=== PATIENT | male | born 1940 | race Caucasian/White ===

== ENCOUNTER 2018-06-13 17:15 | Inpatient (IN) | payer MEDICARE, BC, OTHER ==
[2018-06-13] MEDS ORDERED: CA CHLORIDE 10% 10 ML SYRINGE (17:24)
[2018-06-13] MEDS: ASPIRIN 81 MG TAB PO (17:29)
[2018-06-13 17:33] LABS: ADD MAN DIFF? NO
[2018-06-13] MEDS ORDERED: CA GLUCONATE (GM) 10% 10ML INJ (17:35)
[2018-06-13 17:36] LABS: WHITE BLOOD COUNT 19.2 10^3/ul (4.8-10.8)
[2018-06-13 17:36] LABS: ABNORMAL IP MESSAGE 1; BASOPHIL # 0.1 10^3/ul (0.0-0.1); BASOPHILS % 0.5 % (0.0-2.0); EOSINOPHILS # 0.2 10^3/ul (0.0-0.5); HEMATOCRIT 35.9 % (42.0-52.0); HEMOGLOBIN 11.2 g/dl (14.0-18.0); LYMPHOCYTES # 1.1 10^3/ul (0.8-2.9); LYMPHOCYTES % 5.5 % (15.0-51.0); MEAN CORPUSCULAR HEMOGLOBIN 30.4 pg (29.0-33.0); MEAN CORPUSCULAR HGB CONC 31.2 g/dl (32.0-37.0); MEAN CORPUSCULAR VOLUME 97.3 fl (82.0-101.0); MEAN PLATELET VOLUME 12.6 fl (7.4-10.4); MONOCYTE # 0.2 10^3/ul (0.3-0.9); NEUTROPHIL # 16.1 10^3/ul (1.6-7.5); NEUTROPHILS % 83.8 % (39.0-77.0); PLATELET COUNT 236 10^3/UL (140-415); POSITIVE DIFF @See below; RED BLOOD COUNT 3.69 10^6/ul (4.70-6.10); RED CELL DISTRIBUTION WIDTH 14.1 % (11.5-14.5)
[2018-06-13] MEDS: CA CHLORIDE 10% 10 ML SYRINGE IV (17:38)
[2018-06-13] MEDS: FUROSEMIDE 40 MG INJ IV (17:38)
[2018-06-13 17:56] LABS: ALANINE AMINOTRANSFERASE 26 IU/L (13-69); ALBUMIN 4.6 g/dl (3.3-4.9); ALBUMIN/GLOBULIN RATIO 1.43; ALKALINE PHOSPHATASE 103 IU/L (42-121); ANION GAP 17 (5-13); ASPARTATE AMINO TRANSFERASE 42 IU/L (15-46); BILIRUBIN,INDIRECT 1.4 mg/dl (0-1.1); BILIRUBIN,TOTAL 1.4 mg/dl (0.2-1.3); BLOOD UREA NITROGEN 62 mg/dl (7-20); CALCIUM 9.2 mg/dl (8.4-10.2); CARBON DIOXIDE 25 mmol/L (21-31); CHLORIDE 96 mmol/L (97-110); GLUCOSE 218 mg/dl (70-220); LIPASE 164 U/L (23-300); SODIUM 138 mmol/L (135-144); TOTAL PROTEIN 7.8 g/dl (6.1-8.1)
[2018-06-13 18:07] LABS: TROPONIN-I 0.116 ng/ml (0.000-0.120)
[2018-06-13] MEDS: CEFTRIAXONE 1 GM/50 ML (PMX) 50 ML IVPB (18:22)
[2018-06-13 18:40] LABS: ADD UMIC YES; UR ASCORBIC ACID 40 mg/dL (NEGATIVE); UR BILIRUBIN (Dip) NEGATIVE (NEGATIVE); UR BLOOD (Dip) 1+ mg/dL (NEGATIVE); UR CLARITY SLIGHTLY CLOUDY (CLEAR); UR COLOR YELLOW (YELLOW); UR GLUCOSE (Dip) 1+ mg/dL (NEGATIVE); UR KETONES (Dip) NEGATIVE (NEGATIVE); UR LEUKOCYTE ESTERASE (Dip) NEGATIVE Leu/ul (NEGATIVE); UR NITRITE (Dip) NEGATIVE (NEGATIVE); UR RBC 31 /HPF (0-5); UR SPECIFIC GRAVITY (Dip) 1.015 (1.003-1.030); UR SQUAMOUS EPITHELIAL CELL FEW /HPF (FEW); UR TOTAL PROTEIN (Dip) 2+ mg/dl (NEGATIVE); UR UROBILINOGEN (Dip) NEGATIVE (NEGATIVE); UR WBC 4 /HPF (0-5)
[2018-06-13] MEDS: ENALAPRILAT 1.25 MG INJ IV (19:09)
[2018-06-13 19:11] LABS: BAND NEUTROPHILS #M 1.3 10^3/ul (0.0-0.6); BAND NEUTROPHILS % (M) 7 % (0-4); BURR CELLS 2+ (0-0); EOSINOPHILS % (M) 1 % (0-7); LYMPHOCYTES #M 1.5 10^3/ul (0.8-2.9); LYMPHOCYTES % (M) 8 % (15-51); MONOCYTE #M 0.5 10^3/ul (0.3-0.9); MONOCYTES % (M) 3 % (0-11); MYELOCYTES #M 0.3 10^3/ul (0.0-0.0); MYELOCYTES % (M) 2 % (0-0); PLATELET ESTIMATE NORMAL; POIKILOCYTOSIS 2+ (0-0); POLYCHROMASIA 1+ (0-0); REACTIVE LYMPHOCYTES #M 0.1 10^3/ul (0.0-0.0); REACTIVE LYMPHOCYTES% (M) 1 % (0-0); SEG NEUT #M 15.2 10^3/ul (1.6-7.5); SEGMENTED NEUTROPHILS (M) % 78 % (39-77); SMUDGE%M 1 % (0-0)
[2018-06-13] MEDS: IBUPROFEN 600 MG TAB PO (19:15)
[2018-06-13] MEDS: AZITHROMYCIN 500MG/NS (PMX) 250 ML IVPB (19:20)
[2018-06-13] MEDS ORDERED: ZOLPIDEM 5 MG TAB PO (19:30)
[2018-06-13] MEDS ORDERED: NACL 0.9% 3 ML SYG IV (19:30)
[2018-06-13] MEDS ORDERED: GLUCOSE GEL 15 GRAM TUBE BUCCAL (20:00)
[2018-06-13] MEDS ORDERED: DEXTROSE 50% 50 ML SYRINGE IV ×2 (20:00)
[2018-06-13] MEDS ORDERED: LORAZEPAM 0.5 MG TAB PO (20:00)
[2018-06-13] MEDS ORDERED: GLUCAGON 1 MG INJ IM (20:00)
[2018-06-13] MEDS: LOSARTAN 25 MG TAB PO (20:00)
[2018-06-13] MEDS ORDERED: GLUCOSE GEL 15 GRAM TUBE PO ×2 (20:00)
[2018-06-13 20:54] LABS: AADO2 Arterial 143.5 mmHg (7.0-24.0); Arterial Blood Gas Oxygen Sat 98.2 mmHG (95.0-100.0); Arterial COHb 0.3 % (0.0-3.0); Arterial Fraction of Oxyhgb 97.6 % (93.0-99.0); Arterial HCO3 25.2 mmol/L (22.0-26.0); Arterial MetHb 0.3 % (0.0-1.5); Arterial Total Hemglobin 10.5 g/dl (12.0-18.0); Arterial pCO2 38.5 mmhg (35-45); MODE MASK - SIMPLE; Site Right Brachial
[2018-06-13 22:58] LABS: TROPONIN-I 0.109 ng/ml (0.000-0.120)
[2018-06-13] MEDS ORDERED: HEPARIN 5,000 UNIT/0.5 ML VIAL (23:51)
[2018-06-14] MEDS: ATORVASTATIN 20 MG TAB PO ×2 (00:10→20:37)
[2018-06-14] MEDS: GABAPENTIN 100 MG CAP PO ×3 (00:10→20:37)
[2018-06-14] MEDS: HEPARIN 5,000 UNIT/1 ML VIAL SC ×3 (00:13→21:49)
[2018-06-14] MEDS: INSULIN GLARGINE [LANTus] (100 UNITS/ML) SYG SC ×2 (00:14→21:48)
[2018-06-14] MEDS: HYDROCODONE/APAP (5/325) TAB PO (00:20)
[2018-06-14] MEDS: AMIODARONE 150MG/D5W BOLUS 100 ML IV (01:10)
[2018-06-14] MEDS: ACCU-CHEK XX (02:00)
[2018-06-14] MEDS: SOD CHLORIDE 0.9% 250 ML IV ×2 (02:24→04:03)
[2018-06-14] MEDS: HEPARIN 1000 UNITS/ML 10 ML INJ IV ×2 (03:30→05:08)
[2018-06-14] MEDS: SOD CHLORIDE 0.9% 500 ML IV (03:38)
[2018-06-14 04:06] LABS: ADD MAN DIFF? NO
[2018-06-14 04:25] LABS: HEPATITIS B SURFACE ANTIGEN NEGATIVE (NEGATIVE)
[2018-06-14 04:27] LABS: INR 1.44; PROTIME 17.8 Sec (11.9-14.9); PT RATIO 1.4
[2018-06-14 04:28] LABS: HEMOGLOBIN A1C 8.9 % (0-5.9)
[2018-06-14 04:28] LABS: PARTIAL THROMBOPLASTIN TIME 36.2 Sec (23.0-35.0)
[2018-06-14 04:29] LABS: IRON 11 ug/dl (35-150)
[2018-06-14 04:29] LABS: MAGNESIUM 2.3 mg/dl (1.7-2.5)
[2018-06-14 04:35] LABS: ALANINE AMINOTRANSFERASE 32 IU/L (13-69); ALBUMIN 3.2 g/dl (3.3-4.9); ALBUMIN/GLOBULIN RATIO 1.77; ALKALINE PHOSPHATASE 51 IU/L (42-121); ANION GAP 15 (5-13); ASPARTATE AMINO TRANSFERASE 20 IU/L (15-46); BILIRUBIN,INDIRECT 0.4 mg/dl (0-1.1); BILIRUBIN,TOTAL 0.4 mg/dl (0.2-1.3); BLOOD UREA NITROGEN 68 mg/dl (7-20); CALCIUM 8.5 mg/dl (8.4-10.2); CARBON DIOXIDE 24 mmol/L (21-31); CHLORIDE 100 mmol/L (97-110); CREATININE 7.11 mg/dl (0.61-1.24); GLUCOSE 243 mg/dl (70-220); PHOSPHORUS 7.2 mg/dl (2.5-4.9); POTASSIUM 4.7 mmol/L (3.5-5.1); SODIUM 139 mmol/L (135-144)
[2018-06-14 04:39] LABS: % IRON SATURATION 6 % SAT (22-52); TOTAL IRON BINDING CAPACITY 179 ug/dl (241-421)
[2018-06-14] MEDS: HEPARIN 25000 UNITS/250 ML 250 ML IV (05:16)
[2018-06-14] MEDS: PANTOPRAZOLE 40 MG INJ IV (05:33)
[2018-06-14 06:50] LABS: WHITE BLOOD COUNT 12.3 10^3/ul (4.8-10.8)
[2018-06-14 06:50] LABS: BASOPHIL # 0.1 10^3/ul (0.0-0.1); BASOPHILS % 0.4 % (0.0-2.0); EOSINOPHILS # 0.1 10^3/ul (0.0-0.5); EOSINOPHILS % 0.7 % (0.0-7.0); HEMATOCRIT 25.3 % (42.0-52.0); LYMPHOCYTES # 1.4 10^3/ul (0.8-2.9); LYMPHOCYTES % 11.7 % (15.0-51.0); MEAN CORPUSCULAR HEMOGLOBIN 30.8 pg (29.0-33.0); MEAN CORPUSCULAR HGB CONC 31.6 g/dl (32.0-37.0); MEAN CORPUSCULAR VOLUME 97.3 fl (82.0-101.0); MEAN PLATELET VOLUME 12.2 fl (7.4-10.4); MONOCYTE # 1.3 10^3/ul (0.3-0.9); MONOCYTES % 10.7 % (0.0-11.0); NEUTROPHILS % 73.4 % (39.0-77.0); PLATELET COUNT 165 10^3/UL (140-415)
[2018-06-14 07:16] LABS: ADD MAN DIFF? NO
[2018-06-14 07:33] LABS: WHITE BLOOD COUNT 11.6 10^3/ul (4.8-10.8)
[2018-06-14 07:33] LABS: BASOPHIL # 0.1 10^3/ul (0.0-0.1); BASOPHILS % 0.7 % (0.0-2.0); EOSINOPHILS # 0.2 10^3/ul (0.0-0.5); EOSINOPHILS % 2.1 % (0.0-7.0); HEMATOCRIT 26.9 % (42.0-52.0); HEMOGLOBIN 8.4 g/dl (14.0-18.0); LYMPHOCYTES # 1.6 10^3/ul (0.8-2.9); LYMPHOCYTES % 13.7 % (15.0-51.0); MEAN CORPUSCULAR HEMOGLOBIN 30.2 pg (29.0-33.0); MEAN CORPUSCULAR HGB CONC 31.2 g/dl (32.0-37.0); MEAN CORPUSCULAR VOLUME 96.8 fl (82.0-101.0); MEAN PLATELET VOLUME 12.3 fl (7.4-10.4); MONOCYTE # 1.1 10^3/ul (0.3-0.9); MONOCYTES % 9.3 % (0.0-11.0); NEUTROPHIL # 8.2 10^3/ul (1.6-7.5); NEUTROPHILS % 70.5 % (39.0-77.0); PLATELET COUNT 166 10^3/UL (140-415); RED BLOOD COUNT 2.78 10^6/ul (4.70-6.10)
[2018-06-14] MEDS: METOPROLOL 25 MG TAB PO ×2 (09:00→20:39)
[2018-06-14] MEDS: LOSARTAN 25 MG TAB PO (09:00)
[2018-06-14] MEDS: INSULIN ASPART [NOVOLOG] 3 ML PEN SC ×3 (09:22→19:11)
[2018-06-14] MEDS: MULTIVIT/CA CARB/B CMPLX/FA TAB PO (09:23)
[2018-06-14] MEDS: ASPIRIN 81 MG TAB PO (09:23)
[2018-06-14] MEDS: FEBUXOSTAT 40 MG TABLET PO (11:16)
[2018-06-14] MEDS: CALCITRIOL 0.25 MCG CAP PO (11:16)
[2018-06-14] MEDS: PRASUGREL HYDROCHLORIDE 10 MG TABLET PO (11:16)
[2018-06-14 12:32] LABS: PARTIAL THROMBOPLASTIN TIME 63.2 Sec (23.0-35.0)
[2018-06-14] MEDS: AMIODARONE 900 MG in DEXTROSE 5% 482 ML IV (13:25)
[2018-06-14] MEDS ORDERED: HEPARIN 5,000 UNIT/0.5 ML VIAL ×2 (13:42→19:55)
[2018-06-14] MEDS: HEPARIN 1000 UNITS/ML 10 ML INJ CATHETER (15:30)
[2018-06-14] MEDS: ALBUMIN HUMAN 25% 100 ML IV (15:51)
[2018-06-14] MEDS ORDERED: VANCOMYCIN IV PER PHARMACY XX (17:30)
[2018-06-14] MEDS: EPOETIN 10000 UNITS/1 ML INJ (ESRD) SC (19:05)
[2018-06-14] MEDS: VANCOMYCIN 1 GM 250 ML IVPB (20:06)
[2018-06-14] MEDS: SOD FERRIC GLUC COMPLX 125 MG in SOD CHLORIDE 0.9% 100 ML IVPB (20:35)
[2018-06-15] MEDS: ACCU-CHEK XX (02:00)
[2018-06-15 05:48] LABS: ADD MAN DIFF? NO
[2018-06-15] MEDS ORDERED: HEPARIN 5,000 UNIT/0.5 ML VIAL ×3 (05:48→21:50)
[2018-06-15] MEDS: PANTOPRAZOLE 40 MG INJ IV (05:53)
[2018-06-15] MEDS: HEPARIN 5,000 UNIT/1 ML VIAL SC ×3 (05:53→21:56)
[2018-06-15 05:59] LABS: BASOPHIL # 0.1 10^3/ul (0.0-0.1); BASOPHILS % 0.6 % (0.0-2.0); EOSINOPHILS # 0.4 10^3/ul (0.0-0.5); EOSINOPHILS % 4.6 % (0.0-7.0); HEMATOCRIT 25.1 % (42.0-52.0); LYMPHOCYTES # 1.3 10^3/ul (0.8-2.9); LYMPHOCYTES % 16.3 % (15.0-51.0); MEAN CORPUSCULAR HEMOGLOBIN 30.7 pg (29.0-33.0); MEAN CORPUSCULAR HGB CONC 31.9 g/dl (32.0-37.0); MEAN CORPUSCULAR VOLUME 96.2 fl (82.0-101.0); MEAN PLATELET VOLUME 12.5 fl (7.4-10.4); MONOCYTE # 1.4 10^3/ul (0.3-0.9); MONOCYTES % 17.7 % (0.0-11.0); NEUTROPHIL # 4.6 10^3/ul (1.6-7.5); NEUTROPHILS % 57.8 % (39.0-77.0); PLATELET COUNT 147 10^3/UL (140-415); RED BLOOD COUNT 2.61 10^6/ul (4.70-6.10); RED CELL DISTRIBUTION WIDTH 13.9 % (11.5-14.5)
[2018-06-15 06:25] LABS: ANION GAP 12 (5-13); BLOOD UREA NITROGEN 62 mg/dl (7-20); CALCIUM 8.6 mg/dl (8.4-10.2); CARBON DIOXIDE 25 mmol/L (21-31); CHLORIDE 100 mmol/L (97-110); CREATININE 6.64 mg/dl (0.61-1.24); GLUCOSE 229 mg/dl (70-220); PHOSPHORUS 6.4 mg/dl (2.5-4.9); POTASSIUM 4.7 mmol/L (3.5-5.1); SODIUM 137 mmol/L (135-144)
[2018-06-15] MEDS: INSULIN ASPART [NOVOLOG] 3 ML PEN SC ×4 (08:14→20:40)
[2018-06-15] MEDS: MULTIVIT/CA CARB/B CMPLX/FA TAB PO (08:59)
[2018-06-15] MEDS: GABAPENTIN 100 MG CAP PO ×2 (08:59→20:42)
[2018-06-15] MEDS: ASPIRIN 81 MG TAB PO (08:59)
[2018-06-15] MEDS: METOPROLOL 25 MG TAB PO (09:00)
[2018-06-15] MEDS: CALCITRIOL 0.25 MCG CAP PO (09:01)
[2018-06-15] MEDS: PRASUGREL HYDROCHLORIDE 10 MG TABLET PO (09:01)
[2018-06-15] MEDS: LOSARTAN 25 MG TAB PO (09:08)
[2018-06-15] MEDS: FEBUXOSTAT 40 MG TABLET PO (09:08)
[2018-06-15] MEDS: CALCIUM ACETATE 667 MG CAP PO ×2 (12:59→20:41)
[2018-06-15] MEDS: SOD FERRIC GLUC COMPLX 125 MG in SOD CHLORIDE 0.9% 100 ML IVPB (16:46)
[2018-06-15] MEDS: HEPARIN 1000 UNITS/ML 10 ML INJ CATHETER (20:09)
[2018-06-15] MEDS: INSULIN GLARGINE [LANTus] (100 UNITS/ML) SYG SC (20:41)
[2018-06-15] MEDS: AMIODARONE 200 MG TAB PO (20:42)
[2018-06-15] MEDS: ATORVASTATIN 20 MG TAB PO (20:42)
[2018-06-16] MEDS: ACCU-CHEK XX (02:13)
[2018-06-16] MEDS ORDERED: HEPARIN 5,000 UNIT/0.5 ML VIAL (05:00)
[2018-06-16] MEDS: PANTOPRAZOLE 40 MG INJ IV (05:05)
[2018-06-16] MEDS: HEPARIN 5,000 UNIT/1 ML VIAL SC (05:12)
[2018-06-16 06:12] LABS: ADD MAN DIFF? NO
[2018-06-16 06:22] LABS: ABNORMAL IP MESSAGE 1; BASOPHIL # 0.1 10^3/ul (0.0-0.1); BASOPHILS % 1.3 % (0.0-2.0); EOSINOPHILS # 0.3 10^3/ul (0.0-0.5); EOSINOPHILS % 3.1 % (0.0-7.0); HEMOGLOBIN 8.7 g/dl (14.0-18.0); LYMPHOCYTES # 1.6 10^3/ul (0.8-2.9); LYMPHOCYTES % 15.5 % (15.0-51.0); MEAN CORPUSCULAR HEMOGLOBIN 30.6 pg (29.0-33.0); MEAN CORPUSCULAR HGB CONC 32.2 g/dl (32.0-37.0); MEAN CORPUSCULAR VOLUME 95.1 fl (82.0-101.0); MEAN PLATELET VOLUME 12.8 fl (7.4-10.4); MONOCYTE # 2.2 10^3/ul (0.3-0.9); MONOCYTES % 21.2 % (0.0-11.0); NEUTROPHIL # 5.9 10^3/ul (1.6-7.5); NEUTROPHILS % 56.9 % (39.0-77.0); PLATELET COUNT 160 10^3/UL (140-415); POSITIVE DIFF @See below; RED BLOOD COUNT 2.84 10^6/ul (4.70-6.10); RED CELL DISTRIBUTION WIDTH 13.9 % (11.5-14.5)
[2018-06-16 06:22] LABS: WHITE BLOOD COUNT 10.4 10^3/ul (4.8-10.8)
[2018-06-16 07:09] LABS: ANION GAP 12 (5-13); BLOOD UREA NITROGEN 45 mg/dl (7-20); CARBON DIOXIDE 26 mmol/L (21-31); CHLORIDE 101 mmol/L (97-110); CREATININE 5.86 mg/dl (0.61-1.24); GLUCOSE 126 mg/dl (70-220); POTASSIUM 3.9 mmol/L (3.5-5.1); SODIUM 139 mmol/L (135-144)
[2018-06-16] MEDS: INSULIN ASPART [NOVOLOG] 3 ML PEN SC ×3 (07:25→17:44)
[2018-06-16] MEDS: CALCIUM ACETATE 667 MG CAP PO ×3 (07:55→17:29)
[2018-06-16] MEDS: LOSARTAN 25 MG TAB PO (08:30)
[2018-06-16] MEDS: ALBUMIN HUMAN 25% 100 ML IV ×2 (09:34→10:58)
[2018-06-16] MEDS: HEPARIN 1000 UNITS/ML 10 ML INJ CATHETER (12:08)
[2018-06-16] MEDS: PRASUGREL HYDROCHLORIDE 10 MG TABLET PO (12:10)
[2018-06-16] MEDS: AMIODARONE 200 MG TAB PO ×2 (12:10→20:58)
[2018-06-16] MEDS: CALCITRIOL 0.25 MCG CAP PO (12:10)
[2018-06-16] MEDS: FEBUXOSTAT 40 MG TABLET PO (12:10)
[2018-06-16] MEDS: GABAPENTIN 100 MG CAP PO ×2 (12:10→20:59)
[2018-06-16] MEDS: ASPIRIN 81 MG TAB PO (12:10)
[2018-06-16] MEDS: MULTIVIT/CA CARB/B CMPLX/FA TAB PO (12:11)
[2018-06-16] MEDS: PANTOPRAZOLE (EC) 40 MG TAB PO (12:27)
[2018-06-16 15:32] LABS: INR 1.23; PROTIME 15.7 Sec (11.9-14.9); PT RATIO 1.2
[2018-06-16 15:33] LABS: PARTIAL THROMBOPLASTIN TIME 34.9 Sec (23.0-35.0)
[2018-06-16] MEDS: SOD FERRIC GLUC COMPLX 125 MG in SOD CHLORIDE 0.9% 100 ML IVPB (16:31)
[2018-06-16] MEDS: EPOETIN 10000 UNITS/1 ML INJ (ESRD) SC (16:31)
[2018-06-16] MEDS: ATORVASTATIN 20 MG TAB PO (20:59)
[2018-06-16] MEDS: INSULIN GLARGINE [LANTus] (100 UNITS/ML) SYG SC (21:09)
[2018-06-17] MEDS: ACCU-CHEK XX (02:00)
[2018-06-17] MEDS: PANTOPRAZOLE (EC) 40 MG TAB PO (05:51)
[2018-06-17 06:10] LABS: ADD MAN DIFF? NO
[2018-06-17 06:19] LABS: ABNORMAL IP MESSAGE 1; BASOPHIL # 0.1 10^3/ul (0.0-0.1); BASOPHILS % 0.7 % (0.0-2.0); EOSINOPHILS # 0.3 10^3/ul (0.0-0.5); EOSINOPHILS % 2.3 % (0.0-7.0); HEMATOCRIT 26.7 % (42.0-52.0); HEMOGLOBIN 8.4 g/dl (14.0-18.0); LYMPHOCYTES # 1.3 10^3/ul (0.8-2.9); LYMPHOCYTES % 11.9 % (15.0-51.0); MEAN CORPUSCULAR HEMOGLOBIN 29.9 pg (29.0-33.0); MEAN CORPUSCULAR HGB CONC 31.5 g/dl (32.0-37.0); MEAN PLATELET VOLUME 12.5 fl (7.4-10.4); MONOCYTE # 2.3 10^3/ul (0.3-0.9); MONOCYTES % 20.8 % (0.0-11.0); NEUTROPHIL # 6.8 10^3/ul (1.6-7.5); NEUTROPHILS % 62.2 % (39.0-77.0); PLATELET COUNT 143 10^3/UL (140-415); POSITIVE DIFF @See below; RED BLOOD COUNT 2.81 10^6/ul (4.70-6.10); RED CELL DISTRIBUTION WIDTH 13.7 % (11.5-14.5)
[2018-06-17 06:42] LABS: ANION GAP 15 (5-13); BLOOD UREA NITROGEN 34 mg/dl (7-20); CALCIUM 9.2 mg/dl (8.4-10.2); CARBON DIOXIDE 27 mmol/L (21-31); CHLORIDE 98 mmol/L (97-110); CREATININE 5.48 mg/dl (0.61-1.24); GLUCOSE 154 mg/dl (70-220); POTASSIUM 4.1 mmol/L (3.5-5.1); SODIUM 140 mmol/L (135-144)
[2018-06-17] MEDS: INSULIN ASPART [NOVOLOG] 3 ML PEN SC ×3 (07:49→18:19)
[2018-06-17] MEDS: LOSARTAN 25 MG TAB PO (09:00)
[2018-06-17] MEDS: AMIODARONE 200 MG TAB PO ×2 (09:00→20:20)
[2018-06-17] MEDS: CALCITRIOL 0.25 MCG CAP PO (09:14)
[2018-06-17] MEDS: GABAPENTIN 100 MG CAP PO ×2 (09:14→20:21)
[2018-06-17] MEDS: FEBUXOSTAT 40 MG TABLET PO (09:14)
[2018-06-17] MEDS: MULTIVIT/CA CARB/B CMPLX/FA TAB PO (09:14)
[2018-06-17] MEDS: ASPIRIN 81 MG TAB PO (09:14)
[2018-06-17] MEDS: CALCIUM ACETATE 667 MG CAP PO ×3 (09:14→17:38)
[2018-06-17] MEDS: PRASUGREL HYDROCHLORIDE 10 MG TABLET PO (09:14)
[2018-06-17] MEDS: ALBUMIN HUMAN 25% 100 ML IV ×2 (09:43→10:37)
[2018-06-17] MEDS ORDERED: HEPARIN 1000 UNITS/ML 10 ML INJ (12:30)
[2018-06-17] MEDS: HEPARIN 1000 UNITS/ML 10 ML INJ CATHETER (12:34)
[2018-06-17] MEDS: SOD FERRIC GLUC COMPLX 125 MG in SOD CHLORIDE 0.9% 100 ML IVPB (17:38)
[2018-06-17] MEDS: ATORVASTATIN 20 MG TAB PO (20:21)
[2018-06-17] MEDS: ACETAMINOPHEN 325 MG TAB PO (20:26)
[2018-06-17] MEDS: INSULIN GLARGINE [LANTus] (100 UNITS/ML) SYG SC (20:38)
[2018-06-18] MEDS: ACCU-CHEK XX (02:00)
[2018-06-18] MEDS: PANTOPRAZOLE (EC) 40 MG TAB PO (05:26)
[2018-06-18] MEDS: INSULIN ASPART [NOVOLOG] 3 ML PEN SC ×3 (07:35→17:35)
[2018-06-18] MEDS: MULTIVIT/CA CARB/B CMPLX/FA TAB PO (08:53)
[2018-06-18] MEDS: ASPIRIN 81 MG TAB PO (08:53)
[2018-06-18] MEDS: CALCITRIOL 0.25 MCG CAP PO (08:53)
[2018-06-18] MEDS: CALCIUM ACETATE 667 MG CAP PO ×3 (08:53→17:32)
[2018-06-18] MEDS: FEBUXOSTAT 40 MG TABLET PO (08:53)
[2018-06-18] MEDS: GABAPENTIN 100 MG CAP PO ×2 (08:53→20:46)
[2018-06-18] MEDS: AMIODARONE 200 MG TAB PO ×2 (08:55→21:00)
[2018-06-18] MEDS: PRASUGREL HYDROCHLORIDE 10 MG TABLET PO (09:51)
[2018-06-18] MEDS: HEPARIN 1000 UNITS/ML 10 ML INJ CATHETER (16:04)
[2018-06-18] MEDS: SOD FERRIC GLUC COMPLX 125 MG in SOD CHLORIDE 0.9% 100 ML IVPB (17:24)
[2018-06-18] MEDS: ACETAMINOPHEN 325 MG TAB PO (17:32)
[2018-06-18 18:21] LABS: ADD MAN DIFF? NO
[2018-06-18 18:22] LABS: WHITE BLOOD COUNT 21.7 10^3/ul (4.8-10.8)
[2018-06-18 18:22] LABS: ABNORMAL IP MESSAGE 1; BASOPHIL # 0.1 10^3/ul (0.0-0.1); BASOPHILS % 0.5 % (0.0-2.0); EOSINOPHILS # 0.1 10^3/ul (0.0-0.5); EOSINOPHILS % 0.3 % (0.0-7.0); HEMOGLOBIN 9.2 g/dl (14.0-18.0); LYMPHOCYTES # 1.1 10^3/ul (0.8-2.9); LYMPHOCYTES % 4.9 % (15.0-51.0); MEAN CORPUSCULAR HEMOGLOBIN 30.1 pg (29.0-33.0); MEAN CORPUSCULAR HGB CONC 31.7 g/dl (32.0-37.0); MEAN CORPUSCULAR VOLUME 94.8 fl (82.0-101.0); MEAN PLATELET VOLUME 12.3 fl (7.4-10.4); MONOCYTE # 2.8 10^3/ul (0.3-0.9); MONOCYTES % 13.1 % (0.0-11.0); NEUTROPHIL # 17.1 10^3/ul (1.6-7.5); NEUTROPHILS % 78.4 % (39.0-77.0); NUCLEATED RED BLOOD CELLS% 0.1 /100WBC (0.0-0.0); PLATELET COUNT 136 10^3/UL (140-415); POSITIVE DIFF @See below; RED BLOOD COUNT 3.06 10^6/ul (4.70-6.10); RED CELL DISTRIBUTION WIDTH 13.7 % (11.5-14.5)
[2018-06-18] MEDS: PIPER-TAZO 2.25 GM (PMX) 50 ML IVPB (18:59)
[2018-06-18] MEDS: ATORVASTATIN 20 MG TAB PO (20:46)
[2018-06-18] MEDS: VANCOMYCIN 1 GM (PMX) 250 ML IVPB (20:51)
[2018-06-18] MEDS: INSULIN GLARGINE [LANTus] (100 UNITS/ML) SYG SC (21:04)
[2018-06-19] MEDS: PIPER-TAZO 2.25 GM (PMX) 50 ML IVPB ×4 (00:52→22:04)
[2018-06-19] MEDS: ACCU-CHEK XX (02:00)
[2018-06-19] MEDS: PANTOPRAZOLE (EC) 40 MG TAB PO (05:04)
[2018-06-19 05:38] LABS: ADD MAN DIFF? NO
[2018-06-19 05:44] LABS: ABNORMAL IP MESSAGE 1; BASOPHIL # 0.1 10^3/ul (0.0-0.1); BASOPHILS % 0.9 % (0.0-2.0); EOSINOPHILS # 0.2 10^3/ul (0.0-0.5); EOSINOPHILS % 1.5 % (0.0-7.0); HEMATOCRIT 28.8 % (42.0-52.0); HEMOGLOBIN 9.1 g/dl (14.0-18.0); LYMPHOCYTES # 1.1 10^3/ul (0.8-2.9); LYMPHOCYTES % 6.6 % (15.0-51.0); MEAN CORPUSCULAR HEMOGLOBIN 30.4 pg (29.0-33.0); MEAN CORPUSCULAR HGB CONC 31.6 g/dl (32.0-37.0); MEAN CORPUSCULAR VOLUME 96.3 fl (82.0-101.0); MEAN PLATELET VOLUME 12.6 fl (7.4-10.4); MONOCYTE # 2.1 10^3/ul (0.3-0.9); MONOCYTES % 12.6 % (0.0-11.0); NEUTROPHIL # 12.2 10^3/ul (1.6-7.5); NEUTROPHILS % 74.4 % (39.0-77.0); NUCLEATED RED BLOOD CELLS% 0.1 /100WBC (0.0-0.0); PLATELET COUNT 139 10^3/UL (140-415); POSITIVE DIFF @See below; RED BLOOD COUNT 2.99 10^6/ul (4.70-6.10); RED CELL DISTRIBUTION WIDTH 13.9 % (11.5-14.5)
[2018-06-19 05:44] LABS: WHITE BLOOD COUNT 16.3 10^3/ul (4.8-10.8)
[2018-06-19 06:31] LABS: ALANINE AMINOTRANSFERASE 20 IU/L (13-69); ALBUMIN 4.3 g/dl (3.3-4.9); ALBUMIN/GLOBULIN RATIO 1.65; ALKALINE PHOSPHATASE 76 IU/L (42-121); ANION GAP 17 (5-13); ASPARTATE AMINO TRANSFERASE 28 IU/L (15-46); BILIRUBIN,INDIRECT 0.9 mg/dl (0-1.1); BILIRUBIN,TOTAL 0.9 mg/dl (0.2-1.3); BLOOD UREA NITROGEN 41 mg/dl (7-20); CALCIUM 9.6 mg/dl (8.4-10.2); CARBON DIOXIDE 26 mmol/L (21-31); CHLORIDE 95 mmol/L (97-110); CREATININE 6.25 mg/dl (0.61-1.24); GLUCOSE 220 mg/dl (70-220); POTASSIUM 4.8 mmol/L (3.5-5.1); SODIUM 138 mmol/L (135-144); TOTAL PROTEIN 6.9 g/dl (6.1-8.1)
[2018-06-19] MEDS ORDERED: AMIODARONE 900 MG in DEXTROSE 5% 482 ML IV (07:54)
[2018-06-19] MEDS ORDERED: HEPARIN 5,000 UNIT/1 ML VIAL SC (08:00)
[2018-06-19] MEDS ORDERED: VANCOMYCIN IV PER PHARMACY XX (08:00)
[2018-06-19] MEDS: CALCITRIOL 0.25 MCG CAP PO (08:09)
[2018-06-19] MEDS: CALCIUM ACETATE 667 MG CAP PO ×3 (08:09→17:31)
[2018-06-19] MEDS: FEBUXOSTAT 40 MG TABLET PO (08:09)
[2018-06-19] MEDS: GABAPENTIN 100 MG CAP PO ×2 (08:09→20:28)
[2018-06-19] MEDS: INSULIN ASPART [NOVOLOG] 3 ML PEN SC ×4 (08:17→21:00)
[2018-06-19] MEDS: ASPIRIN 81 MG TAB PO (08:18)
[2018-06-19] MEDS: MULTIVIT/CA CARB/B CMPLX/FA TAB PO (08:22)
[2018-06-19] MEDS: PRASUGREL HYDROCHLORIDE 10 MG TABLET PO (08:22)
[2018-06-19] MEDS: AMIODARONE 200 MG TAB PO ×2 (08:23→20:27)
[2018-06-19] MEDS ORDERED: SOD FERRIC GLUC COMPLX 125 MG in SOD CHLORIDE 0.9% 100 ML IVPB (17:00)
[2018-06-19] MEDS: EPOETIN 10000 UNITS/1 ML INJ (ESRD) SC (17:42)
[2018-06-19] MEDS: ATORVASTATIN 20 MG TAB PO (20:28)
[2018-06-19] MEDS: INSULIN GLARGINE [LANTus] (100 UNITS/ML) SYG SC (20:45)
[2018-06-19] MEDS: ACETAMINOPHEN 325 MG TAB PO (22:04)
[2018-06-20] MEDS: ACCU-CHEK XX ×4 (03:00→21:30)
[2018-06-20] MEDS: PIPER-TAZO 2.25 GM (PMX) 50 ML IVPB ×3 (05:51→21:30)
[2018-06-20] MEDS: PANTOPRAZOLE (EC) 40 MG TAB PO (05:51)
[2018-06-20 06:11] LABS: VANCOMYCIN,RANDOM 14.9 ug/ml
[2018-06-20 08:46] LABS: ADD MAN DIFF? NO
[2018-06-20 08:48] LABS: WHITE BLOOD COUNT 13.1 10^3/ul (4.8-10.8)
[2018-06-20 08:48] LABS: ABNORMAL IP MESSAGE 1; BASOPHIL # 0.1 10^3/ul (0.0-0.1); EOSINOPHILS # 0.4 10^3/ul (0.0-0.5); EOSINOPHILS % 2.8 % (0.0-7.0); HEMATOCRIT 28.5 % (42.0-52.0); LYMPHOCYTES # 1.1 10^3/ul (0.8-2.9); MEAN CORPUSCULAR HEMOGLOBIN 30.3 pg (29.0-33.0); MEAN CORPUSCULAR HGB CONC 31.6 g/dl (32.0-37.0); MEAN PLATELET VOLUME 12.4 fl (7.4-10.4); MONOCYTE # 1.7 10^3/ul (0.3-0.9); MONOCYTES % 12.9 % (0.0-11.0); NEUTROPHIL # 9.2 10^3/ul (1.6-7.5); NEUTROPHILS % 70.5 % (39.0-77.0); PLATELET COUNT 154 10^3/UL (140-415); POSITIVE DIFF @See below; RED BLOOD COUNT 2.97 10^6/ul (4.70-6.10); RED CELL DISTRIBUTION WIDTH 14.3 % (11.5-14.5)
[2018-06-20] MEDS: PRASUGREL HYDROCHLORIDE 10 MG TABLET PO (08:57)
[2018-06-20] MEDS: CALCITRIOL 0.25 MCG CAP PO (08:58)
[2018-06-20] MEDS: ASPIRIN 81 MG TAB PO (08:58)
[2018-06-20] MEDS: GABAPENTIN 100 MG CAP PO ×2 (08:58→20:12)
[2018-06-20] MEDS: MULTIVIT/CA CARB/B CMPLX/FA TAB PO (08:59)
[2018-06-20] MEDS: FEBUXOSTAT 40 MG TABLET PO (08:59)
[2018-06-20] MEDS: AMIODARONE 200 MG TAB PO ×2 (09:00→20:13)
[2018-06-20] MEDS: CALCIUM ACETATE 667 MG CAP PO ×3 (09:02→17:55)
[2018-06-20] MEDS: SOD CHLORIDE 0.9% 250 ML IV (09:02)
[2018-06-20 09:05] LABS: ALANINE AMINOTRANSFERASE 27 IU/L (13-69); ALBUMIN/GLOBULIN RATIO 1.81; ALKALINE PHOSPHATASE 77 IU/L (42-121); ANION GAP 19 (5-13); ASPARTATE AMINO TRANSFERASE 70 IU/L (15-46); BILIRUBIN,INDIRECT 0.3 mg/dl (0-1.1); BILIRUBIN,TOTAL 0.3 mg/dl (0.2-1.3); BLOOD UREA NITROGEN 57 mg/dl (7-20); CALCIUM 9.1 mg/dl (8.4-10.2); CARBON DIOXIDE 21 mmol/L (21-31); CHLORIDE 95 mmol/L (97-110); CREATININE 8.36 mg/dl (0.61-1.24); GLUCOSE 241 mg/dl (70-220); POTASSIUM 4.6 mmol/L (3.5-5.1); SODIUM 135 mmol/L (135-144); TOTAL PROTEIN 6.2 g/dl (6.1-8.1)
[2018-06-20] MEDS: INSULIN ASPART [NOVOLOG] 3 ML PEN SC ×5 (09:14→18:00)
[2018-06-20] MEDS: LINAGLIPTIN 5 MG TABLET PO (12:04)
[2018-06-20] MEDS: ATORVASTATIN 20 MG TAB PO (20:13)
[2018-06-20] MEDS: INSULIN GLARGINE [LANTus] (100 UNITS/ML) SYG SC (20:30)
[2018-06-20] MEDS: VANCOMYCIN 750 MG in SOD CHLORIDE 0.9% 150 ML IVPB (22:37)
[2018-06-21] MEDS: ACCU-CHEK XX ×5 (02:17→21:13)
[2018-06-21] MEDS ORDERED: SOD CHLORIDE 0.9% 250 ML IV (05:00)
[2018-06-21] MEDS: PIPER-TAZO 2.25 GM (PMX) 50 ML IVPB ×2 (05:28→18:19)
[2018-06-21] MEDS: PANTOPRAZOLE (EC) 40 MG TAB PO (05:28)
[2018-06-21] MEDS: INSULIN ASPART [NOVOLOG] 3 ML PEN SC ×6 (08:14→18:23)
[2018-06-21] MEDS: CALCIUM ACETATE 667 MG CAP PO ×3 (08:17→18:24)
[2018-06-21] MEDS: MULTIVIT/CA CARB/B CMPLX/FA TAB PO (08:17)
[2018-06-21] MEDS: ASPIRIN 81 MG TAB PO (08:18)
[2018-06-21] MEDS: AMIODARONE 200 MG TAB PO (08:19)
[2018-06-21] MEDS: GABAPENTIN 100 MG CAP PO ×2 (08:19→21:12)
[2018-06-21] MEDS: LINAGLIPTIN 5 MG TABLET PO (08:19)
[2018-06-21] MEDS: CALCITRIOL 0.25 MCG CAP PO (08:19)
[2018-06-21] MEDS: PRASUGREL HYDROCHLORIDE 10 MG TABLET PO (08:19)
[2018-06-21] MEDS: FEBUXOSTAT 40 MG TABLET PO (08:20)
[2018-06-21] MEDS: ONDANSETRON 4 MG INJ IV (08:24)
[2018-06-21] MEDS: ALBUMIN HUMAN 25% 100 ML IV ×2 (10:58→16:58)
[2018-06-21] MEDS: SOD CHLORIDE 0.9% 250 ML IV (10:58)
[2018-06-21] MEDS: HEPARIN 1000 UNITS/ML 10 ML INJ CATHETER (12:05)
[2018-06-21 12:30] LABS: ABNORMAL IP MESSAGE 1; HEMATOCRIT 26.1 % (42.0-52.0); HEMOGLOBIN 8.3 g/dl (14.0-18.0); MEAN CORPUSCULAR HEMOGLOBIN 30.2 pg (29.0-33.0); MEAN CORPUSCULAR HGB CONC 31.8 g/dl (32.0-37.0); MEAN CORPUSCULAR VOLUME 94.9 fl (82.0-101.0); MEAN PLATELET VOLUME 12.6 fl (7.4-10.4); PLATELET COUNT 158 10^3/UL (140-415); POSITIVE DIFF @See below; RED BLOOD COUNT 2.75 10^6/ul (4.70-6.10); RED CELL DISTRIBUTION WIDTH 14.4 % (11.5-14.5)
[2018-06-21 12:30] LABS: WHITE BLOOD COUNT 15.9 10^3/ul (4.8-10.8)
[2018-06-21 12:34] LABS: ADD MAN DIFF? YES
[2018-06-21 12:56] LABS: AMMONIA < 9 umol/l (9-30)
[2018-06-21 13:05] LABS: BAND NEUTROPHILS #M 1.2 10^3/ul (0.0-0.6); BAND NEUTROPHILS % (M) 8 % (0-4); BASOPHIL #M 0.4 10^3/ul (0.0-0.0); BASOPHILS % (M) 3 % (0-2); EOSINOPHILS % (M) 3 % (0-7); GIANT THROMBO% (M) 2 % (0-0); LYMPHOCYTES #M 1.4 10^3/ul (0.8-2.9); LYMPHOCYTES % (M) 9 % (15-51); METAMYELOCYTES #M 0.1 10^3/ul (0.0-0.0); METAMYELOCYTES %M 1 % (0-0); MONOCYTE #M 1.4 10^3/ul (0.3-0.9); MONOCYTES % (M) 9 % (0-11); MYELOCYTES #M 0.1 10^3/ul (0.0-0.0); MYELOCYTES % (M) 1 % (0-0); OVALOCYTES 1+ (0-0); PLATELET ESTIMATE NORMAL; POLYCHROMASIA 1+ (0-0); REACTIVE LYMPHOCYTES #M 0.1 10^3/ul (0.0-0.0); REACTIVE LYMPHOCYTES% (M) 1 % (0-0); SEG NEUT #M 10.5 10^3/ul (1.6-7.5); SEGMENTED NEUTROPHILS (M) % 65 % (39-77); SMUDGE%M 4 % (0-0)
[2018-06-21 13:07] LABS: ANION GAP 17 (5-13); BLOOD UREA NITROGEN 69 mg/dl (7-20); CALCIUM 9.4 mg/dl (8.4-10.2); CARBON DIOXIDE 24 mmol/L (21-31); CHLORIDE 94 mmol/L (97-110); CREATININE 9.26 mg/dl (0.61-1.24); GLUCOSE 127 mg/dl (70-220); SODIUM 135 mmol/L (135-144)
[2018-06-21] MEDS ORDERED: DOPamine 1,600 MG in DEXTROSE 5% 210 ML IV (13:30)
[2018-06-21] MEDS: SOD CHLORIDE 0.9% 1,000 ML IV (15:30)
[2018-06-21] MEDS ORDERED: AMIODARONE 150 MG INJ IV (16:36)
[2018-06-21] MEDS ORDERED: AMIODARONE 150MG/D5W BOLUS 100 ML (16:40)
[2018-06-21] MEDS ORDERED: PHENYLephrine 40 MG in DEXTROSE 5% 496 ML IV (17:00)
[2018-06-21] MEDS: AMIODARONE 900 MG in DEXTROSE 5% 482 ML IV (17:12)
[2018-06-21] MEDS: AMIODARONE 150MG/D5W BOLUS 100 ML IV (17:34)
[2018-06-21] MEDS: EPOETIN 10000 UNITS/1 ML INJ (ESRD) SC (18:19)
[2018-06-21] MEDS: ACETAMINOPHEN 325 MG TAB PO (18:34)
[2018-06-21] MEDS ORDERED: LORAZEPAM 2 MG INJ IV (20:00)
[2018-06-21 20:44] LABS: MAGNESIUM 2.3 mg/dl (1.7-2.5)
[2018-06-21] MEDS: ATORVASTATIN 20 MG TAB PO (21:12)
[2018-06-21] MEDS: INSULIN GLARGINE [LANTus] (100 UNITS/ML) SYG SC (21:15)
[2018-06-21] MEDS: CASPOFUNGIN 70 MG in SOD CHLORIDE 0.9% 250 ML IVPB (21:25)
[2018-06-21] MEDS: MEROPENEM 500MG/50 ML (PMX) 50 ML IVPB (21:26)
[2018-06-22] MEDS: ACETAMINOPHEN 325 MG TAB PO ×3 (00:34→18:15)
[2018-06-22] MEDS: ACCU-CHEK XX ×5 (02:00→21:31)
[2018-06-22] MEDS: PANTOPRAZOLE (EC) 40 MG TAB PO (06:00)
[2018-06-22] MEDS: PRASUGREL HYDROCHLORIDE 10 MG TABLET PO (08:25)
[2018-06-22] MEDS: LINAGLIPTIN 5 MG TABLET PO (08:25)
[2018-06-22] MEDS: MULTIVIT/CA CARB/B CMPLX/FA TAB PO (08:25)
[2018-06-22] MEDS: GABAPENTIN 100 MG CAP PO ×2 (08:25→21:32)
[2018-06-22] MEDS: CALCITRIOL 0.25 MCG CAP PO (08:29)
[2018-06-22] MEDS: AMIODARONE 200 MG TAB PO (08:30)
[2018-06-22] MEDS: ASPIRIN 81 MG TAB PO (08:31)
[2018-06-22] MEDS: CALCIUM ACETATE 667 MG CAP PO ×3 (08:31→17:43)
[2018-06-22] MEDS: INSULIN ASPART [NOVOLOG] 3 ML PEN SC ×6 (10:00→17:33)
[2018-06-22 10:17] LABS: ADD MAN DIFF? NO
[2018-06-22 10:23] LABS: WHITE BLOOD COUNT 10.5 10^3/ul (4.8-10.8)
[2018-06-22 10:23] LABS: ABNORMAL IP MESSAGE 1; BASOPHIL # 0.1 10^3/ul (0.0-0.1); BASOPHILS % 0.7 % (0.0-2.0); EOSINOPHILS # 0.5 10^3/ul (0.0-0.5); HEMATOCRIT 25.6 % (42.0-52.0); HEMOGLOBIN 8.1 g/dl (14.0-18.0); LYMPHOCYTES # 0.5 10^3/ul (0.8-2.9); LYMPHOCYTES % 4.9 % (15.0-51.0); MEAN CORPUSCULAR HEMOGLOBIN 30.2 pg (29.0-33.0); MEAN CORPUSCULAR HGB CONC 31.6 g/dl (32.0-37.0); MEAN CORPUSCULAR VOLUME 95.5 fl (82.0-101.0); MEAN PLATELET VOLUME 12.4 fl (7.4-10.4); MONOCYTE # 1.7 10^3/ul (0.3-0.9); NEUTROPHIL # 7.2 10^3/ul (1.6-7.5); NEUTROPHILS % 68.4 % (39.0-77.0); PLATELET COUNT 162 10^3/UL (140-415); POSITIVE DIFF @See below; RED BLOOD COUNT 2.68 10^6/ul (4.70-6.10); RED CELL DISTRIBUTION WIDTH 14.4 % (11.5-14.5)
[2018-06-22] MEDS: ALBUMIN HUMAN 25% 100 ML IV ×2 (10:37→11:46)
[2018-06-22 10:42] LABS: ALANINE AMINOTRANSFERASE 57 IU/L (13-69); ALBUMIN 3.7 g/dl (3.3-4.9); ALBUMIN/GLOBULIN RATIO 1.42; ALKALINE PHOSPHATASE 100 IU/L (42-121); ANION GAP 16 (5-13); ASPARTATE AMINO TRANSFERASE 65 IU/L (15-46); BILIRUBIN,INDIRECT 0.4 mg/dl (0-1.1); BILIRUBIN,TOTAL 0.4 mg/dl (0.2-1.3); BLOOD UREA NITROGEN 40 mg/dl (7-20); CALCIUM 8.9 mg/dl (8.4-10.2); CARBON DIOXIDE 25 mmol/L (21-31); CHLORIDE 96 mmol/L (97-110); CREATININE 6.63 mg/dl (0.61-1.24); GLUCOSE 215 mg/dl (70-220); MAGNESIUM 2.1 mg/dl (1.7-2.5); PHOSPHORUS 5.1 mg/dl (2.5-4.9); POTASSIUM 4.4 mmol/L (3.5-5.1); SODIUM 137 mmol/L (135-144); TOTAL PROTEIN 6.3 g/dl (6.1-8.1)
[2018-06-22] MEDS: FEBUXOSTAT 40 MG TABLET PO (11:39)
[2018-06-22] MEDS: HEPARIN 1000 UNITS/ML 10 ML INJ CATHETER (13:22)
[2018-06-22] MEDS: LIDOCAINE 1% (MPF) 5 ML VIAL SC (14:07)
[2018-06-22] MEDS: CASPOFUNGIN 50 MG in SOD CHLORIDE 0.9% 250 ML IVPB (20:57)
[2018-06-22] MEDS: MEROPENEM 500MG/50 ML (PMX) 50 ML IVPB (20:57)
[2018-06-22] MEDS: AMIODARONE 900 MG in DEXTROSE 5% 482 ML IV (20:58)
[2018-06-22] MEDS: ATORVASTATIN 20 MG TAB PO (21:32)
[2018-06-22] MEDS: INSULIN GLARGINE [LANTus] (100 UNITS/ML) SYG SC (21:33)
[2018-06-23] MEDS: VANCOMYCIN 750 MG in SOD CHLORIDE 0.9% 150 ML IVPB (00:37)
[2018-06-23] MEDS: ACCU-CHEK XX ×5 (02:43→20:48)
[2018-06-23] MEDS: PANTOPRAZOLE (EC) 40 MG TAB PO (06:05)
[2018-06-23 06:58] LABS: VANCOMYCIN,RANDOM 13.4 ug/ml
[2018-06-23] MEDS: INSULIN ASPART [NOVOLOG] 3 ML PEN SC ×6 (07:35→17:59)
[2018-06-23] MEDS: CALCITRIOL 0.25 MCG CAP PO (08:13)
[2018-06-23] MEDS: MULTIVIT/CA CARB/B CMPLX/FA TAB PO (08:13)
[2018-06-23] MEDS: LINAGLIPTIN 5 MG TABLET PO (08:15)
[2018-06-23] MEDS: CALCIUM ACETATE 667 MG CAP PO ×3 (08:15→17:55)
[2018-06-23] MEDS: ASPIRIN 81 MG TAB PO (08:15)
[2018-06-23] MEDS: GABAPENTIN 100 MG CAP PO ×2 (08:16→20:29)
[2018-06-23] MEDS: AMIODARONE 200 MG TAB PO (08:16)
[2018-06-23] MEDS: CLOPIDOGREL 75 MG TAB PO (08:27)
[2018-06-23] MEDS: ONDANSETRON 4 MG INJ IV (08:49)
[2018-06-23] MEDS: FEBUXOSTAT 40 MG TABLET PO (09:00)
[2018-06-23 10:59] LABS: ABNORMAL IP MESSAGE 1; ADD MAN DIFF? NO; BASOPHIL # 0.1 10^3/ul (0.0-0.1); BASOPHILS % 0.8 % (0.0-2.0); EOSINOPHILS # 0.5 10^3/ul (0.0-0.5); EOSINOPHILS % 3.7 % (0.0-7.0); HEMATOCRIT 27.5 % (42.0-52.0); HEMOGLOBIN 8.5 g/dl (14.0-18.0); LYMPHOCYTES # 1.1 10^3/ul (0.8-2.9); LYMPHOCYTES % 8.4 % (15.0-51.0); MEAN CORPUSCULAR HEMOGLOBIN 29.1 pg (29.0-33.0); MEAN CORPUSCULAR HGB CONC 30.9 g/dl (32.0-37.0); MEAN CORPUSCULAR VOLUME 94.2 fl (82.0-101.0); MEAN PLATELET VOLUME 11.9 fl (7.4-10.4); MONOCYTE # 2.1 10^3/ul (0.3-0.9); MONOCYTES % 16.3 % (0.0-11.0); NEUTROPHIL # 8.4 10^3/ul (1.6-7.5); NEUTROPHILS % 66.5 % (39.0-77.0); PLATELET COUNT 171 10^3/UL (140-415); POSITIVE DIFF @See below; RED BLOOD COUNT 2.92 10^6/ul (4.70-6.10); RED CELL DISTRIBUTION WIDTH 14.5 % (11.5-14.5)
[2018-06-23 10:59] LABS: WHITE BLOOD COUNT 12.7 10^3/ul (4.8-10.8)
[2018-06-23 11:40] LABS: ALANINE AMINOTRANSFERASE 44 IU/L (13-69); ALBUMIN 4.2 g/dl (3.3-4.9); ALKALINE PHOSPHATASE 105 IU/L (42-121); ANION GAP 20 (5-13); ASPARTATE AMINO TRANSFERASE 54 IU/L (15-46); BILIRUBIN,INDIRECT 0.5 mg/dl (0-1.1); BILIRUBIN,TOTAL 0.5 mg/dl (0.2-1.3); BLOOD UREA NITROGEN 29 mg/dl (7-20); CALCIUM 9.6 mg/dl (8.4-10.2); CARBON DIOXIDE 27 mmol/L (21-31); CHLORIDE 96 mmol/L (97-110); CREATININE 5.47 mg/dl (0.61-1.24); GLUCOSE 190 mg/dl (70-220); POTASSIUM 4.4 mmol/L (3.5-5.1); SODIUM 143 mmol/L (135-144)
[2018-06-23] MEDS: ACETAMINOPHEN 325 MG TAB PO (12:53)
[2018-06-23] MEDS: EPOETIN 10000 UNITS/1 ML INJ (ESRD) SC (19:22)
[2018-06-23] MEDS: ATORVASTATIN 20 MG TAB PO (20:29)
[2018-06-23] MEDS: CASPOFUNGIN 50 MG in SOD CHLORIDE 0.9% 250 ML IVPB (20:33)
[2018-06-23] MEDS: INSULIN GLARGINE [LANTus] (100 UNITS/ML) SYG SC (20:53)
[2018-06-23] MEDS: MEROPENEM 500MG/50 ML (PMX) 50 ML IVPB (22:34)
[2018-06-24] MEDS: ACCU-CHEK XX ×5 (01:07→20:22)
[2018-06-24 06:17] LABS: ADD MAN DIFF? NO
[2018-06-24] MEDS: PANTOPRAZOLE (EC) 40 MG TAB PO (06:20)
[2018-06-24 06:31] LABS: WHITE BLOOD COUNT 12.4 10^3/ul (4.8-10.8)
[2018-06-24 06:31] LABS: ABNORMAL IP MESSAGE 1; BASOPHIL # 0.1 10^3/ul (0.0-0.1); BASOPHILS % 0.7 % (0.0-2.0); EOSINOPHILS # 0.6 10^3/ul (0.0-0.5); HEMATOCRIT 25.6 % (42.0-52.0); LYMPHOCYTES # 1.2 10^3/ul (0.8-2.9); MEAN CORPUSCULAR HGB CONC 31.3 g/dl (32.0-37.0); MEAN CORPUSCULAR VOLUME 95.9 fl (82.0-101.0); MEAN PLATELET VOLUME 12.4 fl (7.4-10.4); MONOCYTE # 1.9 10^3/ul (0.3-0.9); MONOCYTES % 15.2 % (0.0-11.0); NEUTROPHILS % 64.2 % (39.0-77.0); PLATELET COUNT 205 10^3/UL (140-415); POSITIVE DIFF @See below; RED BLOOD COUNT 2.67 10^6/ul (4.70-6.10); RED CELL DISTRIBUTION WIDTH 14.6 % (11.5-14.5)
[2018-06-24 07:15] LABS: ALANINE AMINOTRANSFERASE 37 IU/L (13-69); ALBUMIN 3.7 g/dl (3.3-4.9); ALBUMIN/GLOBULIN RATIO 1.42; ALKALINE PHOSPHATASE 93 IU/L (42-121); ANION GAP 16 (5-13); ASPARTATE AMINO TRANSFERASE 34 IU/L (15-46); BILIRUBIN,INDIRECT 0.4 mg/dl (0-1.1); BILIRUBIN,TOTAL 0.4 mg/dl (0.2-1.3); BLOOD UREA NITROGEN 36 mg/dl (7-20); CALCIUM 9.4 mg/dl (8.4-10.2); CARBON DIOXIDE 26 mmol/L (21-31); CHLORIDE 96 mmol/L (97-110); CREATININE 6.94 mg/dl (0.61-1.24); GLUCOSE 163 mg/dl (70-220); POTASSIUM 4.4 mmol/L (3.5-5.1); SODIUM 138 mmol/L (135-144); TOTAL PROTEIN 6.3 g/dl (6.1-8.1)
[2018-06-24] MEDS: INSULIN ASPART [NOVOLOG] 3 ML PEN SC ×6 (08:08→17:52)
[2018-06-24] MEDS: CALCIUM ACETATE 667 MG CAP PO ×3 (08:22→17:55)
[2018-06-24] MEDS: LINAGLIPTIN 5 MG TABLET PO (08:22)
[2018-06-24] MEDS: MULTIVIT/CA CARB/B CMPLX/FA TAB PO (08:22)
[2018-06-24] MEDS: CLOPIDOGREL 75 MG TAB PO (08:22)
[2018-06-24] MEDS: CALCITRIOL 0.25 MCG CAP PO (08:22)
[2018-06-24] MEDS: FEBUXOSTAT 40 MG TABLET PO (08:23)
[2018-06-24] MEDS: ASPIRIN 81 MG TAB PO (08:23)
[2018-06-24] MEDS: AMIODARONE 200 MG TAB PO (08:24)
[2018-06-24] MEDS: GABAPENTIN 100 MG CAP PO ×2 (08:47→20:22)
[2018-06-24] MEDS: SOD CHLORIDE 0.9% 250 ML IV (14:45)
[2018-06-24] MEDS: ACETAMINOPHEN 325 MG TAB PO (19:08)
[2018-06-24] MEDS: INSULIN GLARGINE [LANTus] (100 UNITS/ML) SYG SC (20:16)
[2018-06-24] MEDS: CASPOFUNGIN 50 MG in SOD CHLORIDE 0.9% 250 ML IVPB (20:16)
[2018-06-24] MEDS: ATORVASTATIN 20 MG TAB PO (20:22)
[2018-06-24] MEDS: MEROPENEM 500MG/50 ML (PMX) 50 ML IVPB (21:29)
[2018-06-25] MEDS: ACCU-CHEK XX ×5 (02:00→20:55)
[2018-06-25] MEDS: ACETAMINOPHEN 325 MG TAB PO ×2 (02:03→21:01)
[2018-06-25] MEDS: PANTOPRAZOLE (EC) 40 MG TAB PO (05:22)
[2018-06-25] MEDS: INSULIN ASPART [NOVOLOG] 3 ML PEN SC ×6 (07:25→17:55)
[2018-06-25] MEDS: CALCIUM ACETATE 667 MG CAP PO ×3 (07:55→17:55)
[2018-06-25] MEDS: MULTIVIT/CA CARB/B CMPLX/FA TAB PO (09:00)
[2018-06-25] MEDS: FEBUXOSTAT 40 MG TABLET PO (09:00)
[2018-06-25] MEDS: ASPIRIN 81 MG TAB PO (09:00)
[2018-06-25] MEDS: AMIODARONE 200 MG TAB PO (09:00)
[2018-06-25] MEDS: CLOPIDOGREL 75 MG TAB PO (09:00)
[2018-06-25] MEDS: CALCITRIOL 0.25 MCG CAP PO (09:00)
[2018-06-25] MEDS: LINAGLIPTIN 5 MG TABLET PO (09:00)
[2018-06-25] MEDS: GABAPENTIN 100 MG CAP PO ×2 (09:00→20:54)
[2018-06-25 18:11] LABS: ANION GAP 20 (5-13); BLOOD UREA NITROGEN 56 mg/dl (7-20); CARBON DIOXIDE 21 mmol/L (21-31); CHLORIDE 94 mmol/L (97-110); CREATININE 9.11 mg/dl (0.61-1.24); GLUCOSE 226 mg/dl (70-220); POTASSIUM 5.5 mmol/L (3.5-5.1); SODIUM 135 mmol/L (135-144)
[2018-06-25 18:12] LABS: ALANINE AMINOTRANSFERASE 40 IU/L (13-69); ALBUMIN 3.6 g/dl (3.3-4.9); ALBUMIN/GLOBULIN RATIO 1.44; ALKALINE PHOSPHATASE 83 IU/L (42-121); ASPARTATE AMINO TRANSFERASE 30 IU/L (15-46); BILIRUBIN,INDIRECT 0.3 mg/dl (0-1.1); BILIRUBIN,TOTAL 0.3 mg/dl (0.2-1.3); CALCIUM 9.1 mg/dl (8.4-10.2); TOTAL PROTEIN 6.1 g/dl (6.1-8.1)
[2018-06-25 18:43] LABS: ABNORMAL IP MESSAGE 1; HEMATOCRIT 25.9 % (42.0-52.0); HEMOGLOBIN 8.2 g/dl (14.0-18.0); MEAN CORPUSCULAR HEMOGLOBIN 30.1 pg (29.0-33.0); MEAN CORPUSCULAR HGB CONC 31.7 g/dl (32.0-37.0); MEAN CORPUSCULAR VOLUME 95.2 fl (82.0-101.0); MEAN PLATELET VOLUME 12.2 fl (7.4-10.4); PLATELET COUNT 266 10^3/UL (140-415); POSITIVE DIFF @See below; RED BLOOD COUNT 2.72 10^6/ul (4.70-6.10); RED CELL DISTRIBUTION WIDTH 14.5 % (11.5-14.5)
[2018-06-25 18:43] LABS: WHITE BLOOD COUNT 9.5 10^3/ul (4.8-10.8)
[2018-06-25 18:44] LABS: ADD MAN DIFF? YES
[2018-06-25 19:16] LABS: ANISOCYTOSIS 1+ (0-0); BAND NEUTROPHILS #M 0.3 10^3/ul (0.0-0.6); BAND NEUTROPHILS % (M) 4 % (0-4); BURR CELLS 1+ (0-0); EOSINOPHILS % (M) 6 % (0-7); GIANT THROMBO% (M) 2 % (0-0); HYPOCHROMASIA 1+ (0-0); LYMPHOCYTES #M 0.9 10^3/ul (0.8-2.9); LYMPHOCYTES % (M) 10 % (15-51); METAMYELOCYTES #M 0.1 10^3/ul (0.0-0.0); METAMYELOCYTES %M 2 % (0-0); MONOCYTE #M 1.1 10^3/ul (0.3-0.9); MONOCYTES % (M) 12 % (0-11); OVALOCYTES 1+ (0-0); PLATELET ESTIMATE NORMAL; POIKILOCYTOSIS 1+ (0-0); REACTIVE LYMPHOCYTES #M 0.2 10^3/ul (0.0-0.0); REACTIVE LYMPHOCYTES% (M) 3 % (0-0); SEGMENTED NEUTROPHILS (M) % 63 % (39-77); SMUDGE%M 3 % (0-0)
[2018-06-25] MEDS: ALTEPLASE (CATHFLO) 2 MG INJ CATHETER (19:34)
[2018-06-25] MEDS: MEROPENEM 500MG/50 ML (PMX) 50 ML IVPB (20:47)
[2018-06-25] MEDS: ATORVASTATIN 20 MG TAB PO (20:54)
[2018-06-25] MEDS: INSULIN GLARGINE [LANTus] (100 UNITS/ML) SYG SC (21:19)
[2018-06-26] MEDS: ACCU-CHEK XX ×5 (02:26→21:00)
[2018-06-26] MEDS: PANTOPRAZOLE (EC) 40 MG TAB PO (05:12)
[2018-06-26] MEDS: INSULIN ASPART [NOVOLOG] 3 ML PEN SC ×7 (08:24→17:49)
[2018-06-26] MEDS ORDERED: HEPARIN 1000 UNITS/ML 10 ML INJ (09:51)
[2018-06-26] MEDS ORDERED: LIDOCAINE 2% (MDV) 20 ML INJ (09:51)
[2018-06-26] MEDS ORDERED: IODIXANOL LOCM 50 ML BTL (09:57)
[2018-06-26] MEDS ORDERED: IODIXANOL LOCM 100 ML BTL (10:20)
[2018-06-26] MEDS: ASPIRIN 81 MG TAB PO (11:01)
[2018-06-26] MEDS: FEBUXOSTAT 40 MG TABLET PO (11:01)
[2018-06-26] MEDS: AMIODARONE 200 MG TAB PO (11:02)
[2018-06-26] MEDS: LINAGLIPTIN 5 MG TABLET PO (11:02)
[2018-06-26] MEDS: GABAPENTIN 100 MG CAP PO ×2 (11:02→23:08)
[2018-06-26] MEDS: MULTIVIT/CA CARB/B CMPLX/FA TAB PO (11:03)
[2018-06-26] MEDS: CALCIUM ACETATE 667 MG CAP PO ×3 (11:03→18:11)
[2018-06-26] MEDS: CLOPIDOGREL 75 MG TAB PO (11:04)
[2018-06-26] MEDS: CALCITRIOL 0.25 MCG CAP PO (11:05)
[2018-06-26] MEDS: ALBUMIN HUMAN 25% 100 ML IV ×2 (15:04→16:09)
[2018-06-26] MEDS: HEPARIN 1000 UNITS/ML 10 ML INJ CATHETER (17:22)
[2018-06-26] MEDS: EPOETIN 10000 UNITS/1 ML INJ (ESRD) SC (18:10)
[2018-06-26] MEDS: ATORVASTATIN 20 MG TAB PO (20:41)
[2018-06-26] MEDS: ACETAMINOPHEN 325 MG TAB PO (20:44)
[2018-06-26] MEDS: MEROPENEM 500MG/50 ML (PMX) 50 ML IVPB (21:00)
[2018-06-26] MEDS: INSULIN GLARGINE [LANTus] (100 UNITS/ML) SYG SC (22:36)
[2018-06-27] MEDS: ACCU-CHEK XX ×5 (02:00→20:35)
[2018-06-27] MEDS: PANTOPRAZOLE (EC) 40 MG TAB PO (06:06)
[2018-06-27] MEDS: CALCIUM ACETATE 667 MG CAP PO ×3 (08:03→16:51)
[2018-06-27] MEDS: CALCITRIOL 0.25 MCG CAP PO (08:04)
[2018-06-27] MEDS: LINAGLIPTIN 5 MG TABLET PO (08:04)
[2018-06-27] MEDS: MULTIVIT/CA CARB/B CMPLX/FA TAB PO (08:04)
[2018-06-27] MEDS: CLOPIDOGREL 75 MG TAB PO (08:04)
[2018-06-27] MEDS: FEBUXOSTAT 40 MG TABLET PO (08:04)
[2018-06-27] MEDS: INSULIN ASPART [NOVOLOG] 3 ML PEN SC ×7 (08:11→20:32)
[2018-06-27] MEDS: ASPIRIN 81 MG TAB PO (08:14)
[2018-06-27] MEDS: ALBUMIN HUMAN 25% 100 ML IV ×2 (08:55→09:52)
[2018-06-27] MEDS: AMIODARONE 200 MG TAB PO (09:00)
[2018-06-27] MEDS: GABAPENTIN 100 MG CAP PO ×2 (09:00→20:10)
[2018-06-27 09:43] LABS: ABNORMAL IP MESSAGE 1; HEMATOCRIT 23.2 % (42.0-52.0); HEMOGLOBIN 7.4 g/dl (14.0-18.0); MEAN CORPUSCULAR HEMOGLOBIN 30.1 pg (29.0-33.0); MEAN CORPUSCULAR HGB CONC 31.9 g/dl (32.0-37.0); MEAN CORPUSCULAR VOLUME 94.3 fl (82.0-101.0); MEAN PLATELET VOLUME 12.6 fl (7.4-10.4); PLATELET COUNT 199 10^3/UL (140-415); POSITIVE DIFF @See below; RED BLOOD COUNT 2.46 10^6/ul (4.70-6.10); RED CELL DISTRIBUTION WIDTH 14.6 % (11.5-14.5)
[2018-06-27 09:43] LABS: WHITE BLOOD COUNT 8.3 10^3/ul (4.8-10.8)
[2018-06-27 09:47] LABS: ADD MAN DIFF? YES
[2018-06-27 10:04] LABS: ANION GAP 11 (5-13); BLOOD UREA NITROGEN 46 mg/dl (7-20); CALCIUM 8.9 mg/dl (8.4-10.2); CARBON DIOXIDE 32 mmol/L (21-31); CHLORIDE 96 mmol/L (97-110); GLUCOSE 119 mg/dl (70-220); POTASSIUM 4.2 mmol/L (3.5-5.1); SODIUM 139 mmol/L (135-144)
[2018-06-27 10:11] LABS: ANISOCYTOSIS 1+ (0-0); BAND NEUTROPHILS #M 0.4 10^3/ul (0.0-0.6); BAND NEUTROPHILS % (M) 5 % (0-4); BASOPHIL #M 0.1 10^3/ul (0.0-0.0); BASOPHILS % (M) 2 % (0-2); BURR CELLS 1+ (0-0); ELLIPTO 1+ (0-0); EOSINOPHILS % (M) 11 % (0-7); LYMPHOCYTES #M 1.9 10^3/ul (0.8-2.9); LYMPHOCYTES % (M) 23 % (15-51); METAMYELOCYTES #M 0.1 10^3/ul (0.0-0.0); METAMYELOCYTES %M 2 % (0-0); MONOCYTE #M 0.8 10^3/ul (0.3-0.9); MONOCYTES % (M) 10 % (0-11); OVALOCYTES 1+ (0-0); PLATELET ESTIMATE NORMAL; POIKILOCYTOSIS 1+ (0-0); POLYCHROMASIA 3+ (0-0); SEG NEUT #M 3.9 10^3/ul (1.6-7.5); SEGMENTED NEUTROPHILS (M) % 47 % (39-77); SMUDGE%M 3 % (0-0)
[2018-06-27] MEDS: HEPARIN 1000 UNITS/ML 10 ML INJ CATHETER (11:14)
[2018-06-27 12:15] LABS: IRON 20 ug/dl (35-150)
[2018-06-27 12:24] LABS: % IRON SATURATION 13 % SAT (22-52); TOTAL IRON BINDING CAPACITY 154 ug/dl (241-421)
[2018-06-27 13:52] LABS: B PERTUSIS/PARAPERTUSSIS SRC NASOPHARYNGEAL
[2018-06-27 14:07] LABS: HEMATOCRIT 23.8 % (42.0-52.0)
[2018-06-27 14:07] LABS: HEMOGLOBIN 7.6 g/dl (14.0-18.0)
[2018-06-27] MEDS: ATORVASTATIN 20 MG TAB PO (20:10)
[2018-06-27 20:34] LABS: IMMEDIATE SPIN CROSSMATCH 1 1
[2018-06-27] MEDS: INSULIN GLARGINE [LANTus] (100 UNITS/ML) SYG SC (20:34)
[2018-06-27] MEDS: VANCOMYCIN 750 MG in SOD CHLORIDE 0.9% 150 ML IVPB (22:35)
[2018-06-28] MEDS: ACCU-CHEK XX ×5 (02:00→21:12)
[2018-06-28] MEDS: PANTOPRAZOLE (EC) 40 MG TAB PO (06:18)
[2018-06-28 06:35] LABS: ADD MAN DIFF? NO
[2018-06-28 06:44] LABS: WHITE BLOOD COUNT 9.1 10^3/ul (4.8-10.8)
[2018-06-28 06:44] LABS: ABNORMAL IP MESSAGE 1; BASOPHIL # 0.1 10^3/ul (0.0-0.1); BASOPHILS % 1.1 % (0.0-2.0); EOSINOPHILS # 0.8 10^3/ul (0.0-0.5); EOSINOPHILS % 8.4 % (0.0-7.0); HEMATOCRIT 29.1 % (42.0-52.0); LYMPHOCYTES # 1.9 10^3/ul (0.8-2.9); LYMPHOCYTES % 20.8 % (15.0-51.0); MEAN CORPUSCULAR HEMOGLOBIN 28.8 pg (29.0-33.0); MEAN CORPUSCULAR HGB CONC 30.9 g/dl (32.0-37.0); MEAN PLATELET VOLUME 12.2 fl (7.4-10.4); MONOCYTE # 1.9 10^3/ul (0.3-0.9); MONOCYTES % 20.9 % (0.0-11.0); NEUTROPHIL # 3.9 10^3/ul (1.6-7.5); NEUTROPHILS % 43.2 % (39.0-77.0); PLATELET COUNT 204 10^3/UL (140-415); POSITIVE DIFF @See below; RED BLOOD COUNT 3.13 10^6/ul (4.70-6.10); RED CELL DISTRIBUTION WIDTH 14.8 % (11.5-14.5)
[2018-06-28 07:22] LABS: ALANINE AMINOTRANSFERASE 28 IU/L (13-69); ALBUMIN/GLOBULIN RATIO 1.53; ALKALINE PHOSPHATASE 70 IU/L (42-121); ANION GAP 14 (5-13); ASPARTATE AMINO TRANSFERASE 34 IU/L (15-46); BILIRUBIN,INDIRECT 0.6 mg/dl (0-1.1); BILIRUBIN,TOTAL 0.6 mg/dl (0.2-1.3); BLOOD UREA NITROGEN 30 mg/dl (7-20); CALCIUM 9.1 mg/dl (8.4-10.2); CARBON DIOXIDE 34 mmol/L (21-31); CHLORIDE 96 mmol/L (97-110); CREATININE 5.49 mg/dl (0.61-1.24); GLUCOSE 105 mg/dl (70-220); POTASSIUM 3.8 mmol/L (3.5-5.1); SODIUM 144 mmol/L (135-144); TOTAL PROTEIN 6.6 g/dl (6.1-8.1)
[2018-06-28] MEDS: CALCIUM ACETATE 667 MG CAP PO ×3 (07:49→17:19)
[2018-06-28] MEDS: INSULIN ASPART [NOVOLOG] 3 ML PEN SC ×5 (07:54→17:29)
[2018-06-28] MEDS: GABAPENTIN 100 MG CAP PO ×2 (08:27→21:09)
[2018-06-28] MEDS: FEBUXOSTAT 40 MG TABLET PO (08:27)
[2018-06-28] MEDS: CALCITRIOL 0.25 MCG CAP PO (08:27)
[2018-06-28] MEDS: MULTIVIT/CA CARB/B CMPLX/FA TAB PO (08:27)
[2018-06-28] MEDS: LINAGLIPTIN 5 MG TABLET PO (08:28)
[2018-06-28] MEDS: CLOPIDOGREL 75 MG TAB PO (08:28)
[2018-06-28] MEDS: AMIODARONE 200 MG TAB PO (08:28)
[2018-06-28] MEDS: ASPIRIN 81 MG TAB PO (08:28)
[2018-06-28] MEDS: EPOETIN 10000 UNITS/1 ML INJ (ESRD) SC (17:23)
[2018-06-28] MEDS: DONEPEZIL 5 MG TAB PO (21:08)
[2018-06-28] MEDS: ATORVASTATIN 20 MG TAB PO (21:08)
[2018-06-28] MEDS: INSULIN GLARGINE [LANTus] (100 UNITS/ML) SYG SC (21:12)
[2018-06-29] MEDS: ACCU-CHEK XX ×5 (02:00→20:52)
[2018-06-29] MEDS: PANTOPRAZOLE (EC) 40 MG TAB PO (05:44)
[2018-06-29] MEDS: INSULIN ASPART [NOVOLOG] 3 ML PEN SC ×6 (08:09→17:05)
[2018-06-29] MEDS: ASPIRIN 81 MG TAB PO (08:30)
[2018-06-29] MEDS: FEBUXOSTAT 40 MG TABLET PO (08:30)
[2018-06-29] MEDS: GABAPENTIN 100 MG CAP PO ×2 (08:30→20:48)
[2018-06-29] MEDS: CALCIUM ACETATE 667 MG CAP PO ×3 (08:30→18:23)
[2018-06-29] MEDS: MULTIVIT/CA CARB/B CMPLX/FA TAB PO (08:30)
[2018-06-29] MEDS: CALCITRIOL 0.25 MCG CAP PO (08:30)
[2018-06-29] MEDS: CLOPIDOGREL 75 MG TAB PO (08:30)
[2018-06-29] MEDS: LINAGLIPTIN 5 MG TABLET PO (08:30)
[2018-06-29] MEDS: AMIODARONE 200 MG TAB PO (08:33)
[2018-06-29] MEDS: ALBUMIN HUMAN 25% 100 ML IV (10:42)
[2018-06-29] MEDS: SOD FERRIC GLUC COMPLX 125 MG in SOD CHLORIDE 0.9% 100 ML IVPB (16:54)
[2018-06-29] MEDS: ATORVASTATIN 20 MG TAB PO (20:48)
[2018-06-29] MEDS: DONEPEZIL 5 MG TAB PO (20:52)
[2018-06-29] MEDS: INSULIN GLARGINE [LANTus] (100 UNITS/ML) SYG SC (20:58)
[2018-06-30] MEDS: ACCU-CHEK XX ×5 (02:55→20:32)
[2018-06-30] MEDS: PANTOPRAZOLE (EC) 40 MG TAB PO (05:27)
[2018-06-30] MEDS: INSULIN ASPART [NOVOLOG] 3 ML PEN SC ×6 (07:25→17:18)
[2018-06-30] MEDS: CALCIUM ACETATE 667 MG CAP PO ×3 (07:55→18:29)
[2018-06-30] MEDS: ASPIRIN 81 MG TAB PO (08:11)
[2018-06-30] MEDS: GABAPENTIN 100 MG CAP PO ×2 (08:12→20:32)
[2018-06-30] MEDS: CLOPIDOGREL 75 MG TAB PO (08:12)
[2018-06-30] MEDS: AMIODARONE 200 MG TAB PO (08:12)
[2018-06-30] MEDS: MULTIVIT/CA CARB/B CMPLX/FA TAB PO (08:12)
[2018-06-30] MEDS: CALCITRIOL 0.25 MCG CAP PO (08:13)
[2018-06-30] MEDS: LINAGLIPTIN 5 MG TABLET PO (08:13)
[2018-06-30] MEDS: FEBUXOSTAT 40 MG TABLET PO (08:13)
[2018-06-30 11:05] LABS: ABNORMAL IP MESSAGE 1; HEMATOCRIT 29.8 % (42.0-52.0); HEMOGLOBIN 9.3 g/dl (14.0-18.0); MEAN CORPUSCULAR HEMOGLOBIN 29.4 pg (29.0-33.0); MEAN CORPUSCULAR HGB CONC 31.2 g/dl (32.0-37.0); MEAN CORPUSCULAR VOLUME 94.3 fl (82.0-101.0); MEAN PLATELET VOLUME 11.6 fl (7.4-10.4); PLATELET COUNT 227 10^3/UL (140-415); POSITIVE DIFF @See below; RED BLOOD COUNT 3.16 10^6/ul (4.70-6.10); RED CELL DISTRIBUTION WIDTH 14.6 % (11.5-14.5)
[2018-06-30 11:05] LABS: WHITE BLOOD COUNT 12.5 10^3/ul (4.8-10.8)
[2018-06-30 11:14] LABS: ADD MAN DIFF? YES
[2018-06-30 11:20] LABS: ANION GAP 14 (5-13); BLOOD UREA NITROGEN 31 mg/dl (7-20); CALCIUM 9.4 mg/dl (8.4-10.2); CARBON DIOXIDE 30 mmol/L (21-31); CHLORIDE 96 mmol/L (97-110); GLUCOSE 202 mg/dl (70-220); POTASSIUM 4.5 mmol/L (3.5-5.1); SODIUM 140 mmol/L (135-144)
[2018-06-30 11:33] LABS: INR 1.25; PROTIME 15.9 Sec (11.9-14.9); PT RATIO 1.2
[2018-06-30 12:12] LABS: ANISOCYTOSIS 1+ (0-0); BAND NEUTROPHILS #M 1.5 10^3/ul (0.0-0.6); BAND NEUTROPHILS % (M) 12 % (0-4); BASOPHIL #M 0.2 10^3/ul (0.0-0.0); BASOPHILS % (M) 2 % (0-2); EOSINOPHILS % (M) 3 % (0-7); LYMPHOCYTES #M 1.2 10^3/ul (0.8-2.9); LYMPHOCYTES % (M) 10 % (15-51); MONOCYTES % (M) 8 % (0-11); MYELOCYTES #M 0.2 10^3/ul (0.0-0.0); MYELOCYTES % (M) 2 % (0-0); OVALOCYTES 1+ (0-0); PLATELET ESTIMATE NORMAL; POIKILOCYTOSIS 1+ (0-0); POLYCHROMASIA 1+ (0-0); REACTIVE LYMPHOCYTES #M 0.6 10^3/ul (0.0-0.0); REACTIVE LYMPHOCYTES% (M) 5 % (0-0); SEG NEUT #M 7.4 10^3/ul (1.6-7.5); SEGMENTED NEUTROPHILS (M) % 58 % (39-77); SMUDGE%M 25 % (0-0)
[2018-06-30] MEDS ORDERED: LIDOCAINE 1% (STERILE-PAK) 30 ML INJ (12:19)
[2018-06-30] MEDS ORDERED: IOHEXOL 300MG/ML 30 ML BTL (12:19)
[2018-06-30] MEDS ORDERED: GELATIN SIZE 100 SPONGE (12:19)
[2018-06-30] MEDS ORDERED: HEPARIN 1000 UNITS/ML 10 ML INJ ×2 (12:19→13:19)
[2018-06-30] MEDS ORDERED: LIDOCAINE 2% (SDV) 5 ML INJ (12:44)
[2018-06-30] MEDS ORDERED: ETOMIDATE 20 MG INJ (12:44)
[2018-06-30] MEDS ORDERED: FENTAnyl 50 MCG/ML VIAL (12:57)
[2018-06-30] MEDS ORDERED: THROMBIN 20,000 UNIT VIAL (13:00)
[2018-06-30] MEDS ORDERED: CEFAZOLIN 1 GM INJ (13:07)
[2018-06-30] MEDS ORDERED: PROPOFOL 20 ML (13:07)
[2018-06-30] MEDS ORDERED: FAMOTIDINE 20 MG INJ (13:14)
[2018-06-30] MEDS ORDERED: ONDANSETRON 4 MG INJ (13:14)
[2018-06-30] MEDS ORDERED: DIPHENHYDRAMINE 50 MG INJ IV (14:30)
[2018-06-30] MEDS ORDERED: HYDROmorphONE 1 MG/5 ML IV SYRINGE IV ×3 (14:30)
[2018-06-30] MEDS ORDERED: FENTAnyl 50 MCG/ML VIAL IV ×3 (14:30)
[2018-06-30] MEDS ORDERED: PROCHLORPERAZINE 10 MG INJ IV (14:30)
[2018-06-30] MEDS ORDERED: ONDANSETRON 4 MG INJ IV (14:30)
[2018-06-30] MEDS ORDERED: MEPERIDINE 25 MG INJ IV (14:30)
[2018-06-30] MEDS: SOD FERRIC GLUC COMPLX 125 MG in SOD CHLORIDE 0.9% 100 ML IVPB (16:57)
[2018-06-30] MEDS: EPOETIN 10000 UNITS/1 ML INJ (ESRD) SC (16:57)
[2018-06-30] MEDS: DONEPEZIL 5 MG TAB PO (20:32)
[2018-06-30] MEDS: ATORVASTATIN 20 MG TAB PO (20:32)
[2018-06-30] MEDS: INSULIN GLARGINE [LANTus] (100 UNITS/ML) SYG SC (21:20)
[2018-06-30] MEDS ORDERED: BISACODYL 10 MG SUPP PR (23:00)
[2018-06-30] MEDS ORDERED: LACTULOSE 30ML CUP PO (23:00)
[2018-07-01] MEDS: HYDROmorphONE 0.5 MG/0.5 ML SYG IV (01:56)
[2018-07-01] MEDS: ACCU-CHEK XX (02:11)
[2018-07-01] MEDS: ACETAMINOPHEN 325 MG TAB PO (04:26)
[2018-07-01] MEDS: ONDANSETRON 4 MG INJ IV (04:26)
[2018-07-01] MEDS: NITROGLYCERIN (SL) 0.4 MG TAB SL (04:33)
[2018-07-01 06:03] LABS: ADD MAN DIFF? NO
[2018-07-01 06:07] LABS: WHITE BLOOD COUNT 16.2 10^3/ul (4.8-10.8)
[2018-07-01 06:07] LABS: ABNORMAL IP MESSAGE 1; BASOPHIL # 0.1 10^3/ul (0.0-0.1); BASOPHILS % 0.7 % (0.0-2.0); EOSINOPHILS # 0.6 10^3/ul (0.0-0.5); EOSINOPHILS % 3.5 % (0.0-7.0); LYMPHOCYTES # 1.3 10^3/ul (0.8-2.9); MEAN CORPUSCULAR HEMOGLOBIN 29.7 pg (29.0-33.0); MEAN CORPUSCULAR VOLUME 95.7 fl (82.0-101.0); MEAN PLATELET VOLUME 11.6 fl (7.4-10.4); MONOCYTE # 1.6 10^3/ul (0.3-0.9); MONOCYTES % 9.7 % (0.0-11.0); NEUTROPHIL # 11.9 10^3/ul (1.6-7.5); NEUTROPHILS % 73.8 % (39.0-77.0); PLATELET COUNT 241 10^3/UL (140-415); POSITIVE DIFF @See below; RED BLOOD COUNT 3.03 10^6/ul (4.70-6.10); RED CELL DISTRIBUTION WIDTH 14.8 % (11.5-14.5)
[2018-07-01 06:56] LABS: ALANINE AMINOTRANSFERASE 27 IU/L (13-69); ALBUMIN 3.7 g/dl (3.3-4.9); ALBUMIN/GLOBULIN RATIO 1.94; ALKALINE PHOSPHATASE 70 IU/L (42-121); ANION GAP 14 (5-13); ASPARTATE AMINO TRANSFERASE 25 IU/L (15-46); BILIRUBIN,INDIRECT 0.2 mg/dl (0-1.1); BILIRUBIN,TOTAL 0.2 mg/dl (0.2-1.3); BLOOD UREA NITROGEN 40 mg/dl (7-20); CALCIUM 9.3 mg/dl (8.4-10.2); CARBON DIOXIDE 29 mmol/L (21-31); CHLORIDE 94 mmol/L (97-110); CREATININE 7.16 mg/dl (0.61-1.24); GLUCOSE 205 mg/dl (70-220); POTASSIUM 5.3 mmol/L (3.5-5.1); SODIUM 137 mmol/L (135-144); TOTAL PROTEIN 5.6 g/dl (6.1-8.1)
[2018-07-01 07:02] LABS: TROPONIN-I 0.759 ng/ml (0.000-0.120)
[2018-07-01] MEDS ORDERED: DOCUSATE SODIUM 100 MG CAP PO (09:00)
== END 2018-07-01 06:37 | disposition short-term general hospital (02) | DRG 264 ==
LOC: ICU 22:37 → E/R 17:15 → ICU 06-21 19:00 → TEL 06-23 18:30 → ICU 19:09
PROC: 03180KD Bypass Left Brachial Artery to Upper Arm Vein with Nonautologous Tissue Substitute, Open Approach (ICD-10-PCS; principal; 2018-06-26 10:00)
PROC: 06HM33Z Insertion of Infusion Device into Right Femoral Vein, Percutaneous Approach (ICD-10-PCS; 2018-06-26 10:00)
PROC: 06H033Z Insertion of Infusion Device into Inferior Vena Cava, Percutaneous Approach (ICD-10-PCS; 2018-06-26 10:00)
PROC: 06PYX3Z Removal of Infusion Device from Lower Vein, External Approach (ICD-10-PCS; 2018-06-26 10:00)
PROC: 05PYX3Z Removal of Infusion Device from Upper Vein, External Approach (ICD-10-PCS; 2018-06-26 10:00)
PROC: 5A09357 Assistance with Respiratory Ventilation, Less than 24 Consecutive Hours, Continuous Positive Airway Pressure (ICD-10-PCS; 2018-06-26 10:00)
PROC: 02H633Z Insertion of Infusion Device into Right Atrium, Percutaneous Approach (ICD-10-PCS; 2018-06-26 10:00)
PROC: 5A1D70Z Performance of Urinary Filtration, Intermittent, Less than 6 Hours Per Day (ICD-10-PCS; 2018-06-26 10:00)
PROC: 30253N1 (ICD-10-PCS; 2018-06-26 10:00)
DX: I13.2 Hypertensive heart and chronic kidney disease with heart failure and with stage 5 chronic kidney disease, or end stage renal disease (principal); N18.6 End stage renal disease; J96.01 Acute respiratory failure with hypoxia; I50.41 Acute combined systolic (congestive) and diastolic (congestive) heart failure; A41.9 Sepsis, unspecified organism; I21.19 ST elevation (STEMI) myocardial infarction involving other coronary artery of inferior wall; I31.3 Pericardial effusion (noninflammatory); G93.40 Encephalopathy, unspecified; T82.898A Other specified complication of vascular prosthetic devices, implants and grafts, initial encounter; E11.22 Type 2 diabetes mellitus with diabetic chronic kidney disease; G72.89 Other specified myopathies; I25.2 Old myocardial infarction; E78.5 Hyperlipidemia, unspecified; M10.9 Gout, unspecified; I25.10 Atherosclerotic heart disease of native coronary artery without angina pectoris; I25.5 Ischemic cardiomyopathy; I48.0 Paroxysmal atrial fibrillation; E11.42 Type 2 diabetes mellitus with diabetic polyneuropathy; D63.1 Anemia in chronic kidney disease; T80.89XA Other complications following infusion, transfusion and therapeutic injection, initial encounter; Z95.5 Presence of coronary angioplasty implant and graft; Z85.46 Personal history of malignant neoplasm of prostate; Z99.2 Dependence on renal dialysis
CPT/HCPCS: 36430; 36600; 70551; 71045; 80048; 80053; 80202; 81001; 82140; 82607; 82728; 82803; 82962; 83036; 83540; 83690; 83735; 84100; 84145; 84443; 84484; 85014; 85018; 85025; 85610; 85730; 86850; 86900; 86901; 86920; 87040; 87070; 87081; 87086; 87206; 87275; 87276; 87279; 87280; 87340; 87400; 89220; 90935; 92610; 93005; 93306; 93308; 93970; 94660; 96374; 96375; 97110; 97162; 97164; 97530; 99291-25

== ENCOUNTER 2018-07-05 16:45 | Inpatient (IN) | payer MEDICARE, BC ==
[2018-07-05] MEDS ORDERED: MAGNESIUM HYDROXIDE 30ML CUP PO (18:00)
[2018-07-05] MEDS ORDERED: HYDROCORTISONE 2.5% 30 GM RECT CR PR (18:00)
[2018-07-05] MEDS ORDERED: PENDING SANTYL ORDER FOR WOUND CARE XX (18:00)
[2018-07-05] MEDS ORDERED: BISACODYL 10 MG SUPP PR (18:00)
[2018-07-05] MEDS ORDERED: LORAZEPAM 0.5 MG TAB PO (18:00)
[2018-07-05] MEDS ORDERED: NITROGLYCERIN (SL) 0.4 MG TAB SL (18:00)
[2018-07-05] MEDS ORDERED: LACTULOSE 30ML CUP PO (18:00)
[2018-07-05] MEDS ORDERED: GLUCOSE GEL 15 GRAM TUBE BUCCAL (19:00)
[2018-07-05] MEDS ORDERED: GLUCAGON 1 MG INJ IM (19:00)
[2018-07-05] MEDS ORDERED: DEXTROSE 50% 50 ML SYRINGE IV ×2 (19:00)
[2018-07-05] MEDS ORDERED: GLUCOSE GEL 15 GRAM TUBE PO ×2 (19:00)
[2018-07-05] MEDS: SENNA TAB PO (20:52)
[2018-07-05] MEDS: ATORVASTATIN 20 MG TAB PO (20:52)
[2018-07-05] MEDS: DOCUSATE SODIUM 100 MG CAP PO (20:52)
[2018-07-05] MEDS: TICAGRELOR 90 MG TABLET PO (20:53)
[2018-07-05] MEDS: INSULIN ASPART [NOVOLOG] 3 ML PEN SC (20:54)
[2018-07-05] MEDS: INSULIN GLARGINE [LANTus] (100 UNITS/ML) SYG SC (20:55)
[2018-07-06] MEDS: FAMOTIDINE 20 MG TAB PO (06:35)
[2018-07-06 07:13] LABS: ADD MAN DIFF? NO
[2018-07-06 07:20] LABS: ABNORMAL IP MESSAGE 1; BASOPHIL # 0.1 10^3/ul (0.0-0.1); BASOPHILS % 0.8 % (0.0-2.0); EOSINOPHILS # 0.6 10^3/ul (0.0-0.5); EOSINOPHILS % 4.4 % (0.0-7.0); HEMATOCRIT 28.7 % (42.0-52.0); HEMOGLOBIN 9.2 g/dl (14.0-18.0); LYMPHOCYTES % 7.8 % (15.0-51.0); MEAN CORPUSCULAR HEMOGLOBIN 28.8 pg (29.0-33.0); MEAN CORPUSCULAR HGB CONC 32.1 g/dl (32.0-37.0); MEAN PLATELET VOLUME 11.2 fl (7.4-10.4); MONOCYTES % 14.8 % (0.0-11.0); NEUTROPHIL # 9.1 10^3/ul (1.6-7.5); NEUTROPHILS % 69.1 % (39.0-77.0); PLATELET COUNT 188 10^3/UL (140-415); POSITIVE DIFF @See below; RED BLOOD COUNT 3.19 10^6/ul (4.70-6.10); RED CELL DISTRIBUTION WIDTH 15.8 % (11.5-14.5)
[2018-07-06 07:20] LABS: WHITE BLOOD COUNT 13.2 10^3/ul (4.8-10.8)
[2018-07-06 07:33] LABS: ADD UMIC YES; UR AMORPHOUS CRYSTAL FEW /HPF (NONE SEEN); UR ASCORBIC ACID NEGATIVE (NEGATIVE); UR BILIRUBIN (Dip) NEGATIVE (NEGATIVE); UR BLOOD (Dip) 2+ mg/dL (NEGATIVE); UR CLARITY SLIGHTLY CLOUDY (CLEAR); UR COLOR YELLOW (YELLOW); UR GLUCOSE (Dip) 2+ mg/dL (NEGATIVE); UR KETONES (Dip) NEGATIVE (NEGATIVE); UR LEUKOCYTE ESTERASE (Dip) NEGATIVE Leu/ul (NEGATIVE); UR NITRITE (Dip) NEGATIVE (NEGATIVE); UR RBC 8 /HPF (0-5); UR SPECIFIC GRAVITY (Dip) 1.013 (1.003-1.030); UR TOTAL PROTEIN (Dip) 2+ mg/dl (NEGATIVE); UR UROBILINOGEN (Dip) NEGATIVE (NEGATIVE); UR WBC 5 /HPF (0-5)
[2018-07-06 07:44] LABS: ALANINE AMINOTRANSFERASE 22 IU/L (13-69); ALBUMIN 3.5 g/dl (3.3-4.9); ALBUMIN/GLOBULIN RATIO 1.29; ALKALINE PHOSPHATASE 76 IU/L (42-121); ANION GAP 15 (5-13); ASPARTATE AMINO TRANSFERASE 33 IU/L (15-46); BILIRUBIN,INDIRECT 0.7 mg/dl (0-1.1); BILIRUBIN,TOTAL 0.7 mg/dl (0.2-1.3); BLOOD UREA NITROGEN 45 mg/dl (7-20); CALCIUM 9.1 mg/dl (8.4-10.2); CARBON DIOXIDE 27 mmol/L (21-31); CHLORIDE 97 mmol/L (97-110); CREATININE 7.33 mg/dl (0.61-1.24); GLUCOSE 141 mg/dl (70-220); POTASSIUM 3.5 mmol/L (3.5-5.1); SODIUM 139 mmol/L (135-144); TOTAL PROTEIN 6.2 g/dl (6.1-8.1)
[2018-07-06] MEDS: INSULIN ASPART [NOVOLOG] 3 ML PEN SC ×7 (10:37→20:43)
[2018-07-06] MEDS: ASPIRIN 81 MG TAB PO (11:00)
[2018-07-06] MEDS: DOCUSATE SODIUM 100 MG CAP PO ×2 (11:00→20:42)
[2018-07-06] MEDS: FEBUXOSTAT 40 MG TABLET PO (11:01)
[2018-07-06] MEDS: TICAGRELOR 90 MG TABLET PO ×2 (11:02→20:45)
[2018-07-06] MEDS: AMIODARONE 200 MG TAB PO (11:04)
[2018-07-06] MEDS: LOSARTAN 25 MG TAB PO (11:09)
[2018-07-06 13:25] LABS: HEPATITIS B SURFACE ANTIGEN NEGATIVE (NEGATIVE)
[2018-07-06] MEDS: BALSAM PERU/CASTOR OIL 60 GM TUBE TOP (15:00)
[2018-07-06] MEDS: EPOETIN 10000 UNITS/1 ML INJ (ESRD) SC (17:00)
[2018-07-06] MEDS: HEPARIN 1000 UNITS/ML 10 ML INJ CATHETER (20:37)
[2018-07-06] MEDS: SENNA TAB PO (20:42)
[2018-07-06] MEDS: ATORVASTATIN 20 MG TAB PO (20:42)
[2018-07-06] MEDS: INSULIN GLARGINE [LANTus] (100 UNITS/ML) SYG SC (20:47)
[2018-07-07] MEDS: FAMOTIDINE 20 MG TAB PO (07:12)
[2018-07-07] MEDS: INSULIN ASPART [NOVOLOG] 3 ML PEN SC ×7 (07:35→21:00)
[2018-07-07] MEDS: ASPIRIN 81 MG TAB PO (09:13)
[2018-07-07] MEDS: oxyCODONE 5 MG TAB PO (09:16)
[2018-07-07] MEDS: DOCUSATE SODIUM 100 MG CAP PO ×2 (09:16→20:51)
[2018-07-07] MEDS: FEBUXOSTAT 40 MG TABLET PO (11:19)
[2018-07-07] MEDS: TICAGRELOR 90 MG TABLET PO ×2 (11:20→20:53)
[2018-07-07] MEDS: AMIODARONE 200 MG TAB PO (11:21)
[2018-07-07] MEDS: BALSAM PERU/CASTOR OIL 60 GM TUBE TOP (11:23)
[2018-07-07] MEDS ORDERED: GUAIFENESIN/DM 5ML CUP PO (19:30)
[2018-07-07] MEDS: SENNA TAB PO (20:51)
[2018-07-07] MEDS: ATORVASTATIN 20 MG TAB PO (20:51)
[2018-07-07] MEDS: INSULIN GLARGINE [LANTus] (100 UNITS/ML) SYG SC (20:54)
[2018-07-08] MEDS: FAMOTIDINE 20 MG TAB PO (06:34)
[2018-07-08] MEDS: INSULIN ASPART [NOVOLOG] 3 ML PEN SC ×9 (07:35→21:00)
[2018-07-08] MEDS: FEBUXOSTAT 40 MG TABLET PO (08:43)
[2018-07-08] MEDS: DOCUSATE SODIUM 100 MG CAP PO ×2 (08:43→21:27)
[2018-07-08] MEDS: BALSAM PERU/CASTOR OIL 60 GM TUBE TOP (08:44)
[2018-07-08] MEDS: ASPIRIN 81 MG TAB PO (08:44)
[2018-07-08] MEDS: TICAGRELOR 90 MG TABLET PO ×2 (08:44→21:30)
[2018-07-08] MEDS: AMIODARONE 200 MG TAB PO (09:00)
[2018-07-08] MEDS: EPOETIN 10000 UNITS/1 ML INJ (ESRD) SC (17:45)
[2018-07-08] MEDS: HEPARIN 1000 UNITS/ML 10 ML INJ CATHETER (18:19)
[2018-07-08] MEDS: ATORVASTATIN 20 MG TAB PO (21:26)
[2018-07-08] MEDS: SENNA TAB PO (21:26)
[2018-07-08] MEDS: INSULIN GLARGINE [LANTus] (100 UNITS/ML) SYG SC (21:28)
[2018-07-09] MEDS: FAMOTIDINE 20 MG TAB PO (06:26)
[2018-07-09] MEDS: INSULIN ASPART [NOVOLOG] 3 ML PEN SC ×7 (07:35→21:00)
[2018-07-09] MEDS: DOCUSATE SODIUM 100 MG CAP PO ×2 (08:25→21:21)
[2018-07-09] MEDS: ASPIRIN 81 MG TAB PO (08:25)
[2018-07-09] MEDS: AMIODARONE 200 MG TAB PO (08:25)
[2018-07-09] MEDS: BALSAM PERU/CASTOR OIL 60 GM TUBE TOP (08:25)
[2018-07-09] MEDS: FEBUXOSTAT 40 MG TABLET PO (08:25)
[2018-07-09] MEDS: TICAGRELOR 90 MG TABLET PO ×2 (08:26→21:22)
[2018-07-09] MEDS: ATORVASTATIN 20 MG TAB PO (21:20)
[2018-07-09] MEDS: SENNA TAB PO (21:21)
[2018-07-09] MEDS: INSULIN GLARGINE [LANTus] (100 UNITS/ML) SYG SC (21:22)
[2018-07-10] MEDS: oxyCODONE 5 MG TAB PO ×2 (03:27→18:15)
[2018-07-10] MEDS: FAMOTIDINE 20 MG TAB PO (06:29)
[2018-07-10] MEDS: INSULIN ASPART [NOVOLOG] 3 ML PEN SC ×6 (07:35→20:38)
[2018-07-10] MEDS: AMIODARONE 200 MG TAB PO (09:02)
[2018-07-10] MEDS: ASPIRIN 81 MG TAB PO (09:02)
[2018-07-10] MEDS: DOCUSATE SODIUM 100 MG CAP PO ×2 (09:02→21:00)
[2018-07-10] MEDS: FEBUXOSTAT 40 MG TABLET PO (09:02)
[2018-07-10] MEDS: BALSAM PERU/CASTOR OIL 60 GM TUBE TOP (09:03)
[2018-07-10] MEDS: TICAGRELOR 90 MG TABLET PO ×2 (09:03→20:28)
[2018-07-10 09:09] LABS: WHITE BLOOD COUNT 13.1 10^3/ul (4.8-10.8)
[2018-07-10 09:09] LABS: ABNORMAL IP MESSAGE 1; HEMATOCRIT 30.2 % (42.0-52.0); HEMOGLOBIN 9.6 g/dl (14.0-18.0); MEAN CORPUSCULAR HEMOGLOBIN 29.5 pg (29.0-33.0); MEAN CORPUSCULAR HGB CONC 31.8 g/dl (32.0-37.0); MEAN CORPUSCULAR VOLUME 92.9 fl (82.0-101.0); MEAN PLATELET VOLUME 10.9 fl (7.4-10.4); NUCLEATED RED BLOOD CELLS% 0.2 /100WBC (0.0-0.0); PLATELET COUNT 204 10^3/UL (140-415); POSITIVE DIFF @See below; RED BLOOD COUNT 3.25 10^6/ul (4.70-6.10); RED CELL DISTRIBUTION WIDTH 16.8 % (11.5-14.5)
[2018-07-10 09:13] LABS: ALANINE AMINOTRANSFERASE 12 IU/L (13-69); ALBUMIN 3.6 g/dl (3.3-4.9); ALBUMIN/GLOBULIN RATIO 1.33; ALKALINE PHOSPHATASE 72 IU/L (42-121); ANION GAP 14 (5-13); ASPARTATE AMINO TRANSFERASE 23 IU/L (15-46); BLOOD UREA NITROGEN 31 mg/dl (7-20); CALCIUM 8.9 mg/dl (8.4-10.2); CARBON DIOXIDE 27 mmol/L (21-31); CHLORIDE 99 mmol/L (97-110); CREATININE 5.89 mg/dl (0.61-1.24); PHOSPHORUS 4.1 mg/dl (2.5-4.9); POTASSIUM 4.2 mmol/L (3.5-5.1); SODIUM 140 mmol/L (135-144); TOTAL PROTEIN 6.3 g/dl (6.1-8.1)
[2018-07-10 09:22] LABS: ADD MAN DIFF? YES
[2018-07-10 09:23] LABS: GLUCOSE 45 mg/dl (70-220)
[2018-07-10 10:24] LABS: ANISOCYTOSIS 2+ (0-0); BAND NEUTROPHILS #M 1.3 10^3/ul (0.0-0.6); BAND NEUTROPHILS % (M) 10 % (0-4); EOSINOPHILS % (M) 4 % (0-7); HYPOCHROMASIA 1+ (0-0); LYMPHOCYTES #M 1.9 10^3/ul (0.8-2.9); LYMPHOCYTES % (M) 15 % (15-51); METAMYELOCYTES #M 0.2 10^3/ul (0.0-0.0); METAMYELOCYTES %M 2 % (0-0); MICROCYTOSIS 2+ (0-0); MONOCYTE #M 0.7 10^3/ul (0.3-0.9); MONOCYTES % (M) 6 % (0-11); MYELOCYTES #M 0.2 10^3/ul (0.0-0.0); MYELOCYTES % (M) 2 % (0-0); PLATELET ESTIMATE NORMAL; POIKILOCYTOSIS 2+ (0-0); REACTIVE LYMPHOCYTES #M 0.2 10^3/ul (0.0-0.0); REACTIVE LYMPHOCYTES% (M) 2 % (0-0); SEG NEUT #M 7.9 10^3/ul (1.6-7.5); SEGMENTED NEUTROPHILS (M) % 59 % (39-77); SMUDGE%M 3 % (0-0)
[2018-07-10] MEDS: EPOETIN 10000 UNITS/1 ML INJ (ESRD) SC (18:31)
[2018-07-10] MEDS ORDERED: AL HYDROX/MG HYDROX/SIMETH 30 ML CUP PO (19:00)
[2018-07-10] MEDS: INSULIN GLARGINE [LANTus] (100 UNITS/ML) SYG SC (20:27)
[2018-07-10] MEDS: ATORVASTATIN 20 MG TAB PO (20:28)
[2018-07-10] MEDS: CALCIUM CARBONATE 500 MG CHEW TAB PO (20:38)
[2018-07-10] MEDS: SENNA TAB PO (21:00)
[2018-07-11] MEDS: FAMOTIDINE 20 MG TAB PO (06:31)
[2018-07-11] MEDS: INSULIN ASPART [NOVOLOG] 3 ML PEN SC ×4 (07:35→21:00)
[2018-07-11] MEDS: BALSAM PERU/CASTOR OIL 60 GM TUBE TOP (08:55)
[2018-07-11] MEDS: ASPIRIN 81 MG TAB PO (08:55)
[2018-07-11] MEDS: DOCUSATE SODIUM 100 MG CAP PO ×2 (08:55→20:53)
[2018-07-11] MEDS: TICAGRELOR 90 MG TABLET PO ×2 (08:56→20:55)
[2018-07-11] MEDS: FEBUXOSTAT 40 MG TABLET PO (08:57)
[2018-07-11] MEDS: AMIODARONE 200 MG TAB PO (08:57)
[2018-07-11] MEDS: ACETAMINOPHEN 325 MG TAB PO (18:22)
[2018-07-11] MEDS ORDERED: ALBUMIN HUMAN 25% 100 ML IV (19:04)
[2018-07-11] MEDS: ALBUMIN HUMAN 25% 50 ML INJ IV ×2 (19:17→20:02)
[2018-07-11] MEDS ORDERED: INSULIN GLARGINE [LANTus] (100 UNITS/ML) SYG SC (20:00)
[2018-07-11] MEDS: HEPARIN 1000 UNITS/ML 10 ML INJ CATHETER (20:51)
[2018-07-11] MEDS: ATORVASTATIN 20 MG TAB PO (20:53)
[2018-07-11] MEDS: SENNA TAB PO (20:53)
[2018-07-11] MEDS: INSULIN GLARGINE [LANTus] (100 UNITS/ML) SYG SC (21:43)
[2018-07-12] MEDS: FAMOTIDINE 20 MG TAB PO (06:24)
[2018-07-12] MEDS: INSULIN ASPART [NOVOLOG] 3 ML PEN SC ×4 (09:32→20:50)
[2018-07-12] MEDS: ONDANSETRON 4 MG INJ IV (10:07)
[2018-07-12] MEDS: FEBUXOSTAT 40 MG TABLET PO (10:54)
[2018-07-12] MEDS: AMIODARONE 200 MG TAB PO (10:54)
[2018-07-12] MEDS: ASPIRIN 81 MG TAB PO (10:54)
[2018-07-12] MEDS: DOCUSATE SODIUM 100 MG CAP PO ×2 (10:54→20:46)
[2018-07-12] MEDS: TICAGRELOR 90 MG TABLET PO ×2 (10:55→20:47)
[2018-07-12] MEDS: BALSAM PERU/CASTOR OIL 60 GM TUBE TOP (10:57)
[2018-07-12] MEDS: EPOETIN 10000 UNITS/1 ML INJ (ESRD) SC (17:24)
[2018-07-12] MEDS: ATORVASTATIN 20 MG TAB PO (20:46)
[2018-07-12] MEDS: INSULIN GLARGINE [LANTus] (100 UNITS/ML) SYG SC (20:48)
[2018-07-12] MEDS: DONEPEZIL 5 MG TAB PO (20:53)
[2018-07-12] MEDS: SENNA TAB PO (20:55)
[2018-07-13] MEDS: FAMOTIDINE 20 MG TAB PO (06:35)
[2018-07-13] MEDS: INSULIN ASPART [NOVOLOG] 3 ML PEN SC ×4 (07:35→21:00)
[2018-07-13] MEDS: BALSAM PERU/CASTOR OIL 60 GM TUBE TOP (08:17)
[2018-07-13] MEDS: DOCUSATE SODIUM 100 MG CAP PO ×2 (08:46→21:11)
[2018-07-13] MEDS: TICAGRELOR 90 MG TABLET PO ×2 (08:46→21:11)
[2018-07-13] MEDS: FEBUXOSTAT 40 MG TABLET PO (08:47)
[2018-07-13] MEDS: AMIODARONE 200 MG TAB PO (08:47)
[2018-07-13] MEDS: ASPIRIN 81 MG TAB PO (08:47)
[2018-07-13] MEDS: ONDANSETRON 4 MG INJ IV (17:15)
[2018-07-13] MEDS: HEPARIN 1000 UNITS/ML 10 ML INJ CATHETER (20:27)
[2018-07-13] MEDS: ATORVASTATIN 20 MG TAB PO (21:11)
[2018-07-13] MEDS: SENNA TAB PO (21:11)
[2018-07-13] MEDS: DONEPEZIL 5 MG TAB PO (21:11)
[2018-07-13 21:26] LABS: WHITE BLOOD COUNT 23.6 10^3/ul (4.8-10.8)
[2018-07-13 21:26] LABS: ABNORMAL IP MESSAGE 1; HEMATOCRIT 33.2 % (42.0-52.0); HEMOGLOBIN 10.5 g/dl (14.0-18.0); MEAN CORPUSCULAR HEMOGLOBIN 29.5 pg (29.0-33.0); MEAN CORPUSCULAR HGB CONC 31.6 g/dl (32.0-37.0); MEAN CORPUSCULAR VOLUME 93.3 fl (82.0-101.0); MEAN PLATELET VOLUME 11.2 fl (7.4-10.4); PLATELET COUNT 166 10^3/UL (140-415); POSITIVE DIFF @See below; RED BLOOD COUNT 3.56 10^6/ul (4.70-6.10); RED CELL DISTRIBUTION WIDTH 16.2 % (11.5-14.5)
[2018-07-13 21:38] LABS: ADD MAN DIFF? YES
[2018-07-13 22:11] LABS: ANISOCYTOSIS 1+ (0-0); BAND NEUTROPHILS #M 1.4 10^3/ul (0.0-0.6); BAND NEUTROPHILS % (M) 6 % (0-4); EOSINOPHILS % (M) 6 % (0-7); GIANT THROMBO% (M) 2 % (0-0); LYMPHOCYTES #M 2.3 10^3/ul (0.8-2.9); LYMPHOCYTES % (M) 10 % (15-51); MONOCYTE #M 1.6 10^3/ul (0.3-0.9); MONOCYTES % (M) 7 % (0-11); PLATELET ESTIMATE DECREASED; POIKILOCYTOSIS 2+ (0-0); POLYCHROMASIA 1+ (0-0); REACTIVE LYMPHOCYTES #M 0.4 10^3/ul (0.0-0.0); REACTIVE LYMPHOCYTES% (M) 2 % (0-0); SEG NEUT #M 16.6 10^3/ul (1.6-7.5); SEGMENTED NEUTROPHILS (M) % 69 % (39-77); SMUDGE%M 3 % (0-0)
[2018-07-13] MEDS: INSULIN GLARGINE [LANTus] (100 UNITS/ML) SYG SC (22:17)
[2018-07-14] MEDS: FAMOTIDINE 20 MG TAB PO ×2 (06:17→08:47)
[2018-07-14 06:26] LABS: ADD MAN DIFF? NO; HAAIG REFLEX REFLEX FILED
[2018-07-14 06:31] LABS: WHITE BLOOD COUNT 17.5 10^3/ul (4.8-10.8)
[2018-07-14 06:31] LABS: ABNORMAL IP MESSAGE 1; BASOPHIL # 0.1 10^3/ul (0.0-0.1); BASOPHILS % 0.6 % (0.0-2.0); EOSINOPHILS # 0.8 10^3/ul (0.0-0.5); EOSINOPHILS % 4.7 % (0.0-7.0); HEMATOCRIT 31.1 % (42.0-52.0); HEMOGLOBIN 9.8 g/dl (14.0-18.0); LYMPHOCYTES # 1.8 10^3/ul (0.8-2.9); LYMPHOCYTES % 10.2 % (15.0-51.0); MEAN CORPUSCULAR HEMOGLOBIN 29.3 pg (29.0-33.0); MEAN CORPUSCULAR HGB CONC 31.5 g/dl (32.0-37.0); MEAN CORPUSCULAR VOLUME 92.8 fl (82.0-101.0); MEAN PLATELET VOLUME 10.9 fl (7.4-10.4); MONOCYTES % 11.5 % (0.0-11.0); NEUTROPHIL # 12.4 10^3/ul (1.6-7.5); NEUTROPHILS % 70.7 % (39.0-77.0); PLATELET COUNT 185 10^3/UL (140-415); POSITIVE DIFF @See below; RED BLOOD COUNT 3.35 10^6/ul (4.70-6.10); RED CELL DISTRIBUTION WIDTH 16.2 % (11.5-14.5)
[2018-07-14 07:26] LABS: HEPATITIS B SURFACE ANTIGEN NEGATIVE (NEGATIVE)
[2018-07-14] MEDS: INSULIN ASPART [NOVOLOG] 3 ML PEN SC ×4 (07:41→20:48)
[2018-07-14 07:44] LABS: HEPATITIS B CORE ANTIBODY NEGATIVE (NEGATIVE); HEPATITIS C VIRAL ANTIBODY NEGATIVE (NEGATIVE)
[2018-07-14] MEDS: CALCIUM CARBONATE 500 MG CHEW TAB PO (08:38)
[2018-07-14] MEDS: TICAGRELOR 90 MG TABLET PO ×2 (08:40→21:02)
[2018-07-14] MEDS: DOCUSATE SODIUM 100 MG CAP PO ×2 (08:42→20:52)
[2018-07-14] MEDS: oxyCODONE 5 MG TAB PO (08:43)
[2018-07-14] MEDS: AMIODARONE 200 MG TAB PO (08:46)
[2018-07-14] MEDS: ASPIRIN 81 MG TAB PO (08:47)
[2018-07-14] MEDS: FEBUXOSTAT 40 MG TABLET PO (08:47)
[2018-07-14] MEDS: BALSAM PERU/CASTOR OIL 60 GM TUBE TOP (08:50)
[2018-07-14] MEDS: ONDANSETRON (ODT) 4 MG TAB ODT (12:08)
[2018-07-14] MEDS: EPOETIN 10000 UNITS/1 ML INJ (ESRD) SC (18:01)
[2018-07-14] MEDS ORDERED: ALBUMIN HUMAN 25% 100 ML IV (20:00)
[2018-07-14] MEDS: INSULIN GLARGINE [LANTus] (100 UNITS/ML) SYG SC (20:47)
[2018-07-14] MEDS: SENNA TAB PO (20:51)
[2018-07-14] MEDS: ATORVASTATIN 20 MG TAB PO (20:52)
[2018-07-14] MEDS: DONEPEZIL 5 MG TAB PO (20:52)
[2018-07-15] MEDS: FEBUXOSTAT 40 MG TABLET PO (08:36)
[2018-07-15] MEDS: DOCUSATE SODIUM 100 MG CAP PO ×2 (08:37→21:34)
[2018-07-15] MEDS: ASPIRIN 81 MG TAB PO (08:37)
[2018-07-15] MEDS: AMIODARONE 200 MG TAB PO (08:37)
[2018-07-15] MEDS: INSULIN ASPART [NOVOLOG] 3 ML PEN SC ×4 (08:42→21:37)
[2018-07-15] MEDS: TICAGRELOR 90 MG TABLET PO ×2 (08:43→21:35)
[2018-07-15] MEDS: BALSAM PERU/CASTOR OIL 60 GM TUBE TOP (08:48)
[2018-07-15] MEDS: HEPARIN 1000 UNITS/ML 10 ML INJ CATHETER (18:55)
[2018-07-15] MEDS: SENNA TAB PO (21:34)
[2018-07-15] MEDS: DONEPEZIL 5 MG TAB PO (21:34)
[2018-07-15] MEDS: ATORVASTATIN 20 MG TAB PO (21:34)
[2018-07-15] MEDS: INSULIN GLARGINE [LANTus] (100 UNITS/ML) SYG SC (21:36)
[2018-07-16 06:13] LABS: ADD MAN DIFF? NO
[2018-07-16 06:14] LABS: WHITE BLOOD COUNT 14.9 10^3/ul (4.8-10.8)
[2018-07-16 06:14] LABS: ABNORMAL IP MESSAGE 1; BASOPHIL # 0.1 10^3/ul (0.0-0.1); BASOPHILS % 0.9 % (0.0-2.0); EOSINOPHILS # 0.7 10^3/ul (0.0-0.5); EOSINOPHILS % 4.6 % (0.0-7.0); HEMATOCRIT 32.5 % (42.0-52.0); HEMOGLOBIN 10.2 g/dl (14.0-18.0); LYMPHOCYTES # 1.7 10^3/ul (0.8-2.9); LYMPHOCYTES % 11.2 % (15.0-51.0); MEAN CORPUSCULAR HEMOGLOBIN 29.3 pg (29.0-33.0); MEAN CORPUSCULAR HGB CONC 31.4 g/dl (32.0-37.0); MEAN CORPUSCULAR VOLUME 93.4 fl (82.0-101.0); MONOCYTES % 13.3 % (0.0-11.0); NEUTROPHIL # 9.9 10^3/ul (1.6-7.5); NEUTROPHILS % 66.7 % (39.0-77.0); PLATELET COUNT 198 10^3/UL (140-415); POSITIVE DIFF @See below; RED BLOOD COUNT 3.48 10^6/ul (4.70-6.10); RED CELL DISTRIBUTION WIDTH 16.6 % (11.5-14.5)
[2018-07-16] MEDS: FAMOTIDINE 20 MG TAB PO (06:16)
[2018-07-16 06:43] LABS: ALANINE AMINOTRANSFERASE 15 IU/L (13-69); ALBUMIN 3.7 g/dl (3.3-4.9); ALBUMIN/GLOBULIN RATIO 1.32; ALKALINE PHOSPHATASE 78 IU/L (42-121); ANION GAP 11 (5-13); ASPARTATE AMINO TRANSFERASE 18 IU/L (15-46); BLOOD UREA NITROGEN 24 mg/dl (7-20); CALCIUM 9.1 mg/dl (8.4-10.2); CARBON DIOXIDE 30 mmol/L (21-31); CHLORIDE 99 mmol/L (97-110); CREATININE 4.12 mg/dl (0.61-1.24); GLUCOSE 176 mg/dl (70-220); POTASSIUM 4.4 mmol/L (3.5-5.1); SODIUM 140 mmol/L (135-144); TOTAL PROTEIN 6.5 g/dl (6.1-8.1)
[2018-07-16] MEDS: DOCUSATE SODIUM 100 MG CAP PO ×2 (08:02→20:32)
[2018-07-16] MEDS: FEBUXOSTAT 40 MG TABLET PO (08:02)
[2018-07-16] MEDS: ASPIRIN 81 MG TAB PO (08:03)
[2018-07-16] MEDS: AMIODARONE 200 MG TAB PO (08:03)
[2018-07-16] MEDS: TICAGRELOR 90 MG TABLET PO ×2 (08:05→20:32)
[2018-07-16] MEDS: INSULIN ASPART [NOVOLOG] 3 ML PEN SC ×4 (08:06→20:31)
[2018-07-16] MEDS: BALSAM PERU/CASTOR OIL 60 GM TUBE TOP (08:08)
[2018-07-16] MEDS: ONDANSETRON (ODT) 4 MG TAB ODT (14:46)
[2018-07-16] MEDS: EPOETIN 10000 UNITS/1 ML INJ (ESRD) SC (17:13)
[2018-07-16] MEDS: INSULIN GLARGINE [LANTus] (100 UNITS/ML) SYG SC (20:31)
[2018-07-16] MEDS: SENNA TAB PO (20:33)
[2018-07-16] MEDS: ATORVASTATIN 20 MG TAB PO (20:33)
[2018-07-16] MEDS: DONEPEZIL 5 MG TAB PO (20:33)
[2018-07-17] MEDS: FAMOTIDINE 20 MG TAB PO (06:23)
[2018-07-17 06:40] LABS: ADD MAN DIFF? NO
[2018-07-17 06:43] LABS: WHITE BLOOD COUNT 13.9 10^3/ul (4.8-10.8)
[2018-07-17 06:43] LABS: ABNORMAL IP MESSAGE 1; BASOPHIL # 0.1 10^3/ul (0.0-0.1); BASOPHILS % 0.8 % (0.0-2.0); EOSINOPHILS # 0.7 10^3/ul (0.0-0.5); EOSINOPHILS % 5.1 % (0.0-7.0); HEMATOCRIT 34.4 % (42.0-52.0); HEMOGLOBIN 10.7 g/dl (14.0-18.0); LYMPHOCYTES # 1.3 10^3/ul (0.8-2.9); LYMPHOCYTES % 9.3 % (15.0-51.0); MEAN CORPUSCULAR HEMOGLOBIN 28.9 pg (29.0-33.0); MEAN CORPUSCULAR HGB CONC 31.1 g/dl (32.0-37.0); MONOCYTE # 1.7 10^3/ul (0.3-0.9); MONOCYTES % 12.3 % (0.0-11.0); NEUTROPHIL # 9.5 10^3/ul (1.6-7.5); NEUTROPHILS % 68.6 % (39.0-77.0); PLATELET COUNT 221 10^3/UL (140-415); POSITIVE DIFF @See below; RED CELL DISTRIBUTION WIDTH 17.1 % (11.5-14.5)
[2018-07-17] MEDS: oxyCODONE 5 MG TAB PO ×2 (08:19→14:48)
[2018-07-17] MEDS: ONDANSETRON (ODT) 4 MG TAB ODT ×2 (08:23→14:49)
[2018-07-17] MEDS: DOCUSATE SODIUM 100 MG CAP PO ×2 (08:23→21:05)
[2018-07-17] MEDS: INSULIN ASPART [NOVOLOG] 3 ML PEN SC ×4 (08:23→21:03)
[2018-07-17] MEDS: FEBUXOSTAT 40 MG TABLET PO (08:23)
[2018-07-17] MEDS: ASPIRIN 81 MG TAB PO (08:23)
[2018-07-17] MEDS: BALSAM PERU/CASTOR OIL 60 GM TUBE TOP (09:00)
[2018-07-17] MEDS: TICAGRELOR 90 MG TABLET PO ×3 (09:00→21:04)
[2018-07-17] MEDS: ISOSORBIDE DINITRATE 5 MG TAB PO ×3 (09:30→21:15)
[2018-07-17 11:25] LABS: TROPONIN-I 0.033 ng/ml (0.000-0.120)
[2018-07-17] MEDS: INSULIN GLARGINE [LANTus] (100 UNITS/ML) SYG SC (21:04)
[2018-07-17] MEDS: ATORVASTATIN 20 MG TAB PO (21:05)
[2018-07-17] MEDS: SENNA TAB PO (21:05)
[2018-07-18] MEDS: FAMOTIDINE 20 MG TAB PO (06:35)
[2018-07-18] MEDS: INSULIN ASPART [NOVOLOG] 3 ML PEN SC ×4 (07:35→21:00)
[2018-07-18] MEDS: ISOSORBIDE DINITRATE 5 MG TAB PO ×3 (09:00→21:08)
[2018-07-18] MEDS: BALSAM PERU/CASTOR OIL 60 GM TUBE TOP (09:00)
[2018-07-18] MEDS: DOCUSATE SODIUM 100 MG CAP PO ×2 (09:08→21:07)
[2018-07-18] MEDS: ASPIRIN 81 MG TAB PO (09:08)
[2018-07-18] MEDS: FEBUXOSTAT 40 MG TABLET PO (09:08)
[2018-07-18] MEDS: ONDANSETRON (ODT) 4 MG TAB ODT ×2 (09:08→14:35)
[2018-07-18] MEDS: TICAGRELOR 90 MG TABLET PO ×2 (09:09→21:09)
[2018-07-18] MEDS: AMIODARONE 200 MG TAB PO (09:11)
[2018-07-18] MEDS: oxyCODONE 5 MG TAB PO ×2 (09:12→14:35)
[2018-07-18] MEDS: HEPARIN 1000 UNITS/ML 10 ML INJ CATHETER (19:29)
[2018-07-18] MEDS: SENNA TAB PO (21:00)
[2018-07-18] MEDS: EPOETIN 10000 UNITS/1 ML INJ (ESRD) SC (21:06)
[2018-07-18] MEDS: ATORVASTATIN 20 MG TAB PO (21:07)
[2018-07-18] MEDS: INSULIN GLARGINE [LANTus] (100 UNITS/ML) SYG SC (21:11)
[2018-07-19] MEDS: INSULIN ASPART [NOVOLOG] 3 ML PEN SC ×4 (08:08→21:23)
[2018-07-19] MEDS: FAMOTIDINE 20 MG TAB PO (08:09)
[2018-07-19] MEDS: DOCUSATE SODIUM 100 MG CAP PO ×2 (11:27→21:20)
[2018-07-19] MEDS: ISOSORBIDE DINITRATE 5 MG TAB PO ×3 (11:28→21:20)
[2018-07-19] MEDS: ASPIRIN 81 MG TAB PO (11:28)
[2018-07-19] MEDS: AMIODARONE 200 MG TAB PO (11:29)
[2018-07-19] MEDS: oxyCODONE 5 MG TAB PO ×2 (11:29→15:34)
[2018-07-19] MEDS: FEBUXOSTAT 40 MG TABLET PO (11:31)
[2018-07-19] MEDS: BALSAM PERU/CASTOR OIL 60 GM TUBE TOP (11:31)
[2018-07-19] MEDS: TICAGRELOR 90 MG TABLET PO ×2 (11:33→21:22)
[2018-07-19] MEDS: ONDANSETRON (ODT) 4 MG TAB ODT (15:35)
[2018-07-19] MEDS: SENNA TAB PO (21:00)
[2018-07-19] MEDS: ATORVASTATIN 20 MG TAB PO (21:20)
[2018-07-19] MEDS: INSULIN GLARGINE [LANTus] (100 UNITS/ML) SYG SC (21:24)
[2018-07-20] MEDS: DEXTROSE 5%-0.45% NACL 1,000 ML IV (00:03)
[2018-07-20] MEDS: INSULIN ASPART [NOVOLOG] 3 ML PEN SC ×4 (08:10→20:38)
[2018-07-20] MEDS: AMIODARONE 200 MG TAB PO (08:10)
[2018-07-20] MEDS: ISOSORBIDE DINITRATE 5 MG TAB PO ×3 (08:11→20:40)
[2018-07-20] MEDS: FEBUXOSTAT 40 MG TABLET PO (08:11)
[2018-07-20] MEDS: FAMOTIDINE 20 MG TAB PO (08:12)
[2018-07-20] MEDS: DOCUSATE SODIUM 100 MG CAP PO ×2 (08:17→20:38)
[2018-07-20] MEDS: BALSAM PERU/CASTOR OIL 60 GM TUBE TOP (09:00)
[2018-07-20] MEDS: ASPIRIN 81 MG TAB PO (09:00)
[2018-07-20] MEDS: TICAGRELOR 90 MG TABLET PO ×2 (09:00→20:36)
[2018-07-20 11:55] LABS: POTASSIUM 4.3 mmol/L (3.5-5.1)
[2018-07-20] MEDS ORDERED: MIDAZOLAM 1 MG/ML 2 ML INJ (15:52)
[2018-07-20] MEDS ORDERED: GELATIN SIZE 100 SPONGE (15:52)
[2018-07-20] MEDS ORDERED: FENTAnyl 50 MCG/ML VIAL (15:52)
[2018-07-20] MEDS ORDERED: PROPOFOL 20 ML (15:52)
[2018-07-20] MEDS ORDERED: THROMBIN 5000 UNIT VIAL (15:52)
[2018-07-20] MEDS ORDERED: ROPIVACAINE 0.2% 20 ML VIAL (15:57)
[2018-07-20] MEDS ORDERED: ONDANSETRON 4 MG INJ IV (16:00)
[2018-07-20] MEDS ORDERED: HYDROmorphONE 1 MG/5 ML IV SYRINGE IV ×3 (16:00)
[2018-07-20] MEDS ORDERED: IOHEXOL 300MG/ML 30 ML BTL (16:28)
[2018-07-20] MEDS: POLYMYXIN/BACITRACIN 1L IRRIG (16:31)
[2018-07-20] MEDS: LIDOCAINE 1% (MPF) 30 ML INJ (16:31)
[2018-07-20] MEDS: HEPARIN 1000 UNITS/ML 10 ML INJ (16:31)
[2018-07-20] MEDS ORDERED: LIDOCAINE 2% (SDV) 5 ML INJ (17:22)
[2018-07-20] MEDS: EPOETIN 10000 UNITS/1 ML INJ (ESRD) SC (18:56)
[2018-07-20] MEDS: INSULIN GLARGINE [LANTus] (100 UNITS/ML) SYG SC (20:37)
[2018-07-20] MEDS: SENNA TAB PO (20:38)
[2018-07-20] MEDS: ATORVASTATIN 20 MG TAB PO (20:39)
[2018-07-20] MEDS: SOD CHLORIDE 0.9% 1,000 ML IV (23:05)
[2018-07-21] MEDS: FAMOTIDINE 20 MG TAB PO (06:23)
[2018-07-21] MEDS: INSULIN ASPART [NOVOLOG] 3 ML PEN SC ×4 (08:16→20:13)
[2018-07-21] MEDS: ISOSORBIDE DINITRATE 5 MG TAB PO ×3 (08:16→20:14)
[2018-07-21] MEDS: FEBUXOSTAT 40 MG TABLET PO (08:16)
[2018-07-21] MEDS: AMIODARONE 200 MG TAB PO (08:17)
[2018-07-21] MEDS: TICAGRELOR 90 MG TABLET PO ×2 (08:18→20:12)
[2018-07-21] MEDS: DOCUSATE SODIUM 100 MG CAP PO ×2 (08:19→20:11)
[2018-07-21] MEDS: ASPIRIN 81 MG TAB PO (08:19)
[2018-07-21] MEDS: BALSAM PERU/CASTOR OIL 60 GM TUBE TOP (09:14)
[2018-07-21] MEDS ORDERED: ONDANSETRON 4 MG INJ IV (09:30)
[2018-07-21 11:42] LABS: HEPATITIS B SURFACE ANTIGEN NEGATIVE (NEGATIVE)
[2018-07-21] MEDS: SENNA TAB PO (20:12)
[2018-07-21] MEDS: ATORVASTATIN 20 MG TAB PO (20:12)
[2018-07-21] MEDS: INSULIN GLARGINE [LANTus] (100 UNITS/ML) SYG SC (20:14)
[2018-07-22] MEDS: FAMOTIDINE 20 MG TAB PO (06:29)
[2018-07-22] MEDS: INSULIN ASPART [NOVOLOG] 3 ML PEN SC ×4 (08:00→20:45)
[2018-07-22] MEDS: FEBUXOSTAT 40 MG TABLET PO (08:51)
[2018-07-22] MEDS: AMIODARONE 200 MG TAB PO (08:53)
[2018-07-22] MEDS: ASPIRIN 81 MG TAB PO (08:54)
[2018-07-22] MEDS: ISOSORBIDE DINITRATE 5 MG TAB PO ×3 (08:54→20:15)
[2018-07-22] MEDS: TICAGRELOR 90 MG TABLET PO ×2 (08:56→20:42)
[2018-07-22] MEDS: DOCUSATE SODIUM 100 MG CAP PO ×2 (08:56→20:47)
[2018-07-22] MEDS: BALSAM PERU/CASTOR OIL 60 GM TUBE TOP (09:00)
[2018-07-22] MEDS: CALCIUM CARBONATE 500 MG CHEW TAB PO (19:13)
[2018-07-22 19:14] LABS: HEMOGLOBIN 9.5 g/dl (14.0-18.0)
[2018-07-22] MEDS: ATORVASTATIN 20 MG TAB PO (20:15)
[2018-07-22] MEDS: INSULIN GLARGINE [LANTus] (100 UNITS/ML) SYG SC (20:42)
[2018-07-22] MEDS: EPOETIN 10000 UNITS/1 ML INJ (ESRD) SC (20:44)
[2018-07-22] MEDS: SENNA TAB PO (20:47)
[2018-07-23] MEDS: FAMOTIDINE 20 MG TAB PO (06:21)
[2018-07-23 07:18] LABS: ADD MAN DIFF? NO
[2018-07-23 07:19] LABS: WHITE BLOOD COUNT 13.1 10^3/ul (4.8-10.8)
[2018-07-23 07:19] LABS: ABNORMAL IP MESSAGE 1; BASOPHILS % 0.3 % (0.0-2.0); EOSINOPHILS # 0.7 10^3/ul (0.0-0.5); EOSINOPHILS % 5.4 % (0.0-7.0); HEMATOCRIT 33.5 % (42.0-52.0); HEMOGLOBIN 10.5 g/dl (14.0-18.0); LYMPHOCYTES % 7.9 % (15.0-51.0); MEAN CORPUSCULAR HEMOGLOBIN 29.2 pg (29.0-33.0); MEAN CORPUSCULAR HGB CONC 31.3 g/dl (32.0-37.0); MEAN CORPUSCULAR VOLUME 93.1 fl (82.0-101.0); MEAN PLATELET VOLUME 11.3 fl (7.4-10.4); MONOCYTE # 1.4 10^3/ul (0.3-0.9); MONOCYTES % 10.4 % (0.0-11.0); NEUTROPHIL # 9.3 10^3/ul (1.6-7.5); NEUTROPHILS % 71.2 % (39.0-77.0); PLATELET COUNT 193 10^3/UL (140-415); POSITIVE DIFF @See below
[2018-07-23] MEDS: INSULIN ASPART [NOVOLOG] 3 ML PEN SC ×4 (07:35→20:11)
[2018-07-23 07:54] LABS: ANION GAP 14 (5-13); BLOOD UREA NITROGEN 38 mg/dl (7-20); CALCIUM 9.4 mg/dl (8.4-10.2); CARBON DIOXIDE 26 mmol/L (21-31); CHLORIDE 101 mmol/L (97-110); CREATININE 5.46 mg/dl (0.61-1.24); GLUCOSE 129 mg/dl (70-220); PHOSPHORUS 3.5 mg/dl (2.5-4.9); POTASSIUM 3.8 mmol/L (3.5-5.1); SODIUM 141 mmol/L (135-144)
[2018-07-23 07:56] LABS: ALBUMIN 3.8 g/dl (3.3-4.9)
[2018-07-23] MEDS: DOCUSATE SODIUM 100 MG CAP PO ×2 (09:00→20:08)
[2018-07-23] MEDS: HEPARIN 1000 UNITS/ML 10 ML INJ CATHETER (11:23)
[2018-07-23] MEDS: AMIODARONE 200 MG TAB PO (11:52)
[2018-07-23] MEDS: ISOSORBIDE DINITRATE 5 MG TAB PO ×3 (11:53→20:24)
[2018-07-23] MEDS: ASPIRIN 81 MG TAB PO (11:53)
[2018-07-23] MEDS: FEBUXOSTAT 40 MG TABLET PO (11:53)
[2018-07-23] MEDS: TICAGRELOR 90 MG TABLET PO ×2 (11:54→22:00)
[2018-07-23] MEDS: BALSAM PERU/CASTOR OIL 60 GM TUBE TOP (16:55)
[2018-07-23] MEDS: ATORVASTATIN 20 MG TAB PO (20:08)
[2018-07-23] MEDS: SENNA TAB PO (20:08)
[2018-07-23] MEDS: INSULIN GLARGINE [LANTus] (100 UNITS/ML) SYG SC (20:12)
[2018-07-23] MEDS: HEPARIN 5,000 UNIT/1 ML VIAL SC (20:13)
[2018-07-24] MEDS: FAMOTIDINE 20 MG TAB PO (06:22)
[2018-07-24] MEDS: INSULIN ASPART [NOVOLOG] 3 ML PEN SC ×4 (08:05→20:25)
[2018-07-24] MEDS: DOCUSATE SODIUM 100 MG CAP PO ×2 (08:48→20:28)
[2018-07-24] MEDS: ONDANSETRON (ODT) 4 MG TAB ODT (08:48)
[2018-07-24] MEDS: ASPIRIN 81 MG TAB PO (08:49)
[2018-07-24] MEDS: FEBUXOSTAT 40 MG TABLET PO (08:49)
[2018-07-24] MEDS: AMIODARONE 200 MG TAB PO (08:49)
[2018-07-24] MEDS: TICAGRELOR 90 MG TABLET PO ×2 (08:50→20:24)
[2018-07-24] MEDS: HEPARIN 5,000 UNIT/1 ML VIAL SC ×2 (08:51→20:26)
[2018-07-24] MEDS: BALSAM PERU/CASTOR OIL 60 GM TUBE TOP (09:00)
[2018-07-24] MEDS: ISOSORBIDE DINITRATE 5 MG TAB PO ×3 (09:00→20:28)
[2018-07-24 17:20] LABS: HEMATOCRIT 34.8 % (42.0-52.0); HEMOGLOBIN 10.8 g/dl (14.0-18.0)
[2018-07-24] MEDS: EPOETIN 10000 UNITS/1 ML INJ (ESRD) SC (17:22)
[2018-07-24] MEDS: INSULIN GLARGINE [LANTus] (100 UNITS/ML) SYG SC (20:24)
[2018-07-24] MEDS: ATORVASTATIN 20 MG TAB PO (20:28)
[2018-07-24] MEDS: SENNA TAB PO (20:29)
[2018-07-25] MEDS: FAMOTIDINE 20 MG TAB PO (06:17)
[2018-07-25] MEDS: INSULIN ASPART [NOVOLOG] 3 ML PEN SC ×4 (08:25→20:35)
[2018-07-25] MEDS: DOCUSATE SODIUM 100 MG CAP PO ×2 (08:58→20:22)
[2018-07-25] MEDS: ASPIRIN 81 MG TAB PO (08:58)
[2018-07-25] MEDS: FEBUXOSTAT 40 MG TABLET PO (08:58)
[2018-07-25] MEDS: AMIODARONE 200 MG TAB PO (08:59)
[2018-07-25] MEDS: HEPARIN 5,000 UNIT/1 ML VIAL SC ×2 (09:05→20:36)
[2018-07-25] MEDS: TICAGRELOR 90 MG TABLET PO ×2 (09:06→20:34)
[2018-07-25] MEDS: ISOSORBIDE DINITRATE 5 MG TAB PO ×3 (09:12→20:22)
[2018-07-25] MEDS: BALSAM PERU/CASTOR OIL 60 GM TUBE TOP (09:12)
[2018-07-25] MEDS: ATORVASTATIN 20 MG TAB PO (20:22)
[2018-07-25] MEDS: INSULIN GLARGINE [LANTus] (100 UNITS/ML) SYG SC (20:35)
[2018-07-25] MEDS: SENNA TAB PO (21:00)
[2018-07-26] MEDS: FAMOTIDINE 20 MG TAB PO (06:25)
[2018-07-26 07:25] LABS: ADD MAN DIFF? NO
[2018-07-26 07:27] LABS: ABNORMAL IP MESSAGE 1; BASOPHIL # 0.1 10^3/ul (0.0-0.1); EOSINOPHILS # 0.9 10^3/ul (0.0-0.5); HEMOGLOBIN 10.3 g/dl (14.0-18.0); LYMPHOCYTES # 1.9 10^3/ul (0.8-2.9); LYMPHOCYTES % 15.4 % (15.0-51.0); MEAN CORPUSCULAR HEMOGLOBIN 29.2 pg (29.0-33.0); MEAN CORPUSCULAR HGB CONC 31.2 g/dl (32.0-37.0); MEAN CORPUSCULAR VOLUME 93.5 fl (82.0-101.0); MEAN PLATELET VOLUME 11.1 fl (7.4-10.4); MONOCYTE # 1.7 10^3/ul (0.3-0.9); MONOCYTES % 13.8 % (0.0-11.0); NEUTROPHIL # 7.3 10^3/ul (1.6-7.5); NEUTROPHILS % 58.7 % (39.0-77.0); PLATELET COUNT 261 10^3/UL (140-415); POSITIVE DIFF @See below; RED BLOOD COUNT 3.53 10^6/ul (4.70-6.10); RED CELL DISTRIBUTION WIDTH 16.7 % (11.5-14.5)
[2018-07-26 07:27] LABS: WHITE BLOOD COUNT 12.4 10^3/ul (4.8-10.8)
[2018-07-26 07:55] LABS: ANION GAP 12 (5-13); BLOOD UREA NITROGEN 44 mg/dl (7-20); CARBON DIOXIDE 28 mmol/L (21-31); CHLORIDE 101 mmol/L (97-110); CREATININE 5.98 mg/dl (0.61-1.24); GLUCOSE 204 mg/dl (70-220); PHOSPHORUS 3.9 mg/dl (2.5-4.9); POTASSIUM 4.3 mmol/L (3.5-5.1); SODIUM 141 mmol/L (135-144)
[2018-07-26] MEDS: INSULIN ASPART [NOVOLOG] 3 ML PEN SC ×4 (08:15→21:15)
[2018-07-26] MEDS: FEBUXOSTAT 40 MG TABLET PO (08:24)
[2018-07-26] MEDS: HEPARIN 5,000 UNIT/1 ML VIAL SC ×2 (08:25→21:14)
[2018-07-26] MEDS: ISOSORBIDE DINITRATE 5 MG TAB PO ×3 (08:26→21:06)
[2018-07-26] MEDS: TICAGRELOR 90 MG TABLET PO ×2 (08:26→21:13)
[2018-07-26] MEDS: ASPIRIN 81 MG TAB PO (08:27)
[2018-07-26] MEDS: AMIODARONE 200 MG TAB PO (08:27)
[2018-07-26] MEDS: DOCUSATE SODIUM 100 MG CAP PO ×2 (08:27→21:05)
[2018-07-26] MEDS: BALSAM PERU/CASTOR OIL 60 GM TUBE TOP (08:28)
[2018-07-26] MEDS: EPOETIN 10000 UNITS/1 ML INJ (ESRD) SC (17:26)
[2018-07-26] MEDS: HEPARIN 1000 UNITS/ML 10 ML INJ CATHETER (18:01)
[2018-07-26] MEDS: ATORVASTATIN 20 MG TAB PO (21:05)
[2018-07-26] MEDS: SENNA TAB PO (21:05)
[2018-07-26] MEDS: INSULIN GLARGINE [LANTus] (100 UNITS/ML) SYG SC (21:35)
[2018-07-27] MEDS: ZOLPIDEM 5 MG TAB PO (00:23)
[2018-07-27] MEDS: ACETAMINOPHEN 325 MG TAB PO (00:23)
[2018-07-27] MEDS: FAMOTIDINE 20 MG TAB PO (07:10)
[2018-07-27] MEDS: INSULIN ASPART [NOVOLOG] 3 ML PEN SC ×4 (07:57→21:01)
[2018-07-27] MEDS: FEBUXOSTAT 40 MG TABLET PO (08:31)
[2018-07-27] MEDS: ASPIRIN 81 MG TAB PO (08:32)
[2018-07-27] MEDS: DOCUSATE SODIUM 100 MG CAP PO ×2 (08:33→21:00)
[2018-07-27] MEDS: AMIODARONE 200 MG TAB PO (08:33)
[2018-07-27] MEDS: TICAGRELOR 90 MG TABLET PO ×2 (08:34→21:00)
[2018-07-27] MEDS: HEPARIN 5,000 UNIT/1 ML VIAL SC (08:35)
[2018-07-27] MEDS: BALSAM PERU/CASTOR OIL 60 GM TUBE TOP (08:36)
[2018-07-27] MEDS: ISOSORBIDE MONONITRATE(SR)30 MG TAB PO (08:45)
[2018-07-27] MEDS: ATORVASTATIN 20 MG TAB PO (20:59)
[2018-07-27] MEDS: SENNA TAB PO (21:00)
[2018-07-27] MEDS: INSULIN GLARGINE [LANTus] (100 UNITS/ML) SYG SC (21:01)
[2018-07-28 06:10] LABS: ADD MAN DIFF? NO
[2018-07-28 06:14] LABS: ABNORMAL IP MESSAGE 1; BASOPHIL # 0.1 10^3/ul (0.0-0.1); BASOPHILS % 0.8 % (0.0-2.0); EOSINOPHILS # 0.9 10^3/ul (0.0-0.5); EOSINOPHILS % 5.3 % (0.0-7.0); HEMATOCRIT 34.4 % (42.0-52.0); HEMOGLOBIN 10.9 g/dl (14.0-18.0); LYMPHOCYTES # 1.9 10^3/ul (0.8-2.9); LYMPHOCYTES % 11.8 % (15.0-51.0); MEAN CORPUSCULAR HEMOGLOBIN 29.1 pg (29.0-33.0); MEAN CORPUSCULAR HGB CONC 31.7 g/dl (32.0-37.0); MEAN CORPUSCULAR VOLUME 91.7 fl (82.0-101.0); MEAN PLATELET VOLUME 10.6 fl (7.4-10.4); MONOCYTE # 1.7 10^3/ul (0.3-0.9); MONOCYTES % 10.8 % (0.0-11.0); NEUTROPHIL # 10.9 10^3/ul (1.6-7.5); NEUTROPHILS % 68.7 % (39.0-77.0); PLATELET COUNT 249 10^3/UL (140-415); POSITIVE DIFF @See below; RED BLOOD COUNT 3.75 10^6/ul (4.70-6.10); RED CELL DISTRIBUTION WIDTH 17.1 % (11.5-14.5)
[2018-07-28] MEDS: FAMOTIDINE 20 MG TAB PO (06:21)
[2018-07-28 06:53] LABS: ANION GAP 10 (5-13); BLOOD UREA NITROGEN 33 mg/dl (7-20); CALCIUM 9.4 mg/dl (8.4-10.2); CARBON DIOXIDE 27 mmol/L (21-31); CHLORIDE 101 mmol/L (97-110); CREATININE 4.76 mg/dl (0.61-1.24); GLUCOSE 154 mg/dl (70-220); PHOSPHORUS 3.6 mg/dl (2.5-4.9); POTASSIUM 4.5 mmol/L (3.5-5.1); SODIUM 138 mmol/L (135-144)
[2018-07-28] MEDS: AMIODARONE 200 MG TAB PO (08:15)
[2018-07-28] MEDS: ASPIRIN 81 MG TAB PO (08:15)
[2018-07-28] MEDS: DOCUSATE SODIUM 100 MG CAP PO (08:15)
[2018-07-28] MEDS: FEBUXOSTAT 40 MG TABLET PO (08:15)
[2018-07-28] MEDS: TICAGRELOR 90 MG TABLET PO (08:18)
[2018-07-28] MEDS: INSULIN ASPART [NOVOLOG] 3 ML PEN SC ×3 (08:19→12:51)
[2018-07-28 11:26] LABS: WHITE BLOOD COUNT 5.9 10^3/ul (4.8-10.8)
[2018-07-28 11:26] LABS: ABNORMAL IP MESSAGE 1; HEMATOCRIT 33.7 % (42.0-52.0); HEMOGLOBIN 10.5 g/dl (14.0-18.0); MEAN CORPUSCULAR HEMOGLOBIN 28.9 pg (29.0-33.0); MEAN CORPUSCULAR HGB CONC 31.2 g/dl (32.0-37.0); MEAN CORPUSCULAR VOLUME 92.8 fl (82.0-101.0); MEAN PLATELET VOLUME 11.2 fl (7.4-10.4); PLATELET COUNT 176 10^3/UL (140-415); POSITIVE DIFF @See below; RED BLOOD COUNT 3.63 10^6/ul (4.70-6.10); RED CELL DISTRIBUTION WIDTH 17.3 % (11.5-14.5)
[2018-07-28 11:35] LABS: ADD MAN DIFF? YES
[2018-07-28 12:27] LABS: ANISOCYTOSIS 1+ (0-0); BAND NEUTROPHILS % (M) 1 % (0-4); BURR CELLS 1+ (0-0); EOSINOPHILS % (M) 2 % (0-7); GIANT THROMBO% (M) 3 % (0-0); LYMPHOCYTES #M 1.2 10^3/ul (0.8-2.9); LYMPHOCYTES % (M) 21 % (15-51); METAMYELOCYTES %M 1 % (0-0); MONOCYTES % (M) 1 % (0-11); MYELOCYTES #M 0.2 10^3/ul (0.0-0.0); MYELOCYTES % (M) 4 % (0-0); PLATELET ESTIMATE NORMAL; POIKILOCYTOSIS 1+ (0-0); POLYCHROMASIA 1+ (0-0); PROMYELOCYTES % (M) 1 % (0-0); SEG NEUT #M 4.1 10^3/ul (1.6-7.5); SEGMENTED NEUTROPHILS (M) % 69 % (39-77); SMUDGE%M 30 % (0-0)
[2018-07-28 12:49] LABS: ADD MAN DIFF? NO
[2018-07-28] MEDS: BALSAM PERU/CASTOR OIL 60 GM TUBE TOP (12:50)
[2018-07-28 12:51] LABS: WHITE BLOOD COUNT 18.4 10^3/ul (4.8-10.8)
[2018-07-28 12:51] LABS: BASOPHIL # 0.2 10^3/ul (0.0-0.1); BASOPHILS % 0.8 % (0.0-2.0); EOSINOPHILS # 0.7 10^3/ul (0.0-0.5); EOSINOPHILS % 3.8 % (0.0-7.0); HEMATOCRIT 36.5 % (42.0-52.0); HEMOGLOBIN 11.4 g/dl (14.0-18.0); LYMPHOCYTES # 1.4 10^3/ul (0.8-2.9); LYMPHOCYTES % 7.4 % (15.0-51.0); MEAN CORPUSCULAR HEMOGLOBIN 28.9 pg (29.0-33.0); MEAN CORPUSCULAR HGB CONC 31.2 g/dl (32.0-37.0); MEAN CORPUSCULAR VOLUME 92.6 fl (82.0-101.0); MONOCYTE # 1.2 10^3/ul (0.3-0.9); MONOCYTES % 6.8 % (0.0-11.0); NEUTROPHIL # 14.5 10^3/ul (1.6-7.5); NEUTROPHILS % 78.7 % (39.0-77.0); PLATELET COUNT 154 10^3/UL (140-415); RED BLOOD COUNT 3.94 10^6/ul (4.70-6.10); RED CELL DISTRIBUTION WIDTH 16.8 % (11.5-14.5)
[2018-07-28] MEDS: HEPARIN 1000 UNITS/ML 10 ML INJ CATHETER (13:33)
[2018-07-28] MEDS: ISOSORBIDE MONONITRATE(SR)30 MG TAB PO (14:42)
[2018-07-28 16:46] LABS: ADD UMIC YES; UR ASCORBIC ACID NEGATIVE (NEGATIVE); UR BILIRUBIN (Dip) NEGATIVE (NEGATIVE); UR BLOOD (Dip) NEGATIVE (NEGATIVE); UR CLARITY SLIGHTLY CLOUDY (CLEAR); UR COLOR YELLOW (YELLOW); UR GLUCOSE (Dip) 3+ mg/dL (NEGATIVE); UR KETONES (Dip) NEGATIVE (NEGATIVE); UR LEUKOCYTE ESTERASE (Dip) 2+ Leu/ul (NEGATIVE); UR NITRITE (Dip) NEGATIVE (NEGATIVE); UR RBC 4 /HPF (0-5); UR SPECIFIC GRAVITY (Dip) 1.013 (1.003-1.030); UR SQUAMOUS EPITHELIAL CELL FEW /HPF (FEW); UR TOTAL PROTEIN (Dip) 2+ mg/dl (NEGATIVE); UR UROBILINOGEN (Dip) NEGATIVE (NEGATIVE); UR WBC 14 /HPF (0-5)
[2018-07-28] MEDS ORDERED: INSULIN GLARGINE [LANTus] (100 UNITS/ML) SYG SC (20:00)
== END 2018-07-28 15:45 | disposition short-term general hospital (02) | DRG 939 ==
LOC: VRC 07-06 02:09
PROVIDERS: Physical Medicine & Rehabilitation
PROC: F07Z8ZZ Transfer Training Treatment (ICD-10-PCS; principal; 2018-07-20 15:59)
PROC: 03CY0ZZ Extirpation of Matter from Upper Artery, Open Approach (ICD-10-PCS; 2018-07-20 15:59)
PROC: 0JCH0ZZ Extirpation of Matter from Left Lower Arm Subcutaneous Tissue and Fascia, Open Approach (ICD-10-PCS; 2018-07-20 15:59)
PROC: 02H633Z Insertion of Infusion Device into Right Atrium, Percutaneous Approach (ICD-10-PCS; 2018-07-20 15:59)
PROC: 0JH63XZ Insertion of Tunneled Vascular Access Device into Chest Subcutaneous Tissue and Fascia, Percutaneous Approach (ICD-10-PCS; 2018-07-20 15:59)
PROC: 06PYX3Z Removal of Infusion Device from Lower Vein, External Approach (ICD-10-PCS; 2018-07-20 15:59)
PROC: F07Z5ZZ Bed Mobility Treatment (ICD-10-PCS; 2018-07-20 15:59)
PROC: F07Z9ZZ Gait Training/Functional Ambulation Treatment (ICD-10-PCS; 2018-07-20 15:59)
PROC: F08Z2ZZ Grooming/Personal Hygiene Treatment (ICD-10-PCS; 2018-07-20 15:59)
PROC: F08Z1ZZ Dressing Techniques Treatment (ICD-10-PCS; 2018-07-20 15:59)
PROC: F08Z0ZZ Bathing/Showering Techniques Treatment (ICD-10-PCS; 2018-07-20 15:59)
PROC: 5A1D70Z Performance of Urinary Filtration, Intermittent, Less than 6 Hours Per Day (ICD-10-PCS; 2018-07-20 15:59)
DX: Z48.812 Encounter for surgical aftercare following surgery on the circulatory system (principal); N18.6 End stage renal disease; I12.0 Hypertensive chronic kidney disease with stage 5 chronic kidney disease or end stage renal disease; T82.868A Thrombosis due to vascular prosthetic devices, implants and grafts, initial encounter; G93.49 Other encephalopathy; I25.2 Old myocardial infarction; D63.1 Anemia in chronic kidney disease; E78.5 Hyperlipidemia, unspecified; E11.22 Type 2 diabetes mellitus with diabetic chronic kidney disease; I25.10 Atherosclerotic heart disease of native coronary artery without angina pectoris; E11.21 Type 2 diabetes mellitus with diabetic nephropathy; E11.42 Type 2 diabetes mellitus with diabetic polyneuropathy; G72.89 Other specified myopathies; Y83.2 Surgical operation with anastomosis, bypass or graft as the cause of abnormal reaction of the patient, or of later complication, without mention of misadventure at the time of the procedure; Y92.238 Other place in hospital as the place of occurrence of the external cause; I48.0 Paroxysmal atrial fibrillation; M10.9 Gout, unspecified; R53.81 Other malaise; F06.31 Mood disorder due to known physiological condition with depressive features; G31.84 Mild cognitive impairment of uncertain or unknown etiology; S50.12XA Contusion of left forearm, initial encounter; X58.XXXA Exposure to other specified factors, initial encounter; I25.5 Ischemic cardiomyopathy; D72.829 Elevated white blood cell count, unspecified; Z95.5 Presence of coronary angioplasty implant and graft
CPT/HCPCS: 71045; 80048; 80053; 81001; 82040; 82962; 84100; 84132; 84443; 84484; 85014; 85018; 85025; 86704; 86709; 86803; 87040; 87081; 87086; 87340; 90935; 92526; 92610; 93005; 93306; 93931; 97110; 97112; 97116; 97163; 97167; 97530; 97535; 97542

== ENCOUNTER 2018-07-28 15:48 | Inpatient (IN) | payer MEDICARE, BC ==
[2018-07-28] MEDS ORDERED: ZOLPIDEM 5 MG TAB PO (17:30)
[2018-07-28] MEDS ORDERED: DEXTROSE 50% 50 ML SYRINGE IV ×2 (17:30)
[2018-07-28] MEDS ORDERED: ACETAMINOPHEN 325 MG TAB PO (17:30)
[2018-07-28] MEDS ORDERED: GLUCOSE GEL 15 GRAM TUBE PO ×2 (17:30)
[2018-07-28] MEDS ORDERED: NACL 0.9% 3 ML SYG IV (17:30)
[2018-07-28] MEDS ORDERED: GLUCOSE GEL 15 GRAM TUBE BUCCAL (17:30)
[2018-07-28] MEDS ORDERED: GLUCAGON 1 MG INJ IM (17:30)
[2018-07-28] MEDS: INSULIN ASPART [NOVOLOG] 3 ML PEN SC ×2 (18:17→22:22)
[2018-07-28 19:47] LABS: LACTIC ACID 3.1 mmol/L (0.5-2.0)
[2018-07-28] MEDS: FAMOTIDINE 20 MG TAB PO (20:32)
[2018-07-28] MEDS: GABAPENTIN 100 MG CAP PO (20:32)
[2018-07-28] MEDS: ATORVASTATIN 20 MG TAB PO (20:32)
[2018-07-28] MEDS: TICAGRELOR 90 MG TABLET PO (20:33)
[2018-07-28] MEDS: HEPARIN 5,000 UNIT/1 ML VIAL SC (20:33)
[2018-07-28] MEDS: INSULIN GLARGINE [LANTus] (100 UNITS/ML) SYG SC (20:34)
[2018-07-28] MEDS: SENNA TAB PO (20:46)
[2018-07-28] MEDS ORDERED: DOCUSATE SODIUM 100 MG CAP PO (21:00)
[2018-07-29 06:05] LABS: ADD MAN DIFF? NO
[2018-07-29 06:11] LABS: ABNORMAL IP MESSAGE 1; BASOPHIL # 0.1 10^3/ul (0.0-0.1); BASOPHILS % 0.8 % (0.0-2.0); EOSINOPHILS # 0.9 10^3/ul (0.0-0.5); EOSINOPHILS % 5.4 % (0.0-7.0); HEMATOCRIT 34.2 % (42.0-52.0); HEMOGLOBIN 10.8 g/dl (14.0-18.0); LYMPHOCYTES # 2.1 10^3/ul (0.8-2.9); MEAN CORPUSCULAR HEMOGLOBIN 29.1 pg (29.0-33.0); MEAN CORPUSCULAR HGB CONC 31.6 g/dl (32.0-37.0); MEAN CORPUSCULAR VOLUME 92.2 fl (82.0-101.0); MEAN PLATELET VOLUME 11.3 fl (7.4-10.4); MONOCYTE # 1.9 10^3/ul (0.3-0.9); MONOCYTES % 12.2 % (0.0-11.0); NEUTROPHIL # 10.3 10^3/ul (1.6-7.5); NEUTROPHILS % 64.8 % (39.0-77.0); PLATELET COUNT 211 10^3/UL (140-415); POSITIVE DIFF @See below; RED BLOOD COUNT 3.71 10^6/ul (4.70-6.10); RED CELL DISTRIBUTION WIDTH 17.7 % (11.5-14.5)
[2018-07-29 06:11] LABS: WHITE BLOOD COUNT 15.8 10^3/ul (4.8-10.8)
[2018-07-29 06:32] LABS: ANION GAP 9 (5-13); BLOOD UREA NITROGEN 21 mg/dl (7-20); CALCIUM 9.1 mg/dl (8.4-10.2); CARBON DIOXIDE 30 mmol/L (21-31); CHLORIDE 101 mmol/L (97-110); CREATININE 4.11 mg/dl (0.61-1.24); GLUCOSE 166 mg/dl (70-220); PHOSPHORUS 3.4 mg/dl (2.5-4.9); SODIUM 140 mmol/L (135-144)
[2018-07-29] MEDS: HEPARIN 5,000 UNIT/1 ML VIAL SC ×2 (08:20→20:54)
[2018-07-29] MEDS: ASPIRIN 81 MG TAB PO (08:21)
[2018-07-29] MEDS: CALCITRIOL 0.25 MCG CAP PO (08:21)
[2018-07-29] MEDS: GABAPENTIN 100 MG CAP PO ×2 (08:21→20:48)
[2018-07-29] MEDS: DOCUSATE SODIUM 100 MG CAP PO (08:21)
[2018-07-29] MEDS: FEBUXOSTAT 40 MG TABLET PO (08:21)
[2018-07-29] MEDS: AMIODARONE 200 MG TAB PO (08:22)
[2018-07-29] MEDS: ISOSORBIDE MONONITRATE(SR)30 MG TAB PO (08:23)
[2018-07-29] MEDS: INSULIN ASPART [NOVOLOG] 3 ML PEN SC ×4 (08:35→21:02)
[2018-07-29] MEDS: TICAGRELOR 90 MG TABLET PO ×2 (12:27→20:32)
[2018-07-29] MEDS ORDERED: VANCOMYCIN IV PER PHARMACY XX (19:30)
[2018-07-29] MEDS: MEROPENEM 500MG/50 ML (PMX) 50 ML IVPB (20:30)
[2018-07-29] MEDS: ATORVASTATIN 20 MG TAB PO (20:47)
[2018-07-29] MEDS: FAMOTIDINE 20 MG TAB PO (20:48)
[2018-07-29] MEDS: SENNA TAB PO (21:00)
[2018-07-29] MEDS: INSULIN GLARGINE [LANTus] (100 UNITS/ML) SYG SC (21:01)
[2018-07-29] MEDS: VANCOMYCIN 1.5 GM in SOD CHLORIDE 0.9% 250 ML IVPB (21:03)
[2018-07-30 05:22] LABS: ADD MAN DIFF? NO
[2018-07-30 05:31] LABS: ABNORMAL IP MESSAGE 1; BASOPHILS % 0.3 % (0.0-2.0); EOSINOPHILS # 1.1 10^3/ul (0.0-0.5); EOSINOPHILS % 8.3 % (0.0-7.0); HEMATOCRIT 34.5 % (42.0-52.0); HEMOGLOBIN 10.6 g/dl (14.0-18.0); LYMPHOCYTES # 1.6 10^3/ul (0.8-2.9); LYMPHOCYTES % 12.5 % (15.0-51.0); MEAN CORPUSCULAR HEMOGLOBIN 29.2 pg (29.0-33.0); MEAN CORPUSCULAR HGB CONC 30.7 g/dl (32.0-37.0); MEAN PLATELET VOLUME 10.8 fl (7.4-10.4); MONOCYTE # 1.5 10^3/ul (0.3-0.9); MONOCYTES % 12.2 % (0.0-11.0); NEUTROPHIL # 7.9 10^3/ul (1.6-7.5); NEUTROPHILS % 62.5 % (39.0-77.0); PLATELET COUNT 234 10^3/UL (140-415); POSITIVE DIFF @See below; RED BLOOD COUNT 3.63 10^6/ul (4.70-6.10); RED CELL DISTRIBUTION WIDTH 17.5 % (11.5-14.5)
[2018-07-30 05:31] LABS: WHITE BLOOD COUNT 12.6 10^3/ul (4.8-10.8)
[2018-07-30 05:57] LABS: LACTIC ACID 1.5 mmol/L (0.5-2.0)
[2018-07-30 06:10] LABS: ALANINE AMINOTRANSFERASE 14 IU/L (13-69); ALBUMIN 3.4 g/dl (3.3-4.9); ALBUMIN/GLOBULIN RATIO 1.17; ALKALINE PHOSPHATASE 77 IU/L (42-121); ANION GAP 9 (5-13); ASPARTATE AMINO TRANSFERASE 15 IU/L (15-46); BILIRUBIN,INDIRECT 0.5 mg/dl (0-1.1); BILIRUBIN,TOTAL 0.5 mg/dl (0.2-1.3); BLOOD UREA NITROGEN 32 mg/dl (7-20); CALCIUM 9.3 mg/dl (8.4-10.2); CARBON DIOXIDE 30 mmol/L (21-31); CHLORIDE 102 mmol/L (97-110); CREATININE 5.24 mg/dl (0.61-1.24); GLUCOSE 188 mg/dl (70-220); POTASSIUM 4.4 mmol/L (3.5-5.1); SODIUM 141 mmol/L (135-144); TOTAL PROTEIN 6.3 g/dl (6.1-8.1)
[2018-07-30] MEDS: GUAIFENESIN 20 MG/ML 5ML CUP PO ×2 (08:04→20:04)
[2018-07-30] MEDS: INSULIN ASPART [NOVOLOG] 3 ML PEN SC ×4 (08:05→22:43)
[2018-07-30] MEDS: CALCITRIOL 0.25 MCG CAP PO (08:46)
[2018-07-30] MEDS: FEBUXOSTAT 40 MG TABLET PO (08:46)
[2018-07-30] MEDS: ISOSORBIDE MONONITRATE(SR)30 MG TAB PO (08:47)
[2018-07-30] MEDS: TICAGRELOR 90 MG TABLET PO ×2 (08:48→21:19)
[2018-07-30] MEDS: HEPARIN 5,000 UNIT/1 ML VIAL SC ×2 (08:49→21:22)
[2018-07-30] MEDS: ASPIRIN 81 MG TAB PO (08:52)
[2018-07-30] MEDS: AMIODARONE 200 MG TAB PO (08:53)
[2018-07-30] MEDS: MEROPENEM 500MG/50 ML (PMX) 50 ML IVPB ×2 (08:53→21:23)
[2018-07-30] MEDS: GABAPENTIN 100 MG CAP PO ×2 (08:53→21:21)
[2018-07-30] MEDS: DOCUSATE SODIUM 100 MG CAP PO ×2 (08:53→08:56)
[2018-07-30 16:04] LABS: HEPATITIS B SURFACE ANTIGEN NEGATIVE (NEGATIVE)
[2018-07-30] MEDS: ATORVASTATIN 20 MG TAB PO (21:17)
[2018-07-30] MEDS: SENNA TAB PO (21:18)
[2018-07-30] MEDS: FAMOTIDINE 20 MG TAB PO (21:19)
[2018-07-30] MEDS: INSULIN GLARGINE [LANTus] (100 UNITS/ML) SYG SC (21:33)
[2018-07-30] MEDS: OSELTAMIVIR 30 MG CAP PO (23:55)
[2018-07-30] MEDS: NYSTATIN 30 GM POWDER BTL TOP (23:57)
[2018-07-31 05:31] LABS: ADD MAN DIFF? NO
[2018-07-31 05:38] LABS: WHITE BLOOD COUNT 13.1 10^3/ul (4.8-10.8)
[2018-07-31 05:38] LABS: ABNORMAL IP MESSAGE 1; BASOPHIL # 0.1 10^3/ul (0.0-0.1); BASOPHILS % 0.7 % (0.0-2.0); EOSINOPHILS # 0.8 10^3/ul (0.0-0.5); EOSINOPHILS % 6.3 % (0.0-7.0); HEMATOCRIT 31.7 % (42.0-52.0); LYMPHOCYTES # 1.4 10^3/ul (0.8-2.9); LYMPHOCYTES % 10.8 % (15.0-51.0); MEAN CORPUSCULAR HGB CONC 31.5 g/dl (32.0-37.0); MEAN CORPUSCULAR VOLUME 91.9 fl (82.0-101.0); MEAN PLATELET VOLUME 11.1 fl (7.4-10.4); MONOCYTE # 1.5 10^3/ul (0.3-0.9); MONOCYTES % 11.6 % (0.0-11.0); NEUTROPHIL # 8.7 10^3/ul (1.6-7.5); NEUTROPHILS % 66.3 % (39.0-77.0); PLATELET COUNT 218 10^3/UL (140-415); POSITIVE DIFF @See below; RED BLOOD COUNT 3.45 10^6/ul (4.70-6.10); RED CELL DISTRIBUTION WIDTH 17.4 % (11.5-14.5)
[2018-07-31 06:01] LABS: ALBUMIN 3.2 g/dl (3.3-4.9); ALBUMIN/GLOBULIN RATIO 1.14; ALKALINE PHOSPHATASE 75 IU/L (42-121); ANION GAP 10 (5-13); ASPARTATE AMINO TRANSFERASE 13 IU/L (15-46); BILIRUBIN,INDIRECT 0.4 mg/dl (0-1.1); BILIRUBIN,TOTAL 0.4 mg/dl (0.2-1.3); BLOOD UREA NITROGEN 40 mg/dl (7-20); CALCIUM 9.1 mg/dl (8.4-10.2); CARBON DIOXIDE 26 mmol/L (21-31); CHLORIDE 102 mmol/L (97-110); CREATININE 6.04 mg/dl (0.61-1.24); GLUCOSE 216 mg/dl (70-220); POTASSIUM 4.5 mmol/L (3.5-5.1); SODIUM 138 mmol/L (135-144)
[2018-07-31 06:02] LABS: VANCOMYCIN,RANDOM 14.2 ug/ml
[2018-07-31 06:09] LABS: ALANINE AMINOTRANSFERASE < 6 IU/L (13-69)
[2018-07-31] MEDS: AMPICILLIN/SULB 3 GM/NS (PMX) 100 ML IVPB (06:16)
[2018-07-31] MEDS: NYSTATIN 30 GM POWDER BTL TOP ×4 (06:17→23:26)
[2018-07-31] MEDS: INSULIN ASPART [NOVOLOG] 3 ML PEN SC ×4 (08:09→21:56)
[2018-07-31] MEDS: GABAPENTIN 100 MG CAP PO ×2 (08:10→21:49)
[2018-07-31] MEDS: HEPARIN 5,000 UNIT/1 ML VIAL SC ×2 (08:10→21:55)
[2018-07-31] MEDS: ASPIRIN 81 MG TAB PO (08:10)
[2018-07-31] MEDS: FEBUXOSTAT 40 MG TABLET PO (08:10)
[2018-07-31] MEDS: CALCITRIOL 0.25 MCG CAP PO (08:11)
[2018-07-31] MEDS: TICAGRELOR 90 MG TABLET PO ×2 (08:11→21:55)
[2018-07-31] MEDS: DOCUSATE SODIUM 100 MG CAP PO (08:11)
[2018-07-31] MEDS: ISOSORBIDE MONONITRATE(SR)30 MG TAB PO (09:00)
[2018-07-31] MEDS: AMIODARONE 200 MG TAB PO (09:00)
[2018-07-31] MEDS ORDERED: VANCOMYCIN 1 GM 250 ML IVPB (09:00)
[2018-07-31] MEDS: GUAIFENESIN 20 MG/ML 5ML CUP PO ×2 (13:55→21:48)
[2018-07-31 15:18] LABS: LACTATE DEHYDROGENASE 621 IU/L (313-618)
[2018-07-31] MEDS: ALBUMIN HUMAN 25% 100 ML IV (15:19)
[2018-07-31] MEDS: HEPARIN 1000 UNITS/ML 10 ML INJ CATHETER ×2 (16:54→17:15)
[2018-07-31] MEDS: BENZONATATE 100 MG CAP PO (17:31)
[2018-07-31] MEDS: VANCOMYCIN 1 GM 250 ML IVPB ×2 (18:11→18:16)
[2018-07-31] MEDS: ATORVASTATIN 20 MG TAB PO (21:49)
[2018-07-31] MEDS: SENNA TAB PO (21:49)
[2018-07-31] MEDS: FAMOTIDINE 20 MG TAB PO (21:49)
[2018-07-31] MEDS: DOXYCYCLINE 100 MG TAB PO (23:25)
[2018-07-31] MEDS: INSULIN GLARGINE [LANTus] (100 UNITS/ML) SYG SC (23:26)
[2018-08-01] MEDS: NYSTATIN 30 GM POWDER BTL TOP ×3 (05:59→17:30)
[2018-08-01 07:17] LABS: ADD MAN DIFF? NO
[2018-08-01 07:22] LABS: ABNORMAL IP MESSAGE 1; BASOPHIL # 0.1 10^3/ul (0.0-0.1); BASOPHILS % 0.8 % (0.0-2.0); EOSINOPHILS # 0.8 10^3/ul (0.0-0.5); EOSINOPHILS % 6.9 % (0.0-7.0); HEMATOCRIT 31.4 % (42.0-52.0); HEMOGLOBIN 10.1 g/dl (14.0-18.0); LYMPHOCYTES # 1.6 10^3/ul (0.8-2.9); LYMPHOCYTES % 14.1 % (15.0-51.0); MEAN CORPUSCULAR HEMOGLOBIN 29.4 pg (29.0-33.0); MEAN CORPUSCULAR HGB CONC 32.2 g/dl (32.0-37.0); MEAN CORPUSCULAR VOLUME 91.3 fl (82.0-101.0); MEAN PLATELET VOLUME 11.3 fl (7.4-10.4); MONOCYTE # 1.7 10^3/ul (0.3-0.9); MONOCYTES % 14.3 % (0.0-11.0); NEUTROPHIL # 6.9 10^3/ul (1.6-7.5); NEUTROPHILS % 60.1 % (39.0-77.0); PLATELET COUNT 198 10^3/UL (140-415); POSITIVE DIFF @See below; RED BLOOD COUNT 3.44 10^6/ul (4.70-6.10); RED CELL DISTRIBUTION WIDTH 17.2 % (11.5-14.5)
[2018-08-01 07:22] LABS: WHITE BLOOD COUNT 11.5 10^3/ul (4.8-10.8)
[2018-08-01 07:50] LABS: ALANINE AMINOTRANSFERASE 14 IU/L (13-69); ALBUMIN 3.5 g/dl (3.3-4.9); ALBUMIN/GLOBULIN RATIO 1.34; ALKALINE PHOSPHATASE 74 IU/L (42-121); ANION GAP 11 (5-13); ASPARTATE AMINO TRANSFERASE 13 IU/L (15-46); BILIRUBIN,INDIRECT 0.3 mg/dl (0-1.1); BILIRUBIN,TOTAL 0.3 mg/dl (0.2-1.3); BLOOD UREA NITROGEN 31 mg/dl (7-20); CALCIUM 8.7 mg/dl (8.4-10.2); CARBON DIOXIDE 25 mmol/L (21-31); CHLORIDE 101 mmol/L (97-110); CREATININE 4.61 mg/dl (0.61-1.24); GLUCOSE 210 mg/dl (70-220); PHOSPHORUS 3.7 mg/dl (2.5-4.9); POTASSIUM 4.4 mmol/L (3.5-5.1); SODIUM 137 mmol/L (135-144); TOTAL PROTEIN 6.1 g/dl (6.1-8.1)
[2018-08-01 08:16] LABS: CHOLESTEROL 84 mg/dl (100-200)
[2018-08-01 08:16] LABS: CHOL/HDL RATIO 3.3 RATIO; HDL CHOLESTEROL 25 mg/dl (31-75); LDL CHOLESTEROL,CALCULATED 38 mg/dl; TRIGLYCERIDES 103 mg/dl (0-149)
[2018-08-01 08:25] LABS: B-TYPE NATRIURETIC PEPTIDE 13800 PG/ML (0-450)
[2018-08-01] MEDS: INSULIN ASPART [NOVOLOG] 3 ML PEN SC ×5 (08:40→21:02)
[2018-08-01] MEDS: HEPARIN 5,000 UNIT/1 ML VIAL SC ×2 (08:41→20:53)
[2018-08-01] MEDS: ASPIRIN 81 MG TAB PO (08:41)
[2018-08-01] MEDS: TICAGRELOR 90 MG TABLET PO ×2 (08:43→20:52)
[2018-08-01] MEDS: DOCUSATE SODIUM 100 MG CAP PO (08:43)
[2018-08-01] MEDS: AMIODARONE 200 MG TAB PO (08:44)
[2018-08-01] MEDS: ISOSORBIDE MONONITRATE(SR)30 MG TAB PO (08:45)
[2018-08-01] MEDS: GABAPENTIN 100 MG CAP PO ×2 (08:45→20:48)
[2018-08-01] MEDS: FEBUXOSTAT 40 MG TABLET PO (08:45)
[2018-08-01] MEDS: DOXYCYCLINE 100 MG TAB PO ×2 (08:45→21:05)
[2018-08-01] MEDS: CALCITRIOL 0.25 MCG CAP PO (08:45)
[2018-08-01] MEDS: MEROPENEM 500MG/50 ML (PMX) 50 ML IVPB (09:14)
[2018-08-01] MEDS: BENZONATATE 100 MG CAP PO (09:14)
[2018-08-01] MEDS: SENNA TAB PO (20:48)
[2018-08-01] MEDS: FAMOTIDINE 20 MG TAB PO (20:48)
[2018-08-01] MEDS: ATORVASTATIN 20 MG TAB PO (20:48)
[2018-08-01] MEDS: INSULIN GLARGINE [LANTus] (100 UNITS/ML) SYG SC (20:51)
[2018-08-01 21:56] LABS: INFLUENZA VIRUS A/B SOURCE NASOPHARYNGEAL
[2018-08-01] MEDS: GUAIFENESIN/CODEINE 5ML CUP PO (22:57)
[2018-08-02] MEDS: GUAIFENESIN 20 MG/ML 5ML CUP PO ×3 (05:56→19:07)
[2018-08-02] MEDS: NYSTATIN 30 GM POWDER BTL TOP ×4 (05:58→17:25)
[2018-08-02 06:21] LABS: ADD MAN DIFF? NO
[2018-08-02 06:24] LABS: ABNORMAL IP MESSAGE 1; BASOPHIL # 0.1 10^3/ul (0.0-0.1); BASOPHILS % 0.9 % (0.0-2.0); EOSINOPHILS # 0.9 10^3/ul (0.0-0.5); EOSINOPHILS % 7.4 % (0.0-7.0); HEMATOCRIT 32.9 % (42.0-52.0); HEMOGLOBIN 10.3 g/dl (14.0-18.0); LYMPHOCYTES % 17.1 % (15.0-51.0); MEAN CORPUSCULAR HEMOGLOBIN 28.9 pg (29.0-33.0); MEAN CORPUSCULAR HGB CONC 31.3 g/dl (32.0-37.0); MEAN CORPUSCULAR VOLUME 92.4 fl (82.0-101.0); MEAN PLATELET VOLUME 10.8 fl (7.4-10.4); MONOCYTE # 1.5 10^3/ul (0.3-0.9); MONOCYTES % 13.1 % (0.0-11.0); NEUTROPHIL # 6.6 10^3/ul (1.6-7.5); NEUTROPHILS % 56.8 % (39.0-77.0); PLATELET COUNT 206 10^3/UL (140-415); POSITIVE DIFF @See below; RED BLOOD COUNT 3.56 10^6/ul (4.70-6.10)
[2018-08-02 06:24] LABS: WHITE BLOOD COUNT 11.6 10^3/ul (4.8-10.8)
[2018-08-02 07:12] LABS: ALANINE AMINOTRANSFERASE 10 IU/L (13-69); ALBUMIN 3.8 g/dl (3.3-4.9); ALBUMIN/GLOBULIN RATIO 1.35; ALKALINE PHOSPHATASE 76 IU/L (42-121); ANION GAP 13 (5-13); ASPARTATE AMINO TRANSFERASE 13 IU/L (15-46); BILIRUBIN,INDIRECT 0.3 mg/dl (0-1.1); BILIRUBIN,TOTAL 0.3 mg/dl (0.2-1.3); BLOOD UREA NITROGEN 41 mg/dl (7-20); CALCIUM 9.5 mg/dl (8.4-10.2); CARBON DIOXIDE 24 mmol/L (21-31); CHLORIDE 102 mmol/L (97-110); CREATININE 5.94 mg/dl (0.61-1.24); GLUCOSE 151 mg/dl (70-220); SODIUM 139 mmol/L (135-144); TOTAL PROTEIN 6.6 g/dl (6.1-8.1)
[2018-08-02 07:13] LABS: FREE T4 (FREE THYROXINE) 1.65 ng/dl (0.85-1.93)
[2018-08-02 07:22] LABS: POTASSIUM 4.5 mmol/L (3.5-5.1)
[2018-08-02] MEDS: MEROPENEM 500MG/50 ML (PMX) 50 ML IVPB (08:35)
[2018-08-02] MEDS: INSULIN ASPART [NOVOLOG] 3 ML PEN SC ×4 (08:35→21:10)
[2018-08-02] MEDS: TICAGRELOR 90 MG TABLET PO ×2 (08:38→21:11)
[2018-08-02] MEDS: FEBUXOSTAT 40 MG TABLET PO (08:38)
[2018-08-02] MEDS: ASPIRIN 81 MG TAB PO (08:39)
[2018-08-02] MEDS: ISOSORBIDE MONONITRATE(SR)30 MG TAB PO (08:39)
[2018-08-02] MEDS: GABAPENTIN 100 MG CAP PO ×2 (08:39→20:56)
[2018-08-02] MEDS: DOXYCYCLINE 100 MG TAB PO ×2 (08:39→20:56)
[2018-08-02] MEDS: DOCUSATE SODIUM 100 MG CAP PO (08:39)
[2018-08-02] MEDS: AMIODARONE 200 MG TAB PO (08:40)
[2018-08-02] MEDS: HEPARIN 5,000 UNIT/1 ML VIAL SC ×2 (08:41→21:06)
[2018-08-02] MEDS: CALCITRIOL 0.25 MCG CAP PO (08:44)
[2018-08-02] MEDS: BENZONATATE 100 MG CAP PO (13:46)
[2018-08-02 14:50] LABS: ADD UMIC YES; UR ASCORBIC ACID NEGATIVE (NEGATIVE); UR BILIRUBIN (Dip) NEGATIVE (NEGATIVE); UR BLOOD (Dip) NEGATIVE (NEGATIVE); UR CLARITY CLEAR (CLEAR); UR COLOR YELLOW (YELLOW); UR GLUCOSE (Dip) 3+ mg/dL (NEGATIVE); UR KETONES (Dip) NEGATIVE (NEGATIVE); UR LEUKOCYTE ESTERASE (Dip) TRACE Leu/ul (NEGATIVE); UR NITRITE (Dip) NEGATIVE (NEGATIVE); UR RBC 5 /HPF (0-5); UR SPECIFIC GRAVITY (Dip) 1.014 (1.003-1.030); UR SQUAMOUS EPITHELIAL CELL FEW /HPF (FEW); UR TOTAL PROTEIN (Dip) 2+ mg/dl (NEGATIVE); UR UROBILINOGEN (Dip) NEGATIVE (NEGATIVE); UR WBC 6 /HPF (0-5)
[2018-08-02] MEDS: POLYETHYLENE GLYCOL 17 GM PACKET PO (19:07)
[2018-08-02] MEDS: SENNA TAB PO (20:56)
[2018-08-02] MEDS: ATORVASTATIN 20 MG TAB PO (20:56)
[2018-08-02] MEDS: FAMOTIDINE 20 MG TAB PO (21:03)
[2018-08-02] MEDS: INSULIN GLARGINE [LANTus] (100 UNITS/ML) SYG SC (21:12)
[2018-08-03] MEDS: NYSTATIN 30 GM POWDER BTL TOP ×4 (01:13→17:38)
[2018-08-03] MEDS: INSULIN ASPART [NOVOLOG] 3 ML PEN SC ×4 (07:54→21:06)
[2018-08-03] MEDS: FEBUXOSTAT 40 MG TABLET PO (08:25)
[2018-08-03] MEDS: TICAGRELOR 90 MG TABLET PO ×2 (08:26→21:04)
[2018-08-03] MEDS: HEPARIN 5,000 UNIT/1 ML VIAL SC ×2 (08:26→21:05)
[2018-08-03] MEDS: DOXYCYCLINE 100 MG TAB PO ×2 (08:27→20:55)
[2018-08-03] MEDS: DOCUSATE SODIUM 100 MG CAP PO (08:27)
[2018-08-03] MEDS: ASPIRIN 81 MG TAB PO (08:27)
[2018-08-03] MEDS: GABAPENTIN 100 MG CAP PO ×2 (08:27→20:57)
[2018-08-03] MEDS: CALCITRIOL 0.25 MCG CAP PO (08:27)
[2018-08-03 08:56] LABS: ADD MAN DIFF? NO
[2018-08-03] MEDS: AMIODARONE 200 MG TAB PO (09:00)
[2018-08-03] MEDS: ISOSORBIDE MONONITRATE(SR)30 MG TAB PO (09:00)
[2018-08-03 09:07] LABS: BASOPHIL # 0.1 10^3/ul (0.0-0.1); BASOPHILS % 0.9 % (0.0-2.0); EOSINOPHILS # 0.8 10^3/ul (0.0-0.5); HEMATOCRIT 32.2 % (42.0-52.0); HEMOGLOBIN 10.2 g/dl (14.0-18.0); LYMPHOCYTES # 1.5 10^3/ul (0.8-2.9); LYMPHOCYTES % 14.3 % (15.0-51.0); MEAN CORPUSCULAR HEMOGLOBIN 29.2 pg (29.0-33.0); MEAN CORPUSCULAR HGB CONC 31.7 g/dl (32.0-37.0); MEAN CORPUSCULAR VOLUME 92.3 fl (82.0-101.0); MEAN PLATELET VOLUME 11.2 fl (7.4-10.4); MONOCYTE # 1.4 10^3/ul (0.3-0.9); MONOCYTES % 12.5 % (0.0-11.0); NEUTROPHIL # 6.5 10^3/ul (1.6-7.5); NEUTROPHILS % 60.6 % (39.0-77.0); PLATELET COUNT 233 10^3/UL (140-415); RED BLOOD COUNT 3.49 10^6/ul (4.70-6.10)
[2018-08-03 09:07] LABS: WHITE BLOOD COUNT 10.8 10^3/ul (4.8-10.8)
[2018-08-03 09:32] LABS: ANION GAP 11 (5-13); BLOOD UREA NITROGEN 51 mg/dl (7-20); CALCIUM 9.5 mg/dl (8.4-10.2); CARBON DIOXIDE 25 mmol/L (21-31); CHLORIDE 102 mmol/L (97-110); CREATININE 6.27 mg/dl (0.61-1.24); GLUCOSE 151 mg/dl (70-220); PHOSPHORUS 5.6 mg/dl (2.5-4.9); POTASSIUM 4.7 mmol/L (3.5-5.1); SODIUM 138 mmol/L (135-144)
[2018-08-03] MEDS: SOD CHLORIDE 0.9% 500 ML IV (10:20)
[2018-08-03] MEDS: MEROPENEM 500MG/50 ML (PMX) 50 ML IVPB (12:41)
[2018-08-03] MEDS: SENNA TAB PO (20:55)
[2018-08-03] MEDS: ATORVASTATIN 20 MG TAB PO (20:56)
[2018-08-03] MEDS: FAMOTIDINE 20 MG TAB PO (20:56)
[2018-08-03] MEDS: INSULIN GLARGINE [LANTus] (100 UNITS/ML) SYG SC (21:06)
[2018-08-04] MEDS: NYSTATIN 30 GM POWDER BTL TOP ×4 (00:06→17:10)
[2018-08-04 05:56] LABS: ADD MAN DIFF? NO
[2018-08-04 05:59] LABS: WHITE BLOOD COUNT 12.9 10^3/ul (4.8-10.8)
[2018-08-04 05:59] LABS: ABNORMAL IP MESSAGE 1; BASOPHIL # 0.1 10^3/ul (0.0-0.1); EOSINOPHILS # 0.7 10^3/ul (0.0-0.5); EOSINOPHILS % 5.3 % (0.0-7.0); HEMATOCRIT 33.9 % (42.0-52.0); HEMOGLOBIN 10.7 g/dl (14.0-18.0); LYMPHOCYTES # 2.3 10^3/ul (0.8-2.9); LYMPHOCYTES % 18.1 % (15.0-51.0); MEAN CORPUSCULAR HGB CONC 31.6 g/dl (32.0-37.0); MEAN CORPUSCULAR VOLUME 91.9 fl (82.0-101.0); MONOCYTES % 15.1 % (0.0-11.0); NEUTROPHIL # 7.4 10^3/ul (1.6-7.5); PLATELET COUNT 224 10^3/UL (140-415); POSITIVE DIFF @See below; RED BLOOD COUNT 3.69 10^6/ul (4.70-6.10); RED CELL DISTRIBUTION WIDTH 16.6 % (11.5-14.5)
[2018-08-04 06:27] LABS: ANION GAP 12 (5-13); BLOOD UREA NITROGEN 34 mg/dl (7-20); CALCIUM 9.4 mg/dl (8.4-10.2); CARBON DIOXIDE 29 mmol/L (21-31); CHLORIDE 100 mmol/L (97-110); GLUCOSE 54 mg/dl (70-220); POTASSIUM 4.4 mmol/L (3.5-5.1); SODIUM 141 mmol/L (135-144)
[2018-08-04] MEDS: INSULIN ASPART [NOVOLOG] 3 ML PEN SC ×4 (07:41→21:00)
[2018-08-04] MEDS: HEPARIN 5,000 UNIT/1 ML VIAL SC ×2 (08:29→20:41)
[2018-08-04] MEDS: CALCITRIOL 0.25 MCG CAP PO (08:30)
[2018-08-04] MEDS: DOXYCYCLINE 100 MG TAB PO ×2 (08:30→20:40)
[2018-08-04] MEDS: DOCUSATE SODIUM 100 MG CAP PO (08:30)
[2018-08-04] MEDS: FEBUXOSTAT 40 MG TABLET PO (08:30)
[2018-08-04] MEDS: ASPIRIN 81 MG TAB PO (08:30)
[2018-08-04] MEDS: GABAPENTIN 100 MG CAP PO ×2 (08:30→20:40)
[2018-08-04] MEDS: AMIODARONE 200 MG TAB PO (08:31)
[2018-08-04] MEDS: ISOSORBIDE MONONITRATE(SR)30 MG TAB PO (08:31)
[2018-08-04] MEDS: TICAGRELOR 90 MG TABLET PO ×2 (08:32→20:41)
[2018-08-04] MEDS: MEROPENEM 500MG/50 ML (PMX) 50 ML IVPB (08:38)
[2018-08-04 13:31] LABS: PROCALCITONIN 0.31 ng/mL (<0.10)
[2018-08-04] MEDS: GUAIFENESIN/CODEINE 5ML CUP PO (14:14)
[2018-08-04] MEDS: GUAIFENESIN 20 MG/ML 5ML CUP PO (14:18)
[2018-08-04] MEDS: SENNA TAB PO (20:40)
[2018-08-04] MEDS: ATORVASTATIN 20 MG TAB PO (20:40)
[2018-08-04] MEDS: FAMOTIDINE 20 MG TAB PO (20:40)
[2018-08-04] MEDS: INSULIN GLARGINE [LANTus] (100 UNITS/ML) SYG SC (20:42)
[2018-08-04 21:12] LABS: B PERTUSIS/PARAPERTUSSIS SRC NP SWAB
[2018-08-05] MEDS: NYSTATIN 30 GM POWDER BTL TOP ×4 (00:16→18:00)
[2018-08-05 05:27] LABS: ADD MAN DIFF? NO
[2018-08-05 05:29] LABS: WHITE BLOOD COUNT 8.8 10^3/ul (4.8-10.8)
[2018-08-05 05:29] LABS: BASOPHIL # 0.1 10^3/ul (0.0-0.1); EOSINOPHILS # 0.5 10^3/ul (0.0-0.5); EOSINOPHILS % 5.9 % (0.0-7.0); HEMATOCRIT 29.3 % (42.0-52.0); HEMOGLOBIN 9.4 g/dl (14.0-18.0); LYMPHOCYTES # 1.8 10^3/ul (0.8-2.9); LYMPHOCYTES % 20.2 % (15.0-51.0); MEAN CORPUSCULAR HEMOGLOBIN 29.1 pg (29.0-33.0); MEAN CORPUSCULAR HGB CONC 32.1 g/dl (32.0-37.0); MEAN CORPUSCULAR VOLUME 90.7 fl (82.0-101.0); MEAN PLATELET VOLUME 11.1 fl (7.4-10.4); MONOCYTE # 1.3 10^3/ul (0.3-0.9); MONOCYTES % 14.5 % (0.0-11.0); NEUTROPHIL # 4.8 10^3/ul (1.6-7.5); NEUTROPHILS % 54.1 % (39.0-77.0); PLATELET COUNT 196 10^3/UL (140-415); RED BLOOD COUNT 3.23 10^6/ul (4.70-6.10); RED CELL DISTRIBUTION WIDTH 16.5 % (11.5-14.5)
[2018-08-05 05:46] LABS: ANION GAP 11 (5-13); BLOOD UREA NITROGEN 49 mg/dl (7-20); CALCIUM 9.1 mg/dl (8.4-10.2); CARBON DIOXIDE 27 mmol/L (21-31); CHLORIDE 101 mmol/L (97-110); GLUCOSE 78 mg/dl (70-220); PHOSPHORUS 6.2 mg/dl (2.5-4.9); POTASSIUM 4.5 mmol/L (3.5-5.1); SODIUM 139 mmol/L (135-144)
[2018-08-05] MEDS: INSULIN ASPART [NOVOLOG] 3 ML PEN SC ×4 (08:00→21:02)
[2018-08-05] MEDS: AMIODARONE 200 MG TAB PO (09:00)
[2018-08-05] MEDS: ISOSORBIDE MONONITRATE(SR)30 MG TAB PO (09:00)
[2018-08-05] MEDS: HEPARIN 1000 UNITS/ML 10 ML INJ CATHETER (12:53)
[2018-08-05] MEDS: TICAGRELOR 90 MG TABLET PO ×2 (12:57→21:03)
[2018-08-05] MEDS: HEPARIN 5,000 UNIT/1 ML VIAL SC ×2 (12:59→21:03)
[2018-08-05] MEDS: CALCITRIOL 0.25 MCG CAP PO (12:59)
[2018-08-05] MEDS: FEBUXOSTAT 40 MG TABLET PO (13:00)
[2018-08-05] MEDS: DOCUSATE SODIUM 100 MG CAP PO (13:00)
[2018-08-05] MEDS: DOXYCYCLINE 100 MG TAB PO ×2 (13:01→21:05)
[2018-08-05] MEDS: ASPIRIN 81 MG TAB PO (13:01)
[2018-08-05] MEDS: MEROPENEM 500MG/50 ML (PMX) 50 ML IVPB (13:01)
[2018-08-05] MEDS: GABAPENTIN 100 MG CAP PO ×2 (13:01→21:05)
[2018-08-05] MEDS: INSULIN GLARGINE [LANTus] (100 UNITS/ML) SYG SC (21:02)
[2018-08-05] MEDS: SENNA TAB PO (21:05)
[2018-08-05] MEDS: TAMSULOSIN (SR) 0.4 MG CAP PO (21:05)
[2018-08-05] MEDS: ATORVASTATIN 20 MG TAB PO (21:05)
[2018-08-05] MEDS: FAMOTIDINE 20 MG TAB PO (21:05)
[2018-08-06 05:35] LABS: ADD MAN DIFF? NO
[2018-08-06 05:41] LABS: BASOPHIL # 0.1 10^3/ul (0.0-0.1); BASOPHILS % 1.3 % (0.0-2.0); EOSINOPHILS # 0.4 10^3/ul (0.0-0.5); EOSINOPHILS % 5.5 % (0.0-7.0); HEMATOCRIT 29.4 % (42.0-52.0); HEMOGLOBIN 9.3 g/dl (14.0-18.0); LYMPHOCYTES # 1.5 10^3/ul (0.8-2.9); MEAN CORPUSCULAR HEMOGLOBIN 29.5 pg (29.0-33.0); MEAN CORPUSCULAR HGB CONC 31.6 g/dl (32.0-37.0); MEAN CORPUSCULAR VOLUME 93.3 fl (82.0-101.0); MEAN PLATELET VOLUME 11.1 fl (7.4-10.4); MONOCYTE # 1.3 10^3/ul (0.3-0.9); NEUTROPHIL # 3.9 10^3/ul (1.6-7.5); NEUTROPHILS % 51.9 % (39.0-77.0); PLATELET COUNT 175 10^3/UL (140-415); RED BLOOD COUNT 3.15 10^6/ul (4.70-6.10); RED CELL DISTRIBUTION WIDTH 16.6 % (11.5-14.5)
[2018-08-06 05:41] LABS: WHITE BLOOD COUNT 7.5 10^3/ul (4.8-10.8)
[2018-08-06] MEDS: NYSTATIN 30 GM POWDER BTL TOP ×4 (06:01→17:32)
[2018-08-06 06:14] LABS: ANION GAP 9 (5-13); BLOOD UREA NITROGEN 31 mg/dl (7-20); CALCIUM 8.9 mg/dl (8.4-10.2); CARBON DIOXIDE 27 mmol/L (21-31); CHLORIDE 104 mmol/L (97-110); CREATININE 3.41 mg/dl (0.61-1.24); GLUCOSE 300 mg/dl (70-220); PHOSPHORUS 4.4 mg/dl (2.5-4.9); POTASSIUM 4.7 mmol/L (3.5-5.1); SODIUM 140 mmol/L (135-144)
[2018-08-06 07:11] LABS: PROSTATE SPECIFIC ANTIGEN 5.3 ng/ml (0.0-4.0)
[2018-08-06] MEDS: GABAPENTIN 100 MG CAP PO ×2 (08:52→20:46)
[2018-08-06] MEDS: DOXYCYCLINE 100 MG TAB PO ×2 (08:53→20:47)
[2018-08-06] MEDS: TICAGRELOR 90 MG TABLET PO ×2 (08:54→20:44)
[2018-08-06] MEDS: INSULIN ASPART [NOVOLOG] 3 ML PEN SC ×3 (08:55→17:31)
[2018-08-06] MEDS: HEPARIN 5,000 UNIT/1 ML VIAL SC ×2 (08:55→20:45)
[2018-08-06] MEDS: FEBUXOSTAT 40 MG TABLET PO (08:56)
[2018-08-06] MEDS: DOCUSATE SODIUM 100 MG CAP PO (08:56)
[2018-08-06] MEDS: ISOSORBIDE MONONITRATE(SR)30 MG TAB PO (08:56)
[2018-08-06] MEDS: CALCITRIOL 0.25 MCG CAP PO (08:56)
[2018-08-06] MEDS: ASPIRIN 81 MG TAB PO (08:56)
[2018-08-06] MEDS: AMIODARONE 200 MG TAB PO (08:57)
[2018-08-06 09:22] LABS: ANISOCYTOSIS 1+ (0-0); BAND NEUTROPHILS #M 0.3 10^3/ul (0.0-0.6); BAND NEUTROPHILS % (M) 4 % (0-4); BASOPHILS % (M) 1 % (0-2); EOSINOPHILS % (M) 7 % (0-7); LYMPHOCYTES #M 1.2 10^3/ul (0.8-2.9); LYMPHOCYTES % (M) 17 % (15-51); METAMYELOCYTES #M 0.1 10^3/ul (0.0-0.0); METAMYELOCYTES %M 2 % (0-0); MONOCYTE #M 1.1 10^3/ul (0.3-0.9); MONOCYTES % (M) 15 % (0-11); MYELOCYTES #M 0.3 10^3/ul (0.0-0.0); MYELOCYTES % (M) 4 % (0-0); OVALOCYTES 1+ (0-0); PLATELET ESTIMATE NORMAL; POIKILOCYTOSIS 1+ (0-0); POLYCHROMASIA 1+ (0-0); PROMYELOCYTES % (M) 1 % (0-0); SEG NEUT #M 3.7 10^3/ul (1.6-7.5); SEGMENTED NEUTROPHILS (M) % 49 % (39-77); TARGET CELLS 1+ (0-0)
[2018-08-06] MEDS: ACETAMINOPHEN 325 MG TAB PO (13:27)
[2018-08-06] MEDS: ATORVASTATIN 20 MG TAB PO (20:46)
[2018-08-06] MEDS: INSULIN GLARGINE [LANTus] (100 UNITS/ML) SYG SC (20:46)
[2018-08-06] MEDS: TAMSULOSIN (SR) 0.4 MG CAP PO (20:47)
[2018-08-06] MEDS: SENNA TAB PO (20:47)
[2018-08-06] MEDS: FAMOTIDINE 20 MG TAB PO (20:47)
[2018-08-07] MEDS: NYSTATIN 30 GM POWDER BTL TOP ×4 (00:47→17:42)
[2018-08-07 06:17] LABS: WHITE BLOOD COUNT 8.4 10^3/ul (4.8-10.8)
[2018-08-07 06:17] LABS: ABNORMAL IP MESSAGE 1; HEMATOCRIT 30.4 % (42.0-52.0); HEMOGLOBIN 9.5 g/dl (14.0-18.0); MEAN CORPUSCULAR HEMOGLOBIN 29.1 pg (29.0-33.0); MEAN CORPUSCULAR HGB CONC 31.3 g/dl (32.0-37.0); MEAN CORPUSCULAR VOLUME 93.3 fl (82.0-101.0); MEAN PLATELET VOLUME 10.9 fl (7.4-10.4); PLATELET COUNT 208 10^3/UL (140-415); POSITIVE DIFF @See below; RED BLOOD COUNT 3.26 10^6/ul (4.70-6.10); RED CELL DISTRIBUTION WIDTH 16.5 % (11.5-14.5)
[2018-08-07 06:32] LABS: ADD MAN DIFF? YES
[2018-08-07 06:34] LABS: ANION GAP 12 (5-13); BLOOD UREA NITROGEN 39 mg/dl (7-20); CALCIUM 9.3 mg/dl (8.4-10.2); CARBON DIOXIDE 28 mmol/L (21-31); CHLORIDE 103 mmol/L (97-110); CREATININE 4.25 mg/dl (0.61-1.24); GLUCOSE 56 mg/dl (70-220); PHOSPHORUS 4.9 mg/dl (2.5-4.9); POTASSIUM 4.8 mmol/L (3.5-5.1); SODIUM 143 mmol/L (135-144)
[2018-08-07] MEDS: INSULIN ASPART [NOVOLOG] 3 ML PEN SC ×3 (07:30→17:16)
[2018-08-07] MEDS: HEPARIN 5,000 UNIT/1 ML VIAL SC ×2 (08:15→21:20)
[2018-08-07] MEDS: CALCITRIOL 0.25 MCG CAP PO (08:16)
[2018-08-07] MEDS: DOCUSATE SODIUM 100 MG CAP PO (08:16)
[2018-08-07] MEDS: DOXYCYCLINE 100 MG TAB PO ×2 (08:16→20:59)
[2018-08-07] MEDS: FEBUXOSTAT 40 MG TABLET PO (08:17)
[2018-08-07] MEDS: ASPIRIN 81 MG TAB PO (08:17)
[2018-08-07] MEDS: GABAPENTIN 100 MG CAP PO ×2 (08:17→21:03)
[2018-08-07] MEDS: AMIODARONE 200 MG TAB PO (08:17)
[2018-08-07] MEDS: ISOSORBIDE MONONITRATE(SR)30 MG TAB PO (08:20)
[2018-08-07] MEDS: TICAGRELOR 90 MG TABLET PO ×2 (08:20→20:58)
[2018-08-07 08:39] LABS: ANISOCYTOSIS 1+ (0-0); BAND NEUTROPHILS % (M) 1 % (0-4); BASOPHIL #M 0.1 10^3/ul (0.0-0.0); BASOPHILS % (M) 2 % (0-2); EOSINOPHILS % (M) 7 % (0-7); GIANT THROMBO% (M) 1 % (0-0); LYMPHOCYTES #M 3.3 10^3/ul (0.8-2.9); LYMPHOCYTES % (M) 40 % (15-51); METAMYELOCYTES %M 1 % (0-0); MONOCYTE #M 0.9 10^3/ul (0.3-0.9); MONOCYTES % (M) 11 % (0-11); MYELOCYTES #M 0.1 10^3/ul (0.0-0.0); MYELOCYTES % (M) 2 % (0-0); PLATELET ESTIMATE NORMAL; POIKILOCYTOSIS 2+ (0-0); POLYCHROMASIA 2+ (0-0); REACTIVE LYMPHOCYTES #M 0.1 10^3/ul (0.0-0.0); REACTIVE LYMPHOCYTES% (M) 2 % (0-0); SEG NEUT #M 2.9 10^3/ul (1.6-7.5); SEGMENTED NEUTROPHILS (M) % 34 % (39-77); SMUDGE%M 6 % (0-0)
[2018-08-07] MEDS: INSULIN GLARGINE [LANTus] (100 UNITS/ML) SYG SC (20:53)
[2018-08-07] MEDS: ATORVASTATIN 20 MG TAB PO (21:00)
[2018-08-07] MEDS: FAMOTIDINE 20 MG TAB PO (21:01)
[2018-08-07] MEDS: SENNA TAB PO (21:01)
[2018-08-07] MEDS: TAMSULOSIN (SR) 0.4 MG CAP PO (21:03)
[2018-08-08] MEDS: NYSTATIN 30 GM POWDER BTL TOP ×2 (00:28→06:00)
[2018-08-08] MEDS: INSULIN ASPART [NOVOLOG] 3 ML PEN SC ×3 (07:30→17:21)
[2018-08-08] MEDS: ASPIRIN 81 MG TAB PO (08:15)
[2018-08-08] MEDS: CALCITRIOL 0.25 MCG CAP PO (08:21)
[2018-08-08] MEDS: FEBUXOSTAT 40 MG TABLET PO (08:21)
[2018-08-08] MEDS: GABAPENTIN 100 MG CAP PO ×2 (08:21→21:09)
[2018-08-08] MEDS: DOCUSATE SODIUM 100 MG CAP PO (08:22)
[2018-08-08] MEDS: DOXYCYCLINE 100 MG TAB PO ×2 (08:22→21:08)
[2018-08-08] MEDS: AMIODARONE 200 MG TAB PO (08:23)
[2018-08-08] MEDS: HEPARIN 5,000 UNIT/1 ML VIAL SC ×2 (08:25→21:08)
[2018-08-08] MEDS: ISOSORBIDE MONONITRATE(SR)30 MG TAB PO (08:31)
[2018-08-08] MEDS: TICAGRELOR 90 MG TABLET PO ×2 (08:33→21:08)
[2018-08-08] MEDS: ALBUMIN HUMAN 25% 100 ML IV (10:49)
[2018-08-08] MEDS: BETAMETHASONE/CLOTRIMAZOLE 15 GM CR TOP ×2 (12:02→21:07)
[2018-08-08] MEDS: HEPARIN 1000 UNITS/ML 10 ML INJ CATHETER (12:55)
[2018-08-08] MEDS: INSULIN GLARGINE [LANTus] (100 UNITS/ML) SYG SC (20:06)
[2018-08-08] MEDS: SENNA TAB PO (21:08)
[2018-08-08] MEDS: ATORVASTATIN 20 MG TAB PO (21:08)
[2018-08-08] MEDS: FAMOTIDINE 20 MG TAB PO (21:08)
[2018-08-08] MEDS: TAMSULOSIN (SR) 0.4 MG CAP PO (21:09)
[2018-08-09] MEDS: INSULIN ASPART [NOVOLOG] 3 ML PEN SC ×3 (07:30→17:32)
[2018-08-09 07:48] LABS: WHITE BLOOD COUNT 7.5 10^3/ul (4.8-10.8)
[2018-08-09 07:48] LABS: HEMATOCRIT 30.3 % (42.0-52.0); HEMOGLOBIN 9.7 g/dl (14.0-18.0); MEAN CORPUSCULAR HEMOGLOBIN 29.7 pg (29.0-33.0); MEAN CORPUSCULAR VOLUME 92.7 fl (82.0-101.0); MEAN PLATELET VOLUME 11.3 fl (7.4-10.4); PLATELET COUNT 156 10^3/UL (140-415); RED BLOOD COUNT 3.27 10^6/ul (4.70-6.10)
[2018-08-09 07:56] LABS: ADD MAN DIFF? YES
[2018-08-09] MEDS: AMIODARONE 200 MG TAB PO (08:21)
[2018-08-09] MEDS: ISOSORBIDE MONONITRATE(SR)30 MG TAB PO (08:22)
[2018-08-09] MEDS: DOXYCYCLINE 100 MG TAB PO (08:22)
[2018-08-09] MEDS: DOCUSATE SODIUM 100 MG CAP PO (08:22)
[2018-08-09] MEDS: CALCITRIOL 0.25 MCG CAP PO (08:22)
[2018-08-09] MEDS: GABAPENTIN 100 MG CAP PO ×2 (08:22→21:06)
[2018-08-09] MEDS: ASPIRIN 81 MG TAB PO (08:22)
[2018-08-09] MEDS: FEBUXOSTAT 40 MG TABLET PO (08:22)
[2018-08-09] MEDS: HEPARIN 5,000 UNIT/1 ML VIAL SC ×2 (08:23→21:05)
[2018-08-09] MEDS: BETAMETHASONE/CLOTRIMAZOLE 15 GM CR TOP ×2 (08:26→21:04)
[2018-08-09] MEDS: TICAGRELOR 90 MG TABLET PO ×2 (08:27→21:05)
[2018-08-09 09:40] LABS: BAND NEUTROPHILS #M 0.4 10^3/ul (0.0-0.6); BAND NEUTROPHILS % (M) 6 % (0-4); LYMPHOCYTES #M 1.6 10^3/ul (0.8-2.9); LYMPHOCYTES % (M) 22 % (15-51); MONOCYTE #M 0.1 10^3/ul (0.3-0.9); MONOCYTES % (M) 2 % (0-11); PLATELET ESTIMATE NORMAL; POIKILOCYTOSIS 1+ (0-0); POLYCHROMASIA 1+ (0-0); SEG NEUT #M 5.3 10^3/ul (1.6-7.5); SEGMENTED NEUTROPHILS (M) % 70 % (39-77); SMUDGE%M 8 % (0-0)
[2018-08-09] MEDS: INSULIN GLARGINE [LANTus] (100 UNITS/ML) SYG SC (20:19)
[2018-08-09] MEDS: ATORVASTATIN 20 MG TAB PO (21:04)
[2018-08-09] MEDS: FAMOTIDINE 20 MG TAB PO (21:05)
[2018-08-09] MEDS: SENNA TAB PO (21:06)
[2018-08-09] MEDS: TAMSULOSIN (SR) 0.4 MG CAP PO (21:06)
[2018-08-10] MEDS: INSULIN ASPART [NOVOLOG] 3 ML PEN SC ×3 (07:30→18:28)
[2018-08-10] MEDS: DOCUSATE SODIUM 100 MG CAP PO (09:41)
[2018-08-10] MEDS: FEBUXOSTAT 40 MG TABLET PO (09:41)
[2018-08-10] MEDS: AMIODARONE 200 MG TAB PO (09:42)
[2018-08-10] MEDS: GABAPENTIN 100 MG CAP PO ×2 (09:42→20:59)
[2018-08-10] MEDS: CALCITRIOL 0.25 MCG CAP PO (09:42)
[2018-08-10] MEDS: TICAGRELOR 90 MG TABLET PO ×2 (09:43→21:04)
[2018-08-10] MEDS: HEPARIN 5,000 UNIT/1 ML VIAL SC ×2 (09:43→21:04)
[2018-08-10] MEDS: BETAMETHASONE/CLOTRIMAZOLE 15 GM CR TOP ×2 (09:44→21:06)
[2018-08-10] MEDS: ASPIRIN 81 MG TAB PO (09:44)
[2018-08-10] MEDS: ISOSORBIDE MONONITRATE(SR)30 MG TAB PO (09:45)
[2018-08-10] MEDS: ALBUMIN HUMAN 25% 100 ML IV (16:51)
[2018-08-10] MEDS: HEPARIN 1000 UNITS/ML 10 ML INJ CATHETER (18:46)
[2018-08-10] MEDS: ATORVASTATIN 20 MG TAB PO (20:54)
[2018-08-10] MEDS: SENNA TAB PO (20:59)
[2018-08-10] MEDS: FAMOTIDINE 20 MG TAB PO (20:59)
[2018-08-10] MEDS: TAMSULOSIN (SR) 0.4 MG CAP PO (20:59)
[2018-08-10] MEDS: INSULIN GLARGINE [LANTus] (100 UNITS/ML) SYG SC (21:03)
[2018-08-11] MEDS: INSULIN ASPART [NOVOLOG] 3 ML PEN SC ×2 (08:10→12:19)
[2018-08-11] MEDS: TICAGRELOR 90 MG TABLET PO (08:11)
[2018-08-11] MEDS: HEPARIN 5,000 UNIT/1 ML VIAL SC (08:11)
[2018-08-11] MEDS: ASPIRIN 81 MG TAB PO (08:14)
[2018-08-11] MEDS: GABAPENTIN 100 MG CAP PO (08:14)
[2018-08-11] MEDS: DOCUSATE SODIUM 100 MG CAP PO (08:14)
[2018-08-11] MEDS: CALCITRIOL 0.25 MCG CAP PO (08:15)
[2018-08-11] MEDS: FEBUXOSTAT 40 MG TABLET PO (08:15)
[2018-08-11] MEDS: ISOSORBIDE MONONITRATE(SR)30 MG TAB PO (08:17)
[2018-08-11] MEDS: BETAMETHASONE/CLOTRIMAZOLE 15 GM CR TOP (08:18)
[2018-08-11] MEDS: AMIODARONE 200 MG TAB PO (08:18)
[2018-08-11] MEDS: ONDANSETRON 4 MG TAB PO (12:17)
== END 2018-08-11 16:46 | DRG 689 ==
LOC: PP2 15:48
PROVIDERS: Internal Medicine
PROC: 5A1D70Z Performance of Urinary Filtration, Intermittent, Less than 6 Hours Per Day (ICD-10-PCS; 2018-07-31)
PROC: 5A1D70Z Performance of Urinary Filtration, Intermittent, Less than 6 Hours Per Day (ICD-10-PCS; 2018-08-05)
PROC: 5A1D70Z Performance of Urinary Filtration, Intermittent, Less than 6 Hours Per Day (ICD-10-PCS; 2018-08-08)
PROC: 5A1D70Z Performance of Urinary Filtration, Intermittent, Less than 6 Hours Per Day (ICD-10-PCS; principal; 2018-08-10)
DX: N39.0 Urinary tract infection, site not specified (principal); N18.6 End stage renal disease; I12.0 Hypertensive chronic kidney disease with stage 5 chronic kidney disease or end stage renal disease; D72.829 Elevated white blood cell count, unspecified; Z99.2 Dependence on renal dialysis; J40 Bronchitis, not specified as acute or chronic; E11.22 Type 2 diabetes mellitus with diabetic chronic kidney disease; D63.1 Anemia in chronic kidney disease; I25.10 Atherosclerotic heart disease of native coronary artery without angina pectoris; I25.2 Old myocardial infarction; I48.0 Paroxysmal atrial fibrillation; Z85.46 Personal history of malignant neoplasm of prostate; E78.5 Hyperlipidemia, unspecified
CPT/HCPCS: 71045; 71250; 74176; 80048; 80053; 80061; 80202; 81001; 81270; 82962; 83605; 83615; 83880; 84100; 84145; 84153; 84154; 84439; 84443; 85025; 86738; 87040; 87070; 87086; 87206; 87275; 87276; 87279; 87280; 87340; 87400; 87449; 87502; 90935; 93005; 93306; 97110; 97116; 97163; 97530; 97542

== ENCOUNTER 2018-09-28 20:56 | Inpatient (IN) | payer MEDICARE, BC ==
[2018-09-28] MEDS ORDERED: DOCUSATE SODIUM 100 MG CAP PO (23:00)
[2018-09-28] MEDS ORDERED: MAGNESIUM HYDROXIDE 30ML CUP PO (23:00)
[2018-09-28] MEDS ORDERED: NACL 0.9% 3 ML SYG IV (23:00)
[2018-09-28] MEDS ORDERED: HYDROCORTISONE 2.5% 30 GM RECT CR PR (23:00)
[2018-09-28] MEDS ORDERED: ZOLPIDEM 5 MG TAB PO (23:00)
[2018-09-29] MEDS ORDERED: GLUCAGON 1 MG INJ IM (01:00)
[2018-09-29] MEDS ORDERED: GLUCOSE GEL 15 GRAM TUBE PO ×2 (01:00)
[2018-09-29] MEDS ORDERED: GLUCOSE GEL 15 GRAM TUBE BUCCAL (01:00)
[2018-09-29] MEDS ORDERED: DEXTROSE 50% 50 ML SYRINGE IV ×2 (01:00)
[2018-09-29] MEDS: PANTOPRAZOLE (EC) 40 MG TAB PO (06:45)
[2018-09-29] MEDS ORDERED: INSULIN GLARGINE [LANTus] (100 UNITS/ML) SYG SC ×2 (08:00→21:00)
[2018-09-29] MEDS: ISOSORBIDE MONONITRATE(SR)30 MG TAB PO (09:00)
[2018-09-29] MEDS ORDERED: INSULIN ASP PROT/ASPART (70/30) PEN SC (09:00)
[2018-09-29] MEDS ORDERED: BALSAM PERU/CASTOR OIL 60 GM TUBE TOP (09:00)
[2018-09-29] MEDS: FUROSEMIDE 40 MG TAB PO (09:00)
[2018-09-29] MEDS: ATENOLOL 50 MG TAB PO (09:00)
[2018-09-29] MEDS ORDERED: NON-FORMULARY/PATIENT OWN MED (Famotidine* 10 MG) PO (09:00)
[2018-09-29] MEDS: AMIODARONE 200 MG TAB PO (09:00)
[2018-09-29] MEDS: INSULIN ASPART [NOVOLOG] 3 ML PEN SC ×6 (09:04→18:07)
[2018-09-29] MEDS: GLIMEPIRIDE 4 MG TAB PO (09:04)
[2018-09-29 09:30] LABS: HEMOGLOBIN A1C 6.9 % (0-5.9)
[2018-09-29 09:32] LABS: ADD MAN DIFF? NO
[2018-09-29 09:35] LABS: WHITE BLOOD COUNT 6.2 10^3/ul (4.8-10.8)
[2018-09-29 09:35] LABS: BASOPHIL # 0.1 10^3/ul (0.0-0.1); BASOPHILS % 0.8 % (0.0-2.0); EOSINOPHILS # 0.3 10^3/ul (0.0-0.5); EOSINOPHILS % 4.3 % (0.0-7.0); HEMATOCRIT 25.7 % (42.0-52.0); HEMOGLOBIN 8.3 g/dl (14.0-18.0); LYMPHOCYTES # 1.4 10^3/ul (0.8-2.9); LYMPHOCYTES % 21.8 % (15.0-51.0); MEAN CORPUSCULAR HEMOGLOBIN 31.4 pg (29.0-33.0); MEAN CORPUSCULAR HGB CONC 32.3 g/dl (32.0-37.0); MEAN CORPUSCULAR VOLUME 97.3 fl (82.0-101.0); MEAN PLATELET VOLUME 11.8 fl (7.4-10.4); MONOCYTE # 1.2 10^3/ul (0.3-0.9); MONOCYTES % 19.2 % (0.0-11.0); NEUTROPHIL # 3.2 10^3/ul (1.6-7.5); NEUTROPHILS % 51.3 % (39.0-77.0); PLATELET COUNT 126 10^3/UL (140-415); RED BLOOD COUNT 2.64 10^6/ul (4.70-6.10); RED CELL DISTRIBUTION WIDTH 16.9 % (11.5-14.5)
[2018-09-29] MEDS: FAMOTIDINE 20 MG TAB PO (09:39)
[2018-09-29] MEDS: ASPIRIN 81 MG TAB PO (09:39)
[2018-09-29] MEDS: DOCUSATE SODIUM 100 MG CAP PO ×2 (09:39→21:10)
[2018-09-29] MEDS: FEBUXOSTAT 40 MG TABLET PO (09:39)
[2018-09-29] MEDS: GABAPENTIN 100 MG CAP PO ×2 (09:39→21:11)
[2018-09-29 09:40] LABS: ALANINE AMINOTRANSFERASE 28 IU/L (13-69); ALBUMIN 3.4 g/dl (3.3-4.9); ALKALINE PHOSPHATASE 93 IU/L (42-121); ANION GAP 8 (5-13); ASPARTATE AMINO TRANSFERASE 32 IU/L (15-46); BILIRUBIN,INDIRECT 0.1 mg/dl (0-1.1); BILIRUBIN,TOTAL 0.1 mg/dl (0.2-1.3); BLOOD UREA NITROGEN 22 mg/dl (7-20); CALCIUM 8.9 mg/dl (8.4-10.2); CARBON DIOXIDE 30 mmol/L (21-31); CHLORIDE 101 mmol/L (97-110); CREATININE 3.52 mg/dl (0.61-1.24); GLUCOSE 191 mg/dl (70-220); POTASSIUM 3.9 mmol/L (3.5-5.1); SODIUM 139 mmol/L (135-144)
[2018-09-29] MEDS: INSULIN GLARGINE [LANTus] (100 UNITS/ML) SYG SC (09:43)
[2018-09-29] MEDS ORDERED: HEPARIN 1000 UNITS/ML 10 ML INJ CATHETER (10:30)
[2018-09-29 10:37] LABS: HEPATITIS B SURFACE ANTIGEN NEGATIVE (NEGATIVE)
[2018-09-29 11:48] LABS: ADD MAN DIFF? NO
[2018-09-29 11:49] LABS: ABNORMAL IP MESSAGE 1; BASOPHILS % 0.8 % (0.0-2.0); EOSINOPHILS # 0.2 10^3/ul (0.0-0.5); EOSINOPHILS % 4.1 % (0.0-7.0); HEMATOCRIT 21.9 % (42.0-52.0); LYMPHOCYTES % 18.3 % (15.0-51.0); MEAN CORPUSCULAR HEMOGLOBIN 31.4 pg (29.0-33.0); MEAN CORPUSCULAR HGB CONC 31.5 g/dl (32.0-37.0); MEAN CORPUSCULAR VOLUME 99.5 fl (82.0-101.0); MEAN PLATELET VOLUME 11.8 fl (7.4-10.4); MONOCYTES % 18.3 % (0.0-11.0); NEUTROPHIL # 2.9 10^3/ul (1.6-7.5); NEUTROPHILS % 56.2 % (39.0-77.0); PLATELET COUNT 104 10^3/UL (140-415); POSITIVE DIFF @See below
[2018-09-29 11:49] LABS: WHITE BLOOD COUNT 5.2 10^3/ul (4.8-10.8)
[2018-09-29 11:59] LABS: HEMOGLOBIN 6.9 g/dl (14.0-18.0)
[2018-09-29 12:24] LABS: ALANINE AMINOTRANSFERASE 23 IU/L (13-69); ALBUMIN 2.5 g/dl (3.3-4.9); ALBUMIN/GLOBULIN RATIO 1.19; ALKALINE PHOSPHATASE 70 IU/L (42-121); ANION GAP 7 (5-13); ASPARTATE AMINO TRANSFERASE 25 IU/L (15-46); BLOOD UREA NITROGEN 16 mg/dl (7-20); CALCIUM 8.1 mg/dl (8.4-10.2); CARBON DIOXIDE 31 mmol/L (21-31); CHLORIDE 103 mmol/L (97-110); CREATININE 2.29 mg/dl (0.61-1.24); GLUCOSE 136 mg/dl (70-220); SODIUM 141 mmol/L (135-144); TOTAL PROTEIN 4.6 g/dl (6.1-8.1)
[2018-09-29] MEDS: MULTIVIT/CA CARB/B CMPLX/FA TAB PO (12:37)
[2018-09-29] MEDS: CALCITRIOL 0.25 MCG CAP PO (12:37)
[2018-09-29] MEDS: TICAGRELOR 90 MG TABLET PO ×2 (12:41→21:58)
[2018-09-29] MEDS: LIDOCAINE 1% (MDV) 20 ML INJ SC (16:19)
[2018-09-29 16:47] LABS: IMMEDIATE SPIN CROSSMATCH 1 3
[2018-09-29 17:19] LABS: OCCULT BLOOD STOOL NEGATIVE (NEGATIVE)
[2018-09-29] MEDS: ACETAMINOPHEN 325 MG TAB PO (18:01)
[2018-09-29 20:36] LABS: ADD UMIC YES; UR ASCORBIC ACID NEGATIVE (NEGATIVE); UR BILIRUBIN (Dip) NEGATIVE (NEGATIVE); UR BLOOD (Dip) NEGATIVE (NEGATIVE); UR CLARITY CLEAR (CLEAR); UR COLOR YELLOW (YELLOW); UR GLUCOSE (Dip) 1+ mg/dL (NEGATIVE); UR KETONES (Dip) NEGATIVE (NEGATIVE); UR LEUKOCYTE ESTERASE (Dip) NEGATIVE Leu/ul (NEGATIVE); UR NITRITE (Dip) NEGATIVE (NEGATIVE); UR RBC 4 /HPF (0-5); UR SPECIFIC GRAVITY (Dip) 1.013 (1.003-1.030); UR TOTAL PROTEIN (Dip) 2+ mg/dl (NEGATIVE); UR UROBILINOGEN (Dip) NEGATIVE (NEGATIVE); UR WBC 1 /HPF (0-5)
[2018-09-29] MEDS: TAMSULOSIN (SR) 0.4 MG CAP PO (21:10)
[2018-09-29] MEDS: SENNA TAB PO (21:10)
[2018-09-29] MEDS: ATORVASTATIN 20 MG TAB PO (21:10)
[2018-09-29 21:52] LABS: PRETRANSFUSION BILIRUBIN 0.2 mg/dl
[2018-09-29 21:52] LABS: POST-TRANSFUSION BILIRUBIN 0.1 mg/dl
[2018-09-30] MEDS: ACCU-CHEK XX (02:00)
[2018-09-30] MEDS: PANTOPRAZOLE (EC) 40 MG TAB PO (06:14)
[2018-09-30 06:21] LABS: ADD MAN DIFF? NO
[2018-09-30 06:29] LABS: WHITE BLOOD COUNT 6.7 10^3/ul (4.8-10.8)
[2018-09-30 06:29] LABS: BASOPHIL # 0.1 10^3/ul (0.0-0.1); EOSINOPHILS # 0.5 10^3/ul (0.0-0.5); EOSINOPHILS % 7.5 % (0.0-7.0); HEMATOCRIT 28.6 % (42.0-52.0); HEMOGLOBIN 9.1 g/dl (14.0-18.0); LYMPHOCYTES # 1.4 10^3/ul (0.8-2.9); LYMPHOCYTES % 21.1 % (15.0-51.0); MEAN CORPUSCULAR HEMOGLOBIN 31.3 pg (29.0-33.0); MEAN CORPUSCULAR HGB CONC 31.8 g/dl (32.0-37.0); MEAN CORPUSCULAR VOLUME 98.3 fl (82.0-101.0); MONOCYTE # 1.2 10^3/ul (0.3-0.9); NEUTROPHIL # 3.2 10^3/ul (1.6-7.5); NEUTROPHILS % 48.5 % (39.0-77.0); PLATELET COUNT 137 10^3/UL (140-415); RED BLOOD COUNT 2.91 10^6/ul (4.70-6.10); RED CELL DISTRIBUTION WIDTH 16.8 % (11.5-14.5)
[2018-09-30 06:54] LABS: ALANINE AMINOTRANSFERASE 24 IU/L (13-69); ALBUMIN 3.4 g/dl (3.3-4.9); ALBUMIN/GLOBULIN RATIO 1.25; ALKALINE PHOSPHATASE 92 IU/L (42-121); ANION GAP 11 (5-13); ASPARTATE AMINO TRANSFERASE 31 IU/L (15-46); BILIRUBIN,INDIRECT 0.2 mg/dl (0-1.1); BILIRUBIN,TOTAL 0.2 mg/dl (0.2-1.3); BLOOD UREA NITROGEN 21 mg/dl (7-20); CARBON DIOXIDE 26 mmol/L (21-31); CHLORIDE 104 mmol/L (97-110); CREATININE 3.52 mg/dl (0.61-1.24); GLUCOSE 127 mg/dl (70-220); POTASSIUM 3.8 mmol/L (3.5-5.1); SODIUM 141 mmol/L (135-144); TOTAL PROTEIN 6.1 g/dl (6.1-8.1)
[2018-09-30] MEDS: DOCUSATE SODIUM 100 MG CAP PO ×2 (08:23→21:05)
[2018-09-30] MEDS: CALCITRIOL 0.25 MCG CAP PO (08:23)
[2018-09-30] MEDS: MULTIVIT/CA CARB/B CMPLX/FA TAB PO (08:23)
[2018-09-30] MEDS: FAMOTIDINE 20 MG TAB PO (08:23)
[2018-09-30] MEDS: AMIODARONE 200 MG TAB PO (08:24)
[2018-09-30] MEDS: ISOSORBIDE MONONITRATE(SR)30 MG TAB PO (08:24)
[2018-09-30] MEDS: GABAPENTIN 100 MG CAP PO ×2 (08:24→20:54)
[2018-09-30] MEDS: FEBUXOSTAT 40 MG TABLET PO (08:25)
[2018-09-30] MEDS: ASPIRIN 81 MG TAB PO (08:25)
[2018-09-30] MEDS: INSULIN GLARGINE [LANTus] (100 UNITS/ML) SYG SC (08:27)
[2018-09-30] MEDS: INSULIN ASPART [NOVOLOG] 3 ML PEN SC ×6 (08:28→17:59)
[2018-09-30] MEDS: TICAGRELOR 90 MG TABLET PO ×2 (08:28→21:03)
[2018-09-30] MEDS: SENNA TAB PO (20:53)
[2018-09-30] MEDS: TAMSULOSIN (SR) 0.4 MG CAP PO (20:54)
[2018-09-30] MEDS: ATORVASTATIN 20 MG TAB PO (20:54)
[2018-09-30] MEDS: GUAIFENESIN LA 600 MG TABSR PO (21:35)
[2018-10-01] MEDS: ACCU-CHEK XX (01:34)
[2018-10-01] MEDS: PANTOPRAZOLE (EC) 40 MG TAB PO (05:42)
[2018-10-01 06:17] LABS: ADD MAN DIFF? NO
[2018-10-01 06:23] LABS: BASOPHIL # 0.1 10^3/ul (0.0-0.1); BASOPHILS % 0.9 % (0.0-2.0); EOSINOPHILS # 0.6 10^3/ul (0.0-0.5); EOSINOPHILS % 7.7 % (0.0-7.0); HEMATOCRIT 26.8 % (42.0-52.0); HEMOGLOBIN 8.5 g/dl (14.0-18.0); LYMPHOCYTES # 1.9 10^3/ul (0.8-2.9); LYMPHOCYTES % 24.5 % (15.0-51.0); MEAN CORPUSCULAR HEMOGLOBIN 30.7 pg (29.0-33.0); MEAN CORPUSCULAR HGB CONC 31.7 g/dl (32.0-37.0); MEAN CORPUSCULAR VOLUME 96.8 fl (82.0-101.0); MEAN PLATELET VOLUME 11.8 fl (7.4-10.4); MONOCYTE # 1.3 10^3/ul (0.3-0.9); MONOCYTES % 16.5 % (0.0-11.0); NEUTROPHIL # 3.7 10^3/ul (1.6-7.5); NEUTROPHILS % 46.5 % (39.0-77.0); PLATELET COUNT 144 10^3/UL (140-415); RED BLOOD COUNT 2.77 10^6/ul (4.70-6.10); RED CELL DISTRIBUTION WIDTH 16.7 % (11.5-14.5)
[2018-10-01 06:23] LABS: WHITE BLOOD COUNT 7.9 10^3/ul (4.8-10.8)
[2018-10-01 06:54] LABS: VANCOMYCIN,RANDOM 5.8 ug/ml
[2018-10-01 07:14] LABS: ALANINE AMINOTRANSFERASE 18 IU/L (13-69); ALBUMIN 3.3 g/dl (3.3-4.9); ALBUMIN/GLOBULIN RATIO 1.26; ALKALINE PHOSPHATASE 86 IU/L (42-121); ANION GAP 11 (5-13); ASPARTATE AMINO TRANSFERASE 28 IU/L (15-46); BILIRUBIN,INDIRECT 0.2 mg/dl (0-1.1); BILIRUBIN,TOTAL 0.2 mg/dl (0.2-1.3); BLOOD UREA NITROGEN 30 mg/dl (7-20); CALCIUM 9.1 mg/dl (8.4-10.2); CARBON DIOXIDE 25 mmol/L (21-31); CHLORIDE 104 mmol/L (97-110); CREATININE 4.68 mg/dl (0.61-1.24); GLUCOSE 144 mg/dl (70-220); POTASSIUM 3.8 mmol/L (3.5-5.1); SODIUM 140 mmol/L (135-144); TOTAL PROTEIN 5.9 g/dl (6.1-8.1)
[2018-10-01] MEDS: INSULIN ASPART [NOVOLOG] 3 ML PEN SC ×7 (07:57→17:49)
[2018-10-01] MEDS: INSULIN GLARGINE [LANTus] (100 UNITS/ML) SYG SC (07:58)
[2018-10-01] MEDS: FEBUXOSTAT 40 MG TABLET PO (09:23)
[2018-10-01] MEDS: ASPIRIN 81 MG TAB PO (09:24)
[2018-10-01] MEDS: GABAPENTIN 100 MG CAP PO ×2 (09:24→20:46)
[2018-10-01] MEDS: AMIODARONE 200 MG TAB PO (09:24)
[2018-10-01] MEDS: DOCUSATE SODIUM 100 MG CAP PO ×2 (09:24→20:47)
[2018-10-01] MEDS: MULTIVIT/CA CARB/B CMPLX/FA TAB PO (09:24)
[2018-10-01] MEDS: FAMOTIDINE 20 MG TAB PO (09:24)
[2018-10-01] MEDS: CALCITRIOL 0.25 MCG CAP PO (09:24)
[2018-10-01] MEDS: ISOSORBIDE MONONITRATE(SR)30 MG TAB PO (09:25)
[2018-10-01] MEDS: TICAGRELOR 90 MG TABLET PO ×2 (09:29→20:49)
[2018-10-01] MEDS: VANCOMYCIN 1 GM (PMX) 250 ML IVPB (14:57)
[2018-10-01] MEDS: ATORVASTATIN 20 MG TAB PO (20:46)
[2018-10-01] MEDS: SENNA TAB PO (20:47)
[2018-10-01] MEDS: TAMSULOSIN (SR) 0.4 MG CAP PO (20:51)
[2018-10-02] MEDS: ACCU-CHEK XX (01:35)
[2018-10-02] MEDS: DIPHENHYDRAMINE 25 MG CAP PO (05:39)
[2018-10-02] MEDS: PANTOPRAZOLE (EC) 40 MG TAB PO (05:39)
[2018-10-02 06:03] LABS: ADD MAN DIFF? NO
[2018-10-02 06:08] LABS: BASOPHIL # 0.1 10^3/ul (0.0-0.1); BASOPHILS % 1.1 % (0.0-2.0); EOSINOPHILS # 0.7 10^3/ul (0.0-0.5); EOSINOPHILS % 8.4 % (0.0-7.0); HEMATOCRIT 27.7 % (42.0-52.0); LYMPHOCYTES # 1.7 10^3/ul (0.8-2.9); MEAN CORPUSCULAR HGB CONC 32.5 g/dl (32.0-37.0); MEAN CORPUSCULAR VOLUME 98.6 fl (82.0-101.0); MEAN PLATELET VOLUME 11.7 fl (7.4-10.4); MONOCYTE # 1.1 10^3/ul (0.3-0.9); MONOCYTES % 13.6 % (0.0-11.0); NEUTROPHIL # 4.2 10^3/ul (1.6-7.5); NEUTROPHILS % 50.9 % (39.0-77.0); PLATELET COUNT 165 10^3/UL (140-415); RED BLOOD COUNT 2.81 10^6/ul (4.70-6.10); RED CELL DISTRIBUTION WIDTH 16.7 % (11.5-14.5)
[2018-10-02 06:08] LABS: WHITE BLOOD COUNT 8.2 10^3/ul (4.8-10.8)
[2018-10-02 06:48] LABS: ALANINE AMINOTRANSFERASE 24 IU/L (13-69); ALBUMIN 3.4 g/dl (3.3-4.9); ALBUMIN/GLOBULIN RATIO 1.25; ALKALINE PHOSPHATASE 97 IU/L (42-121); ANION GAP 10 (5-13); ASPARTATE AMINO TRANSFERASE 29 IU/L (15-46); BLOOD UREA NITROGEN 40 mg/dl (7-20); CALCIUM 9.3 mg/dl (8.4-10.2); CARBON DIOXIDE 25 mmol/L (21-31); CHLORIDE 106 mmol/L (97-110); CREATININE 6.04 mg/dl (0.61-1.24); GLUCOSE 150 mg/dl (70-220); POTASSIUM 4.4 mmol/L (3.5-5.1); SODIUM 141 mmol/L (135-144); TOTAL PROTEIN 6.1 g/dl (6.1-8.1)
[2018-10-02] MEDS: TICAGRELOR 90 MG TABLET PO ×2 (11:00→22:46)
[2018-10-02] MEDS: INSULIN GLARGINE [LANTus] (100 UNITS/ML) SYG SC (11:00)
[2018-10-02] MEDS: INSULIN ASPART [NOVOLOG] 3 ML PEN SC ×7 (11:01→22:47)
[2018-10-02] MEDS: FEBUXOSTAT 40 MG TABLET PO (11:03)
[2018-10-02] MEDS: MULTIVIT/CA CARB/B CMPLX/FA TAB PO (11:04)
[2018-10-02] MEDS: GABAPENTIN 100 MG CAP PO ×2 (11:04→22:31)
[2018-10-02] MEDS: CALCITRIOL 0.25 MCG CAP PO (11:04)
[2018-10-02] MEDS: DOCUSATE SODIUM 100 MG CAP PO ×2 (11:04→22:33)
[2018-10-02] MEDS: ASPIRIN 81 MG TAB PO (11:04)
[2018-10-02] MEDS: FAMOTIDINE 20 MG TAB PO (11:04)
[2018-10-02] MEDS: ISOSORBIDE MONONITRATE(SR)30 MG TAB PO (11:05)
[2018-10-02] MEDS: AMIODARONE 200 MG TAB PO (11:06)
[2018-10-02] MEDS: ALBUMIN HUMAN 25% 100 ML IV ×2 (17:44→18:47)
[2018-10-02] MEDS: HEPARIN 1000 UNITS/ML 10 ML INJ CATHETER (20:25)
[2018-10-02] MEDS: SENNA TAB PO (22:33)
[2018-10-02] MEDS: TAMSULOSIN (SR) 0.4 MG CAP PO (22:33)
[2018-10-02] MEDS: ATORVASTATIN 20 MG TAB PO (22:33)
[2018-10-02] MEDS: EPOETIN 10000 UNITS/1 ML INJ (ESRD) SC (22:49)
[2018-10-03] MEDS: ACCU-CHEK XX (02:00)
[2018-10-03] MEDS: PANTOPRAZOLE (EC) 40 MG TAB PO (06:13)
[2018-10-03] MEDS: CALCITRIOL 0.25 MCG CAP PO (08:24)
[2018-10-03] MEDS: FEBUXOSTAT 40 MG TABLET PO (08:24)
[2018-10-03] MEDS: MULTIVIT/CA CARB/B CMPLX/FA TAB PO (08:25)
[2018-10-03] MEDS: GABAPENTIN 100 MG CAP PO ×2 (08:25→21:54)
[2018-10-03] MEDS: ASPIRIN 81 MG TAB PO (08:25)
[2018-10-03] MEDS: INSULIN ASPART [NOVOLOG] 3 ML PEN SC ×6 (08:30→17:25)
[2018-10-03] MEDS: INSULIN GLARGINE [LANTus] (100 UNITS/ML) SYG SC (08:31)
[2018-10-03] MEDS: TICAGRELOR 90 MG TABLET PO ×2 (08:31→21:56)
[2018-10-03] MEDS: DOCUSATE SODIUM 100 MG CAP PO ×2 (08:31→21:54)
[2018-10-03] MEDS ORDERED: VANCOMYCIN IV PER PHARMACY XX (09:00)
[2018-10-03 10:06] LABS: VANCOMYCIN,RANDOM 11.1 ug/ml
[2018-10-03] MEDS: VANCOMYCIN 1 GM 250 ML IVPB ×2 (13:13→20:06)
[2018-10-03] MEDS: HEPARIN 1000 UNITS/ML 10 ML INJ CATHETER (19:25)
[2018-10-03] MEDS: AMIODARONE 200 MG TAB PO (20:04)
[2018-10-03] MEDS: ISOSORBIDE MONONITRATE(SR)30 MG TAB PO (20:04)
[2018-10-03] MEDS: TAMSULOSIN (SR) 0.4 MG CAP PO (21:54)
[2018-10-03] MEDS: SENNA TAB PO (21:54)
[2018-10-03] MEDS: ATORVASTATIN 20 MG TAB PO (21:54)
[2018-10-04] MEDS: ACCU-CHEK XX (02:00)
[2018-10-04] MEDS: DOCUSATE SODIUM 100 MG CAP PO ×2 (08:21→21:25)
[2018-10-04] MEDS: FEBUXOSTAT 40 MG TABLET PO (08:21)
[2018-10-04] MEDS: MULTIVIT/CA CARB/B CMPLX/FA TAB PO (08:21)
[2018-10-04] MEDS: ASPIRIN 81 MG TAB PO (08:21)
[2018-10-04] MEDS: CALCITRIOL 0.25 MCG CAP PO (08:21)
[2018-10-04] MEDS: GABAPENTIN 100 MG CAP PO ×2 (08:22→21:25)
[2018-10-04] MEDS: PANTOPRAZOLE (EC) 40 MG TAB PO (08:22)
[2018-10-04] MEDS: INSULIN ASPART [NOVOLOG] 3 ML PEN SC ×6 (08:24→17:28)
[2018-10-04] MEDS: INSULIN GLARGINE [LANTus] (100 UNITS/ML) SYG SC (08:24)
[2018-10-04] MEDS: TICAGRELOR 90 MG TABLET PO ×2 (08:25→21:28)
[2018-10-04] MEDS: AMIODARONE 200 MG TAB PO (10:07)
[2018-10-04] MEDS: ISOSORBIDE MONONITRATE(SR)30 MG TAB PO (10:08)
[2018-10-04] MEDS: EPOETIN 10000 UNITS/1 ML INJ (ESRD) SC (17:24)
[2018-10-04] MEDS: TAMSULOSIN (SR) 0.4 MG CAP PO (21:25)
[2018-10-04] MEDS: SENNA TAB PO (21:26)
[2018-10-04] MEDS: ATORVASTATIN 20 MG TAB PO (21:36)
[2018-10-05] MEDS: ACCU-CHEK XX (02:00)
[2018-10-05] MEDS: PANTOPRAZOLE (EC) 40 MG TAB PO (06:29)
[2018-10-05] MEDS: INSULIN ASPART [NOVOLOG] 3 ML PEN SC ×6 (08:56→17:53)
[2018-10-05] MEDS: TICAGRELOR 90 MG TABLET PO ×2 (08:58→20:22)
[2018-10-05] MEDS: INSULIN GLARGINE [LANTus] (100 UNITS/ML) SYG SC (08:58)
[2018-10-05] MEDS: ASPIRIN 81 MG TAB PO (08:59)
[2018-10-05] MEDS: FEBUXOSTAT 40 MG TABLET PO (08:59)
[2018-10-05] MEDS: GABAPENTIN 100 MG CAP PO ×2 (08:59→20:19)
[2018-10-05] MEDS: CALCITRIOL 0.25 MCG CAP PO (08:59)
[2018-10-05] MEDS: MULTIVIT/CA CARB/B CMPLX/FA TAB PO (08:59)
[2018-10-05] MEDS: ISOSORBIDE MONONITRATE(SR)30 MG TAB PO (09:00)
[2018-10-05] MEDS: AMIODARONE 200 MG TAB PO (09:00)
[2018-10-05] MEDS: DOCUSATE SODIUM 100 MG CAP PO ×2 (09:04→20:19)
[2018-10-05] MEDS: ALBUMIN HUMAN 25% 100 ML IV (12:10)
[2018-10-05] MEDS: HEPARIN 1000 UNITS/ML 10 ML INJ CATHETER (14:43)
[2018-10-05] MEDS: SENNA TAB PO (20:19)
[2018-10-05] MEDS: ATORVASTATIN 20 MG TAB PO (20:19)
[2018-10-05] MEDS: TAMSULOSIN (SR) 0.4 MG CAP PO (20:19)
[2018-10-05] MEDS: GUAIFENESIN LA 600 MG TABSR PO (20:26)
[2018-10-06] MEDS: ACCU-CHEK XX (02:00)
[2018-10-06] MEDS: PANTOPRAZOLE (EC) 40 MG TAB PO (05:56)
[2018-10-06] MEDS: HYDROmorphONE 0.5 MG/0.5 ML SYG IV (06:34)
[2018-10-06 06:59] LABS: VANCOMYCIN,RANDOM 12.8 ug/ml
[2018-10-06] MEDS ORDERED: LIDOCAINE 2% (SDV) 5 ML INJ (07:00)
[2018-10-06] MEDS ORDERED: CEFAZOLIN 1 GM INJ (07:00)
[2018-10-06] MEDS: INSULIN ASPART [NOVOLOG] 3 ML PEN SC ×6 (08:00→17:46)
[2018-10-06] MEDS: INSULIN GLARGINE [LANTus] (100 UNITS/ML) SYG SC (08:17)
[2018-10-06] MEDS: TICAGRELOR 90 MG TABLET PO ×2 (08:20→21:41)
[2018-10-06] MEDS: DOCUSATE SODIUM 100 MG CAP PO ×2 (08:20→21:22)
[2018-10-06] MEDS: GABAPENTIN 100 MG CAP PO ×2 (08:21→21:24)
[2018-10-06] MEDS: ISOSORBIDE MONONITRATE(SR)30 MG TAB PO (09:00)
[2018-10-06] MEDS: ASPIRIN 81 MG TAB PO (09:00)
[2018-10-06] MEDS: AMIODARONE 200 MG TAB PO (09:00)
[2018-10-06] MEDS: FEBUXOSTAT 40 MG TABLET PO (09:00)
[2018-10-06] MEDS: CALCITRIOL 0.25 MCG CAP PO (09:00)
[2018-10-06] MEDS: MULTIVIT/CA CARB/B CMPLX/FA TAB PO (09:00)
[2018-10-06] MEDS ORDERED: ROPIVACAINE 0.5 % 30 ML VIAL (12:42)
[2018-10-06] MEDS ORDERED: MIDAZOLAM 1 MG/ML 2 ML INJ (12:42)
[2018-10-06] MEDS ORDERED: PROPOFOL 20 ML (13:33)
[2018-10-06] MEDS: LIDOCAINE 1% (MPF) 30 ML INJ (14:15)
[2018-10-06] MEDS: HEPARIN 1000 UNITS/ML 10 ML INJ (14:15)
[2018-10-06] MEDS: THROMBIN (BOVINE) 5,000 UNIT VIAL TP (14:15)
[2018-10-06] MEDS: GELATIN SIZE 100 SPONGE TOP (14:16)
[2018-10-06] MEDS: EPOETIN 10000 UNITS/1 ML INJ (ESRD) SC (17:42)
[2018-10-06] MEDS: VANCOMYCIN 1 GM 250 ML IVPB (17:44)
[2018-10-06] MEDS: SENNA TAB PO (21:24)
[2018-10-06] MEDS: TAMSULOSIN (SR) 0.4 MG CAP PO (21:24)
[2018-10-06] MEDS: ATORVASTATIN 20 MG TAB PO (21:24)
[2018-10-06] MEDS: GUAIFENESIN LA 600 MG TABSR PO (21:44)
[2018-10-06] MEDS: OXYCODONE/ACETAMINOPHEN (5/325) TAB PO (23:54)
[2018-10-07] MEDS: ACCU-CHEK XX (02:00)
[2018-10-07] MEDS: PANTOPRAZOLE (EC) 40 MG TAB PO (06:06)
[2018-10-07 06:22] LABS: ADD MAN DIFF? NO
[2018-10-07 06:32] LABS: BASOPHIL # 0.1 10^3/ul (0.0-0.1); BASOPHILS % 0.8 % (0.0-2.0); EOSINOPHILS # 0.6 10^3/ul (0.0-0.5); EOSINOPHILS % 5.8 % (0.0-7.0); HEMATOCRIT 29.1 % (42.0-52.0); HEMOGLOBIN 9.5 g/dl (14.0-18.0); LYMPHOCYTES % 10.5 % (15.0-51.0); MEAN CORPUSCULAR HEMOGLOBIN 32.3 pg (29.0-33.0); MEAN CORPUSCULAR HGB CONC 32.6 g/dl (32.0-37.0); MEAN PLATELET VOLUME 11.3 fl (7.4-10.4); MONOCYTE # 1.2 10^3/ul (0.3-0.9); MONOCYTES % 12.6 % (0.0-11.0); NEUTROPHIL # 6.3 10^3/ul (1.6-7.5); NEUTROPHILS % 66.2 % (39.0-77.0); PLATELET COUNT 136 10^3/UL (140-415); RED BLOOD COUNT 2.94 10^6/ul (4.70-6.10); RED CELL DISTRIBUTION WIDTH 17.2 % (11.5-14.5)
[2018-10-07 06:32] LABS: WHITE BLOOD COUNT 9.5 10^3/ul (4.8-10.8)
[2018-10-07 07:00] LABS: ALANINE AMINOTRANSFERASE 21 IU/L (13-69); ALBUMIN 3.8 g/dl (3.3-4.9); ALBUMIN/GLOBULIN RATIO 1.35; ALKALINE PHOSPHATASE 78 IU/L (42-121); ANION GAP 14 (5-13); ASPARTATE AMINO TRANSFERASE 28 IU/L (15-46); BILIRUBIN,INDIRECT 0.2 mg/dl (0-1.1); BILIRUBIN,TOTAL 0.2 mg/dl (0.2-1.3); BLOOD UREA NITROGEN 38 mg/dl (7-20); CALCIUM 9.5 mg/dl (8.4-10.2); CARBON DIOXIDE 26 mmol/L (21-31); CHLORIDE 97 mmol/L (97-110); CREATININE 5.16 mg/dl (0.61-1.24); GLUCOSE 98 mg/dl (70-220); POTASSIUM 4.4 mmol/L (3.5-5.1); SODIUM 137 mmol/L (135-144); TOTAL PROTEIN 6.6 g/dl (6.1-8.1)
[2018-10-07] MEDS: INSULIN ASPART [NOVOLOG] 3 ML PEN SC ×6 (08:00→17:17)
[2018-10-07] MEDS: FEBUXOSTAT 40 MG TABLET PO (08:33)
[2018-10-07] MEDS: ASPIRIN 81 MG TAB PO (08:33)
[2018-10-07] MEDS: MULTIVIT/CA CARB/B CMPLX/FA TAB PO (08:33)
[2018-10-07] MEDS: DOCUSATE SODIUM 100 MG CAP PO ×2 (08:33→20:51)
[2018-10-07] MEDS: CALCITRIOL 0.25 MCG CAP PO (08:33)
[2018-10-07] MEDS: GABAPENTIN 100 MG CAP PO ×2 (08:33→20:51)
[2018-10-07] MEDS: AMIODARONE 200 MG TAB PO (08:34)
[2018-10-07] MEDS: ISOSORBIDE MONONITRATE(SR)30 MG TAB PO (08:35)
[2018-10-07] MEDS: GUAIFENESIN LA 600 MG TABSR PO ×2 (08:43→21:05)
[2018-10-07] MEDS: TICAGRELOR 90 MG TABLET PO ×2 (08:45→21:09)
[2018-10-07] MEDS: INSULIN GLARGINE [LANTus] (100 UNITS/ML) SYG SC (08:45)
[2018-10-07] MEDS: ALBUMIN HUMAN 25% 100 ML IV (16:19)
[2018-10-07] MEDS: OXYCODONE/ACETAMINOPHEN (5/325) TAB PO (17:05)
[2018-10-07] MEDS: HEPARIN 1000 UNITS/ML 10 ML INJ CATHETER (19:19)
[2018-10-07] MEDS: ATORVASTATIN 20 MG TAB PO (20:51)
[2018-10-07] MEDS: TAMSULOSIN (SR) 0.4 MG CAP PO (20:51)
[2018-10-07] MEDS: SENNA TAB PO (20:51)
[2018-10-07] MEDS: HEPARIN 5,000 UNIT/1 ML VIAL SC (20:58)
[2018-10-08] MEDS: ACCU-CHEK XX (01:50)
[2018-10-08] MEDS: PANTOPRAZOLE (EC) 40 MG TAB PO (05:02)
[2018-10-08] MEDS: OXYCODONE/ACETAMINOPHEN (5/325) TAB PO ×3 (05:02→21:15)
[2018-10-08] MEDS: INSULIN ASPART [NOVOLOG] 3 ML PEN SC ×6 (07:46→17:13)
[2018-10-08] MEDS: INSULIN GLARGINE [LANTus] (100 UNITS/ML) SYG SC (07:56)
[2018-10-08] MEDS: AMIODARONE 200 MG TAB PO (09:00)
[2018-10-08] MEDS: ISOSORBIDE MONONITRATE(SR)30 MG TAB PO (09:00)
[2018-10-08] MEDS: CALCITRIOL 0.25 MCG CAP PO (09:44)
[2018-10-08] MEDS: MULTIVIT/CA CARB/B CMPLX/FA TAB PO (09:44)
[2018-10-08] MEDS: DOCUSATE SODIUM 100 MG CAP PO ×2 (09:45→21:01)
[2018-10-08] MEDS: ASPIRIN 81 MG TAB PO (09:45)
[2018-10-08] MEDS: GUAIFENESIN LA 600 MG TABSR PO (09:45)
[2018-10-08] MEDS: GABAPENTIN 100 MG CAP PO ×2 (09:45→21:01)
[2018-10-08] MEDS: HEPARIN 5,000 UNIT/1 ML VIAL SC ×2 (09:56→21:10)
[2018-10-08] MEDS: TICAGRELOR 90 MG TABLET PO ×2 (09:58→21:10)
[2018-10-08] MEDS: FEBUXOSTAT 40 MG TABLET PO (11:21)
[2018-10-08] MEDS: ATORVASTATIN 20 MG TAB PO (21:00)
[2018-10-08] MEDS: SENNA TAB PO (21:00)
[2018-10-08] MEDS: TAMSULOSIN (SR) 0.4 MG CAP PO (21:01)
[2018-10-09] MEDS: ACCU-CHEK XX (01:46)
[2018-10-09] MEDS: PANTOPRAZOLE (EC) 40 MG TAB PO (05:56)
[2018-10-09] MEDS: INSULIN ASPART [NOVOLOG] 3 ML PEN SC ×7 (07:43→20:36)
[2018-10-09] MEDS: INSULIN GLARGINE [LANTus] (100 UNITS/ML) SYG SC (07:46)
[2018-10-09] MEDS: FEBUXOSTAT 40 MG TABLET PO (08:57)
[2018-10-09] MEDS: MULTIVIT/CA CARB/B CMPLX/FA TAB PO (08:57)
[2018-10-09] MEDS: CALCITRIOL 0.25 MCG CAP PO (08:57)
[2018-10-09] MEDS: DOCUSATE SODIUM 100 MG CAP PO ×2 (08:57→20:36)
[2018-10-09] MEDS: AMIODARONE 200 MG TAB PO (08:58)
[2018-10-09] MEDS: ISOSORBIDE MONONITRATE(SR)30 MG TAB PO (08:58)
[2018-10-09] MEDS: ASPIRIN 81 MG TAB PO (08:59)
[2018-10-09] MEDS: GABAPENTIN 100 MG CAP PO ×2 (08:59→20:36)
[2018-10-09] MEDS: HEPARIN 5,000 UNIT/1 ML VIAL SC ×2 (09:06→20:35)
[2018-10-09] MEDS: TICAGRELOR 90 MG TABLET PO ×2 (09:07→21:00)
[2018-10-09 10:31] LABS: ADD MAN DIFF? NO
[2018-10-09 10:36] LABS: WHITE BLOOD COUNT 9.7 10^3/ul (4.8-10.8)
[2018-10-09 10:36] LABS: ABNORMAL IP MESSAGE 1; BASOPHIL # 0.1 10^3/ul (0.0-0.1); BASOPHILS % 0.9 % (0.0-2.0); EOSINOPHILS # 0.8 10^3/ul (0.0-0.5); EOSINOPHILS % 7.7 % (0.0-7.0); HEMATOCRIT 28.7 % (42.0-52.0); HEMOGLOBIN 9.2 g/dl (14.0-18.0); LYMPHOCYTES # 1.4 10^3/ul (0.8-2.9); LYMPHOCYTES % 13.9 % (15.0-51.0); MEAN CORPUSCULAR HEMOGLOBIN 32.3 pg (29.0-33.0); MEAN CORPUSCULAR HGB CONC 32.1 g/dl (32.0-37.0); MEAN CORPUSCULAR VOLUME 100.7 fl (82.0-101.0); MEAN PLATELET VOLUME 11.2 fl (7.4-10.4); MONOCYTE # 1.6 10^3/ul (0.3-0.9); MONOCYTES % 16.4 % (0.0-11.0); NEUTROPHIL # 5.6 10^3/ul (1.6-7.5); NEUTROPHILS % 58.1 % (39.0-77.0); PLATELET COUNT 163 10^3/UL (140-415); POSITIVE DIFF @See below; RED BLOOD COUNT 2.85 10^6/ul (4.70-6.10)
[2018-10-09 12:58] LABS: ANION GAP 13 (5-13); BLOOD UREA NITROGEN 38 mg/dl (7-20); CALCIUM 9.4 mg/dl (8.4-10.2); CARBON DIOXIDE 28 mmol/L (21-31); CHLORIDE 97 mmol/L (97-110); CREATININE 5.75 mg/dl (0.61-1.24); GLUCOSE 84 mg/dl (70-220); PHOSPHORUS 5.2 mg/dl (2.5-4.9); POTASSIUM 4.4 mmol/L (3.5-5.1); SODIUM 138 mmol/L (135-144)
[2018-10-09] MEDS: EPOETIN 10000 UNITS/1 ML INJ (ESRD) SC (17:56)
[2018-10-09] MEDS: ATORVASTATIN 20 MG TAB PO (20:36)
[2018-10-09] MEDS: TAMSULOSIN (SR) 0.4 MG CAP PO (20:45)
[2018-10-09] MEDS: SENNA TAB PO (20:45)
[2018-10-10] MEDS: ACCU-CHEK XX (01:41)
[2018-10-10] MEDS: PANTOPRAZOLE (EC) 40 MG TAB PO (05:40)
[2018-10-10 06:03] LABS: ADD MAN DIFF? NO
[2018-10-10 06:06] LABS: ABNORMAL IP MESSAGE 1; BASOPHIL # 0.1 10^3/ul (0.0-0.1); BASOPHILS % 0.9 % (0.0-2.0); EOSINOPHILS # 0.7 10^3/ul (0.0-0.5); EOSINOPHILS % 7.4 % (0.0-7.0); HEMATOCRIT 28.5 % (42.0-52.0); LYMPHOCYTES # 1.4 10^3/ul (0.8-2.9); LYMPHOCYTES % 15.5 % (15.0-51.0); MEAN CORPUSCULAR HEMOGLOBIN 31.8 pg (29.0-33.0); MEAN CORPUSCULAR HGB CONC 31.6 g/dl (32.0-37.0); MEAN CORPUSCULAR VOLUME 100.7 fl (82.0-101.0); MEAN PLATELET VOLUME 11.3 fl (7.4-10.4); MONOCYTE # 1.6 10^3/ul (0.3-0.9); NEUTROPHIL # 5.1 10^3/ul (1.6-7.5); NEUTROPHILS % 55.9 % (39.0-77.0); PLATELET COUNT 158 10^3/UL (140-415); POSITIVE DIFF @See below; RED BLOOD COUNT 2.83 10^6/ul (4.70-6.10); RED CELL DISTRIBUTION WIDTH 17.6 % (11.5-14.5)
[2018-10-10 06:06] LABS: WHITE BLOOD COUNT 9.1 10^3/ul (4.8-10.8)
[2018-10-10 06:33] LABS: ANION GAP 14 (5-13); BLOOD UREA NITROGEN 46 mg/dl (7-20); CALCIUM 9.5 mg/dl (8.4-10.2); CARBON DIOXIDE 26 mmol/L (21-31); CHLORIDE 98 mmol/L (97-110); CREATININE 6.72 mg/dl (0.61-1.24); GLUCOSE 128 mg/dl (70-220); POTASSIUM 4.9 mmol/L (3.5-5.1); SODIUM 138 mmol/L (135-144)
[2018-10-10 06:40] LABS: VANCOMYCIN,RANDOM 14.1 ug/ml
[2018-10-10] MEDS: INSULIN ASPART [NOVOLOG] 3 ML PEN SC ×5 (07:47→17:53)
[2018-10-10] MEDS: INSULIN GLARGINE [LANTus] (100 UNITS/ML) SYG SC (07:47)
[2018-10-10] MEDS: ASPIRIN 81 MG TAB PO (08:22)
[2018-10-10] MEDS: GABAPENTIN 100 MG CAP PO ×2 (08:23→20:31)
[2018-10-10] MEDS: DOCUSATE SODIUM 100 MG CAP PO ×2 (08:23→20:31)
[2018-10-10] MEDS: AMIODARONE 200 MG TAB PO (08:24)
[2018-10-10] MEDS: FEBUXOSTAT 40 MG TABLET PO (08:24)
[2018-10-10] MEDS: CALCITRIOL 0.25 MCG CAP PO (08:24)
[2018-10-10] MEDS: HEPARIN 5,000 UNIT/1 ML VIAL SC ×2 (08:28→20:39)
[2018-10-10] MEDS: ISOSORBIDE MONONITRATE(SR)30 MG TAB PO (08:29)
[2018-10-10] MEDS: MULTIVIT/CA CARB/B CMPLX/FA TAB PO (08:29)
[2018-10-10] MEDS: TICAGRELOR 90 MG TABLET PO ×2 (08:35→20:39)
[2018-10-10] MEDS: GUAIFENESIN LA 600 MG TABSR PO (08:39)
[2018-10-10] MEDS: ALBUMIN HUMAN 25% 100 ML IV ×2 (16:22→17:06)
[2018-10-10] MEDS: VANCOMYCIN 1 GM 250 ML IVPB (18:01)
[2018-10-10] MEDS: SENNA TAB PO (20:31)
[2018-10-10] MEDS: ATORVASTATIN 20 MG TAB PO (20:31)
[2018-10-10] MEDS: TAMSULOSIN (SR) 0.4 MG CAP PO (20:31)
[2018-10-11] MEDS: ACCU-CHEK XX (01:34)
[2018-10-11] MEDS: PANTOPRAZOLE (EC) 40 MG TAB PO (05:05)
[2018-10-11] MEDS: FEBUXOSTAT 40 MG TABLET PO (08:20)
[2018-10-11] MEDS: MULTIVIT/CA CARB/B CMPLX/FA TAB PO (08:21)
[2018-10-11] MEDS: ISOSORBIDE MONONITRATE(SR)30 MG TAB PO (08:21)
[2018-10-11] MEDS: AMIODARONE 200 MG TAB PO (08:22)
[2018-10-11] MEDS: ASPIRIN 81 MG TAB PO (08:23)
[2018-10-11] MEDS: GABAPENTIN 100 MG CAP PO (08:24)
[2018-10-11] MEDS: DOCUSATE SODIUM 100 MG CAP PO (08:24)
[2018-10-11] MEDS: INSULIN ASPART [NOVOLOG] 3 ML PEN SC ×6 (08:52→18:00)
[2018-10-11] MEDS: INSULIN GLARGINE [LANTus] (100 UNITS/ML) SYG SC (08:52)
[2018-10-11] MEDS: TICAGRELOR 90 MG TABLET PO (08:52)
[2018-10-11] MEDS: HEPARIN 5,000 UNIT/1 ML VIAL SC (08:53)
[2018-10-11] MEDS: CALCITRIOL 0.25 MCG CAP PO (08:56)
[2018-10-11] MEDS: GUAIFENESIN LA 600 MG TABSR PO (17:28)
[2018-10-11] MEDS: EPOETIN 10000 UNITS/1 ML INJ (ESRD) SC (17:29)
== END 2018-10-11 18:45 | DRG 264 ==
LOC: 2NE 20:56 → 6WM 10-06 16:07
PROVIDERS: Internal Medicine
PROC: 03170KD Bypass Right Brachial Artery to Upper Arm Vein with Nonautologous Tissue Substitute, Open Approach (ICD-10-PCS; principal; 2018-10-02 06:55)
PROC: 0JH63XZ Insertion of Tunneled Vascular Access Device into Chest Subcutaneous Tissue and Fascia, Percutaneous Approach (ICD-10-PCS; 2018-10-02 06:55)
PROC: 05HN33Z Insertion of Infusion Device into Left Internal Jugular Vein, Percutaneous Approach (ICD-10-PCS; 2018-10-02 06:55)
PROC: B544ZZA Ultrasonography of Left Jugular Veins, Guidance (ICD-10-PCS; 2018-10-02 06:55)
PROC: 06H033Z Insertion of Infusion Device into Inferior Vena Cava, Percutaneous Approach (ICD-10-PCS; 2018-10-02 06:55)
PROC: B54BZZA Ultrasonography of Right Lower Extremity Veins, Guidance (ICD-10-PCS; 2018-10-02 06:55)
PROC: 5A1D70Z Performance of Urinary Filtration, Intermittent, Less than 6 Hours Per Day (ICD-10-PCS; 2018-10-02 06:55)
PROC: 05PYX3Z Removal of Infusion Device from Upper Vein, External Approach (ICD-10-PCS; 2018-10-02 06:55)
DX: T80.211A Bloodstream infection due to central venous catheter, initial encounter (principal); N18.6 End stage renal disease; A41.1 Sepsis due to other specified staphylococcus; I12.0 Hypertensive chronic kidney disease with stage 5 chronic kidney disease or end stage renal disease; T82.898A Other specified complication of vascular prosthetic devices, implants and grafts, initial encounter; G47.00 Insomnia, unspecified; I25.5 Ischemic cardiomyopathy; E78.5 Hyperlipidemia, unspecified; D63.1 Anemia in chronic kidney disease; E11.22 Type 2 diabetes mellitus with diabetic chronic kidney disease; E11.21 Type 2 diabetes mellitus with diabetic nephropathy; I48.91 Unspecified atrial fibrillation; M10.9 Gout, unspecified; E11.40 Type 2 diabetes mellitus with diabetic neuropathy, unspecified; I25.10 Atherosclerotic heart disease of native coronary artery without angina pectoris; I25.2 Old myocardial infarction; Z99.2 Dependence on renal dialysis; Z95.5 Presence of coronary angioplasty implant and graft; Z87.440 Personal history of urinary (tract) infections; Z85.46 Personal history of malignant neoplasm of prostate; Z79.82 Long term (current) use of aspirin; Z79.4 Long term (current) use of insulin; Y84.1 Kidney dialysis as the cause of abnormal reaction of the patient, or of later complication, without mention of misadventure at the time of the procedure
CPT/HCPCS: 36430; 71045; 71046; 76000; 76937; 80048; 80053; 80202; 81001; 82270; 82962; 83036; 84100; 84132; 85025; 86078; 86850; 86900; 86901; 86920; 87040; 87070; 87081; 87340; 90935; 93005; 93306; 93308; 97110; 97116; 97161; 97530

== ENCOUNTER 2018-10-12 13:12 | Emergency (ER) | payer MEDICARE, BC ==
[2018-10-12 13:43] LABS: ADD MAN DIFF? NO
[2018-10-12 13:51] LABS: ABNORMAL IP MESSAGE 1; BASOPHIL # 0.1 10^3/ul (0.0-0.1); BASOPHILS % 1.1 % (0.0-2.0); EOSINOPHILS # 0.8 10^3/ul (0.0-0.5); EOSINOPHILS % 8.5 % (0.0-7.0); HEMATOCRIT 31.5 % (42.0-52.0); HEMOGLOBIN 10.2 g/dl (14.0-18.0); LYMPHOCYTES # 1.4 10^3/ul (0.8-2.9); LYMPHOCYTES % 14.9 % (15.0-51.0); MEAN CORPUSCULAR HEMOGLOBIN 32.2 pg (29.0-33.0); MEAN CORPUSCULAR HGB CONC 32.4 g/dl (32.0-37.0); MEAN CORPUSCULAR VOLUME 99.4 fl (82.0-101.0); MEAN PLATELET VOLUME 11.7 fl (7.4-10.4); MONOCYTE # 1.7 10^3/ul (0.3-0.9); NEUTROPHIL # 5.2 10^3/ul (1.6-7.5); NEUTROPHILS % 54.6 % (39.0-77.0); PLATELET COUNT 138 10^3/UL (140-415); RED BLOOD COUNT 3.17 10^6/ul (4.70-6.10); RED CELL DISTRIBUTION WIDTH 17.2 % (11.5-14.5)
[2018-10-12 13:51] LABS: WHITE BLOOD COUNT 9.4 10^3/ul (4.8-10.8)
[2018-10-12 14:06] LABS: ALANINE AMINOTRANSFERASE 17 IU/L (13-69); ALBUMIN 4.5 g/dl (3.3-4.9); ALBUMIN/GLOBULIN RATIO 1.66; ALKALINE PHOSPHATASE 93 IU/L (42-121); ANION GAP 12 (5-13); ASPARTATE AMINO TRANSFERASE 26 IU/L (15-46); BILIRUBIN,INDIRECT 0.4 mg/dl (0-1.1); BILIRUBIN,TOTAL 0.4 mg/dl (0.2-1.3); BLOOD UREA NITROGEN 45 mg/dl (7-20); CALCIUM 10.1 mg/dl (8.4-10.2); CARBON DIOXIDE 27 mmol/L (21-31); CHLORIDE 97 mmol/L (97-110); CREATININE 5.43 mg/dl (0.61-1.24); GLUCOSE 91 mg/dl (70-220); POTASSIUM 4.2 mmol/L (3.5-5.1); SODIUM 136 mmol/L (135-144); TOTAL PROTEIN 7.2 g/dl (6.1-8.1)
[2018-10-12 14:11] LABS: INR 1.18; PROTIME 15.1 Sec (11.9-14.9); PT RATIO 1.2
[2018-10-12 14:16] LABS: TROPONIN-I 0.026 ng/ml (0.000-0.120)
[2018-10-12 14:39] LABS: PARTIAL THROMBOPLASTIN TIME 125.5 Sec (23.0-35.0)
== END 2018-10-12 20:23 | disposition home or self-care (01) ==
LOC: E/R 13:12
DX: I95.9 Hypotension, unspecified (principal); I25.10 Atherosclerotic heart disease of native coronary artery without angina pectoris; E11.22 Type 2 diabetes mellitus with diabetic chronic kidney disease; N18.9 Chronic kidney disease, unspecified; Z79.82 Long term (current) use of aspirin; Z79.4 Long term (current) use of insulin
CPT/HCPCS: 71045; 80053; 83605; 84484; 85025; 85610; 85730; 87040; 93005; 99285-25

== ENCOUNTER 2018-10-15 11:50 | Inpatient (IN) | payer MEDICARE, BC ==
[2018-10-15 12:15] LABS: ADD MAN DIFF? NO
[2018-10-15 12:19] LABS: WHITE BLOOD COUNT 17.2 10^3/ul (4.8-10.8)
[2018-10-15 12:19] LABS: ABNORMAL IP MESSAGE 1; BASOPHIL # 0.1 10^3/ul (0.0-0.1); BASOPHILS % 0.4 % (0.0-2.0); EOSINOPHILS # 0.1 10^3/ul (0.0-0.5); EOSINOPHILS % 0.4 % (0.0-7.0); HEMATOCRIT 28.7 % (42.0-52.0); HEMOGLOBIN 9.2 g/dl (14.0-18.0); LYMPHOCYTES # 0.6 10^3/ul (0.8-2.9); LYMPHOCYTES % 3.7 % (15.0-51.0); MEAN CORPUSCULAR HEMOGLOBIN 32.9 pg (29.0-33.0); MEAN CORPUSCULAR HGB CONC 32.1 g/dl (32.0-37.0); MEAN CORPUSCULAR VOLUME 102.5 fl (82.0-101.0); MEAN PLATELET VOLUME 12.2 fl (7.4-10.4); MONOCYTE # 1.6 10^3/ul (0.3-0.9); MONOCYTES % 9.4 % (0.0-11.0); NEUTROPHIL # 14.6 10^3/ul (1.6-7.5); NEUTROPHILS % 84.9 % (39.0-77.0); PLATELET COUNT 54 10^3/UL (140-415); POSITIVE DIFF @See below; RED CELL DISTRIBUTION WIDTH 18.1 % (11.5-14.5)
[2018-10-15] MEDS: CEFEPIME 2GM/50 ML (PMX) 50 ML IVPB (12:32)
[2018-10-15 12:37] LABS: INR 1.19; PROTIME 15.2 Sec (11.9-14.9); PT RATIO 1.2
[2018-10-15 12:38] LABS: PARTIAL THROMBOPLASTIN TIME 40.5 Sec (23.0-35.0)
[2018-10-15 12:39] LABS: ALANINE AMINOTRANSFERASE 16 IU/L (13-69); ALBUMIN 3.9 g/dl (3.3-4.9); ALBUMIN/GLOBULIN RATIO 1.56; ALKALINE PHOSPHATASE 84 IU/L (42-121); AMYLASE 32 U/L (11-123); ANION GAP 15 (5-13); ASPARTATE AMINO TRANSFERASE 24 IU/L (15-46); BILIRUBIN,INDIRECT 0.7 mg/dl (0-1.1); BILIRUBIN,TOTAL 0.7 mg/dl (0.2-1.3); BLOOD UREA NITROGEN 22 mg/dl (7-20); CALCIUM 9.4 mg/dl (8.4-10.2); CARBON DIOXIDE 29 mmol/L (21-31); CHLORIDE 95 mmol/L (97-110); CREATININE 3.77 mg/dl (0.61-1.24); GLUCOSE 272 mg/dl (70-220); LIPASE 26 U/L (23-300); POTASSIUM 4.3 mmol/L (3.5-5.1); SODIUM 139 mmol/L (135-144); TOTAL PROTEIN 6.4 g/dl (6.1-8.1)
[2018-10-15] MEDS: SOD CHLORIDE 0.9% 500 ML IV ×2 (12:43→14:00)
[2018-10-15 13:06] LABS: ADD UMIC YES; UR ASCORBIC ACID NEGATIVE (NEGATIVE); UR BACTERIA MODERATE /HPF (NONE SEEN); UR BILIRUBIN (Dip) NEGATIVE (NEGATIVE); UR BLOOD (Dip) 1+ mg/dL (NEGATIVE); UR CLARITY TURBID (CLEAR); UR COLOR AMBER (YELLOW); UR GLUCOSE (Dip) 3+ mg/dL (NEGATIVE); UR KETONES (Dip) TRACE mg/dL (NEGATIVE); UR LEUKOCYTE ESTERASE (Dip) 2+ Leu/ul (NEGATIVE); UR MUCUS FEW /HPF (NONE SEEN); UR NITRITE (Dip) NEGATIVE (NEGATIVE); UR RBC 82 /HPF (0-5); UR SPECIFIC GRAVITY (Dip) 1.015 (1.003-1.030); UR SQUAMOUS EPITHELIAL CELL FEW /HPF (FEW); UR TOTAL PROTEIN (Dip) 2+ mg/dl (NEGATIVE); UR UROBILINOGEN (Dip) NEGATIVE (NEGATIVE); UR WBC > 182 /HPF (0-5)
[2018-10-15 13:30] LABS: ANISOCYTOSIS 1+ (0-0); BAND NEUTROPHILS #M 3.2 10^3/ul (0.0-0.6); BAND NEUTROPHILS % (M) 19 % (0-4); BASOPHIL #M 0.5 10^3/ul (0.0-0.0); BASOPHILS % (M) 3 % (0-2); LYMPHOCYTES #M 0.6 10^3/ul (0.8-2.9); LYMPHOCYTES % (M) 4 % (15-51); MONOCYTE #M 0.6 10^3/ul (0.3-0.9); MONOCYTES % (M) 4 % (0-11); PLATELET ESTIMATE DECREASED; POIKILOCYTOSIS 1+ (0-0); POLYCHROMASIA 3+ (0-0); REACTIVE LYMPHOCYTES #M 0.3 10^3/ul (0.0-0.0); REACTIVE LYMPHOCYTES% (M) 2 % (0-0); SEG NEUT #M 12.2 10^3/ul (1.6-7.5); SEGMENTED NEUTROPHILS (M) % 68 % (39-77); SMUDGE%M 9 % (0-0)
[2018-10-15] MEDS: VANCOMYCIN 1 GM (PMX) 250 ML IVPB (13:39)
[2018-10-15] MEDS ORDERED: ACETAMINOPHEN 325 MG TAB PO (14:30)
[2018-10-15] MEDS: ONDANSETRON 4 MG INJ IV (15:58)
[2018-10-15] MEDS: FENTAnyl 50 MCG/ML VIAL IV (15:58)
[2018-10-15 16:48] LABS: LACTIC ACID 2.2 mmol/L (0.5-2.0)
[2018-10-15] MEDS ORDERED: NACL 0.9% 3 ML SYG IV ×2 (17:00)
[2018-10-15] MEDS ORDERED: CEFEPIME 2GM/50 ML (PMX) 50 ML IVPB (17:30)
[2018-10-15] MEDS ORDERED: GLUCAGON 1 MG INJ IM (19:00)
[2018-10-15] MEDS ORDERED: DEXTROSE 50% 50 ML SYRINGE IV ×2 (19:00)
[2018-10-15] MEDS ORDERED: GLUCOSE GEL 15 GRAM TUBE BUCCAL (19:00)
[2018-10-15] MEDS ORDERED: GLUCOSE GEL 15 GRAM TUBE PO (19:00)
[2018-10-15] MEDS: GABAPENTIN 100 MG CAP PO (21:39)
[2018-10-15] MEDS: ATORVASTATIN 80 MG TAB PO (21:39)
[2018-10-15] MEDS: HEPARIN 5,000 UNIT/1 ML VIAL SC (21:50)
[2018-10-15] MEDS: INSULIN ASPART [NOVOLOG] 3 ML PEN SC (21:58)
[2018-10-16] MEDS: ACCU-CHEK XX (02:00)
[2018-10-16] MEDS: ACETAMINOPHEN 325 MG TAB PO (03:20)
[2018-10-16 06:22] LABS: ADD MAN DIFF? NO
[2018-10-16 06:28] LABS: WHITE BLOOD COUNT 16.3 10^3/ul (4.8-10.8)
[2018-10-16 06:28] LABS: ABNORMAL IP MESSAGE 1; BASOPHIL # 0.1 10^3/ul (0.0-0.1); BASOPHILS % 0.4 % (0.0-2.0); EOSINOPHILS % 0.1 % (0.0-7.0); HEMATOCRIT 26.5 % (42.0-52.0); LYMPHOCYTES # 0.6 10^3/ul (0.8-2.9); LYMPHOCYTES % 3.9 % (15.0-51.0); MEAN CORPUSCULAR HEMOGLOBIN 31.4 pg (29.0-33.0); MEAN CORPUSCULAR HGB CONC 30.2 g/dl (32.0-37.0); MEAN CORPUSCULAR VOLUME 103.9 fl (82.0-101.0); MEAN PLATELET VOLUME 12.5 fl (7.4-10.4); MONOCYTE # 0.8 10^3/ul (0.3-0.9); MONOCYTES % 4.9 % (0.0-11.0); NEUTROPHIL # 14.5 10^3/ul (1.6-7.5); NUCLEATED RED BLOOD CELLS% 0.2 /100WBC (0.0-0.0); PLATELET COUNT 58 10^3/UL (140-415); POSITIVE DIFF @See below; RED BLOOD COUNT 2.55 10^6/ul (4.70-6.10); RED CELL DISTRIBUTION WIDTH 18.3 % (11.5-14.5)
[2018-10-16 07:03] LABS: ANION GAP 13 (5-13); BLOOD UREA NITROGEN 32 mg/dl (7-20); CALCIUM 9.3 mg/dl (8.4-10.2); CARBON DIOXIDE 27 mmol/L (21-31); CHLORIDE 99 mmol/L (97-110); CREATININE 5.02 mg/dl (0.61-1.24); GLUCOSE 240 mg/dl (70-220); POTASSIUM 4.5 mmol/L (3.5-5.1); SODIUM 139 mmol/L (135-144)
[2018-10-16 07:08] LABS: PHOSPHORUS 5.5 mg/dl (2.5-4.9)
[2018-10-16] MEDS: INSULIN ASPART [NOVOLOG] 3 ML PEN SC ×5 (08:01→22:30)
[2018-10-16] MEDS: PRASUGREL HYDROCHLORIDE 10 MG TABLET PO (08:48)
[2018-10-16] MEDS: GABAPENTIN 100 MG CAP PO ×2 (08:48→21:49)
[2018-10-16] MEDS: FEBUXOSTAT 40 MG TABLET PO (08:48)
[2018-10-16] MEDS: ASPIRIN 81 MG TAB PO (08:48)
[2018-10-16] MEDS: FAMOTIDINE 20 MG TAB PO (08:55)
[2018-10-16] MEDS: CEFEPIME 2GM/50 ML (PMX) 50 ML IVPB (11:57)
[2018-10-16] MEDS ORDERED: CEFEPIME 2GM/50 ML (PMX) 50 ML IVPB (12:00)
[2018-10-16] MEDS: ATORVASTATIN 80 MG TAB PO (21:49)
[2018-10-17] MEDS: ACCU-CHEK XX (02:30)
[2018-10-17] MEDS: INSULIN ASPART [NOVOLOG] 3 ML PEN SC ×4 (07:58→21:00)
[2018-10-17] MEDS: FAMOTIDINE 20 MG TAB PO (08:02)
[2018-10-17] MEDS: FEBUXOSTAT 40 MG TABLET PO (08:04)
[2018-10-17] MEDS: GABAPENTIN 100 MG CAP PO ×2 (08:04→21:19)
[2018-10-17] MEDS: PRASUGREL HYDROCHLORIDE 10 MG TABLET PO (08:04)
[2018-10-17] MEDS: ASPIRIN 81 MG TAB PO (08:12)
[2018-10-17 08:51] LABS: ADD MAN DIFF? NO
[2018-10-17 08:53] LABS: WHITE BLOOD COUNT 13.6 10^3/ul (4.8-10.8)
[2018-10-17 08:53] LABS: ABNORMAL IP MESSAGE 1; BASOPHIL # 0.1 10^3/ul (0.0-0.1); BASOPHILS % 0.4 % (0.0-2.0); EOSINOPHILS # 0.3 10^3/ul (0.0-0.5); EOSINOPHILS % 2.2 % (0.0-7.0); HEMATOCRIT 26.3 % (42.0-52.0); HEMOGLOBIN 8.2 g/dl (14.0-18.0); LYMPHOCYTES # 1.2 10^3/ul (0.8-2.9); LYMPHOCYTES % 8.8 % (15.0-51.0); MEAN CORPUSCULAR HEMOGLOBIN 32.3 pg (29.0-33.0); MEAN CORPUSCULAR HGB CONC 31.2 g/dl (32.0-37.0); MEAN CORPUSCULAR VOLUME 103.5 fl (82.0-101.0); MEAN PLATELET VOLUME 13.3 fl (7.4-10.4); MONOCYTE # 1.8 10^3/ul (0.3-0.9); MONOCYTES % 13.4 % (0.0-11.0); NEUTROPHILS % 73.7 % (39.0-77.0); PLATELET COUNT 63 10^3/UL (140-415); POSITIVE DIFF @See below; RED BLOOD COUNT 2.54 10^6/ul (4.70-6.10)
[2018-10-17 09:14] LABS: ALANINE AMINOTRANSFERASE 21 IU/L (13-69); ALBUMIN 3.3 g/dl (3.3-4.9); ALBUMIN/GLOBULIN RATIO 1.32; ALKALINE PHOSPHATASE 103 IU/L (42-121); ANION GAP 18 (5-13); ASPARTATE AMINO TRANSFERASE 23 IU/L (15-46); BILIRUBIN,INDIRECT 0.3 mg/dl (0-1.1); BILIRUBIN,TOTAL 0.3 mg/dl (0.2-1.3); BLOOD UREA NITROGEN 52 mg/dl (7-20); CALCIUM 8.8 mg/dl (8.4-10.2); CARBON DIOXIDE 25 mmol/L (21-31); CHLORIDE 96 mmol/L (97-110); CREATININE 6.78 mg/dl (0.61-1.24); GLUCOSE 327 mg/dl (70-220); SODIUM 139 mmol/L (135-144); TOTAL PROTEIN 5.8 g/dl (6.1-8.1)
[2018-10-17 09:19] LABS: POTASSIUM 5.2 mmol/L (3.5-5.1)
[2018-10-17] MEDS: SOD CHLORIDE 0.9% 250 ML IV (10:47)
[2018-10-17] MEDS ORDERED: VANCOMYCIN IV PER PHARMACY XX (11:30)
[2018-10-17] MEDS: MUPIROCIN 2% 22 GM OINT TOP ×2 (11:43→21:19)
[2018-10-17] MEDS: SOD CHLORIDE 0.9% 500 ML IV (11:50)
[2018-10-17] MEDS ORDERED: CEFEPIME 1GM/50 ML (PMX) 50 ML IVPB (12:00)
[2018-10-17] MEDS: HEPARIN 5,000 UNIT/1 ML VIAL SC ×2 (12:15→21:23)
[2018-10-17 13:01] LABS: TROPONIN-I 0.046 ng/ml (0.000-0.120)
[2018-10-17] MEDS ORDERED: AMIKACIN IV PER PHARMACY XX (13:30)
[2018-10-17] MEDS: NORepinephrine 8MG/250 ML (PMX 250 ML IV (14:53)
[2018-10-17] MEDS: INSULIN GLARGINE [LANTus] (100 UNITS/ML) SYG SC (15:16)
[2018-10-17] MEDS: ALBUMIN HUMAN 25% 100 ML IV (18:00)
[2018-10-17] MEDS: AMIKACIN 500 MG in SOD CHLORIDE 0.9% 100 ML IVPB (21:18)
[2018-10-17] MEDS: MEROPENEM 1 GM/50ML(PMX) 50 ML IVPB (21:18)
[2018-10-17] MEDS: ATORVASTATIN 80 MG TAB PO (21:19)
[2018-10-17] MEDS: EPOETIN 10000 UNITS/1 ML INJ (ESRD) SC (21:21)
[2018-10-17] MEDS: BALSAM PERU/CASTOR OIL 60 GM TUBE TOP (21:26)
[2018-10-18] MEDS: ACCU-CHEK XX (02:00)
[2018-10-18 04:23] LABS: ADD MAN DIFF? NO
[2018-10-18 04:26] LABS: ABNORMAL IP MESSAGE 1; BASOPHIL # 0.1 10^3/ul (0.0-0.1); BASOPHILS % 0.5 % (0.0-2.0); EOSINOPHILS # 0.5 10^3/ul (0.0-0.5); EOSINOPHILS % 4.1 % (0.0-7.0); HEMATOCRIT 26.9 % (42.0-52.0); HEMOGLOBIN 8.3 g/dl (14.0-18.0); LYMPHOCYTES # 1.3 10^3/ul (0.8-2.9); LYMPHOCYTES % 10.5 % (15.0-51.0); MEAN CORPUSCULAR HEMOGLOBIN 31.7 pg (29.0-33.0); MEAN CORPUSCULAR HGB CONC 30.9 g/dl (32.0-37.0); MEAN CORPUSCULAR VOLUME 102.7 fl (82.0-101.0); MEAN PLATELET VOLUME 12.5 fl (7.4-10.4); MONOCYTES % 16.4 % (0.0-11.0); NEUTROPHIL # 8.2 10^3/ul (1.6-7.5); PLATELET COUNT 78 10^3/UL (140-415); POSITIVE DIFF @See below; RED BLOOD COUNT 2.62 10^6/ul (4.70-6.10); RED CELL DISTRIBUTION WIDTH 17.6 % (11.5-14.5)
[2018-10-18 04:26] LABS: WHITE BLOOD COUNT 12.2 10^3/ul (4.8-10.8)
[2018-10-18 04:49] LABS: IRON 37 ug/dl (35-150)
[2018-10-18 04:52] LABS: ANION GAP 14 (5-13); BLOOD UREA NITROGEN 35 mg/dl (7-20); CALCIUM 8.5 mg/dl (8.4-10.2); CARBON DIOXIDE 27 mmol/L (21-31); CHLORIDE 99 mmol/L (97-110); GLUCOSE 206 mg/dl (70-220); PHOSPHORUS 5.1 mg/dl (2.5-4.9); SODIUM 140 mmol/L (135-144)
[2018-10-18 04:58] LABS: % IRON SATURATION 26 % SAT (22-52); TOTAL IRON BINDING CAPACITY 140 ug/dl (241-421)
[2018-10-18] MEDS: NORepinephrine 8MG/250 ML (PMX 250 ML IV (05:38)
[2018-10-18] MEDS ORDERED: INSULIN GLARGINE [LANTus] (100 UNITS/ML) SYG SC (08:00)
[2018-10-18] MEDS: FEBUXOSTAT 40 MG TABLET PO (08:34)
[2018-10-18] MEDS: MULTIVIT/CA CARB/B CMPLX/FA TAB PO (08:34)
[2018-10-18] MEDS: FAMOTIDINE 20 MG TAB PO (08:34)
[2018-10-18] MEDS: PRASUGREL HYDROCHLORIDE 10 MG TABLET PO (08:34)
[2018-10-18] MEDS: GABAPENTIN 100 MG CAP PO (08:35)
[2018-10-18] MEDS: ASPIRIN 81 MG TAB PO (08:35)
[2018-10-18] MEDS: HEPARIN 5,000 UNIT/1 ML VIAL SC (08:44)
[2018-10-18] MEDS: INSULIN GLARGINE [LANTus] (100 UNITS/ML) SYG SC ×2 (08:45→16:39)
[2018-10-18] MEDS: INSULIN ASPART [NOVOLOG] 3 ML PEN SC ×4 (08:46→21:43)
[2018-10-18] MEDS: BALSAM PERU/CASTOR OIL 60 GM TUBE TOP ×2 (08:49→21:41)
[2018-10-18] MEDS: MUPIROCIN 2% 22 GM OINT TOP ×2 (08:49→21:41)
[2018-10-18 09:59] LABS: PROSTATE SPECIFIC ANTIGEN 12.5 ng/ml (0.0-4.0)
[2018-10-18] MEDS ORDERED: AMIKACIN 350 MG in SOD CHLORIDE 0.9% 100 ML IVPB (16:00)
[2018-10-18] MEDS: MEROPENEM 1 GM/50ML(PMX) 50 ML IVPB (16:23)
[2018-10-18] MEDS: ATORVASTATIN 80 MG TAB PO (21:38)
[2018-10-19] MEDS: ACCU-CHEK XX (01:39)
[2018-10-19 05:15] LABS: ADD MAN DIFF? NO
[2018-10-19 05:21] LABS: WHITE BLOOD COUNT 10.3 10^3/ul (4.8-10.8)
[2018-10-19 05:21] LABS: ABNORMAL IP MESSAGE 1; BASOPHIL # 0.1 10^3/ul (0.0-0.1); BASOPHILS % 0.7 % (0.0-2.0); EOSINOPHILS # 0.4 10^3/ul (0.0-0.5); EOSINOPHILS % 3.9 % (0.0-7.0); HEMATOCRIT 26.4 % (42.0-52.0); HEMOGLOBIN 8.4 g/dl (14.0-18.0); LYMPHOCYTES # 1.3 10^3/ul (0.8-2.9); LYMPHOCYTES % 12.7 % (15.0-51.0); MEAN CORPUSCULAR HEMOGLOBIN 32.1 pg (29.0-33.0); MEAN CORPUSCULAR HGB CONC 31.8 g/dl (32.0-37.0); MEAN CORPUSCULAR VOLUME 100.8 fl (82.0-101.0); MONOCYTE # 1.7 10^3/ul (0.3-0.9); MONOCYTES % 16.8 % (0.0-11.0); NEUTROPHIL # 6.6 10^3/ul (1.6-7.5); NEUTROPHILS % 64.3 % (39.0-77.0); PLATELET COUNT 97 10^3/UL (140-415); POSITIVE DIFF @See below; RED BLOOD COUNT 2.62 10^6/ul (4.70-6.10); RED CELL DISTRIBUTION WIDTH 17.4 % (11.5-14.5)
[2018-10-19 05:54] LABS: ANION GAP 13 (5-13); BLOOD UREA NITROGEN 46 mg/dl (7-20); CALCIUM 8.9 mg/dl (8.4-10.2); CARBON DIOXIDE 25 mmol/L (21-31); CHLORIDE 102 mmol/L (97-110); CREATININE 6.47 mg/dl (0.61-1.24); GLUCOSE 172 mg/dl (70-220); PHOSPHORUS 5.1 mg/dl (2.5-4.9); SODIUM 140 mmol/L (135-144)
[2018-10-19] MEDS: FAMOTIDINE 20 MG TAB PO (06:11)
[2018-10-19] MEDS: INSULIN ASPART [NOVOLOG] 3 ML PEN SC ×4 (06:15→21:47)
[2018-10-19] MEDS: FEBUXOSTAT 40 MG TABLET PO (08:26)
[2018-10-19] MEDS: ASPIRIN 81 MG TAB PO (08:26)
[2018-10-19] MEDS: PRASUGREL HYDROCHLORIDE 10 MG TABLET PO (08:26)
[2018-10-19] MEDS: MULTIVIT/CA CARB/B CMPLX/FA TAB PO (08:26)
[2018-10-19] MEDS: FOLIC ACID 1 MG TAB PO (08:30)
[2018-10-19] MEDS: INSULIN GLARGINE [LANTus] (100 UNITS/ML) SYG SC (08:33)
[2018-10-19] MEDS: BALSAM PERU/CASTOR OIL 60 GM TUBE TOP ×2 (08:41→21:41)
[2018-10-19 12:56] LABS: AMMONIA < 9 umol/l (9-30)
[2018-10-19] MEDS: HEPARIN 1000 UNITS/ML 10 ML INJ CATHETER (17:52)
[2018-10-19] MEDS: EPOETIN 10000 UNITS/1 ML INJ (ESRD) SC (18:06)
[2018-10-19] MEDS: MEROPENEM 1 GM/50ML(PMX) 50 ML IVPB (18:07)
[2018-10-19 19:17] LABS: ADD UMIC YES; UR ASCORBIC ACID NEGATIVE (NEGATIVE); UR BILIRUBIN (Dip) NEGATIVE (NEGATIVE); UR BLOOD (Dip) 2+ mg/dL (NEGATIVE); UR BUDDING YEAST FEW /HPF (NONE SEEN); UR CLARITY CLOUDY (CLEAR); UR COLOR AMBER (YELLOW); UR GLUCOSE (Dip) 2+ mg/dL (NEGATIVE); UR KETONES (Dip) NEGATIVE (NEGATIVE); UR LEUKOCYTE ESTERASE (Dip) 3+ Leu/ul (NEGATIVE); UR NITRITE (Dip) NEGATIVE (NEGATIVE); UR RBC 33 /HPF (0-5); UR SPECIFIC GRAVITY (Dip) 1.018 (1.003-1.030); UR SQUAMOUS EPITHELIAL CELL FEW /HPF (FEW); UR TOTAL PROTEIN (Dip) 2+ mg/dl (NEGATIVE); UR UROBILINOGEN (Dip) 1+ mg/dL (NEGATIVE); UR WBC 64 /HPF (0-5)
[2018-10-19] MEDS: ATORVASTATIN 80 MG TAB PO (21:40)
[2018-10-20] MEDS: ACCU-CHEK XX (02:35)
[2018-10-20] MEDS: LEVOTHYROXINE 25 MCG TAB PO (05:10)
[2018-10-20 06:18] LABS: ADD MAN DIFF? NO
[2018-10-20 06:23] LABS: ABNORMAL IP MESSAGE 1; BASOPHIL # 0.1 10^3/ul (0.0-0.1); BASOPHILS % 0.7 % (0.0-2.0); EOSINOPHILS # 0.6 10^3/ul (0.0-0.5); EOSINOPHILS % 6.6 % (0.0-7.0); HEMATOCRIT 26.7 % (42.0-52.0); HEMOGLOBIN 8.6 g/dl (14.0-18.0); LYMPHOCYTES # 1.4 10^3/ul (0.8-2.9); LYMPHOCYTES % 15.5 % (15.0-51.0); MEAN CORPUSCULAR HEMOGLOBIN 32.5 pg (29.0-33.0); MEAN CORPUSCULAR HGB CONC 32.2 g/dl (32.0-37.0); MEAN CORPUSCULAR VOLUME 100.8 fl (82.0-101.0); MEAN PLATELET VOLUME 12.4 fl (7.4-10.4); MONOCYTE # 1.7 10^3/ul (0.3-0.9); NEUTROPHIL # 5.1 10^3/ul (1.6-7.5); NEUTROPHILS % 55.5 % (39.0-77.0); PLATELET COUNT 118 10^3/UL (140-415); POSITIVE DIFF @See below; RED BLOOD COUNT 2.65 10^6/ul (4.70-6.10); RED CELL DISTRIBUTION WIDTH 17.3 % (11.5-14.5)
[2018-10-20 06:23] LABS: WHITE BLOOD COUNT 9.2 10^3/ul (4.8-10.8)
[2018-10-20 07:20] LABS: ANION GAP 18 (5-13); BLOOD UREA NITROGEN 46 mg/dl (7-20); CALCIUM 9.6 mg/dl (8.4-10.2); CARBON DIOXIDE 22 mmol/L (21-31); CHLORIDE 97 mmol/L (97-110); CREATININE 4.03 mg/dl (0.61-1.24); GLUCOSE 61 mg/dl (70-220); PHOSPHORUS 4.5 mg/dl (2.5-4.9); POTASSIUM 3.9 mmol/L (3.5-5.1); SODIUM 137 mmol/L (135-144)
[2018-10-20] MEDS: PRASUGREL HYDROCHLORIDE 10 MG TABLET PO (09:06)
[2018-10-20] MEDS: FOLIC ACID 1 MG TAB PO (09:06)
[2018-10-20] MEDS: ASPIRIN 81 MG TAB PO (09:06)
[2018-10-20] MEDS: MULTIVIT/CA CARB/B CMPLX/FA TAB PO (09:06)
[2018-10-20] MEDS: FEBUXOSTAT 40 MG TABLET PO (09:06)
[2018-10-20] MEDS: FAMOTIDINE 20 MG TAB PO (09:06)
[2018-10-20] MEDS: INSULIN ASPART [NOVOLOG] 3 ML PEN SC ×4 (09:08→20:47)
[2018-10-20] MEDS: INSULIN GLARGINE [LANTus] (100 UNITS/ML) SYG SC (09:09)
[2018-10-20] MEDS: BALSAM PERU/CASTOR OIL 60 GM TUBE TOP ×2 (09:36→20:36)
[2018-10-20] MEDS: HEPARIN 5,000 UNIT/1 ML VIAL SC ×2 (10:46→20:42)
[2018-10-20] MEDS ORDERED: ALBUMIN HUMAN 25% 0 ML (11:01)
[2018-10-20] MEDS: HEPARIN 1000 UNITS/ML 10 ML INJ CATHETER (14:31)
[2018-10-20] MEDS: MEROPENEM 1 GM/50ML(PMX) 50 ML IVPB (14:57)
[2018-10-20] MEDS: ATORVASTATIN 80 MG TAB PO (20:36)
[2018-10-21] MEDS: ACCU-CHEK XX (02:00)
[2018-10-21 04:45] LABS: ADD MAN DIFF? NO
[2018-10-21 04:48] LABS: WHITE BLOOD COUNT 9.9 10^3/ul (4.8-10.8)
[2018-10-21 04:48] LABS: ABNORMAL IP MESSAGE 1; BASOPHIL # 0.1 10^3/ul (0.0-0.1); BASOPHILS % 0.9 % (0.0-2.0); EOSINOPHILS # 0.7 10^3/ul (0.0-0.5); HEMATOCRIT 28.1 % (42.0-52.0); HEMOGLOBIN 8.9 g/dl (14.0-18.0); LYMPHOCYTES # 1.7 10^3/ul (0.8-2.9); LYMPHOCYTES % 16.7 % (15.0-51.0); MEAN CORPUSCULAR HEMOGLOBIN 32.1 pg (29.0-33.0); MEAN CORPUSCULAR HGB CONC 31.7 g/dl (32.0-37.0); MEAN CORPUSCULAR VOLUME 101.4 fl (82.0-101.0); MEAN PLATELET VOLUME 11.8 fl (7.4-10.4); MONOCYTE # 1.6 10^3/ul (0.3-0.9); MONOCYTES % 16.6 % (0.0-11.0); NEUTROPHIL # 5.3 10^3/ul (1.6-7.5); NEUTROPHILS % 54.2 % (39.0-77.0); PLATELET COUNT 135 10^3/UL (140-415); POSITIVE DIFF @See below; RED BLOOD COUNT 2.77 10^6/ul (4.70-6.10); RED CELL DISTRIBUTION WIDTH 17.2 % (11.5-14.5)
[2018-10-21 05:15] LABS: ANION GAP 12 (5-13); BLOOD UREA NITROGEN 29 mg/dl (7-20); CALCIUM 8.8 mg/dl (8.4-10.2); CARBON DIOXIDE 27 mmol/L (21-31); CHLORIDE 103 mmol/L (97-110); CREATININE 4.85 mg/dl (0.61-1.24); GLUCOSE 140 mg/dl (70-220); POTASSIUM 3.9 mmol/L (3.5-5.1); SODIUM 142 mmol/L (135-144)
[2018-10-21] MEDS: LEVOTHYROXINE 25 MCG TAB PO (05:44)
[2018-10-21] MEDS: FAMOTIDINE 20 MG TAB PO (05:45)
[2018-10-21] MEDS: ONDANSETRON 4 MG INJ IV (08:30)
[2018-10-21] MEDS: MULTIVIT/CA CARB/B CMPLX/FA TAB PO (08:35)
[2018-10-21] MEDS: FOLIC ACID 1 MG TAB PO (08:35)
[2018-10-21] MEDS: ASPIRIN 81 MG TAB PO (08:35)
[2018-10-21] MEDS: FEBUXOSTAT 40 MG TABLET PO (08:35)
[2018-10-21] MEDS: BALSAM PERU/CASTOR OIL 60 GM TUBE TOP ×2 (08:36→21:27)
[2018-10-21] MEDS: INSULIN ASPART [NOVOLOG] 3 ML PEN SC ×4 (08:37→21:00)
[2018-10-21] MEDS: HEPARIN 5,000 UNIT/1 ML VIAL SC ×2 (08:38→21:45)
[2018-10-21] MEDS: INSULIN GLARGINE [LANTus] (100 UNITS/ML) SYG SC (08:38)
[2018-10-21] MEDS: MEROPENEM 1 GM/50ML(PMX) 50 ML IVPB (15:29)
[2018-10-21] MEDS: PRASUGREL HYDROCHLORIDE 10 MG TABLET PO (16:18)
[2018-10-21] MEDS ORDERED: POLYETHYLENE GLYCOL 17 GM PACKET PO (16:30)
[2018-10-21 16:32] LABS: HEPARIN INDUCED PLATELET AB NEGATIVE (NEGATIVE)
[2018-10-21] MEDS: EPOETIN 10000 UNITS/1 ML INJ (ESRD) SC (18:03)
[2018-10-21] MEDS: ATORVASTATIN 80 MG TAB PO (21:27)
[2018-10-21] MEDS: DOCUSATE SODIUM 100 MG CAP PO (21:27)
[2018-10-22] MEDS: ACCU-CHEK XX (01:51)
[2018-10-22] MEDS: LEVOTHYROXINE 25 MCG TAB PO (06:03)
[2018-10-22] MEDS: INSULIN ASPART [NOVOLOG] 3 ML PEN SC ×4 (07:25→21:00)
[2018-10-22] MEDS: FAMOTIDINE 20 MG TAB PO (07:47)
[2018-10-22] MEDS: INSULIN GLARGINE [LANTus] (100 UNITS/ML) SYG SC (07:52)
[2018-10-22] MEDS: FEBUXOSTAT 40 MG TABLET PO (09:24)
[2018-10-22] MEDS: MULTIVIT/CA CARB/B CMPLX/FA TAB PO (09:25)
[2018-10-22] MEDS: ASPIRIN 81 MG TAB PO (09:25)
[2018-10-22] MEDS: BALSAM PERU/CASTOR OIL 60 GM TUBE TOP ×2 (09:25→21:41)
[2018-10-22] MEDS: DOCUSATE SODIUM 100 MG CAP PO ×2 (09:25→21:30)
[2018-10-22] MEDS: FOLIC ACID 1 MG TAB PO (09:25)
[2018-10-22] MEDS: HEPARIN 5,000 UNIT/1 ML VIAL SC ×2 (10:08→21:39)
[2018-10-22] MEDS: PRASUGREL HYDROCHLORIDE 10 MG TABLET PO ×2 (10:10→12:14)
[2018-10-22 11:05] LABS: WHITE BLOOD COUNT 9.5 10^3/ul (4.8-10.8)
[2018-10-22 11:05] LABS: ABNORMAL IP MESSAGE 1; HEMATOCRIT 29.2 % (42.0-52.0); HEMOGLOBIN 9.1 g/dl (14.0-18.0); MEAN CORPUSCULAR HEMOGLOBIN 31.9 pg (29.0-33.0); MEAN CORPUSCULAR HGB CONC 31.2 g/dl (32.0-37.0); MEAN CORPUSCULAR VOLUME 102.5 fl (82.0-101.0); MEAN PLATELET VOLUME 11.7 fl (7.4-10.4); PLATELET COUNT 197 10^3/UL (140-415); POSITIVE DIFF @See below; RED BLOOD COUNT 2.85 10^6/ul (4.70-6.10); RED CELL DISTRIBUTION WIDTH 17.4 % (11.5-14.5)
[2018-10-22 11:09] LABS: ADD MAN DIFF? YES
[2018-10-22 11:30] LABS: ALANINE AMINOTRANSFERASE 20 IU/L (13-69); ALBUMIN 3.1 g/dl (3.3-4.9); ALBUMIN/GLOBULIN RATIO 1.24; ALKALINE PHOSPHATASE 94 IU/L (42-121); ANION GAP 11 (5-13); ASPARTATE AMINO TRANSFERASE 21 IU/L (15-46); BILIRUBIN,INDIRECT 0.3 mg/dl (0-1.1); BILIRUBIN,TOTAL 0.3 mg/dl (0.2-1.3); BLOOD UREA NITROGEN 35 mg/dl (7-20); CALCIUM 8.8 mg/dl (8.4-10.2); CARBON DIOXIDE 26 mmol/L (21-31); CHLORIDE 103 mmol/L (97-110); CREATININE 6.22 mg/dl (0.61-1.24); GLUCOSE 140 mg/dl (70-220); PHOSPHORUS 4.6 mg/dl (2.5-4.9); POTASSIUM 4.1 mmol/L (3.5-5.1); SODIUM 140 mmol/L (135-144); TOTAL PROTEIN 5.6 g/dl (6.1-8.1)
[2018-10-22 11:48] LABS: ANISOCYTOSIS 1+ (0-0); BAND NEUTROPHILS #M 0.5 10^3/ul (0.0-0.6); BAND NEUTROPHILS % (M) 6 % (0-4); BASOPHILS % (M) 1 % (0-2); EOSINOPHILS % (M) 3 % (0-7); LYMPHOCYTES #M 1.1 10^3/ul (0.8-2.9); LYMPHOCYTES % (M) 12 % (15-51); MICROCYTOSIS 1+ (0-0); MONOCYTE #M 0.4 10^3/ul (0.3-0.9); MONOCYTES % (M) 5 % (0-11); PLATELET ESTIMATE NORMAL; POLYCHROMASIA 1+ (0-0); REACTIVE LYMPHOCYTES% (M) 1 % (0-0); SEG NEUT #M 6.9 10^3/ul (1.6-7.5); SEGMENTED NEUTROPHILS (M) % 72 % (39-77); SMUDGE%M 4 % (0-0)
[2018-10-22] MEDS: CEPASTAT LOZENGE MT ×2 (12:13→15:53)
[2018-10-22] MEDS: ACETAMINOPHEN 325 MG TAB PO (21:30)
[2018-10-22] MEDS: ATORVASTATIN 80 MG TAB PO (21:30)
[2018-10-22] MEDS: CIPROFLOXACIN 500 MG TAB PO (22:40)
[2018-10-23] MEDS: ACCU-CHEK XX (02:00)
[2018-10-23 07:05] LABS: ABNORMAL IP MESSAGE 1; HEMATOCRIT 30.2 % (42.0-52.0); HEMOGLOBIN 9.5 g/dl (14.0-18.0); MEAN CORPUSCULAR HEMOGLOBIN 32.4 pg (29.0-33.0); MEAN CORPUSCULAR HGB CONC 31.5 g/dl (32.0-37.0); MEAN CORPUSCULAR VOLUME 103.1 fl (82.0-101.0); MEAN PLATELET VOLUME 11.9 fl (7.4-10.4); PLATELET COUNT 239 10^3/UL (140-415); POSITIVE DIFF @See below; RED BLOOD COUNT 2.93 10^6/ul (4.70-6.10); RED CELL DISTRIBUTION WIDTH 17.4 % (11.5-14.5)
[2018-10-23 07:24] LABS: ADD MAN DIFF? YES
[2018-10-23] MEDS: INSULIN ASPART [NOVOLOG] 3 ML PEN SC ×4 (07:25→20:32)
[2018-10-23] MEDS: PRASUGREL HYDROCHLORIDE 10 MG TABLET PO (08:06)
[2018-10-23] MEDS: CEPASTAT LOZENGE MT (08:06)
[2018-10-23] MEDS: ASPIRIN 81 MG TAB PO (08:06)
[2018-10-23] MEDS: MULTIVIT/CA CARB/B CMPLX/FA TAB PO (08:06)
[2018-10-23] MEDS: FOLIC ACID 1 MG TAB PO (08:06)
[2018-10-23] MEDS: DOCUSATE SODIUM 100 MG CAP PO ×2 (08:06→20:20)
[2018-10-23] MEDS: LEVOTHYROXINE 25 MCG TAB PO (08:06)
[2018-10-23] MEDS: FEBUXOSTAT 40 MG TABLET PO (08:06)
[2018-10-23] MEDS: FAMOTIDINE 20 MG TAB PO (08:07)
[2018-10-23] MEDS: BALSAM PERU/CASTOR OIL 60 GM TUBE TOP ×2 (08:07→21:59)
[2018-10-23] MEDS: HEPARIN 5,000 UNIT/1 ML VIAL SC ×2 (08:18→20:31)
[2018-10-23] MEDS: INSULIN GLARGINE [LANTus] (100 UNITS/ML) SYG SC (08:18)
[2018-10-23 09:07] LABS: ACANTHOCYTES 1+ (0-0); ANISOCYTOSIS 1+ (0-0); BAND NEUTROPHILS #M 0.8 10^3/ul (0.0-0.6); BAND NEUTROPHILS % (M) 8 % (0-4); BASOPHIL #M 0.1 10^3/ul (0.0-0.0); BASOPHILS % (M) 1 % (0-2); BURR CELLS 2+ (0-0); EOSINOPHILS % (M) 3 % (0-7); LYMPHOCYTES #M 1.4 10^3/ul (0.8-2.9); LYMPHOCYTES % (M) 14 % (15-51); MONOCYTE #M 1.6 10^3/ul (0.3-0.9); MONOCYTES % (M) 16 % (0-11); MYELOCYTES #M 0.2 10^3/ul (0.0-0.0); MYELOCYTES % (M) 2 % (0-0); PLATELET ESTIMATE NORMAL; POIKILOCYTOSIS 2+ (0-0); POLYCHROMASIA 1+ (0-0); SEG NEUT #M 5.7 10^3/ul (1.6-7.5); SEGMENTED NEUTROPHILS (M) % 56 % (39-77); SMUDGE%M 3 % (0-0)
[2018-10-23] MEDS: HEPARIN 1000 UNITS/ML 10 ML INJ CATHETER (09:21)
[2018-10-23] MEDS: ALBUMIN HUMAN 25% 100 ML IV (10:05)
[2018-10-23] MEDS: CIPROFLOXACIN 500 MG TAB PO (17:10)
[2018-10-23] MEDS: ATORVASTATIN 80 MG TAB PO (20:20)
[2018-10-23] MEDS: GABAPENTIN 100 MG CAP PO (21:58)
[2018-10-24] MEDS: ACCU-CHEK XX (02:00)
[2018-10-24] MEDS: LEVOTHYROXINE 25 MCG TAB PO (05:38)
[2018-10-24] MEDS: PRASUGREL HYDROCHLORIDE 10 MG TABLET PO (08:06)
[2018-10-24] MEDS: ASPIRIN 81 MG TAB PO (08:06)
[2018-10-24] MEDS: FEBUXOSTAT 40 MG TABLET PO (08:06)
[2018-10-24] MEDS: MULTIVIT/CA CARB/B CMPLX/FA TAB PO (08:06)
[2018-10-24] MEDS: BALSAM PERU/CASTOR OIL 60 GM TUBE TOP ×2 (08:07→20:23)
[2018-10-24] MEDS: DOCUSATE SODIUM 100 MG CAP PO ×2 (08:07→20:22)
[2018-10-24] MEDS: FAMOTIDINE 20 MG TAB PO (08:07)
[2018-10-24] MEDS: GABAPENTIN 100 MG CAP PO ×2 (08:07→20:22)
[2018-10-24] MEDS: FOLIC ACID 1 MG TAB PO (08:07)
[2018-10-24] MEDS: INSULIN ASPART [NOVOLOG] 3 ML PEN SC ×4 (08:14→20:23)
[2018-10-24] MEDS: INSULIN GLARGINE [LANTus] (100 UNITS/ML) SYG SC (08:15)
[2018-10-24] MEDS: HEPARIN 5,000 UNIT/1 ML VIAL SC ×2 (08:15→20:41)
[2018-10-24] MEDS: ONDANSETRON 4 MG INJ IV (10:34)
[2018-10-24] MEDS: CIPROFLOXACIN 500 MG TAB PO (16:38)
[2018-10-24] MEDS: EPOETIN 10000 UNITS/1 ML INJ (ESRD) SC (16:38)
[2018-10-24] MEDS: ATORVASTATIN 80 MG TAB PO (20:22)
[2018-10-25] MEDS: ACCU-CHEK XX (02:00)
[2018-10-25] MEDS: LEVOTHYROXINE 25 MCG TAB PO (06:07)
[2018-10-25] MEDS: INSULIN ASPART [NOVOLOG] 3 ML PEN SC ×4 (07:25→22:00)
[2018-10-25] MEDS: FAMOTIDINE 20 MG TAB PO (07:58)
[2018-10-25] MEDS: MULTIVIT/CA CARB/B CMPLX/FA TAB PO (08:36)
[2018-10-25] MEDS: DOCUSATE SODIUM 100 MG CAP PO ×2 (08:36→21:35)
[2018-10-25] MEDS: FOLIC ACID 1 MG TAB PO (08:36)
[2018-10-25] MEDS: PRASUGREL HYDROCHLORIDE 10 MG TABLET PO (08:36)
[2018-10-25] MEDS: ASPIRIN 81 MG TAB PO (08:36)
[2018-10-25] MEDS: GABAPENTIN 100 MG CAP PO ×2 (08:36→21:35)
[2018-10-25] MEDS: HEPARIN 5,000 UNIT/1 ML VIAL SC ×2 (08:52→22:00)
[2018-10-25] MEDS: INSULIN GLARGINE [LANTus] (100 UNITS/ML) SYG SC (08:53)
[2018-10-25] MEDS: BALSAM PERU/CASTOR OIL 60 GM TUBE TOP ×2 (08:53→21:00)
[2018-10-25] MEDS: FEBUXOSTAT 40 MG TABLET PO (09:57)
[2018-10-25] MEDS: HEPARIN 1000 UNITS/ML 10 ML INJ CATHETER (14:27)
[2018-10-25] MEDS: CIPROFLOXACIN 500 MG TAB PO (18:47)
[2018-10-25] MEDS: ATORVASTATIN 80 MG TAB PO (21:35)
[2018-10-26] MEDS: ACCU-CHEK XX (02:00)
[2018-10-26] MEDS: LEVOTHYROXINE 25 MCG TAB PO (05:28)
[2018-10-26] MEDS: FAMOTIDINE 20 MG TAB PO (05:29)
[2018-10-26] MEDS: FEBUXOSTAT 40 MG TABLET PO (08:29)
[2018-10-26] MEDS: PRASUGREL HYDROCHLORIDE 10 MG TABLET PO (08:29)
[2018-10-26] MEDS: ASPIRIN 81 MG TAB PO (08:29)
[2018-10-26] MEDS: MULTIVIT/CA CARB/B CMPLX/FA TAB PO (08:29)
[2018-10-26] MEDS: GABAPENTIN 100 MG CAP PO ×2 (08:29→20:40)
[2018-10-26] MEDS: FOLIC ACID 1 MG TAB PO (08:29)
[2018-10-26] MEDS: DOCUSATE SODIUM 100 MG CAP PO ×2 (08:30→20:40)
[2018-10-26] MEDS: INSULIN ASPART [NOVOLOG] 3 ML PEN SC ×4 (09:12→21:52)
[2018-10-26] MEDS: HEPARIN 5,000 UNIT/1 ML VIAL SC ×2 (09:13→21:52)
[2018-10-26] MEDS: INSULIN GLARGINE [LANTus] (100 UNITS/ML) SYG SC (09:13)
[2018-10-26] MEDS: BALSAM PERU/CASTOR OIL 60 GM TUBE TOP ×2 (09:41→21:54)
[2018-10-26 10:21] LABS: ADD MAN DIFF? NO
[2018-10-26 10:32] LABS: ABNORMAL IP MESSAGE 1; BASOPHIL # 0.1 10^3/ul (0.0-0.1); EOSINOPHILS # 0.7 10^3/ul (0.0-0.5); EOSINOPHILS % 7.6 % (0.0-7.0); HEMATOCRIT 29.9 % (42.0-52.0); HEMOGLOBIN 9.3 g/dl (14.0-18.0); LYMPHOCYTES # 1.5 10^3/ul (0.8-2.9); LYMPHOCYTES % 16.1 % (15.0-51.0); MEAN CORPUSCULAR HGB CONC 31.1 g/dl (32.0-37.0); MEAN CORPUSCULAR VOLUME 102.7 fl (82.0-101.0); MEAN PLATELET VOLUME 11.3 fl (7.4-10.4); MONOCYTE # 1.3 10^3/ul (0.3-0.9); MONOCYTES % 14.1 % (0.0-11.0); NEUTROPHIL # 5.1 10^3/ul (1.6-7.5); PLATELET COUNT 197 10^3/UL (140-415); POSITIVE DIFF @See below; RED BLOOD COUNT 2.91 10^6/ul (4.70-6.10); RED CELL DISTRIBUTION WIDTH 17.2 % (11.5-14.5)
[2018-10-26 10:32] LABS: WHITE BLOOD COUNT 9.1 10^3/ul (4.8-10.8)
[2018-10-26 10:48] LABS: ALANINE AMINOTRANSFERASE 19 IU/L (13-69); ALBUMIN 3.2 g/dl (3.3-4.9); ALBUMIN/GLOBULIN RATIO 1.33; ALKALINE PHOSPHATASE 88 IU/L (42-121); ANION GAP 13 (5-13); ASPARTATE AMINO TRANSFERASE 24 IU/L (15-46); BILIRUBIN,INDIRECT 0.3 mg/dl (0-1.1); BILIRUBIN,TOTAL 0.3 mg/dl (0.2-1.3); BLOOD UREA NITROGEN 21 mg/dl (7-20); CALCIUM 8.5 mg/dl (8.4-10.2); CARBON DIOXIDE 27 mmol/L (21-31); CHLORIDE 99 mmol/L (97-110); CREATININE 4.68 mg/dl (0.61-1.24); GLUCOSE 188 mg/dl (70-220); POTASSIUM 4.4 mmol/L (3.5-5.1); SODIUM 139 mmol/L (135-144); TOTAL PROTEIN 5.6 g/dl (6.1-8.1)
[2018-10-26 11:38] LABS: ANISOCYTOSIS 1+ (0-0); BAND NEUTROPHILS #M 0.5 10^3/ul (0.0-0.6); BAND NEUTROPHILS % (M) 6 % (0-4); BASOPHILS % (M) 1 % (0-2); BURR CELLS 1+ (0-0); EOSINOPHILS % (M) 9 % (0-7); GIANT THROMBO% (M) 2 % (0-0); LYMPHOCYTES #M 0.8 10^3/ul (0.8-2.9); LYMPHOCYTES % (M) 9 % (15-51); METAMYELOCYTES #M 0.1 10^3/ul (0.0-0.0); METAMYELOCYTES %M 2 % (0-0); MONOCYTE #M 0.7 10^3/ul (0.3-0.9); MONOCYTES % (M) 8 % (0-11); MYELOCYTES #M 0.2 10^3/ul (0.0-0.0); MYELOCYTES % (M) 3 % (0-0); OVALOCYTES 1+ (0-0); PLATELET ESTIMATE NORMAL; POIKILOCYTOSIS 1+ (0-0); POLYCHROMASIA 3+ (0-0); SEG NEUT #M 5.7 10^3/ul (1.6-7.5); SEGMENTED NEUTROPHILS (M) % 62 % (39-77); SMUDGE%M 2 % (0-0)
[2018-10-26 12:25] LABS: HEPATITIS B SURFACE ANTIGEN NEGATIVE (NEGATIVE)
[2018-10-26] MEDS: HEPARIN 1000 UNITS/ML 10 ML INJ CATHETER (15:20)
[2018-10-26] MEDS: NYSTATIN 15 GM CR TOP ×2 (16:06→21:54)
[2018-10-26] MEDS: CEPASTAT LOZENGE MT (16:06)
[2018-10-26] MEDS: EPOETIN 10000 UNITS/1 ML INJ (ESRD) SC (17:03)
[2018-10-26] MEDS: CIPROFLOXACIN 500 MG TAB PO (18:04)
[2018-10-26] MEDS: GUAIFENESIN LA 600 MG TABSR PO (18:50)
[2018-10-26] MEDS: ATORVASTATIN 80 MG TAB PO (20:40)
[2018-10-27] MEDS: ACCU-CHEK XX (02:38)
[2018-10-27] MEDS: LEVOTHYROXINE 25 MCG TAB PO (05:54)
[2018-10-27] MEDS: INSULIN ASPART [NOVOLOG] 3 ML PEN SC ×4 (07:25→21:00)
[2018-10-27] MEDS: MULTIVIT/CA CARB/B CMPLX/FA TAB PO (08:38)
[2018-10-27] MEDS: DOCUSATE SODIUM 100 MG CAP PO ×2 (08:38→20:56)
[2018-10-27] MEDS: ASPIRIN 81 MG TAB PO (08:38)
[2018-10-27] MEDS: PRASUGREL HYDROCHLORIDE 10 MG TABLET PO (08:39)
[2018-10-27] MEDS: BALSAM PERU/CASTOR OIL 60 GM TUBE TOP ×2 (08:39→21:16)
[2018-10-27] MEDS: FOLIC ACID 1 MG TAB PO (08:39)
[2018-10-27] MEDS: FAMOTIDINE 20 MG TAB PO (08:39)
[2018-10-27] MEDS: FEBUXOSTAT 40 MG TABLET PO (08:39)
[2018-10-27] MEDS: NYSTATIN 15 GM CR TOP ×2 (08:39→21:16)
[2018-10-27] MEDS: GABAPENTIN 100 MG CAP PO ×2 (08:39→20:56)
[2018-10-27] MEDS: HEPARIN 5,000 UNIT/1 ML VIAL SC ×2 (08:43→21:05)
[2018-10-27] MEDS: INSULIN GLARGINE [LANTus] (100 UNITS/ML) SYG SC (08:44)
[2018-10-27] MEDS: CIPROFLOXACIN 500 MG TAB PO (17:44)
[2018-10-27] MEDS: ATORVASTATIN 80 MG TAB PO (20:55)
[2018-10-28] MEDS: ACCU-CHEK XX (02:00)
[2018-10-28] MEDS: LEVOTHYROXINE 25 MCG TAB PO (06:43)
[2018-10-28] MEDS: INSULIN ASPART [NOVOLOG] 3 ML PEN SC ×4 (08:54→21:00)
[2018-10-28] MEDS: BALSAM PERU/CASTOR OIL 60 GM TUBE TOP ×2 (09:05→21:09)
[2018-10-28] MEDS: NYSTATIN 15 GM CR TOP ×2 (09:06→22:53)
[2018-10-28] MEDS: HEPARIN 5,000 UNIT/1 ML VIAL SC ×2 (09:08→21:06)
[2018-10-28] MEDS: INSULIN GLARGINE [LANTus] (100 UNITS/ML) SYG SC (09:10)
[2018-10-28] MEDS: FAMOTIDINE 20 MG TAB PO (09:14)
[2018-10-28] MEDS: HEPARIN 1000 UNITS/ML 10 ML INJ CATHETER (13:26)
[2018-10-28] MEDS: MULTIVIT/CA CARB/B CMPLX/FA TAB PO (13:30)
[2018-10-28] MEDS: PRASUGREL HYDROCHLORIDE 10 MG TABLET PO (13:30)
[2018-10-28] MEDS: FEBUXOSTAT 40 MG TABLET PO (13:30)
[2018-10-28] MEDS: FOLIC ACID 1 MG TAB PO (13:31)
[2018-10-28] MEDS: ASPIRIN 81 MG TAB PO (13:31)
[2018-10-28] MEDS: GABAPENTIN 100 MG CAP PO ×2 (13:31→21:04)
[2018-10-28] MEDS: DOCUSATE SODIUM 100 MG CAP PO ×2 (13:31→21:04)
[2018-10-28] MEDS: EPOETIN ALFA-EPBX (ESRD) 10,000 UNIT/ML VIAL SC (17:10)
[2018-10-28] MEDS: ATORVASTATIN 80 MG TAB PO (21:04)
[2018-10-29] MEDS: ACCU-CHEK XX (00:54)
[2018-10-29] MEDS: LEVOTHYROXINE 25 MCG TAB PO (05:43)
[2018-10-29] MEDS: INSULIN ASPART [NOVOLOG] 3 ML PEN SC ×4 (07:25→21:00)
[2018-10-29] MEDS: FAMOTIDINE 20 MG TAB PO (07:43)
[2018-10-29] MEDS: ASPIRIN 81 MG TAB PO (10:14)
[2018-10-29] MEDS: FOLIC ACID 1 MG TAB PO (10:14)
[2018-10-29] MEDS: GABAPENTIN 100 MG CAP PO ×2 (10:14→21:23)
[2018-10-29] MEDS: MULTIVIT/CA CARB/B CMPLX/FA TAB PO (10:14)
[2018-10-29] MEDS: DOCUSATE SODIUM 100 MG CAP PO ×2 (10:14→21:24)
[2018-10-29] MEDS: BALSAM PERU/CASTOR OIL 60 GM TUBE TOP ×2 (10:15→21:25)
[2018-10-29] MEDS: NYSTATIN 15 GM CR TOP ×2 (10:15→21:25)
[2018-10-29] MEDS: HEPARIN 5,000 UNIT/1 ML VIAL SC ×2 (10:16→21:26)
[2018-10-29] MEDS: INSULIN GLARGINE [LANTus] (100 UNITS/ML) SYG SC (10:17)
[2018-10-29] MEDS: PRASUGREL HYDROCHLORIDE 10 MG TABLET PO (12:52)
[2018-10-29] MEDS: FEBUXOSTAT 40 MG TABLET PO (12:52)
[2018-10-29] MEDS: ATORVASTATIN 80 MG TAB PO (21:23)
[2018-10-30] MEDS: ACCU-CHEK XX (02:00)
[2018-10-30] MEDS: FAMOTIDINE 20 MG TAB PO (06:17)
[2018-10-30] MEDS: LEVOTHYROXINE 25 MCG TAB PO (06:17)
[2018-10-30] MEDS: INSULIN ASPART [NOVOLOG] 3 ML PEN SC ×4 (07:30→20:40)
[2018-10-30] MEDS: HEPARIN 5,000 UNIT/1 ML VIAL SC ×2 (08:17→20:47)
[2018-10-30] MEDS: INSULIN GLARGINE [LANTus] (100 UNITS/ML) SYG SC (08:21)
[2018-10-30] MEDS: ASPIRIN 81 MG TAB PO (08:24)
[2018-10-30] MEDS: DOCUSATE SODIUM 100 MG CAP PO ×2 (08:24→20:41)
[2018-10-30] MEDS: BALSAM PERU/CASTOR OIL 60 GM TUBE TOP ×2 (08:24→20:43)
[2018-10-30] MEDS: NYSTATIN 15 GM CR TOP ×2 (08:24→20:44)
[2018-10-30] MEDS: MULTIVIT/CA CARB/B CMPLX/FA TAB PO (08:24)
[2018-10-30] MEDS: PRASUGREL HYDROCHLORIDE 10 MG TABLET PO (08:24)
[2018-10-30] MEDS: FEBUXOSTAT 40 MG TABLET PO (08:24)
[2018-10-30] MEDS: GABAPENTIN 100 MG CAP PO ×2 (08:24→20:41)
[2018-10-30] MEDS: FOLIC ACID 1 MG TAB PO (08:24)
[2018-10-30] MEDS: ATORVASTATIN 80 MG TAB PO (20:41)
[2018-10-31] MEDS ORDERED: PENDING SANTYL ORDER FOR WOUND CARE XX (00:30)
[2018-10-31] MEDS: ACCU-CHEK XX (01:36)
[2018-10-31] MEDS: FAMOTIDINE 20 MG TAB PO (05:54)
[2018-10-31] MEDS: LEVOTHYROXINE 25 MCG TAB PO (05:54)
[2018-10-31] MEDS: INSULIN ASPART [NOVOLOG] 3 ML PEN SC ×4 (07:30→20:39)
[2018-10-31] MEDS: NYSTATIN 15 GM CR TOP ×3 (09:00→20:39)
[2018-10-31] MEDS: FOLIC ACID 1 MG TAB PO (09:40)
[2018-10-31] MEDS: FEBUXOSTAT 40 MG TABLET PO (09:40)
[2018-10-31] MEDS: MULTIVIT/CA CARB/B CMPLX/FA TAB PO (09:40)
[2018-10-31] MEDS: ASPIRIN 81 MG TAB PO (09:40)
[2018-10-31] MEDS: GABAPENTIN 100 MG CAP PO ×2 (09:40→20:38)
[2018-10-31] MEDS: PRASUGREL HYDROCHLORIDE 10 MG TABLET PO (09:40)
[2018-10-31] MEDS: DOCUSATE SODIUM 100 MG CAP PO ×2 (09:41→20:38)
[2018-10-31] MEDS: INSULIN GLARGINE [LANTus] (100 UNITS/ML) SYG SC (09:42)
[2018-10-31] MEDS: HEPARIN 5,000 UNIT/1 ML VIAL SC ×2 (09:42→20:47)
[2018-10-31] MEDS: BALSAM PERU/CASTOR OIL 60 GM TUBE TOP ×2 (09:45→20:47)
[2018-10-31] MEDS: LIDOCAINE 1% (MDV) 20 ML INJ SC (12:00)
[2018-10-31] MEDS: ALBUMIN HUMAN 25% 100 ML IV (14:02)
[2018-10-31] MEDS: ACETAMINOPHEN 325 MG TAB PO (14:48)
[2018-10-31] MEDS: EPOETIN ALFA-EPBX (ESRD) 10,000 UNIT/ML VIAL SC (18:35)
[2018-10-31] MEDS: ATORVASTATIN 80 MG TAB PO (20:38)
[2018-11-01] MEDS: ACCU-CHEK XX (01:52)
[2018-11-01] MEDS: LEVOTHYROXINE 25 MCG TAB PO (05:44)
[2018-11-01] MEDS: INSULIN ASPART [NOVOLOG] 3 ML PEN SC ×4 (07:30→21:03)
[2018-11-01] MEDS: GABAPENTIN 100 MG CAP PO ×2 (09:42→20:57)
[2018-11-01] MEDS: DOCUSATE SODIUM 100 MG CAP PO ×2 (09:42→20:57)
[2018-11-01] MEDS: PRASUGREL HYDROCHLORIDE 10 MG TABLET PO (09:42)
[2018-11-01] MEDS: FEBUXOSTAT 40 MG TABLET PO (09:42)
[2018-11-01] MEDS: FOLIC ACID 1 MG TAB PO (09:42)
[2018-11-01] MEDS: MULTIVIT/CA CARB/B CMPLX/FA TAB PO (09:42)
[2018-11-01] MEDS: INSULIN GLARGINE [LANTus] (100 UNITS/ML) SYG SC (09:42)
[2018-11-01] MEDS: ASPIRIN 81 MG TAB PO (09:43)
[2018-11-01] MEDS: HEPARIN 5,000 UNIT/1 ML VIAL SC ×2 (09:44→21:02)
[2018-11-01] MEDS: NYSTATIN 15 GM CR TOP ×2 (09:44→21:03)
[2018-11-01] MEDS: FAMOTIDINE 20 MG TAB PO (09:45)
[2018-11-01] MEDS: BALSAM PERU/CASTOR OIL 60 GM TUBE TOP ×2 (09:45→21:06)
[2018-11-01] MEDS: ATORVASTATIN 80 MG TAB PO (20:57)
[2018-11-02] MEDS: ACCU-CHEK XX (02:00)
[2018-11-02] MEDS: LEVOTHYROXINE 25 MCG TAB PO (06:05)
[2018-11-02] MEDS: INSULIN ASPART [NOVOLOG] 3 ML PEN SC ×2 (07:30→11:30)
[2018-11-02] MEDS: FAMOTIDINE 20 MG TAB PO (07:30)
[2018-11-02] MEDS: LIDOCAINE 1% (MDV) 20 ML INJ SC (08:44)
[2018-11-02] MEDS: NYSTATIN 15 GM CR TOP (09:00)
[2018-11-02] MEDS: FOLIC ACID 1 MG TAB PO (09:00)
[2018-11-02] MEDS: ASPIRIN 81 MG TAB PO (09:00)
[2018-11-02] MEDS: GABAPENTIN 100 MG CAP PO (09:00)
[2018-11-02] MEDS: PRASUGREL HYDROCHLORIDE 10 MG TABLET PO (09:00)
[2018-11-02] MEDS: MULTIVIT/CA CARB/B CMPLX/FA TAB PO (09:00)
[2018-11-02] MEDS: FEBUXOSTAT 40 MG TABLET PO (09:00)
[2018-11-02] MEDS: DOCUSATE SODIUM 100 MG CAP PO (09:00)
[2018-11-02] MEDS: HEPARIN 5,000 UNIT/1 ML VIAL SC (09:00)
[2018-11-02] MEDS: GLUCOSE GEL 15 GRAM TUBE PO (09:06)
[2018-11-02] MEDS: INSULIN GLARGINE [LANTus] (100 UNITS/ML) SYG SC (09:14)
[2018-11-02] MEDS: ACETAMINOPHEN 325 MG TAB PO (10:45)
[2018-11-02] MEDS: BALSAM PERU/CASTOR OIL 60 GM TUBE TOP (15:24)
== END 2018-11-02 17:40 | DRG 871 ==
LOC: ICU 10-17 12:48 → TEL 10-21 18:36 → PP2 10-29 07:55 → E/R 11:50 → TEL 14:18
PROC: 5A1D70Z Performance of Urinary Filtration, Intermittent, Less than 6 Hours Per Day (ICD-10-PCS; principal; 2018-10-17)
PROC: 05HM33Z Insertion of Infusion Device into Right Internal Jugular Vein, Percutaneous Approach (ICD-10-PCS; 2018-10-17)
DX: A41.9 Sepsis, unspecified organism (principal); L89.153 Pressure ulcer of sacral region, stage 3; N18.6 End stage renal disease; G93.41 Metabolic encephalopathy; R65.21 Severe sepsis with septic shock; N39.0 Urinary tract infection, site not specified; I12.0 Hypertensive chronic kidney disease with stage 5 chronic kidney disease or end stage renal disease; T82.898A Other specified complication of vascular prosthetic devices, implants and grafts, initial encounter; R65.20 Severe sepsis without septic shock; B96.89 Other specified bacterial agents as the cause of diseases classified elsewhere; E11.22 Type 2 diabetes mellitus with diabetic chronic kidney disease; Z99.2 Dependence on renal dialysis; R27.8 Other lack of coordination; G25.3 Myoclonus; R93.0 Abnormal findings on diagnostic imaging of skull and head, not elsewhere classified; I25.10 Atherosclerotic heart disease of native coronary artery without angina pectoris; D63.1 Anemia in chronic kidney disease; Y83.2 Surgical operation with anastomosis, bypass or graft as the cause of abnormal reaction of the patient, or of later complication, without mention of misadventure at the time of the procedure; R53.1 Weakness; B96.5 Pseudomonas (aeruginosa) (mallei) (pseudomallei) as the cause of diseases classified elsewhere; B96.4 Proteus (mirabilis) (morganii) as the cause of diseases classified elsewhere; Z95.5 Presence of coronary angioplasty implant and graft; N40.0 Benign prostatic hyperplasia without lower urinary tract symptoms
CPT/HCPCS: 36415; 70450; 70551; 71045; 72141; 76775; 76856; 80048; 80053; 81001; 82140; 82150; 82607; 82728; 82962; 83540; 83605; 83690; 84100; 84153; 84154; 84443; 84484; 85018; 85025; 85610; 85730; 86022; 87040-91; 87070; 87081; 87086; 87340; 87400; 90935; 92526; 92610; 93005; 93306; 93880; 93970; 94660; 96365; 96366; 96368; 97110; 97116; 97163; 97165; 97530; 97535; 99285-25

== ENCOUNTER 2018-11-17 18:51 | Inpatient (IN) | payer MEDICARE, BC ==
[2018-11-17 19:27] LABS: ADD MAN DIFF? NO
[2018-11-17 19:32] LABS: WHITE BLOOD COUNT 15.9 10^3/ul (4.8-10.8)
[2018-11-17 19:32] LABS: ABNORMAL IP MESSAGE 1; BASOPHIL # 0.1 10^3/ul (0.0-0.1); BASOPHILS % 0.4 % (0.0-2.0); EOSINOPHILS # 0.1 10^3/ul (0.0-0.5); EOSINOPHILS % 0.9 % (0.0-7.0); HEMATOCRIT 34.1 % (42.0-52.0); HEMOGLOBIN 10.8 g/dl (14.0-18.0); LYMPHOCYTES # 0.5 10^3/ul (0.8-2.9); LYMPHOCYTES % 3.3 % (15.0-51.0); MEAN CORPUSCULAR HEMOGLOBIN 31.2 pg (29.0-33.0); MEAN CORPUSCULAR HGB CONC 31.7 g/dl (32.0-37.0); MEAN CORPUSCULAR VOLUME 98.6 fl (82.0-101.0); MEAN PLATELET VOLUME 11.6 fl (7.4-10.4); MONOCYTE # 1.2 10^3/ul (0.3-0.9); MONOCYTES % 7.5 % (0.0-11.0); NEUTROPHIL # 13.9 10^3/ul (1.6-7.5); NEUTROPHILS % 87.1 % (39.0-77.0); PLATELET COUNT 74 10^3/UL (140-415); POSITIVE DIFF @See below; RED BLOOD COUNT 3.46 10^6/ul (4.70-6.10); RED CELL DISTRIBUTION WIDTH 14.8 % (11.5-14.5)
[2018-11-17] MEDS: CEFEPIME 2GM/50 ML (PMX) 50 ML IVPB (19:42)
[2018-11-17 19:48] LABS: ANION GAP 9 (5-13); BLOOD UREA NITROGEN 25 mg/dl (7-20); CALCIUM 9.5 mg/dl (8.4-10.2); CARBON DIOXIDE 29 mmol/L (21-31); CHLORIDE 99 mmol/L (97-110); CREATININE 3.88 mg/dl (0.61-1.24); GLUCOSE 120 mg/dl (70-220); POTASSIUM 4.4 mmol/L (3.5-5.1); SODIUM 137 mmol/L (135-144)
[2018-11-17 19:49] LABS: AADO2 Arterial 212.7 mmHg (7.0-24.0); Allen Test ACCEPTAB; Arterial Base Excess 3.9 mmol/L (-3.0-3); Arterial Blood Gas Oxygen Sat 96.8 mmHG (95.0-100.0); Arterial COHb 0.3 % (0.0-3.0); Arterial Fraction of Oxyhgb 96.5 % (93.0-99.0); Arterial HCO3 28.6 mmol/L (22.0-26.0); Arterial MetHb 0 % (0.0-1.5); Arterial pCO2 43.5 mmhg (35-45); Blood Gas IEPAP 15/5; MODE MASK - BIPAP; Site Left Radial
[2018-11-17 19:50] LABS: INR 1.14; PROTIME 14.7 Sec (11.9-14.9); PT RATIO 1.1
[2018-11-17 19:51] LABS: PARTIAL THROMBOPLASTIN TIME 50.6 Sec (23.0-35.0)
[2018-11-17] MEDS: ACETAMINOPHEN 500 MG TAB PO (21:03)
[2018-11-17] MEDS: VANCOMYCIN 1 GM (PMX) 250 ML IVPB (21:11)
[2018-11-17] MEDS ORDERED: SODIUM CHLORIDE 0.9% 1L BAG IV* (22:00)
[2018-11-17] MEDS ORDERED: ALBUMIN HUMAN 25% 50 ML IV (22:00)
[2018-11-17 22:02] LABS: LACTIC ACID 1.1 mmol/L (0.5-2.0)
[2018-11-17] MEDS: SOD CHLORIDE 0.9% 500 ML IV (22:27)
[2018-11-17 23:08] LABS: HEPATITIS B SURFACE ANTIGEN NEGATIVE (NEGATIVE)
[2018-11-18] MEDS ORDERED: NORepinephrine 32 MG in DEXTROSE 5% 218 ML IV
[2018-11-18 00:44] LABS: LACTIC ACID 0.7 mmol/L (0.5-2.0)
[2018-11-18] MEDS ORDERED: LIDOCAINE 1% (MPF) 5 ML VIAL INJ (01:00)
[2018-11-18] MEDS: ACETAMINOPHEN 650 MG SUPP PR (03:32)
[2018-11-18] MEDS: SOD CHLORIDE 0.9% 1,000 ML IV (03:32)
[2018-11-18 04:26] LABS: HEPATITIS B SURFACE ANTIGEN NEGATIVE (NEGATIVE)
[2018-11-18 05:00] LABS: ADD MAN DIFF? NO
[2018-11-18 05:06] LABS: ABNORMAL IP MESSAGE 1; BASOPHIL # 0.1 10^3/ul (0.0-0.1); BASOPHILS % 0.4 % (0.0-2.0); EOSINOPHILS % 0.2 % (0.0-7.0); HEMATOCRIT 31.6 % (42.0-52.0); HEMOGLOBIN 10.1 g/dl (14.0-18.0); LYMPHOCYTES # 1.4 10^3/ul (0.8-2.9); LYMPHOCYTES % 7.3 % (15.0-51.0); MEAN CORPUSCULAR HEMOGLOBIN 31.4 pg (29.0-33.0); MEAN CORPUSCULAR VOLUME 98.1 fl (82.0-101.0); MEAN PLATELET VOLUME 11.5 fl (7.4-10.4); MONOCYTE # 1.9 10^3/ul (0.3-0.9); MONOCYTES % 9.9 % (0.0-11.0); NEUTROPHIL # 15.5 10^3/ul (1.6-7.5); NEUTROPHILS % 81.5 % (39.0-77.0); PLATELET COUNT 76 10^3/UL (140-415); POSITIVE DIFF @See below; RED BLOOD COUNT 3.22 10^6/ul (4.70-6.10); RED CELL DISTRIBUTION WIDTH 14.8 % (11.5-14.5)
[2018-11-18 05:45] LABS: ALANINE AMINOTRANSFERASE 19 IU/L (13-69); ALBUMIN 3.5 g/dl (3.3-4.9); ALBUMIN/GLOBULIN RATIO 1.29; ALKALINE PHOSPHATASE 98 IU/L (42-121); ANION GAP 8 (5-13); ASPARTATE AMINO TRANSFERASE 24 IU/L (15-46); BILIRUBIN,INDIRECT 0.5 mg/dl (0-1.1); BILIRUBIN,TOTAL 0.5 mg/dl (0.2-1.3); BLOOD UREA NITROGEN 26 mg/dl (7-20); CALCIUM 9.4 mg/dl (8.4-10.2); CARBON DIOXIDE 29 mmol/L (21-31); CHLORIDE 102 mmol/L (97-110); CREATININE 4.07 mg/dl (0.61-1.24); GLUCOSE 81 mg/dl (70-220); POTASSIUM 4.3 mmol/L (3.5-5.1); SODIUM 139 mmol/L (135-144); TOTAL PROTEIN 6.2 g/dl (6.1-8.1)
[2018-11-18] MEDS ORDERED: VANCOMYCIN IV PER PHARMACY XX (08:30)
[2018-11-18] MEDS: HEPARIN 1000 UNITS/ML 10 ML INJ CATHETER (10:01)
[2018-11-18] MEDS: INSULIN ASPART [NOVOLOG] 3 ML PEN SC ×3 (12:21→20:33)
[2018-11-18] MEDS: GABAPENTIN 100 MG CAP PO ×2 (12:24→20:30)
[2018-11-18 12:28] LABS: ADD UMIC YES; UR ASCORBIC ACID 40 mg/dL (NEGATIVE); UR BILIRUBIN (Dip) NEGATIVE (NEGATIVE); UR BLOOD (Dip) 1+ mg/dL (NEGATIVE); UR CLARITY SLIGHTLY CLOUDY (CLEAR); UR COLOR AMBER (YELLOW); UR GLUCOSE (Dip) NEGATIVE (NEGATIVE); UR KETONES (Dip) NEGATIVE (NEGATIVE); UR LEUKOCYTE ESTERASE (Dip) 2+ Leu/ul (NEGATIVE); UR NITRITE (Dip) NEGATIVE (NEGATIVE); UR RBC 31 /HPF (0-5); UR SPECIFIC GRAVITY (Dip) 1.018 (1.003-1.030); UR TOTAL PROTEIN (Dip) 2+ mg/dl (NEGATIVE); UR UROBILINOGEN (Dip) NEGATIVE (NEGATIVE); UR WBC 179 /HPF (0-5)
[2018-11-18] MEDS ORDERED: INSULIN ASPART [NOVOLOG] 3 ML PEN SC (12:30)
[2018-11-18] MEDS: PIPER-TAZO 2.25 GM (PMX) 50 ML IVPB ×2 (14:05→21:23)
[2018-11-18] MEDS ORDERED: GLUCOSE GEL 15 GRAM TUBE PO ×2 (16:00)
[2018-11-18] MEDS ORDERED: DEXTROSE 50% 50 ML SYRINGE IV ×2 (16:00)
[2018-11-18] MEDS ORDERED: GLUCAGON 1 MG INJ IM (16:00)
[2018-11-18] MEDS ORDERED: GLUCOSE GEL 15 GRAM TUBE BUCCAL (16:00)
[2018-11-18] MEDS: DOCUSATE SODIUM 100 MG CAP PO (20:30)
[2018-11-19] MEDS: ACCU-CHEK XX (02:10)
[2018-11-19] MEDS: PIPER-TAZO 2.25 GM (PMX) 50 ML IVPB ×3 (05:53→21:28)
[2018-11-19 06:09] LABS: ADD MAN DIFF? NO
[2018-11-19] MEDS: LEVOTHYROXINE 50 MCG TAB PO (06:11)
[2018-11-19 06:25] LABS: ABNORMAL IP MESSAGE 1; BASOPHIL # 0.1 10^3/ul (0.0-0.1); BASOPHILS % 0.6 % (0.0-2.0); EOSINOPHILS # 0.4 10^3/ul (0.0-0.5); EOSINOPHILS % 3.1 % (0.0-7.0); HEMOGLOBIN 9.3 g/dl (14.0-18.0); LYMPHOCYTES # 1.3 10^3/ul (0.8-2.9); MEAN CORPUSCULAR HEMOGLOBIN 31.4 pg (29.0-33.0); MEAN CORPUSCULAR HGB CONC 32.1 g/dl (32.0-37.0); MONOCYTE # 1.7 10^3/ul (0.3-0.9); MONOCYTES % 13.2 % (0.0-11.0); NEUTROPHIL # 9.6 10^3/ul (1.6-7.5); NEUTROPHILS % 72.3 % (39.0-77.0); PLATELET COUNT 80 10^3/UL (140-415); POSITIVE DIFF @See below; RED BLOOD COUNT 2.96 10^6/ul (4.70-6.10); RED CELL DISTRIBUTION WIDTH 14.6 % (11.5-14.5)
[2018-11-19 06:25] LABS: WHITE BLOOD COUNT 13.2 10^3/ul (4.8-10.8)
[2018-11-19 07:01] LABS: VANCOMYCIN,RANDOM 8.8 ug/ml
[2018-11-19 07:09] LABS: ALANINE AMINOTRANSFERASE 25 IU/L (13-69); ALBUMIN 3.1 g/dl (3.3-4.9); ALBUMIN/GLOBULIN RATIO 1.14; ALKALINE PHOSPHATASE 95 IU/L (42-121); ANION GAP 8 (5-13); ASPARTATE AMINO TRANSFERASE 22 IU/L (15-46); BILIRUBIN,INDIRECT 0.6 mg/dl (0-1.1); BILIRUBIN,TOTAL 0.6 mg/dl (0.2-1.3); BLOOD UREA NITROGEN 25 mg/dl (7-20); CALCIUM 9.2 mg/dl (8.4-10.2); CARBON DIOXIDE 29 mmol/L (21-31); CHLORIDE 101 mmol/L (97-110); CREATININE 4.13 mg/dl (0.61-1.24); GLUCOSE 145 mg/dl (70-220); POTASSIUM 4.5 mmol/L (3.5-5.1); SODIUM 138 mmol/L (135-144); TOTAL PROTEIN 5.8 g/dl (6.1-8.1)
[2018-11-19] MEDS: PRASUGREL HYDROCHLORIDE 10 MG TABLET PO (10:01)
[2018-11-19] MEDS: FEBUXOSTAT 40 MG TABLET PO (10:01)
[2018-11-19] MEDS: FOLIC ACID 1 MG TAB PO (10:01)
[2018-11-19] MEDS: GABAPENTIN 100 MG CAP PO ×3 (10:01→20:12)
[2018-11-19] MEDS: DOCUSATE SODIUM 100 MG CAP PO ×2 (10:01→20:12)
[2018-11-19] MEDS: INSULIN ASPART [NOVOLOG] 3 ML PEN SC ×4 (10:04→20:22)
[2018-11-19] MEDS: ASPIRIN 81 MG TAB PO (10:05)
[2018-11-19] MEDS: HEPARIN 1000 UNITS/ML 10 ML INJ CATHETER (12:42)
[2018-11-19] MEDS: VANCOMYCIN 1 GM 250 ML IVPB (12:46)
[2018-11-20] MEDS: ACCU-CHEK XX (01:44)
[2018-11-20] MEDS: INSULIN GLARGINE [LANTus] (100 UNITS/ML) SYG SC ×2 (04:47→20:27)
[2018-11-20] MEDS: LEVOTHYROXINE 50 MCG TAB PO (04:56)
[2018-11-20] MEDS: PIPER-TAZO 2.25 GM (PMX) 50 ML IVPB (04:56)
[2018-11-20 07:12] LABS: ADD MAN DIFF? NO
[2018-11-20 07:23] LABS: BASOPHIL # 0.1 10^3/ul (0.0-0.1); BASOPHILS % 1.1 % (0.0-2.0); EOSINOPHILS # 0.6 10^3/ul (0.0-0.5); HEMATOCRIT 32.2 % (42.0-52.0); HEMOGLOBIN 10.1 g/dl (14.0-18.0); LYMPHOCYTES # 1.3 10^3/ul (0.8-2.9); LYMPHOCYTES % 14.7 % (15.0-51.0); MEAN CORPUSCULAR HEMOGLOBIN 31.3 pg (29.0-33.0); MEAN CORPUSCULAR HGB CONC 31.4 g/dl (32.0-37.0); MEAN CORPUSCULAR VOLUME 99.7 fl (82.0-101.0); MEAN PLATELET VOLUME 11.8 fl (7.4-10.4); MONOCYTE # 1.2 10^3/ul (0.3-0.9); MONOCYTES % 13.8 % (0.0-11.0); NEUTROPHIL # 5.6 10^3/ul (1.6-7.5); NEUTROPHILS % 62.4 % (39.0-77.0); PLATELET COUNT 114 10^3/UL (140-415); RED BLOOD COUNT 3.23 10^6/ul (4.70-6.10); RED CELL DISTRIBUTION WIDTH 14.5 % (11.5-14.5)
[2018-11-20 07:36] LABS: ALANINE AMINOTRANSFERASE 12 IU/L (13-69); ALBUMIN 3.3 g/dl (3.3-4.9); ALBUMIN/GLOBULIN RATIO 1.17; ALKALINE PHOSPHATASE 90 IU/L (42-121); ANION GAP 8 (5-13); ASPARTATE AMINO TRANSFERASE 18 IU/L (15-46); BILIRUBIN,INDIRECT 0.4 mg/dl (0-1.1); BILIRUBIN,TOTAL 0.4 mg/dl (0.2-1.3); BLOOD UREA NITROGEN 23 mg/dl (7-20); CALCIUM 9.1 mg/dl (8.4-10.2); CARBON DIOXIDE 29 mmol/L (21-31); CHLORIDE 101 mmol/L (97-110); CREATININE 3.69 mg/dl (0.61-1.24); GLUCOSE 290 mg/dl (70-220); POTASSIUM 4.1 mmol/L (3.5-5.1); SODIUM 138 mmol/L (135-144); TOTAL PROTEIN 6.1 g/dl (6.1-8.1)
[2018-11-20] MEDS: INSULIN ASPART [NOVOLOG] 3 ML PEN SC ×4 (08:00→20:31)
[2018-11-20] MEDS: FEBUXOSTAT 40 MG TABLET PO (08:24)
[2018-11-20] MEDS: FOLIC ACID 1 MG TAB PO (08:24)
[2018-11-20] MEDS: DOCUSATE SODIUM 100 MG CAP PO ×2 (08:24→20:24)
[2018-11-20] MEDS: ASPIRIN 81 MG TAB PO (08:24)
[2018-11-20] MEDS: CIPROFLOXACIN 500 MG TAB PO (08:24)
[2018-11-20] MEDS: GABAPENTIN 100 MG CAP PO ×3 (08:24→20:24)
[2018-11-20] MEDS: PRASUGREL HYDROCHLORIDE 10 MG TABLET PO (08:25)
[2018-11-20] MEDS: LIDOCAINE 1% (MDV) 20 ML INJ SC (14:22)
[2018-11-20] MEDS: EPOETIN 10000 UNITS/1 ML INJ (ESRD) SC (17:19)
[2018-11-20] MEDS ORDERED: INSULIN GLARGINE [LANTus] (100 UNITS/ML) SYG SC (20:00)
[2018-11-21] MEDS: ACCU-CHEK XX (02:00)
[2018-11-21] MEDS: LEVOTHYROXINE 50 MCG TAB PO (06:23)
[2018-11-21] MEDS: CIPROFLOXACIN 500 MG TAB PO (06:23)
[2018-11-21 06:59] LABS: VANCOMYCIN,RANDOM 13.2 ug/ml
[2018-11-21] MEDS: DOCUSATE SODIUM 100 MG CAP PO ×2 (08:22→20:05)
[2018-11-21] MEDS: FEBUXOSTAT 40 MG TABLET PO (08:23)
[2018-11-21] MEDS: PRASUGREL HYDROCHLORIDE 10 MG TABLET PO (08:23)
[2018-11-21] MEDS: ASPIRIN 81 MG TAB PO (08:23)
[2018-11-21] MEDS: GABAPENTIN 100 MG CAP PO ×3 (08:23→20:05)
[2018-11-21] MEDS: FOLIC ACID 1 MG TAB PO (08:23)
[2018-11-21] MEDS: INSULIN ASPART [NOVOLOG] 3 ML PEN SC ×4 (08:31→20:04)
[2018-11-21] MEDS: INSULIN GLARGINE [LANTus] (100 UNITS/ML) SYG SC (08:31)
[2018-11-21] MEDS: BISACODYL (EC) 5 MG TAB PO (09:10)
[2018-11-21] MEDS: HYDROCODONE/APAP (10/325) TAB PO (15:07)
[2018-11-22] MEDS: ACCU-CHEK XX (01:52)
[2018-11-22] MEDS: CIPROFLOXACIN 500 MG TAB PO (06:23)
[2018-11-22] MEDS: LEVOTHYROXINE 50 MCG TAB PO (06:23)
[2018-11-22] MEDS: GABAPENTIN 100 MG CAP PO ×3 (08:34→20:10)
[2018-11-22] MEDS: FOLIC ACID 1 MG TAB PO (08:34)
[2018-11-22] MEDS: PRASUGREL HYDROCHLORIDE 10 MG TABLET PO (08:34)
[2018-11-22] MEDS: BISACODYL (EC) 5 MG TAB PO (08:34)
[2018-11-22] MEDS: FEBUXOSTAT 40 MG TABLET PO (08:34)
[2018-11-22] MEDS: ASPIRIN 81 MG TAB PO (08:34)
[2018-11-22] MEDS: DOCUSATE SODIUM 100 MG CAP PO ×2 (08:34→20:10)
[2018-11-22] MEDS: NYSTATIN 30 GM POWDER BTL TOP ×2 (08:35→20:16)
[2018-11-22] MEDS: INSULIN GLARGINE [LANTus] (100 UNITS/ML) SYG SC (08:41)
[2018-11-22] MEDS: INSULIN ASPART [NOVOLOG] 3 ML PEN SC ×4 (08:42→20:13)
[2018-11-22] MEDS ORDERED: CEPASTAT LOZENGE MT (10:00)
[2018-11-22] MEDS: EPOETIN 10000 UNITS/1 ML INJ (ESRD) SC (18:01)
[2018-11-22] MEDS: BISACODYL 10 MG SUPP PR (20:10)
[2018-11-23] MEDS: ACCU-CHEK XX (01:37)
[2018-11-23] MEDS: CIPROFLOXACIN 500 MG TAB PO (05:17)
[2018-11-23] MEDS: LEVOTHYROXINE 50 MCG TAB PO (05:17)
[2018-11-23] MEDS: INSULIN GLARGINE [LANTus] (100 UNITS/ML) SYG SC (08:06)
[2018-11-23] MEDS: INSULIN ASPART [NOVOLOG] 3 ML PEN SC ×4 (08:07→20:58)
[2018-11-23] MEDS: FOLIC ACID 1 MG TAB PO (08:55)
[2018-11-23] MEDS: GABAPENTIN 100 MG CAP PO ×3 (08:55→20:58)
[2018-11-23] MEDS: DOCUSATE SODIUM 100 MG CAP PO ×2 (08:55→20:58)
[2018-11-23] MEDS: ASPIRIN 81 MG TAB PO (08:56)
[2018-11-23] MEDS: PRASUGREL HYDROCHLORIDE 10 MG TABLET PO (08:56)
[2018-11-23] MEDS: NYSTATIN 30 GM POWDER BTL TOP ×2 (08:57→20:58)
[2018-11-23] MEDS: FEBUXOSTAT 40 MG TABLET PO (08:57)
[2018-11-23] MEDS: SENNA TAB PO (10:48)
[2018-11-23] MEDS: HYDROCODONE/APAP (10/325) TAB PO (16:18)
[2018-11-23] MEDS: ALBUMIN HUMAN 25% 50 ML IV ×2 (18:44→19:24)
[2018-11-24] MEDS: ACCU-CHEK XX (02:00)
[2018-11-24] MEDS: LEVOTHYROXINE 50 MCG TAB PO (06:28)
[2018-11-24] MEDS: CIPROFLOXACIN 500 MG TAB PO (06:28)
[2018-11-24] MEDS: INSULIN ASPART [NOVOLOG] 3 ML PEN SC ×4 (07:39→21:53)
[2018-11-24] MEDS: INSULIN GLARGINE [LANTus] (100 UNITS/ML) SYG SC (07:52)
[2018-11-24] MEDS: PRASUGREL HYDROCHLORIDE 10 MG TABLET PO (09:14)
[2018-11-24] MEDS: FEBUXOSTAT 40 MG TABLET PO (09:14)
[2018-11-24] MEDS: ASPIRIN 81 MG TAB PO (09:15)
[2018-11-24] MEDS: DOCUSATE SODIUM 100 MG CAP PO ×2 (09:15→21:04)
[2018-11-24] MEDS: GABAPENTIN 100 MG CAP PO ×3 (09:15→21:04)
[2018-11-24] MEDS: FOLIC ACID 1 MG TAB PO (09:15)
[2018-11-24] MEDS: SENNA TAB PO (09:15)
[2018-11-24] MEDS: NYSTATIN 30 GM POWDER BTL TOP ×2 (09:16→21:05)
[2018-11-24] MEDS: EPOETIN ALFA-EPBX (ESRD) 10,000 UNIT/ML VIAL SC (16:11)
[2018-11-24] MEDS ORDERED: EPOETIN ALFA-EPBX (ESRD) 10,000 UNIT/ML VIAL SC (17:00)
[2018-11-25] MEDS: ACCU-CHEK XX (02:20)
[2018-11-25] MEDS: CIPROFLOXACIN 500 MG TAB PO (06:13)
[2018-11-25] MEDS: LEVOTHYROXINE 50 MCG TAB PO (06:13)
[2018-11-25] MEDS: INSULIN ASPART [NOVOLOG] 3 ML PEN SC ×4 (08:00→20:25)
[2018-11-25] MEDS: SENNA TAB PO (08:06)
[2018-11-25] MEDS: GABAPENTIN 100 MG CAP PO ×3 (08:06→20:20)
[2018-11-25] MEDS: FOLIC ACID 1 MG TAB PO (08:06)
[2018-11-25] MEDS: NYSTATIN 30 GM POWDER BTL TOP (08:06)
[2018-11-25] MEDS: ASPIRIN 81 MG TAB PO (08:06)
[2018-11-25] MEDS: DOCUSATE SODIUM 100 MG CAP PO ×2 (08:06→20:20)
[2018-11-25] MEDS: INSULIN GLARGINE [LANTus] (100 UNITS/ML) SYG SC (09:43)
[2018-11-25] MEDS: FEBUXOSTAT 40 MG TABLET PO (12:31)
[2018-11-25] MEDS: PRASUGREL HYDROCHLORIDE 10 MG TABLET PO (12:31)
[2018-11-25] MEDS: HYDROCODONE/APAP (10/325) TAB PO (16:24)
[2018-11-25] MEDS: ALBUMIN HUMAN 25% 50 ML IV (18:52)
[2018-11-25] MEDS: BALSAM PERU/CASTOR OIL 60 GM TUBE TOP (20:20)
[2018-11-25] MEDS: NYSTATIN 15 GM CR TOP (20:20)
[2018-11-26] MEDS: ACCU-CHEK XX (02:00)
[2018-11-26] MEDS: CIPROFLOXACIN 500 MG TAB PO (06:05)
[2018-11-26] MEDS: LEVOTHYROXINE 50 MCG TAB PO (06:05)
[2018-11-26] MEDS: INSULIN ASPART [NOVOLOG] 3 ML PEN SC ×4 (08:00→21:48)
[2018-11-26] MEDS: ASPIRIN 81 MG TAB PO (09:01)
[2018-11-26] MEDS: DOCUSATE SODIUM 100 MG CAP PO ×2 (09:01→21:45)
[2018-11-26] MEDS: GABAPENTIN 100 MG CAP PO ×3 (09:01→21:45)
[2018-11-26] MEDS: SENNA TAB PO (09:01)
[2018-11-26] MEDS: FOLIC ACID 1 MG TAB PO (09:01)
[2018-11-26] MEDS: HEPARIN 5,000 UNIT/1 ML VIAL SC ×2 (09:02→21:49)
[2018-11-26] MEDS: PRASUGREL HYDROCHLORIDE 10 MG TABLET PO (09:02)
[2018-11-26] MEDS: FEBUXOSTAT 40 MG TABLET PO (09:02)
[2018-11-26] MEDS: BALSAM PERU/CASTOR OIL 60 GM TUBE TOP ×2 (09:03→21:46)
[2018-11-26] MEDS: NYSTATIN 15 GM CR TOP ×2 (09:03→21:46)
[2018-11-26] MEDS: INSULIN GLARGINE [LANTus] (100 UNITS/ML) SYG SC (09:03)
[2018-11-27] MEDS: ACCU-CHEK XX (02:00)
[2018-11-27 05:52] LABS: ADD MAN DIFF? NO
[2018-11-27 05:59] LABS: WHITE BLOOD COUNT 7.8 10^3/ul (4.8-10.8)
[2018-11-27 05:59] LABS: BASOPHIL # 0.1 10^3/ul (0.0-0.1); BASOPHILS % 1.3 % (0.0-2.0); EOSINOPHILS # 0.5 10^3/ul (0.0-0.5); EOSINOPHILS % 6.4 % (0.0-7.0); HEMATOCRIT 33.1 % (42.0-52.0); HEMOGLOBIN 10.5 g/dl (14.0-18.0); LYMPHOCYTES # 1.6 10^3/ul (0.8-2.9); LYMPHOCYTES % 20.5 % (15.0-51.0); MEAN CORPUSCULAR HEMOGLOBIN 30.5 pg (29.0-33.0); MEAN CORPUSCULAR HGB CONC 31.7 g/dl (32.0-37.0); MEAN CORPUSCULAR VOLUME 96.2 fl (82.0-101.0); MEAN PLATELET VOLUME 10.8 fl (7.4-10.4); MONOCYTE # 1.2 10^3/ul (0.3-0.9); MONOCYTES % 15.5 % (0.0-11.0); NEUTROPHIL # 4.1 10^3/ul (1.6-7.5); NEUTROPHILS % 52.4 % (39.0-77.0); PLATELET COUNT 206 10^3/UL (140-415); RED BLOOD COUNT 3.44 10^6/ul (4.70-6.10); RED CELL DISTRIBUTION WIDTH 14.9 % (11.5-14.5)
[2018-11-27 06:30] LABS: ALANINE AMINOTRANSFERASE 19 IU/L (13-69); ALBUMIN 3.3 g/dl (3.3-4.9); ALBUMIN/GLOBULIN RATIO 1.32; ALKALINE PHOSPHATASE 85 IU/L (42-121); ANION GAP 9 (5-13); ASPARTATE AMINO TRANSFERASE 19 IU/L (15-46); BILIRUBIN,INDIRECT 0.2 mg/dl (0-1.1); BILIRUBIN,TOTAL 0.2 mg/dl (0.2-1.3); BLOOD UREA NITROGEN 22 mg/dl (7-20); CALCIUM 9.2 mg/dl (8.4-10.2); CARBON DIOXIDE 30 mmol/L (21-31); CHLORIDE 100 mmol/L (97-110); CREATININE 3.96 mg/dl (0.61-1.24); GLUCOSE 146 mg/dl (70-220); POTASSIUM 4.2 mmol/L (3.5-5.1); SODIUM 139 mmol/L (135-144); TOTAL PROTEIN 5.8 g/dl (6.1-8.1)
[2018-11-27] MEDS: LEVOTHYROXINE 50 MCG TAB PO (06:45)
[2018-11-27] MEDS: CIPROFLOXACIN 500 MG TAB PO (06:45)
[2018-11-27] MEDS: INSULIN ASPART [NOVOLOG] 3 ML PEN SC ×4 (08:00→22:14)
[2018-11-27] MEDS: INSULIN GLARGINE [LANTus] (100 UNITS/ML) SYG SC (08:45)
[2018-11-27] MEDS: DOCUSATE SODIUM 100 MG CAP PO ×2 (08:46→22:10)
[2018-11-27] MEDS: GABAPENTIN 100 MG CAP PO ×3 (08:46→22:10)
[2018-11-27] MEDS: PRASUGREL HYDROCHLORIDE 10 MG TABLET PO (08:46)
[2018-11-27] MEDS: BALSAM PERU/CASTOR OIL 60 GM TUBE TOP ×2 (08:46→22:11)
[2018-11-27] MEDS: HEPARIN 5,000 UNIT/1 ML VIAL SC ×2 (08:46→22:12)
[2018-11-27] MEDS: SENNA TAB PO (08:46)
[2018-11-27] MEDS: FEBUXOSTAT 40 MG TABLET PO (08:46)
[2018-11-27] MEDS: ASPIRIN 81 MG TAB PO (08:46)
[2018-11-27] MEDS: FOLIC ACID 1 MG TAB PO (08:46)
[2018-11-27] MEDS: NYSTATIN 15 GM CR TOP ×2 (08:47→22:11)
[2018-11-27] MEDS: HYDROCODONE/APAP (10/325) TAB PO (11:03)
[2018-11-27] MEDS: EPOETIN ALFA-EPBX (ESRD) 10,000 UNIT/ML VIAL SC (18:23)
[2018-11-28] MEDS: ACCU-CHEK XX (02:00)
[2018-11-28] MEDS: CIPROFLOXACIN 500 MG TAB PO (06:50)
[2018-11-28] MEDS: LEVOTHYROXINE 50 MCG TAB PO (06:50)
[2018-11-28] MEDS: BISACODYL 10 MG SUPP PR (06:50)
[2018-11-28] MEDS: INSULIN ASPART [NOVOLOG] 3 ML PEN SC ×4 (08:00→21:00)
[2018-11-28] MEDS: SENNA TAB PO (08:51)
[2018-11-28] MEDS: DOCUSATE SODIUM 100 MG CAP PO ×2 (08:52→22:01)
[2018-11-28] MEDS: PRASUGREL HYDROCHLORIDE 10 MG TABLET PO (08:54)
[2018-11-28] MEDS: GABAPENTIN 100 MG CAP PO ×3 (08:55→22:01)
[2018-11-28] MEDS: FEBUXOSTAT 40 MG TABLET PO (08:55)
[2018-11-28] MEDS: FOLIC ACID 1 MG TAB PO (08:55)
[2018-11-28] MEDS: ASPIRIN 81 MG TAB PO (08:55)
[2018-11-28] MEDS: BALSAM PERU/CASTOR OIL 60 GM TUBE TOP ×2 (09:00→22:08)
[2018-11-28] MEDS: NYSTATIN 15 GM CR TOP ×2 (09:00→22:09)
[2018-11-28] MEDS: INSULIN GLARGINE [LANTus] (100 UNITS/ML) SYG SC (09:00)
[2018-11-28] MEDS: HEPARIN 5,000 UNIT/1 ML VIAL SC ×2 (09:02→22:04)
[2018-11-28] MEDS: HYDROCODONE/APAP (10/325) TAB PO (09:47)
[2018-11-28] MEDS: ALBUMIN HUMAN 25% 50 ML IV ×2 (10:58→11:48)
[2018-11-29] MEDS: ACCU-CHEK XX (02:00)
[2018-11-29] MEDS: CIPROFLOXACIN 500 MG TAB PO ×2 (06:00→09:03)
[2018-11-29] MEDS: LEVOTHYROXINE 50 MCG TAB PO ×2 (06:27→09:03)
[2018-11-29] MEDS: INSULIN ASPART [NOVOLOG] 3 ML PEN SC ×4 (08:00→22:47)
[2018-11-29] MEDS: ASPIRIN 81 MG TAB PO (09:01)
[2018-11-29] MEDS: GABAPENTIN 100 MG CAP PO ×3 (09:02→22:44)
[2018-11-29] MEDS: FOLIC ACID 1 MG TAB PO (09:02)
[2018-11-29] MEDS: SENNA TAB PO (09:02)
[2018-11-29] MEDS: DOCUSATE SODIUM 100 MG CAP PO ×2 (09:02→22:44)
[2018-11-29] MEDS: FEBUXOSTAT 40 MG TABLET PO (09:03)
[2018-11-29] MEDS: PRASUGREL HYDROCHLORIDE 10 MG TABLET PO (09:03)
[2018-11-29] MEDS: BALSAM PERU/CASTOR OIL 60 GM TUBE TOP ×2 (09:05→22:48)
[2018-11-29] MEDS: NYSTATIN 15 GM CR TOP ×2 (09:05→22:48)
[2018-11-29] MEDS: HEPARIN 5,000 UNIT/1 ML VIAL SC ×2 (09:06→22:47)
[2018-11-29] MEDS: INSULIN GLARGINE [LANTus] (100 UNITS/ML) SYG SC (10:32)
[2018-11-29] MEDS: EPOETIN ALFA-EPBX (ESRD) 10,000 UNIT/ML VIAL SC (17:57)
[2018-11-30] MEDS: ACCU-CHEK XX (02:58)
[2018-11-30] MEDS: CIPROFLOXACIN 500 MG TAB PO (06:39)
[2018-11-30] MEDS: LEVOTHYROXINE 50 MCG TAB PO (06:39)
[2018-11-30] MEDS: HYDROCODONE/APAP (10/325) TAB PO (07:28)
[2018-11-30] MEDS: INSULIN ASPART [NOVOLOG] 3 ML PEN SC ×4 (08:00→21:00)
[2018-11-30] MEDS: INSULIN GLARGINE [LANTus] (100 UNITS/ML) SYG SC (08:02)
[2018-11-30] MEDS: HEPARIN 5,000 UNIT/1 ML VIAL SC ×2 (08:02→21:35)
[2018-11-30] MEDS: SENNA TAB PO (08:03)
[2018-11-30] MEDS: FOLIC ACID 1 MG TAB PO (08:03)
[2018-11-30] MEDS: GABAPENTIN 100 MG CAP PO ×3 (08:03→21:32)
[2018-11-30] MEDS: ASPIRIN 81 MG TAB PO (08:03)
[2018-11-30] MEDS: PRASUGREL HYDROCHLORIDE 10 MG TABLET PO (08:03)
[2018-11-30] MEDS: FEBUXOSTAT 40 MG TABLET PO (08:03)
[2018-11-30] MEDS: NYSTATIN 15 GM CR TOP ×2 (08:03→21:33)
[2018-11-30] MEDS: DOCUSATE SODIUM 100 MG CAP PO ×2 (08:03→21:32)
[2018-11-30] MEDS: BALSAM PERU/CASTOR OIL 60 GM TUBE TOP ×2 (08:03→21:33)
[2018-11-30] MEDS: ALBUMIN HUMAN 25% 50 ML IV (08:09)
[2018-11-30] MEDS: GUAIFENESIN LA 600 MG TABSR PO (12:39)
[2018-12-01] MEDS: ACCU-CHEK XX (02:00)
[2018-12-01 05:33] LABS: HEMOGLOBIN 9.6 g/dl (14.0-18.0)
[2018-12-01] MEDS: CIPROFLOXACIN 500 MG TAB PO (06:40)
[2018-12-01] MEDS: LEVOTHYROXINE 50 MCG TAB PO (06:40)
[2018-12-01] MEDS: INSULIN ASPART [NOVOLOG] 3 ML PEN SC ×4 (08:00→21:43)
[2018-12-01] MEDS: PRASUGREL HYDROCHLORIDE 10 MG TABLET PO (08:39)
[2018-12-01] MEDS: SENNA TAB PO (08:39)
[2018-12-01] MEDS: GABAPENTIN 100 MG CAP PO ×3 (08:39→21:38)
[2018-12-01] MEDS: ASPIRIN 81 MG TAB PO (08:39)
[2018-12-01] MEDS: DOCUSATE SODIUM 100 MG CAP PO ×2 (08:39→21:38)
[2018-12-01] MEDS: FEBUXOSTAT 40 MG TABLET PO (08:39)
[2018-12-01] MEDS: FOLIC ACID 1 MG TAB PO (08:39)
[2018-12-01] MEDS: INSULIN GLARGINE [LANTus] (100 UNITS/ML) SYG SC (08:43)
[2018-12-01] MEDS: HEPARIN 5,000 UNIT/1 ML VIAL SC ×2 (08:47→21:42)
[2018-12-01] MEDS: BALSAM PERU/CASTOR OIL 60 GM TUBE TOP ×2 (08:48→21:44)
[2018-12-01] MEDS: NYSTATIN 15 GM CR TOP ×2 (08:49→21:44)
[2018-12-01] MEDS: HYDROCODONE/APAP (10/325) TAB PO (13:38)
[2018-12-01] MEDS: GUAIFENESIN LA 600 MG TABSR PO (13:43)
[2018-12-01] MEDS: ALBUMIN HUMAN 25% 50 ML IV ×2 (14:39→15:36)
[2018-12-01] MEDS: BISACODYL 10 MG SUPP PR (17:32)
[2018-12-01] MEDS: EPOETIN ALFA-EPBX (ESRD) 10,000 UNIT/ML VIAL SC (17:33)
[2018-12-02] MEDS: ACCU-CHEK XX (02:00)
[2018-12-02] MEDS: LEVOTHYROXINE 50 MCG TAB PO (05:52)
[2018-12-02] MEDS: CIPROFLOXACIN 500 MG TAB PO (05:52)
[2018-12-02] MEDS: INSULIN ASPART [NOVOLOG] 3 ML PEN SC ×4 (08:00→21:31)
[2018-12-02] MEDS: ASPIRIN 81 MG TAB PO (08:12)
[2018-12-02] MEDS: SENNA TAB PO (08:12)
[2018-12-02] MEDS: GABAPENTIN 100 MG CAP PO ×3 (08:12→21:27)
[2018-12-02] MEDS: FOLIC ACID 1 MG TAB PO (08:12)
[2018-12-02] MEDS: DOCUSATE SODIUM 100 MG CAP PO ×2 (08:12→21:27)
[2018-12-02] MEDS: PRASUGREL HYDROCHLORIDE 10 MG TABLET PO (08:12)
[2018-12-02] MEDS: FEBUXOSTAT 40 MG TABLET PO (08:12)
[2018-12-02] MEDS: INSULIN GLARGINE [LANTus] (100 UNITS/ML) SYG SC (08:14)
[2018-12-02] MEDS: HEPARIN 5,000 UNIT/1 ML VIAL SC ×2 (08:14→21:32)
[2018-12-02] MEDS: BALSAM PERU/CASTOR OIL 60 GM TUBE TOP ×2 (08:18→21:33)
[2018-12-02] MEDS: NYSTATIN 15 GM CR TOP ×2 (08:18→21:33)
[2018-12-03] MEDS: ACCU-CHEK XX (02:00)
[2018-12-03 05:27] LABS: ADD MAN DIFF? NO
[2018-12-03 05:56] LABS: BASOPHIL # 0.1 10^3/ul (0.0-0.1); BASOPHILS % 1.4 % (0.0-2.0); EOSINOPHILS # 0.8 10^3/ul (0.0-0.5); EOSINOPHILS % 8.8 % (0.0-7.0); HEMATOCRIT 31.4 % (42.0-52.0); HEMOGLOBIN 10.2 g/dl (14.0-18.0); LYMPHOCYTES # 1.8 10^3/ul (0.8-2.9); LYMPHOCYTES % 19.7 % (15.0-51.0); MEAN CORPUSCULAR HEMOGLOBIN 31.8 pg (29.0-33.0); MEAN CORPUSCULAR HGB CONC 32.5 g/dl (32.0-37.0); MEAN CORPUSCULAR VOLUME 97.8 fl (82.0-101.0); MEAN PLATELET VOLUME 11.5 fl (7.4-10.4); MONOCYTE # 1.2 10^3/ul (0.3-0.9); MONOCYTES % 13.3 % (0.0-11.0); NEUTROPHIL # 4.9 10^3/ul (1.6-7.5); NEUTROPHILS % 54.7 % (39.0-77.0); PLATELET COUNT 116 10^3/UL (140-415); RED BLOOD COUNT 3.21 10^6/ul (4.70-6.10); RED CELL DISTRIBUTION WIDTH 15.9 % (11.5-14.5)
[2018-12-03 05:57] LABS: ANION GAP 10 (5-13); BLOOD UREA NITROGEN 35 mg/dl (7-20); CALCIUM 9.6 mg/dl (8.4-10.2); CARBON DIOXIDE 28 mmol/L (21-31); CHLORIDE 104 mmol/L (97-110); CREATININE 5.86 mg/dl (0.61-1.24); GLUCOSE 108 mg/dl (70-220); POTASSIUM 4.5 mmol/L (3.5-5.1); SODIUM 142 mmol/L (135-144)
[2018-12-03] MEDS: CIPROFLOXACIN 500 MG TAB PO (06:05)
[2018-12-03] MEDS: LEVOTHYROXINE 50 MCG TAB PO (06:05)
[2018-12-03] MEDS: INSULIN ASPART [NOVOLOG] 3 ML PEN SC ×4 (08:00→21:03)
[2018-12-03] MEDS: HYDROCODONE/APAP (10/325) TAB PO (08:37)
[2018-12-03] MEDS: INSULIN GLARGINE [LANTus] (100 UNITS/ML) SYG SC (08:38)
[2018-12-03] MEDS: HEPARIN 5,000 UNIT/1 ML VIAL SC ×2 (09:00→21:05)
[2018-12-03] MEDS: DOCUSATE SODIUM 100 MG CAP PO ×2 (09:00→20:56)
[2018-12-03] MEDS: GABAPENTIN 100 MG CAP PO ×3 (09:00→20:56)
[2018-12-03] MEDS: ALBUMIN HUMAN 25% 50 ML IV ×2 (10:54→11:25)
[2018-12-03] MEDS: BALSAM PERU/CASTOR OIL 60 GM TUBE TOP ×2 (12:21→21:01)
[2018-12-03] MEDS: NYSTATIN 15 GM CR TOP ×2 (12:22→21:01)
[2018-12-03] MEDS: ASPIRIN 81 MG TAB PO (14:32)
[2018-12-03] MEDS: FEBUXOSTAT 40 MG TABLET PO (14:32)
[2018-12-03] MEDS: FOLIC ACID 1 MG TAB PO (14:32)
[2018-12-03] MEDS: SENNA TAB PO (14:32)
[2018-12-03] MEDS: PRASUGREL HYDROCHLORIDE 10 MG TABLET PO (14:32)
[2018-12-03] MEDS: ACETAMINOPHEN 325 MG TAB PO (14:33)
[2018-12-03] MEDS: GUAIFENESIN LA 600 MG TABSR PO (21:13)
[2018-12-04] MEDS: ACCU-CHEK XX (02:00)
[2018-12-04 05:45] LABS: ADD MAN DIFF? NO
[2018-12-04 05:53] LABS: WHITE BLOOD COUNT 8.1 10^3/ul (4.8-10.8)
[2018-12-04 05:53] LABS: ABNORMAL IP MESSAGE 1; BASOPHIL # 0.1 10^3/ul (0.0-0.1); EOSINOPHILS # 0.8 10^3/ul (0.0-0.5); EOSINOPHILS % 10.1 % (0.0-7.0); HEMATOCRIT 32.8 % (42.0-52.0); HEMOGLOBIN 10.4 g/dl (14.0-18.0); LYMPHOCYTES # 1.6 10^3/ul (0.8-2.9); LYMPHOCYTES % 20.2 % (15.0-51.0); MEAN CORPUSCULAR HEMOGLOBIN 30.8 pg (29.0-33.0); MEAN CORPUSCULAR HGB CONC 31.7 g/dl (32.0-37.0); MEAN PLATELET VOLUME 11.6 fl (7.4-10.4); MONOCYTE # 1.2 10^3/ul (0.3-0.9); MONOCYTES % 14.2 % (0.0-11.0); NEUTROPHIL # 4.3 10^3/ul (1.6-7.5); NEUTROPHILS % 52.7 % (39.0-77.0); PLATELET COUNT 91 10^3/UL (140-415); POSITIVE DIFF @See below; RED BLOOD COUNT 3.38 10^6/ul (4.70-6.10)
[2018-12-04] MEDS: LEVOTHYROXINE 50 MCG TAB PO (06:12)
[2018-12-04] MEDS: CIPROFLOXACIN 500 MG TAB PO (06:12)
[2018-12-04 06:52] LABS: ANION GAP 10 (5-13); BLOOD UREA NITROGEN 25 mg/dl (7-20); CALCIUM 9.3 mg/dl (8.4-10.2); CARBON DIOXIDE 29 mmol/L (21-31); CHLORIDE 101 mmol/L (97-110); CREATININE 4.03 mg/dl (0.61-1.24); GLUCOSE 209 mg/dl (70-220); POTASSIUM 4.4 mmol/L (3.5-5.1); SODIUM 140 mmol/L (135-144)
[2018-12-04] MEDS: INSULIN ASPART [NOVOLOG] 3 ML PEN SC ×2 (08:28→13:27)
[2018-12-04] MEDS: PRASUGREL HYDROCHLORIDE 10 MG TABLET PO (09:12)
[2018-12-04] MEDS: FEBUXOSTAT 40 MG TABLET PO (09:12)
[2018-12-04] MEDS: FOLIC ACID 1 MG TAB PO (09:13)
[2018-12-04] MEDS: FAMOTIDINE 20 MG TAB PO (09:13)
[2018-12-04] MEDS: GABAPENTIN 100 MG CAP PO ×2 (09:13→12:16)
[2018-12-04] MEDS: SENNA TAB PO (09:13)
[2018-12-04] MEDS: DOCUSATE SODIUM 100 MG CAP PO (09:13)
[2018-12-04] MEDS: ASPIRIN 81 MG TAB PO (09:13)
[2018-12-04] MEDS: INSULIN GLARGINE [LANTus] (100 UNITS/ML) SYG SC (09:14)
[2018-12-04] MEDS: BALSAM PERU/CASTOR OIL 60 GM TUBE TOP (09:15)
[2018-12-04] MEDS: HEPARIN 5,000 UNIT/1 ML VIAL SC (09:15)
[2018-12-04] MEDS: NYSTATIN 15 GM CR TOP (09:15)
== END 2018-12-04 17:20 | disposition home health service (06) | DRG 871 ==
LOC: 2NE 11-24 22:15 → E/R 18:51 → TEL 11-18 23:00 → ICU 21:49
PROVIDERS: Internal Medicine
PROC: 5A1D70Z Performance of Urinary Filtration, Intermittent, Less than 6 Hours Per Day (ICD-10-PCS; principal; 2018-11-18)
DX: A41.1 Sepsis due to other specified staphylococcus (principal); J18.9 Pneumonia, unspecified organism; J96.01 Acute respiratory failure with hypoxia; N18.6 End stage renal disease; I50.43 Acute on chronic combined systolic (congestive) and diastolic (congestive) heart failure; N39.0 Urinary tract infection, site not specified; I13.2 Hypertensive heart and chronic kidney disease with heart failure and with stage 5 chronic kidney disease, or end stage renal disease; T82.7XXA Infection and inflammatory reaction due to other cardiac and vascular devices, implants and grafts, initial encounter; R65.20 Severe sepsis without septic shock; I95.9 Hypotension, unspecified; E03.9 Hypothyroidism, unspecified; I25.10 Atherosclerotic heart disease of native coronary artery without angina pectoris; D63.1 Anemia in chronic kidney disease; I25.2 Old myocardial infarction; Z95.5 Presence of coronary angioplasty implant and graft; E11.22 Type 2 diabetes mellitus with diabetic chronic kidney disease; Z99.2 Dependence on renal dialysis; K21.9 Gastro-esophageal reflux disease without esophagitis; C61 Malignant neoplasm of prostate
CPT/HCPCS: 36600; 71045; 71046; 76604; 80048; 80053; 80202; 81001; 82803; 82962; 83605; 84100; 84484; 85018; 85025; 85610; 85730; 87040-91; 87070; 87075; 87081; 87086; 87340; 90935; 93005; 94660; 96365; 96367; 97110; 97116; 97162; 97165; 97530; 97535; 99285-25

== ENCOUNTER 2019-02-04 14:27 | Inpatient (IN) | payer MEDICARE, BC ==
[2019-02-04 15:16] LABS: ADD MAN DIFF? NO
[2019-02-04 15:21] LABS: WHITE BLOOD COUNT 9.3 10^3/ul (4.8-10.8)
[2019-02-04 15:21] LABS: ABNORMAL IP MESSAGE 1; BASOPHIL # 0.1 10^3/ul (0.0-0.1); BASOPHILS % 0.9 % (0.0-2.0); EOSINOPHILS # 0.3 10^3/ul (0.0-0.5); EOSINOPHILS % 3.6 % (0.0-7.0); HEMATOCRIT 36.2 % (42.0-52.0); HEMOGLOBIN 11.7 g/dl (14.0-18.0); LYMPHOCYTES # 1.6 10^3/ul (0.8-2.9); LYMPHOCYTES % 17.1 % (15.0-51.0); MEAN CORPUSCULAR HEMOGLOBIN 29.5 pg (29.0-33.0); MEAN CORPUSCULAR HGB CONC 32.3 g/dl (32.0-37.0); MEAN CORPUSCULAR VOLUME 91.2 fl (82.0-101.0); MEAN PLATELET VOLUME 12.9 fl (7.4-10.4); MONOCYTE # 0.9 10^3/ul (0.3-0.9); MONOCYTES % 9.4 % (0.0-11.0); NEUTROPHIL # 6.4 10^3/ul (1.6-7.5); NEUTROPHILS % 68.2 % (39.0-77.0); PLATELET COUNT 96 10^3/UL (140-415); POSITIVE DIFF @See below; RED BLOOD COUNT 3.97 10^6/ul (4.70-6.10); RED CELL DISTRIBUTION WIDTH 15.9 % (11.5-14.5)
[2019-02-04 15:25] LABS: INR 0.99; PARTIAL THROMBOPLASTIN TIME 31.6 Sec (23.0-35.0); PROTIME 13.2 Sec (11.9-14.9)
[2019-02-04 15:27] LABS: ANION GAP 12 (5-13); BLOOD UREA NITROGEN 21 mg/dl (7-20); CALCIUM 9.8 mg/dl (8.4-10.2); CARBON DIOXIDE 31 mmol/L (21-31); CHLORIDE 98 mmol/L (97-110); CREATININE 3.52 mg/dl (0.61-1.24); GLUCOSE 165 mg/dl (70-220); POTASSIUM 4.5 mmol/L (3.5-5.1); SODIUM 141 mmol/L (135-144)
[2019-02-04 15:39] LABS: TROPONIN-I 0.031 ng/ml (0.000-0.120)
[2019-02-04] MEDS ORDERED: ONDANSETRON 4 MG INJ IV (16:00)
[2019-02-04] MEDS ORDERED: ACETAMINOPHEN 325 MG TAB PO ×2 (16:00→20:30)
[2019-02-04] MEDS ORDERED: NACL 0.9% 3 ML SYG IV (20:30)
[2019-02-04] MEDS ORDERED: GLUCAGON 1 MG INJ IM ×2 (21:00→22:00)
[2019-02-04] MEDS ORDERED: GLUCOSE GEL 15 GRAM TUBE PO ×4 (21:00→22:00)
[2019-02-04] MEDS ORDERED: DEXTROSE 50% 50 ML SYRINGE IV ×4 (21:00→22:00)
[2019-02-04] MEDS ORDERED: NITROGLYCERIN (SL) 0.4 MG TAB SL (21:00)
[2019-02-04] MEDS ORDERED: GLUCOSE GEL 15 GRAM TUBE BUCCAL ×2 (21:00→22:00)
[2019-02-04] MEDS: GUAIFENESIN LA 600 MG TABSR PO (21:38)
[2019-02-04] MEDS: GABAPENTIN 100 MG CAP PO (21:39)
[2019-02-04] MEDS: ATORVASTATIN 40 MG TAB PO (21:39)
[2019-02-04] MEDS: DOCUSATE SODIUM 100 MG CAP PO (21:39)
[2019-02-04] MEDS: INSULIN GLARGINE [LANTus] (100 UNITS/ML) SYG SC (21:40)
[2019-02-05] MEDS: INSULIN ASPART [NOVOLOG] 3 ML PEN SC ×6 (01:11→21:15)
[2019-02-05 05:55] LABS: HEMOGLOBIN A1C 6.9 % (0-5.9)
[2019-02-05] MEDS: LEVOTHYROXINE 50 MCG TAB PO (06:38)
[2019-02-05] MEDS: DEXTROSE 5%-0.45% NACL 1,000 ML IV (06:38)
[2019-02-05] MEDS ORDERED: INSULIN ASPART [NOVOLOG] 3 ML PEN SC (08:00)
[2019-02-05] MEDS: ZINC SULFATE 220 MG CAP PO (09:00)
[2019-02-05] MEDS: DOCUSATE SODIUM 100 MG CAP PO ×2 (09:00→21:11)
[2019-02-05] MEDS: FEBUXOSTAT 40 MG TABLET PO (09:00)
[2019-02-05] MEDS: POLYETHYLENE GLYCOL 3350 119 GM POWDER PO (09:00)
[2019-02-05] MEDS: GUAIFENESIN LA 600 MG TABSR PO ×2 (09:00→21:11)
[2019-02-05] MEDS: PRASUGREL HYDROCHLORIDE 10 MG TABLET PO (09:00)
[2019-02-05] MEDS: ASPIRIN 81 MG TAB PO (09:00)
[2019-02-05] MEDS: HYDROCODONE/APAP (10/325) TAB PO (09:00)
[2019-02-05] MEDS: FOLIC ACID 1 MG TAB PO (09:00)
[2019-02-05] MEDS: GABAPENTIN 100 MG CAP PO ×3 (09:00→21:12)
[2019-02-05] MEDS: FAMOTIDINE 20 MG TAB PO (09:00)
[2019-02-05] MEDS: ASCORBIC ACID 500 MG TAB PO (09:00)
[2019-02-05] MEDS: MIDODRINE 5 MG TAB PO (10:00)
[2019-02-05] MEDS: LIDOCAINE 1% (MPF) 5 ML VIAL (10:06)
[2019-02-05 10:37] LABS: FLUID LD 398 U/L; FLUID TYPE THORACENTESIS FLUID
[2019-02-05] MEDS: ATORVASTATIN 40 MG TAB PO (21:11)
[2019-02-05] MEDS: INSULIN GLARGINE [LANTus] (100 UNITS/ML) SYG SC (21:17)
[2019-02-06] MEDS: ASCORBIC ACID 500 MG TAB PO (08:34)
[2019-02-06] MEDS: FOLIC ACID 1 MG TAB PO (08:34)
[2019-02-06] MEDS: PRASUGREL HYDROCHLORIDE 10 MG TABLET PO (08:34)
[2019-02-06] MEDS: GABAPENTIN 100 MG CAP PO ×3 (08:34→21:48)
[2019-02-06] MEDS: GUAIFENESIN LA 600 MG TABSR PO ×2 (08:34→21:47)
[2019-02-06] MEDS: ZINC SULFATE 220 MG CAP PO (08:34)
[2019-02-06] MEDS: ASPIRIN 81 MG TAB PO (08:34)
[2019-02-06] MEDS: FEBUXOSTAT 40 MG TABLET PO (08:34)
[2019-02-06] MEDS: LEVOTHYROXINE 50 MCG TAB PO (08:34)
[2019-02-06] MEDS: FAMOTIDINE 20 MG TAB PO (08:34)
[2019-02-06] MEDS: DOCUSATE SODIUM 100 MG CAP PO ×2 (08:35→21:48)
[2019-02-06] MEDS: INSULIN ASPART [NOVOLOG] 3 ML PEN SC ×4 (08:38→21:47)
[2019-02-06] MEDS: POLYETHYLENE GLYCOL 3350 119 GM POWDER PO (08:44)
[2019-02-06] MEDS: HYDROCODONE/APAP (10/325) TAB PO (09:19)
[2019-02-06] MEDS: MIDODRINE 5 MG TAB PO (09:20)
[2019-02-06 10:23] LABS: HEPATITIS B SURFACE ANTIGEN NEGATIVE (NEGATIVE)
[2019-02-06] MEDS: ALBUMIN HUMAN 25% 100 ML IV (10:55)
[2019-02-06] MEDS: LIDOCAINE 1% (MPF) 5 ML VIAL (16:16)
[2019-02-06] MEDS: INSULIN GLARGINE [LANTus] (100 UNITS/ML) SYG SC (21:45)
[2019-02-06] MEDS: ATORVASTATIN 40 MG TAB PO (21:47)
[2019-02-07] MEDS: LEVOTHYROXINE 50 MCG TAB PO (06:17)
[2019-02-07] MEDS: INSULIN ASPART [NOVOLOG] 3 ML PEN SC ×4 (08:00→21:52)
[2019-02-07] MEDS: DOCUSATE SODIUM 100 MG CAP PO ×2 (08:45→21:46)
[2019-02-07] MEDS: FAMOTIDINE 20 MG TAB PO (08:45)
[2019-02-07] MEDS: ASPIRIN 81 MG TAB PO (08:45)
[2019-02-07] MEDS: GUAIFENESIN LA 600 MG TABSR PO ×2 (08:45→21:46)
[2019-02-07] MEDS: FEBUXOSTAT 40 MG TABLET PO (08:45)
[2019-02-07] MEDS: ASCORBIC ACID 500 MG TAB PO (08:45)
[2019-02-07] MEDS: PRASUGREL HYDROCHLORIDE 10 MG TABLET PO (08:45)
[2019-02-07] MEDS: FOLIC ACID 1 MG TAB PO (08:45)
[2019-02-07] MEDS: ZINC SULFATE 220 MG CAP PO (08:45)
[2019-02-07] MEDS: GABAPENTIN 100 MG CAP PO ×3 (08:46→21:53)
[2019-02-07] MEDS: POLYETHYLENE GLYCOL 3350 119 GM POWDER PO ×2 (09:00→13:54)
[2019-02-07] MEDS: POLYETHYLENE GLYCOL 17 GM PACKET PO (17:37)
[2019-02-07] MEDS: ATORVASTATIN 40 MG TAB PO (21:46)
[2019-02-07] MEDS: MUPIROCIN 2% 22 GM OINT TOP (21:49)
[2019-02-07] MEDS: INSULIN GLARGINE [LANTus] (100 UNITS/ML) SYG SC (21:52)
[2019-02-08] MEDS: LEVOTHYROXINE 50 MCG TAB PO (06:22)
[2019-02-08] MEDS: INSULIN ASPART [NOVOLOG] 3 ML PEN SC ×4 (08:00→22:17)
[2019-02-08] MEDS: POLYETHYLENE GLYCOL 17 GM PACKET PO (08:36)
[2019-02-08] MEDS: ASPIRIN 81 MG TAB PO (08:36)
[2019-02-08] MEDS: GABAPENTIN 100 MG CAP PO ×3 (08:36→22:16)
[2019-02-08] MEDS: FEBUXOSTAT 40 MG TABLET PO (08:37)
[2019-02-08] MEDS: PRASUGREL HYDROCHLORIDE 10 MG TABLET PO (08:37)
[2019-02-08] MEDS: GUAIFENESIN LA 600 MG TABSR PO ×2 (08:37→22:16)
[2019-02-08] MEDS: ZINC SULFATE 220 MG CAP PO (08:37)
[2019-02-08] MEDS: ASCORBIC ACID 500 MG TAB PO (08:38)
[2019-02-08] MEDS: DOCUSATE SODIUM 100 MG CAP PO ×2 (08:38→22:16)
[2019-02-08] MEDS: FAMOTIDINE 20 MG TAB PO (08:38)
[2019-02-08] MEDS: FOLIC ACID 1 MG TAB PO (08:38)
[2019-02-08] MEDS: MUPIROCIN 2% 22 GM OINT TOP ×2 (08:38→22:18)
[2019-02-08] MEDS: HYDROCODONE/APAP (5/325) TAB PO (11:37)
[2019-02-08 12:00] LABS: ADD MAN DIFF? NO
[2019-02-08 12:12] LABS: WHITE BLOOD COUNT 8.4 10^3/ul (4.8-10.8)
[2019-02-08 12:12] LABS: BASOPHIL # 0.1 10^3/ul (0.0-0.1); BASOPHILS % 0.7 % (0.0-2.0); EOSINOPHILS # 0.6 10^3/ul (0.0-0.5); EOSINOPHILS % 6.6 % (0.0-7.0); HEMATOCRIT 31.8 % (42.0-52.0); HEMOGLOBIN 10.4 g/dl (14.0-18.0); LYMPHOCYTES # 1.1 10^3/ul (0.8-2.9); LYMPHOCYTES % 13.4 % (15.0-51.0); MEAN CORPUSCULAR HEMOGLOBIN 29.3 pg (29.0-33.0); MEAN CORPUSCULAR HGB CONC 32.7 g/dl (32.0-37.0); MEAN CORPUSCULAR VOLUME 89.6 fl (82.0-101.0); MEAN PLATELET VOLUME 12.5 fl (7.4-10.4); NEUTROPHIL # 5.5 10^3/ul (1.6-7.5); NEUTROPHILS % 65.8 % (39.0-77.0); PLATELET COUNT 133 10^3/UL (140-415); RED BLOOD COUNT 3.55 10^6/ul (4.70-6.10)
[2019-02-08 12:28] LABS: ALANINE AMINOTRANSFERASE 20 IU/L (13-69); ALBUMIN 3.5 g/dl (3.3-4.9); ALKALINE PHOSPHATASE 97 IU/L (42-121); ANION GAP 12 (5-13); ASPARTATE AMINO TRANSFERASE 20 IU/L (15-46); BILIRUBIN,INDIRECT 0.4 mg/dl (0-1.1); BILIRUBIN,TOTAL 0.4 mg/dl (0.2-1.3); BLOOD UREA NITROGEN 38 mg/dl (7-20); CALCIUM 8.8 mg/dl (8.4-10.2); CARBON DIOXIDE 28 mmol/L (21-31); CHLORIDE 95 mmol/L (97-110); CREATININE 5.07 mg/dl (0.61-1.24); GLUCOSE 177 mg/dl (70-220); POTASSIUM 4.8 mmol/L (3.5-5.1); SODIUM 135 mmol/L (135-144); TOTAL PROTEIN 6.4 g/dl (6.1-8.1)
[2019-02-08] MEDS: ALBUMIN HUMAN 25% 100 ML IV (12:30)
[2019-02-08] MEDS: ATORVASTATIN 40 MG TAB PO (22:17)
[2019-02-08] MEDS: INSULIN GLARGINE [LANTus] (100 UNITS/ML) SYG SC (22:30)
[2019-02-09] MEDS: LEVOTHYROXINE 50 MCG TAB PO (06:40)
[2019-02-09] MEDS: INSULIN ASPART [NOVOLOG] 3 ML PEN SC ×4 (08:00→21:32)
[2019-02-09] MEDS: FOLIC ACID 1 MG TAB PO (08:29)
[2019-02-09] MEDS: PRASUGREL HYDROCHLORIDE 10 MG TABLET PO (08:29)
[2019-02-09] MEDS: GUAIFENESIN LA 600 MG TABSR PO ×2 (08:29→21:26)
[2019-02-09] MEDS: ASPIRIN 81 MG TAB PO (08:29)
[2019-02-09] MEDS: FAMOTIDINE 20 MG TAB PO (08:30)
[2019-02-09] MEDS: ZINC SULFATE 220 MG CAP PO (08:30)
[2019-02-09] MEDS: FEBUXOSTAT 40 MG TABLET PO (08:30)
[2019-02-09] MEDS: GABAPENTIN 100 MG CAP PO ×3 (08:30→21:26)
[2019-02-09] MEDS: DOCUSATE SODIUM 100 MG CAP PO ×2 (08:30→21:26)
[2019-02-09] MEDS: POLYETHYLENE GLYCOL 17 GM PACKET PO (08:31)
[2019-02-09] MEDS: ASCORBIC ACID 500 MG TAB PO (08:31)
[2019-02-09] MEDS: MUPIROCIN 2% 22 GM OINT TOP ×2 (08:32→21:33)
[2019-02-09] MEDS ORDERED: AMIODARONE 200 MG TAB GTB (09:00)
[2019-02-09] MEDS: AMIODARONE 200 MG TAB PO (09:20)
[2019-02-09] MEDS: HYDROCODONE/APAP (5/325) TAB PO (15:03)
[2019-02-09] MEDS: ALBUMIN HUMAN 25% 100 ML IV (15:12)
[2019-02-09] MEDS: ATORVASTATIN 20 MG TAB PO (21:26)
[2019-02-09] MEDS: INSULIN GLARGINE [LANTus] (100 UNITS/ML) SYG SC (21:32)
[2019-02-10] MEDS: LEVOTHYROXINE 50 MCG TAB PO (06:39)
[2019-02-10] MEDS: INSULIN ASPART [NOVOLOG] 3 ML PEN SC ×5 (08:00→21:00)
[2019-02-10] MEDS: DOCUSATE SODIUM 100 MG CAP PO ×2 (08:28→21:12)
[2019-02-10] MEDS: FOLIC ACID 1 MG TAB PO (08:28)
[2019-02-10] MEDS: ASPIRIN 81 MG TAB PO (08:28)
[2019-02-10] MEDS: ASCORBIC ACID 500 MG TAB PO (08:28)
[2019-02-10] MEDS: GABAPENTIN 100 MG CAP PO ×3 (08:28→21:12)
[2019-02-10] MEDS: ZINC SULFATE 220 MG CAP PO (08:28)
[2019-02-10] MEDS: FAMOTIDINE 20 MG TAB PO (08:29)
[2019-02-10] MEDS: GUAIFENESIN LA 600 MG TABSR PO ×2 (08:29→21:13)
[2019-02-10] MEDS: POLYETHYLENE GLYCOL 17 GM PACKET PO (08:29)
[2019-02-10] MEDS: FEBUXOSTAT 40 MG TABLET PO (08:29)
[2019-02-10] MEDS: PRASUGREL HYDROCHLORIDE 10 MG TABLET PO (08:30)
[2019-02-10] MEDS: AMIODARONE 200 MG TAB PO (08:31)
[2019-02-10] MEDS: HYDROCODONE/APAP (5/325) TAB PO (09:33)
[2019-02-10] MEDS: MUPIROCIN 2% 22 GM OINT TOP ×2 (09:33→21:16)
[2019-02-10] MEDS: ALBUMIN HUMAN 25% 100 ML IV (14:18)
[2019-02-10] MEDS: ATORVASTATIN 20 MG TAB PO (21:13)
[2019-02-10] MEDS: INSULIN GLARGINE [LANTus] (100 UNITS/ML) SYG SC (21:15)
[2019-02-11] MEDS: LEVOTHYROXINE 50 MCG TAB PO (06:19)
[2019-02-11] MEDS: INSULIN ASPART [NOVOLOG] 3 ML PEN SC ×4 (07:52→21:31)
[2019-02-11] MEDS: ZINC SULFATE 220 MG CAP PO (08:44)
[2019-02-11] MEDS: FAMOTIDINE 20 MG TAB PO (08:44)
[2019-02-11] MEDS: FOLIC ACID 1 MG TAB PO (08:44)
[2019-02-11] MEDS: FEBUXOSTAT 40 MG TABLET PO (08:44)
[2019-02-11] MEDS: DOCUSATE SODIUM 100 MG CAP PO ×2 (08:44→21:27)
[2019-02-11] MEDS: ASCORBIC ACID 500 MG TAB PO (08:45)
[2019-02-11] MEDS: PRASUGREL HYDROCHLORIDE 10 MG TABLET PO (08:45)
[2019-02-11] MEDS: ASPIRIN 81 MG TAB PO (08:45)
[2019-02-11] MEDS: GABAPENTIN 100 MG CAP PO ×3 (08:45→21:27)
[2019-02-11] MEDS: GUAIFENESIN LA 600 MG TABSR PO ×2 (08:45→21:26)
[2019-02-11] MEDS: POLYETHYLENE GLYCOL 17 GM PACKET PO (08:46)
[2019-02-11] MEDS: AMIODARONE 200 MG TAB PO (08:46)
[2019-02-11] MEDS: MUPIROCIN 2% 22 GM OINT TOP ×2 (08:47→21:26)
[2019-02-11] MEDS: ATORVASTATIN 20 MG TAB PO (21:26)
[2019-02-11] MEDS: INSULIN GLARGINE [LANTus] (100 UNITS/ML) SYG SC (21:30)
[2019-02-12 05:18] LABS: ADD MAN DIFF? NO
[2019-02-12 05:20] LABS: BASOPHIL # 0.1 10^3/ul (0.0-0.1); BASOPHILS % 0.6 % (0.0-2.0); EOSINOPHILS # 0.4 10^3/ul (0.0-0.5); EOSINOPHILS % 5.3 % (0.0-7.0); HEMATOCRIT 31.5 % (42.0-52.0); LYMPHOCYTES # 1.6 10^3/ul (0.8-2.9); LYMPHOCYTES % 19.9 % (15.0-51.0); MEAN CORPUSCULAR HEMOGLOBIN 29.2 pg (29.0-33.0); MEAN CORPUSCULAR HGB CONC 31.7 g/dl (32.0-37.0); MEAN CORPUSCULAR VOLUME 91.8 fl (82.0-101.0); MEAN PLATELET VOLUME 12.6 fl (7.4-10.4); MONOCYTE # 1.3 10^3/ul (0.3-0.9); MONOCYTES % 15.6 % (0.0-11.0); NEUTROPHIL # 4.7 10^3/ul (1.6-7.5); NEUTROPHILS % 57.4 % (39.0-77.0); PLATELET COUNT 135 10^3/UL (140-415); RED BLOOD COUNT 3.43 10^6/ul (4.70-6.10); RED CELL DISTRIBUTION WIDTH 16.2 % (11.5-14.5)
[2019-02-12 05:20] LABS: WHITE BLOOD COUNT 8.1 10^3/ul (4.8-10.8)
[2019-02-12 06:18] LABS: ALANINE AMINOTRANSFERASE 12 IU/L (13-69); ALBUMIN/GLOBULIN RATIO 1.48; ALKALINE PHOSPHATASE 83 IU/L (42-121); ANION GAP 13 (5-13); ASPARTATE AMINO TRANSFERASE 19 IU/L (15-46); BILIRUBIN,INDIRECT 0.4 mg/dl (0-1.1); BILIRUBIN,TOTAL 0.4 mg/dl (0.2-1.3); BLOOD UREA NITROGEN 39 mg/dl (7-20); CALCIUM 9.5 mg/dl (8.4-10.2); CARBON DIOXIDE 29 mmol/L (21-31); CHLORIDE 98 mmol/L (97-110); GLUCOSE 117 mg/dl (70-220); PHOSPHORUS 5.5 mg/dl (2.5-4.9); POTASSIUM 4.5 mmol/L (3.5-5.1); SODIUM 140 mmol/L (135-144); TOTAL PROTEIN 6.7 g/dl (6.1-8.1)
[2019-02-12] MEDS: LEVOTHYROXINE 50 MCG TAB PO (06:26)
[2019-02-12] MEDS: INSULIN ASPART [NOVOLOG] 3 ML PEN SC ×2 (08:00→12:00)
[2019-02-12] MEDS: PRASUGREL HYDROCHLORIDE 10 MG TABLET PO (08:37)
[2019-02-12] MEDS: ZINC SULFATE 220 MG CAP PO (08:38)
[2019-02-12] MEDS: FOLIC ACID 1 MG TAB PO (08:38)
[2019-02-12] MEDS: GUAIFENESIN LA 600 MG TABSR PO (08:38)
[2019-02-12] MEDS: GABAPENTIN 100 MG CAP PO ×2 (08:38→12:35)
[2019-02-12] MEDS: AMIODARONE 200 MG TAB PO (08:38)
[2019-02-12] MEDS: ASPIRIN 81 MG TAB PO (08:38)
[2019-02-12] MEDS: DOCUSATE SODIUM 100 MG CAP PO (08:38)
[2019-02-12] MEDS: FEBUXOSTAT 40 MG TABLET PO (08:38)
[2019-02-12] MEDS: FAMOTIDINE 20 MG TAB PO (08:39)
[2019-02-12] MEDS: ASCORBIC ACID 500 MG TAB PO (08:39)
[2019-02-12] MEDS: POLYETHYLENE GLYCOL 17 GM PACKET PO (08:40)
[2019-02-12] MEDS: MUPIROCIN 2% 22 GM OINT TOP (08:41)
== END 2019-02-12 16:01 | disposition home or self-care (01) | DRG 291 ==
LOC: E/R 14:27 → 2NE 15:47
PROC: 0W9B3ZX Drainage of Left Pleural Cavity, Percutaneous Approach, Diagnostic (ICD-10-PCS; principal; 2019-02-05)
PROC: 0W9B3ZZ Drainage of Left Pleural Cavity, Percutaneous Approach (ICD-10-PCS; 2019-02-06)
PROC: 5A1D70Z Performance of Urinary Filtration, Intermittent, Less than 6 Hours Per Day (ICD-10-PCS; 2019-02-06)
DX: I13.0 Hypertensive heart and chronic kidney disease with heart failure and stage 1 through stage 4 chronic kidney disease, or unspecified chronic kidney disease (principal); N18.6 End stage renal disease; J90 Pleural effusion, not elsewhere classified; I45.2 Bifascicular block; I50.9 Heart failure, unspecified; E11.22 Type 2 diabetes mellitus with diabetic chronic kidney disease; E11.42 Type 2 diabetes mellitus with diabetic polyneuropathy; E11.21 Type 2 diabetes mellitus with diabetic nephropathy; I25.5 Ischemic cardiomyopathy; D63.1 Anemia in chronic kidney disease; Z99.2 Dependence on renal dialysis; I25.10 Atherosclerotic heart disease of native coronary artery without angina pectoris; F17.200 Nicotine dependence, unspecified, uncomplicated; K21.9 Gastro-esophageal reflux disease without esophagitis; E78.5 Hyperlipidemia, unspecified; E03.9 Hypothyroidism, unspecified; M10.9 Gout, unspecified; R09.02 Hypoxemia; Z79.4 Long term (current) use of insulin; Z95.5 Presence of coronary angioplasty implant and graft; I25.2 Old myocardial infarction; I48.0 Paroxysmal atrial fibrillation; Z85.46 Personal history of malignant neoplasm of prostate; H35.30 Unspecified macular degeneration; Z86.73 Personal history of transient ischemic attack (TIA), and cerebral infarction without residual deficits
CPT/HCPCS: 32555; 36415; 71045; 80048; 80053; 82042; 82962; 83036; 83615; 84100; 84484; 85025; 85610; 85730; 87081; 87340; 88104; 88305; 90935; 93005; 93306; 97110; 97116; 97163; 97530; 99285-25